=== PATIENT | female | born 1960 | race Two or more races ===

== ENCOUNTER → 2016-12-09 | Outpatient (CLI) | payer OTHER ==
[~2016-12-09] MED LIST: ATEN50TA2 PO; EPIP0.3I2 INJ; MEGE20TA PO; PERC5TAB6 PO; REST0.05 OU; SIMV20TA2 PO; VICO5TAB16 PO
--- NOTE | 2016-12-17 00:32 | ECWPNPC ---
PATIENT NAME: ARACELIS AMAYA : 1960 GENDER: FEMALE VISIT DATE: 12/09/2016 DISCHARGE DATE: 12/09/16 1244 VISIT LOCKED DATE TIME: PHYSICIAN: FILIBERTO LEIVA RESOURCE: FILIBERTO LEIVA REASON FOR APPOINTMENT 1. LEFT SHOULDER HISTORY OF PRESENT ILLNESS NEW PATIENT CONSULT: WHEN DID YOUR PAIN FIRST START? . BRIEFLY DESCRIBE HOW YOUR PAIN STARTED? . HOW DOES YOUR PAIN CHANGE WITH TIME? . DOES YOUR PAIN AWAKEN YOU FROM SLEEP? . HOW MANY HOURS OF SLEEP DO YOU NORMALLY GET? . ANY DIAGNOSTIC TESTING? . FACILITY WHERE TESTS WERE DONE? ____. PAIN TREATMENT TREATMENT YES CANCER HAVE YOU EVER HAD ANY TYPE OF CANCER?NO NO. 56Y/O FEMALE HERE PER REFERRAL OF [facility].FELL IN APRIL 19 DOWN STAIRS AND WAS SURGICALLY TREATED W LEFT SHOULDER REPLACEMENT ON AN URGENT BASIS.UNFORTUNATLEY FIRST SURGERY DIDNT TAKE AND PATIENT WAS REFERRED TO [facility] IN MARCH WHERE SHE HAD ANOTHER SURGERY WITH DR. ANDRADE.HAVING LESS SHOULDER AND ARM PAIN SINCE SURGERY BUT CONTINUES WITH LEFT UPPER ARM AND SHOULDER PAIN.DESCRIBES PAIN CONSTANT ACHING WITH INTERMITTENT THROBBING PAIN ECSPECIALLY AT NIGHT.RATING PAIN VAS 7/10.CURRENTLY DOING HOME PT.SLOWLY GAININGG ABILITY TO DO ADL'S IE ZIPPING PAINTS AND COMBING HAIR.DENIES RECENT FEVER OR SUDDEN WEIGHT LOSS.DENIES BOWEL OR BLADDER INCONTINENCE. PAIN SCREENING: PATIENT HAS A COMPLAINT OF ACUTE OR CHRONIC PAIN YES FALL RISK SCREENING: SCREENING :NO FALLS IN THE PAST YEAR LARSEN INVENTORY: QUESTIONNAIRE ASSESSEDTBD SCORE VALUE CALCULATED TBD CURRENT MEDICATIONS TAKING MEGESTROL ACETATE 20 MG TABLET 1 TABLET ORALLY DAILY TAKING SIMVASTATIN 20 MG TABLET 1 TABLET IN THE EVENING ORALLY ONCE A DAY TAKING ATENOLOL 50 MG TABLET 1 TABLET ORALLY ONCE A DAY TAKING IBUPROFEN 2 TABS ORAL 3 TIMES A DAY NEEDED TAKING PROZAC 40 MG CAPSULE 1 CAPSULE IN THE MORNING ORALLY ONCE A DAY TAKING LORAZEPAM 1 MG TABLET ORAL ONCE A DAY IF NEEDED MEDICATION LIST REVIEWED AND RECONCILED WITH THE PATIENT PAST MEDICAL HISTORY HYPERTENSION ELEVATED CHOLESTEROL ARTHRITIS NERVE STIMULATOR IMPLANT FOR BOWEL CONTROL ALLERGIES BEE STINGS: SWELLING: ALLERGY SULFA (FOR ALLERGY USE ONLY): DON'T FEEL RIGHT: ALLERGY AUGMENTIN: BLACK STOOL: ALLERGY PLAQUENIL: DIARRHEA: ALLERGY SURGICAL HISTORY LEFT BROKEN SHOULDER WITH REPAIR 04/21/2016 REVERSE TOTAL LEFT SHOULDER REPLACEMENT 05/19/2016 SACIAL NERVE STIMULATOR IMPLANT FOR BOWEL CONTROL 01/30/2012 FAMILY HISTORY FATHER: ALIVE MOTHER: , DIAGNOSED WITH CANCER 2 SON(S) . 1 SON WITH 2 HEART OPERATIONS. SOCIAL HISTORY GENERAL: PAIN CLINIC PFS, CLERGY, PUBLIC HEALTH REFERRALS PFS REFERRAL NEEDED?NO CLERGY REFERRAL NEEDED?NO PUBLIC HEALTH REFERRAL NEEDED?NO WAS THE PROVIDER NOTIFIED OF ANY PERTINENT INFO?NO PSYCHOLOGICAL HX TREATMENTNO ALCOHOL OR DRUG TREATMENTNO PATIENT: DENIES ABUSE OR MISUSE OF ANY MEDICATION, DENIES RECREATIONAL DRUG USE, DENIES USE OF ANY ILLEGAL SUBSTANCE INCLUDING MARIJUANA OR COCAINE. ADVANCED DIRECTIVES HEALTH CARE PROXY?NO POWER OF COLOR TESTER?NO SCREENING/ASSESSMENT TOOL NUTRITION ASSESSEDYES ARE YOU ON ANY SPECIAL DIET?NO ANY SIGNIFICANT CHANGES RELATED TO EATING, WEIGHT GAIN/LOSS, OR BOWEL HABITS?NO IF YES, IS YOUR PRIMARY CARE PROVIDER AWARE OF THIS?NO SPECIAL NEEDS GLASSES: NO , WALKER: NO , REFERRALS NEEDED: NO , LEVEL OF CARE? SELF , DENTURES: NO , WHEELCHAIR: NO , HEARING AIDS: NO , CANE: NO , CONTACTS: NO . TOBACCO USE ARE YOU A:NONSMOKER CAFFEINE CAFFEINE USE?YES HOW OFTEN AND HOW MUCH? 1 CUP COFFEE/DAY SOMETIMES RECREATIONAL DRUG USE DRUG USE?NO PATIENT DENIES ABUSE OR MISSUSED OF ANY MEDICATION. PATIENT DENIES USE OF ANY ILLEGAL SUBSTANCE INCLUDING MARIJUANA OR COCAINE. REVIEW OF SYSTEMS CONSTITUTIONAL: ANY CHANGE IN YOUR MEDICAL CONDITION? NO . RECENT ILLNESS DENIES . CHILLS NO . FEVER NO . WEIGHT LOSS DENIES . INFECTION: DO YOU HAVE NEW INFECTIONS? NO . DO YOU HAVE HISTORY OF MRSA? NO . MUSCULOSKELETAL: ANY NEW PATTERNS OF PAIN OR NUMBNESS? NO . SYTEMIC LUPUS NO . GASTROENTEROLOGY: ANY NEW CHANGE IN BOWEL CONTROL? NO . BARRETTS ESOPHAGUS NO . CIRRHOSIS NO . HEPATITIS NO . LIVER FAILURE NO . ACID REFLUX NO . UNEXPLAINED WEIGHT LOSS NO . GENITOURINARY: ANY NEW CHANGE IN BLADDER CONTROL? NO . IS THERE A CHANCE YOU COULD BE ? NO . HEMATOLOGY/LYMPH: DO YOU TAKE ANY BLOOD THINNERS? (FOR EXAMPLE- COUMADIN, PLAVIX, AGGRENOX, PLATEL, PRADAXA, OR XARELTO) NO . WHEN WAS YOUR LAST DOSE? DATE: TIME: . LOW PLATELET COUNT NO . SICKLE CELL DISEASE NO . VON WILLIEBRANDS NO . FACTOR V LEIDEN NO . THALLASEMIA NO . ANEMIA NO . EASY BRUISING NO . NEUROLOGY: HAVE YOU FALLEN IN THE PAST 6 MONTHS? YES, FELL OVER PET . ANY NEW EXTREMITY NUMBNESS OR WEAKNESS? NO . HEAD INJURY NO . DEMENTIA NO . CEREBRAL PALSY NO . MULTIPLE SCLEROSIS NO . DIZZINESS NO . HEADACHE NO . STROKES NO . VERTIGO NO . CARDIOLOGY: DO YOU HAVE A PACEMAKER OR DEFIBRILLATOR? NO . ANGINA NO . HEART ATTACK NO . HEART SURGERY NO . CONGESTIVE HEART FAILURE/FLUID OVERLOAD NO . CHEST PAIN NO, DENIES . HIGH BLOOD PRESSURE ON MEDICATION(S) . IRREGULAR HEART BEAT NO . SHORTNESS OF BREATH DENIES . RESPIRATORY: HAVE YOU BEEN SICK IN THE PAST WEEK? NO . FEVER NO . FLU LIKE SYMPTOMS? NO . CPAP NO . BYPAP NO . ASTHMA NO . EMPHYSEMA NO . CHRONIC LUNG DISEASES NO . SHORTNESS OF BREATH ON EXERTION NO . DO YOU USE ANY TYPE OF TOBACCO (SMOKE, SMOKELESS, CHEW)? NO . COUGH NO, DENIES . SHORTNESS OF BREATH DENIES . SNORING NO . INTEGUMENTARY: DO YOU HAVE ANY RASHES OR OPEN SORES? NO . ALLERGIC/IMMUNO: ARE YOU ALLERGIC TO SHELLFISH OR IV DYE? NO . ANY NEW ALLERGIES? NO . PSYCHIATRIC: DO YOU HAVE THOUGHTS OF HURTING YOURSELF OR SOMEONE ELSE? NO . ARE YOU ABUSED, NEGLECTED, OR IN AN UNSAFE ENVIRONMENT? NO . ENDOCRINOLOGY: ARE YOU DIABETIC? NO . THYROID DISORDER NO . OTHER: DO YOU NEED ANY PRESCRIPTIONS? NO . IF YES, PLEASE LIST: ____ . ANY NEW PROBLEMS WITH YOUR MEDICATIONS? NO . WHEN DID YOU LAST EAT? ____ . WHEN DID YOU LAST DRINK? ____ . WHAT DID YOU LAST DRINK? ____ . NAME OF PERSON DRIVING YOU HOME? ____ . DO YOU HAVE ANY OTHER QUESTIONS OR CONCERNS NO . REVIEWED BY: PROVIDER: FILIBERTO GRUBBS . VITAL SIGNS WT 194.2 LBS, HT 69 IN, BMI 28.68 INDEX, BP 194.2 MM HG, HR 73 /MIN, RR 18 /MIN, TEMP 98.0 F, OXYGEN SAT % 98%, NA INITIALS SC 11:30, REVIEWED BY: CS. EXAMINATION SHOULDER / UPPER ARM: INSPECTION:LEFT SHOULDER WELL HEALED SURGICAL SCAR NOTED. TENDERNESS WITH PALPATION OVER LEFT SHOULDER.. RANGE OF MOTION:FROM-MILD DISCOMFORT. STRENGTH:2/4 BILAT.. GENERAL EXAMINATION: LUNGS:LUNG SOUNDS ARE CLEAR. HEART:HEART RATE REGULAR. ASSESSMENTS PAIN IN LEFT SHOULDER - M25.512 (PRIMARY) CHRONIC POST-OPERATIVE PAIN - G89.28 CHRONIC PRESCRIPTION OPIATE USE - Z79.891 TREATMENT PAIN IN LEFT SHOULDER START AMITRIPTYLINE HCL TABLET, 25 MG, 1 TABLET, ORALLY, ONCE A DAY AT BEDTIME, 30 DAY(S), 30, REFILLS 2 START PERCOCET TABLET, 5-325 MG, 1 TABLET NEEDED, ORALLY, EVERY 6 HRS PRN PAIN MDD3, 30 DAY(S), 30, REFILLS 0 NOTES: ISTOP REGISTRY REVIEWED . RISKS AND BENEFITS OF NARCOTIC/OPIOD MEDICATIONS WERE REVIEWED WITH PATIENT - THIS INCLUDES BUT IS NOT LIMITED TO RISK OF DEPENDANCE/DEVELOPMENT OF ADDICTION, MOOD DISTURBANCE AND DEPRESSION, OSTEOPOROSIS, HORMONAL AND LABIDAL CHANGES, RESPIRATORY DEPRESSION AND . PATIENT IS ADVISED NOT TO DRIVE WHILE ON THESE MEDICATIONSINFORMATION GIVEN ABOUT AMITRIPTYLINE AND PERCOCET.. NARCOTIC AGREEMENT SIGNED PER ORDER. PROCEDURE CODES FA211 ESTABILISHED PATIENT [facility] CHARGE DISPOSITION & COMMUNICATION FOLLOW UP 4 WEEKS ELECTRONICALLY SIGNED BY HUMERA JAIMES ON 12/16/2016 AT 02:14 PM EDT DISCLAIMER : THIS IS A VISIT SUMMARY EXTRACTED FROM THE [employer] CHART. IT IS NOT A COPY OF THE [employer] PROGRESS NOTE. ERICK
== END ==
LOC: M PAIN 11:20
PROVIDERS: ATTEND Nurse Practitioner Family
DX: G89.29 Other chronic pain (principal); M25.512 Pain in left shoulder; G89.28 Other chronic postprocedural pain; I10 Essential (primary) hypertension; E78.00 Pure hypercholesterolemia, unspecified; M19.90 Unspecified osteoarthritis, unspecified site; Z91.030 Bee allergy status; Z88.2 Allergy status to sulfonamides; Z88.5 Allergy status to narcotic agent; Z88.8 Allergy status to other drugs, medicaments and biological substances; Z79.1 Long term (current) use of non-steroidal anti-inflammatories (NSAID); Z79.899 Other long term (current) drug therapy; Z97.8 Presence of other specified devices

== ENCOUNTER → 2017-01-06 | Outpatient (CLI) | payer OTHER ==
--- NOTE | 2017-01-07 01:50 | ECWPNPC ---
PATIENT NAME: ARACELIS AMAYA : 1960 GENDER: FEMALE VISIT DATE: 01/06/2017 DISCHARGE DATE: 01/06/17 1011 VISIT LOCKED DATE TIME: PHYSICIAN: FILIBERTO LEIVA RESOURCE: FILIBERTO LEIVA REASON FOR APPOINTMENT 1. LEFT SHOULDER HISTORY OF PRESENT ILLNESS HISTORY OF PRESENT ILLNESS: HERE FOR F/UAND MANAGEMENT OF PERSISTENT LEFT SHOULDER PAIN POST MULTIPLE SURGERIES .STARTED ON PEROCET 5/325 Q6H PRN AND AMITRIPTYLINE 25MG AT HS AT INITIAL VISIT LAST MONTH.REPORTS IMPROVEMENT IN SLEEP WITH AMITRIPTYLINE 25MG AT HS.RAN OUT OF PERCOCET 5/325 LAST WEEK AND STATES SHE STARTED A JOB AND IS HAVING INCREASE IN PAIN .HAS BEEN TAKING ONE PERCOCET IN AM PRIOR TO WORK.DISCUSSED COCNCERNS OF TAKING HYDROCODONE 5/325 DAILY.INFORMED HER THAT WE DONT WANT HER TO TAKE NARCOTICS FOR LONG PERIODS OF TIME MAYBE 3-4 MORE MONTHS AND NOT TO TAKE IN ANTICIPATION OF PAIN.SHE ALSO HAS TO CONSIDER DOING LESS STRENUOUS JOB.CONTINUES WITH DAILY STRENTHENING EXCERSISE.RATING PAIN VAS 4/10. FALL RISK SCREENING: SCREENING :NO FALLS IN THE PAST YEAR CURRENT MEDICATIONS TAKING AMITRIPTYLINE HCL 25 MG TABLET 1 TABLET ORALLY ONCE A DAY AT BEDTIME TAKING PERCOCET 5-325 MG TABLET 1 TABLET NEEDED ORALLY EVERY 6 HRS PRN PAIN MDD3 TAKING MEGESTROL ACETATE 20 MG TABLET 1 TABLET ORALLY DAILY TAKING SIMVASTATIN 20 MG TABLET 1 TABLET IN THE EVENING ORALLY ONCE A DAY TAKING ATENOLOL 50 MG TABLET 1 TABLET ORALLY ONCE A DAY TAKING IBUPROFEN 2 TABS ORAL 3 TIMES A DAY NEEDED TAKING PROZAC 40 MG CAPSULE 1 CAPSULE IN THE MORNING ORALLY ONCE A DAY TAKING LORAZEPAM 1 MG TABLET ORAL ONCE A DAY IF NEEDED MEDICATION LIST REVIEWED AND RECONCILED WITH THE PATIENT PAST MEDICAL HISTORY HYPERTENSION ELEVATED CHOLESTEROL ARTHRITIS NERVE STIMULATOR IMPLANT FOR BOWEL CONTROL ALLERGIES BEE STINGS: SWELLING: ALLERGY SULFA (FOR ALLERGY USE ONLY): DON'T FEEL RIGHT: ALLERGY AUGMENTIN: BLACK STOOL: ALLERGY PLAQUENIL: DIARRHEA: ALLERGY SOCIAL HISTORY GENERAL: PAIN CLINIC PFS, CLERGY, PUBLIC HEALTH REFERRALS CLERGY REFERRAL NEEDED?NO WAS THE PROVIDER NOTIFIED OF ANY PERTINENT INFO?NO PFS REFERRAL NEEDED?NO PUBLIC HEALTH REFERRAL NEEDED?NO CLERGY REFERRAL NEEDED?NO WAS THE PROVIDER NOTIFIED OF ANY PERTINENT INFO?NO PFS REFERRAL NEEDED?NO PUBLIC HEALTH REFERRAL NEEDED?NO PATIENT: ____, ____. REVIEW OF SYSTEMS CONSTITUTIONAL: ANY CHANGE IN YOUR MEDICAL CONDITION? NO . CHILLS NO . FEVER NO . INFECTION: DO YOU HAVE NEW INFECTIONS? NO . DO YOU HAVE HISTORY OF MRSA? NO . MUSCULOSKELETAL: ANY NEW PATTERNS OF PAIN OR NUMBNESS? NO . GASTROENTEROLOGY: ANY NEW CHANGE IN BOWEL CONTROL? NO . GENITOURINARY: ANY NEW CHANGE IN BLADDER CONTROL? NO . IS THERE A CHANCE YOU COULD BE ? NO . HEMATOLOGY/LYMPH: DO YOU TAKE ANY BLOOD THINNERS? (FOR EXAMPLE- COUMADIN, PLAVIX, AGGRENOX, PLATEL, PRADAXA, OR XARELTO) NO . WHEN WAS YOUR LAST DOSE? DATE: TIME: . NEUROLOGY: HAVE YOU FALLEN IN THE PAST 6 MONTHS? NO . ANY NEW EXTREMITY NUMBNESS OR WEAKNESS? NO . CARDIOLOGY: DO YOU HAVE A PACEMAKER OR DEFIBRILLATOR? NO . RESPIRATORY: HAVE YOU BEEN SICK IN THE PAST WEEK? NO . FEVER NO . FLU LIKE SYMPTOMS? NO . COUGH NO . INTEGUMENTARY: DO YOU HAVE ANY RASHES OR OPEN SORES? NO . ALLERGIC/IMMUNO: ARE YOU ALLERGIC TO SHELLFISH OR IV DYE? NO . ANY NEW ALLERGIES? NO . PSYCHIATRIC: DO YOU HAVE THOUGHTS OF HURTING YOURSELF OR SOMEONE ELSE? NO . ARE YOU ABUSED, NEGLECTED, OR IN AN UNSAFE ENVIRONMENT? NO . ENDOCRINOLOGY: ARE YOU DIABETIC? NO . OTHER: DO YOU NEED ANY PRESCRIPTIONS? YES PAIN MEDICAITON . IF YES, PLEASE LIST: ____ . ANY NEW PROBLEMS WITH YOUR MEDICATIONS? NO . WHEN DID YOU LAST EAT? ____ . WHEN DID YOU LAST DRINK? ____ . WHAT DID YOU LAST DRINK? ____ . NAME OF PERSON DRIVING YOU HOME? ____ . DO YOU HAVE ANY OTHER QUESTIONS OR CONCERNS NO . REVIEWED BY: PROVIDER: FILIBERTO GRUBBS . VITAL SIGNS WT 197.8 LBS, HT 69 IN, BMI 29.21 INDEX, BP 152/88 MM HG, HR 114 /MIN, RR 18 /MIN, TEMP 97.6 F, OXYGEN SAT % 96, NA INITIALS AW 0941. EXAMINATION SHOULDER / UPPER ARM: INSPECTION:LEFT SHOULDER WELL HEALED SURGICAL SCAR NOTED. TENDERNESS WITH PALPATION OVER LEFT SHOULDER.. RANGE OF MOTION:FROM-MILD DISCOMFORT. STRENGTH:2/4 BILAT.. GENERAL EXAMINATION: LUNGS:LUNG SOUNDS ARE CLEAR. HEART:HEART RATE REGULAR. ASSESSMENTS PAIN IN LEFT SHOULDER - M25.512 (PRIMARY) CHRONIC POST-OPERATIVE PAIN - G89.28 CHRONIC PRESCRIPTION OPIATE USE - Z79.891 TREATMENT PAIN IN LEFT SHOULDER REFILL AMITRIPTYLINE HCL TABLET, 25 MG, 1 TABLET, ORALLY, ONCE A DAY AT BEDTIME, 30 DAY(S), 30, REFILLS 2 INCREASE PERCOCET TABLET, 5-325 MG, 1 TABLET NEEDED, ORALLY, EVERY 6 HRS PRN PAIN MDD3, 30 DAY(S), 30, REFILLS 0 START PERCOCET TABLET, 5-325 MG, 1 TABLET NEEDED, ORALLY, EVERY 6 HRS MDD3, 30 DAY(S), 45, REFILLS 0 PROCEDURE CODES FA211 ESTABILISHED PATIENT [facility] CHARGE DISPOSITION & COMMUNICATION FOLLOW UP 2 MONTHS ELECTRONICALLY SIGNED BY HUMERA JAIMES ON 01/06/2017 AT 10:39 AM EDT DISCLAIMER : THIS IS A VISIT SUMMARY EXTRACTED FROM THE [employer] CHART. IT IS NOT A COPY OF THE [employer] PROGRESS NOTE. ERICK
== END ==
LOC: M PAIN 09:20
PROVIDERS: ATTEND Nurse Practitioner Family
DX: Z09 Encounter for follow-up examination after completed treatment for conditions other than malignant neoplasm (principal); G89.28 Other chronic postprocedural pain; M25.512 Pain in left shoulder; I10 Essential (primary) hypertension; E78.00 Pure hypercholesterolemia, unspecified; M19.90 Unspecified osteoarthritis, unspecified site; Z91.030 Bee allergy status; Z88.2 Allergy status to sulfonamides; Z88.1 Allergy status to other antibiotic agents; Z88.8 Allergy status to other drugs, medicaments and biological substances; Z79.1 Long term (current) use of non-steroidal anti-inflammatories (NSAID); Z79.899 Other long term (current) drug therapy

== ENCOUNTER → 2017-01-06 | Outpatient (CLI) | payer OTHER ==
[2017-01-06 11:01] LABS: BASO % 0.9 % (0.0-1.0); EOS # 0.2 K/mm3 (0.0-0.50); EOS % 4.2 % (0.0-3.0); LARGE UNSTAINED CELL # 0.1 K/mm3 (0.0-0.4); LARGE UNSTAINED CELL % 2.9 % (0.0-4.0); LYMPH % 45.6 % (24.0-44.0); MEAN CORPUSCULAR HEMOGLOBIN 32.4 pg (27.0-33.0); MEAN CORPUSCULAR HGB CONC 32.9 g/dl (32.0-36.5); MEAN CORPUSCULAR VOLUME 98.6 fl (80.0-96.0); MONO # 0.3 K/mm3 (0.0-0.8); MONO % 8.3 % (0.0-5.0); NEUTROPHILS # 1.6 K/mm3 (1.8-7.7); NEUTROPHILS % 38.1 % (36.0-66.0); PLATELET COUNT, AUTOMATED 245 k/mm3 (150-450); RED CELL DISTRIBUTION WIDTH 12.1 % (11.5-14.5); WHITE BLOOD COUNT 4.1 K/mm3 (4.0-10.0)
[2017-01-06 11:21] LABS: ALBUMIN 3.9 GM/DL (3.2-5.2); ALBUMIN/GLOBULIN RATIO 1.03 (1.00-1.93); ALKALINE PHOSPHATASE 89 U/L (45-117); ALT/SGPT 19 U/L (12-78); ANION GAP 7 MEQ/L (8-16); AST/SGOT 19 U/L (15-37); BILIRUBIN,TOTAL 0.3 MG/DL (0.2-1.0); BLOOD UREA NITROGEN 14 MG/DL (7-18); CALCIUM LEVEL 8.4 MG/DL (8.5-10.1); CARBON DIOXIDE LEVEL 28 MEQ/L (21-32); CHLORIDE LEVEL 110 MEQ/L (98-107); CHOLESTEROL LEVEL 177 MG/DL (<200); CREATININE FOR GFR 0.76 MG/DL (0.55-1.02); GLOMERULAR FILTRATION RATE > 60.0 (>51); GLUCOSE, FASTING 99 MG/DL (70-105); POTASSIUM SERUM 3.9 MEQ/L (3.5-5.1); SODIUM LEVEL 145 MEQ/L (136-145); TOTAL PROTEIN 7.7 GM/DL (6.4-8.2); TRIGLYCERIDES LEVEL 180 MG/DL (<150)
== END ==
LOC: M LAB 10:27
PROVIDERS: ATTEND Family Medicine
DX: Z00.00 Encounter for general adult medical examination without abnormal findings (principal)

== ENCOUNTER → 2017-03-09 | Outpatient (CLI) | payer OTHER ==
--- NOTE | 2017-03-11 01:11 | ECWPNPC ---
PATIENT NAME: ARACELIS AMAYA : 1960 GENDER: FEMALE VISIT DATE: 03/09/2017 DISCHARGE DATE: 03/09/17 1014 VISIT LOCKED DATE TIME: PHYSICIAN: FILIBERTO LEIVA RESOURCE: FILIBERTO LEIVA REASON FOR APPOINTMENT 1. LEFT SHOULDER HISTORY OF PRESENT ILLNESS HISTORY OF PRESENT ILLNESS: HERE FOR F/U OF PERSISTENT LEFT SHOULDER PAIN STATUS POST TWO SHOULDER SURGERIES IN MARCH AND APRIL 2016.INCREASE IN LEFT SHOULDER PAIN AFTER FALLING OFF BED 2 DAYS AGO.HAS BRUISING OVER LEFT ARM.RATING PAIN VAS 8/10.DESCRIBES PAIN ACHING AND THROBBING.PAIN IS AGGREVATED BY USE OF LEFT ARM.RELIEVED SOMEWHAT WITH HEAT OR ICE AND PERCOCET 5/325.USING 1 TAB IN AM AND ONE LATE AFTERNOON. PAIN THE PATIENT DESCRIBES THE PAIN... FALL RISK SCREENING: SCREENING :NO FALLS IN THE PAST YEAR CURRENT MEDICATIONS TAKING MEGESTROL ACETATE 20 MG TABLET 1 TABLET ORALLY DAILY TAKING SIMVASTATIN 20 MG TABLET 1 TABLET IN THE EVENING ORALLY ONCE A DAY TAKING ATENOLOL 50 MG TABLET 1 TABLET ORALLY ONCE A DAY TAKING IBUPROFEN 200 MGS 2 TABS ORAL 3 TIMES A DAY NEEDED TAKING LORAZEPAM 1 MG TABLET ORAL ONCE A DAY IF NEEDED TAKING PERCOCET 5-325 MG TABLET 1 TABLET NEEDED ORALLY Q6-8H PRN MDD3-THIS MUST LAST PATIENT 30 DAYS TAKING AMITRIPTYLINE HCL 25 MG TABLET 1 TABLET ORALLY ONCE A DAY AT BEDTIME NOT-TAKING PROZAC 40 MG CAPSULE 1 CAPSULE IN THE MORNING ORALLY ONCE A DAY DISCONTINUED PERCOCET 5-325 MG TABLET 1 TABLET NEEDED ORALLY EVERY 6 HRS PRN PAIN MDD3 MEDICATION LIST REVIEWED AND RECONCILED WITH THE PATIENT PAST MEDICAL HISTORY HYPERTENSION ELEVATED CHOLESTEROL ARTHRITIS NERVE STIMULATOR IMPLANT FOR BOWEL CONTROL ALLERGIES BEE STINGS: SWELLING: ALLERGY SULFA (FOR ALLERGY USE ONLY): DON'T FEEL RIGHT: ALLERGY AUGMENTIN: BLACK STOOL: ALLERGY PLAQUENIL: DIARRHEA: ALLERGY REVIEW OF SYSTEMS CONSTITUTIONAL: ANY CHANGE IN YOUR MEDICAL CONDITION? NO . CHILLS NO . FEVER NO . INFECTION: DO YOU HAVE NEW INFECTIONS? NO . DO YOU HAVE HISTORY OF MRSA? NO . MUSCULOSKELETAL: ANY NEW PATTERNS OF PAIN OR NUMBNESS? YES, PAIN TOP OF LEFT SHOULDER AND LEFT ELBOW SINCE FALLING OUT OF BED ON SAT. . GASTROENTEROLOGY: ANY NEW CHANGE IN BOWEL CONTROL? NO . GENITOURINARY: ANY NEW CHANGE IN BLADDER CONTROL? NO . IS THERE A CHANCE YOU COULD BE ? NO . HEMATOLOGY/LYMPH: DO YOU TAKE ANY BLOOD THINNERS? (FOR EXAMPLE- COUMADIN, PLAVIX, AGGRENOX, PLATEL, PRADAXA, OR XARELTO) NO . WHEN WAS YOUR LAST DOSE? DATE: TIME: . NEUROLOGY: HAVE YOU FALLEN IN THE PAST 6 MONTHS? YES,SAT. FELL OUT OF BED. LEFT SHOULDER AND ELBOW NOW PAINFUL. MULTIPLE BRUISES ON ARM. SHE DID NOT GET SEEN FOR IT. STATED IT JUST STARTED HURTING YEST. . ANY NEW EXTREMITY NUMBNESS OR WEAKNESS? NO . CARDIOLOGY: DO YOU HAVE A PACEMAKER OR DEFIBRILLATOR? NO . RESPIRATORY: HAVE YOU BEEN SICK IN THE PAST WEEK? NO . FEVER NO . FLU LIKE SYMPTOMS? NO . COUGH NO . INTEGUMENTARY: DO YOU HAVE ANY RASHES OR OPEN SORES? NO . ALLERGIC/IMMUNO: ARE YOU ALLERGIC TO SHELLFISH OR IV DYE? NO . ANY NEW ALLERGIES? NO . PSYCHIATRIC: DO YOU HAVE THOUGHTS OF HURTING YOURSELF OR SOMEONE ELSE? NO . ARE YOU ABUSED, NEGLECTED, OR IN AN UNSAFE ENVIRONMENT? NO . ENDOCRINOLOGY: ARE YOU DIABETIC? NO . OTHER: DO YOU NEED ANY PRESCRIPTIONS? YES . IF YES, PLEASE LIST: PERCOCET . ANY NEW PROBLEMS WITH YOUR MEDICATIONS? NO . WHEN DID YOU LAST EAT? ____ . WHEN DID YOU LAST DRINK? ____ . WHAT DID YOU LAST DRINK? ____ . NAME OF PERSON DRIVING YOU HOME? ____ . DO YOU HAVE ANY OTHER QUESTIONS OR CONCERNS NO . REVIEWED BY: PROVIDER: FILIBERTO RGUBBS . VITAL SIGNS WT 197.2 LBS, HT 69 IN, BMI 29.12 INDEX, BP 129/85 MM HG, HR 89 /MIN, RR 16 /MIN, TEMP 96.9 F, OXYGEN SAT % 98%, NA INITIALS TL 0947, REVIEWED BY: AD. EXAMINATION SHOULDER / UPPER ARM: INSPECTION:LEFT SHOULDER WELL HEALED SURGICAL SCAR NOTED. TENDERNESS WITH PALPATION OVER LEFT SHOULDER.. RANGE OF MOTION:FROM-MILD DISCOMFORT. STRENGTH:2/4 BILAT.. GENERAL EXAMINATION: LUNGS:LUNG SOUNDS ARE CLEAR. HEART:HEART RATE REGULAR. ASSESSMENTS PAIN IN LEFT SHOULDER - M25.512 (PRIMARY) CHRONIC PRESCRIPTION OPIATE USE - Z79.891 TREATMENT PAIN IN LEFT SHOULDER INCREASE PERCOCET TABLET, 5-325 MG, 1 TABLET NEEDED, ORALLY, 1-2 TAB QD MDD2, 30 DAY(S), 60, REFILLS 0 CONTINUE AMITRIPTYLINE HCL TABLET, 25 MG, 1 TABLET, ORALLY, ONCE A DAY AT BEDTIME, 90 DAY(S), 90, REFILLS 2 [facility] WAS NOTIFIED AT 1116 TO CANCEL PERCOCET PRESCRIPTION. PROCEDURE CODES FA211 ESTABILISHED PATIENT [facility] CHARGE DISPOSITION & COMMUNICATION FOLLOW UP 4 WEEKS ELECTRONICALLY SIGNED BY HUMERA JAIMES ON 03/09/2017 AT 01:17 PM EDT DISCLAIMER : THIS IS A VISIT SUMMARY EXTRACTED FROM THE [facility] CHART. IT IS NOT A COPY OF THE [facility] PROGRESS NOTE. ERICK
== END ==
LOC: M PAIN 09:00
PROVIDERS: ATTEND Nurse Practitioner Family
DX: M25.512 Pain in left shoulder (principal); Z79.891 Long term (current) use of opiate analgesic; Z91.030 Bee allergy status; Z88.2 Allergy status to sulfonamides; Z88.1 Allergy status to other antibiotic agents; Z88.8 Allergy status to other drugs, medicaments and biological substances

== ENCOUNTER → 2017-04-21 | Outpatient (REF) | payer OTHER ==
[~2017-04-21] MED LIST changes: +ALPR1TAB6 PO; +FLUO20CA8 PO; -MEGE20TA PO; +MEGE20TA3 PO; +PERC5TAB12 PO; -PERC5TAB6 PO
== END ==
LOC: M LAB REF 16:36
PROVIDERS: ATTEND Nurse Practitioner Women's Health
DX: N39.0 Urinary tract infection, site not specified (principal)

== ENCOUNTER → 2017-05-12 | Outpatient (CLI) | payer OTHER ==
--- NOTE | 2017-05-12 23:16 | ECWPNPC ---
PATIENT NAME: ARACELIS AMAYA : 1960 GENDER: FEMALE VISIT DATE: 05/12/2017 DISCHARGE DATE: 05/12/17 1342 VISIT LOCKED DATE TIME: PHYSICIAN: FILIBERTO LEIVA RESOURCE: FILIBERTO LEIVA REASON FOR APPOINTMENT 1. INCREASING SHOULDER PAIN HISTORY OF PRESENT ILLNESS HISTORY OF PRESENT ILLNESS: HERE FOR F/U OF PERSISTENT LEFT SHOULDER PAIN STATUS POST TWO SHOULDER SURGERIES IN MARCH AND APRIL 2016.INCREASE IN LEFT SHOULDER PAIN OVER THE PAST TWO WEEKS.DENIES PRECIPITATING EVENT.FINDING IT DIFFICULT TO DO HER WORK.RATING PAIN VAS 8/10.DESCRIBES PAIN ACHING AND THROBBING.PAIN IS AGGREVATED BY USE OF LEFT ARM.RELIEVED SOMEWHAT WITH HEAT OR ICE AND PERCOCET 5/325 PRN FOR SEVERE PAIN WHICH IS HELPFUL. PAIN THE PATIENT DESCRIBES THE PAIN... THE PATIENT DESCRIBES THE PAIN... FALL RISK SCREENING: SCREENING :NO FALLS IN THE PAST YEAR CURRENT MEDICATIONS TAKING MEGESTROL ACETATE 20 MG TABLET 1 TABLET ORALLY DAILY TAKING SIMVASTATIN 20 MG TABLET 1 TABLET IN THE EVENING ORALLY ONCE A DAY TAKING ATENOLOL 50 MG TABLET 1 TABLET ORALLY ONCE A DAY TAKING IBUPROFEN 200 MGS 2 TABS ORAL 3 TIMES A DAY NEEDED TAKING LORAZEPAM 1 MG TABLET ORAL ONCE A DAY IF NEEDED TAKING AMITRIPTYLINE HCL 25 MG TABLET 1 TABLET ORALLY ONCE A DAY AT BEDTIME TAKING PERCOCET 5-325 MG TABLET 1 TABLET NEEDED ORALLY 1-2 TAB DAILY MDD2 NOT-TAKING PROZAC 40 MG CAPSULE 1 CAPSULE IN THE MORNING ORALLY ONCE A DAY MEDICATION LIST REVIEWED AND RECONCILED WITH THE PATIENT PAST MEDICAL HISTORY HYPERTENSION ELEVATED CHOLESTEROL ARTHRITIS NERVE STIMULATOR IMPLANT FOR BOWEL CONTROL ALLERGIES BEE STINGS: SWELLING: ALLERGY SULFA (FOR ALLERGY USE ONLY): DON'T FEEL RIGHT: ALLERGY AUGMENTIN: BLACK STOOL: ALLERGY PLAQUENIL: DIARRHEA: ALLERGY SURGICAL HISTORY LEFT BROKEN SHOULDER WITH REPAIR 04/21/2016 REVERSE TOTAL LEFT SHOULDER REPLACEMENT 05/19/2016 SACIAL NERVE STIMULATOR IMPLANT FOR BOWEL CONTROL 01/30/2012 SOCIAL HISTORY GENERAL: PAIN CLINIC PFS, CLERGY, PUBLIC HEALTH REFERRALS PFS REFERRAL NEEDED?NO CLERGY REFERRAL NEEDED?NO PUBLIC HEALTH REFERRAL NEEDED?NO WAS THE PROVIDER NOTIFIED OF ANY PERTINENT INFO?NO HAS THE PATIENT BEEN EDUCATED REGARDING HIS/HER PLAN OF CARE?YES HAS THE PATIENT BEEN EDUCATED REGARDING PAIN, THE RISK FOR PAIN, THE IMPORTANCE OF EFFECTIVE PAIN MANAGEMENT, AND THE PAIN ASSESSMENT PROCESS?YES PATIENT: ____, ____. REVIEW OF SYSTEMS REVIEWED BY: PROVIDER: FILIBERTO GRUBBS . CONSTITUTIONAL: ANY CHANGE IN YOUR MEDICAL CONDITION? NO . CHILLS NO . FEVER NO . INFECTION: DO YOU HAVE NEW INFECTIONS? NO . DO YOU HAVE HISTORY OF MRSA? NO . MUSCULOSKELETAL: ANY NEW PATTERNS OF PAIN OR NUMBNESS? NO . GASTROENTEROLOGY: ANY NEW CHANGE IN BOWEL CONTROL? NO . GENITOURINARY: ANY NEW CHANGE IN BLADDER CONTROL? NO . IS THERE A CHANCE YOU COULD BE ? NO . HEMATOLOGY/LYMPH: DO YOU TAKE ANY BLOOD THINNERS? (FOR EXAMPLE- COUMADIN, PLAVIX, AGGRENOX, PLATEL, PRADAXA, OR XARELTO) NO . WHEN WAS YOUR LAST DOSE? DATE: TIME: . NEUROLOGY: HAVE YOU FALLEN IN THE PAST 6 MONTHS? NO . ANY NEW EXTREMITY NUMBNESS OR WEAKNESS? NO . CARDIOLOGY: DO YOU HAVE A PACEMAKER OR DEFIBRILLATOR? NO.DENIES CHEST PAIN ,PALPITATIONS OR SOB. . RESPIRATORY: HAVE YOU BEEN SICK IN THE PAST WEEK? NO . FEVER NO . FLU LIKE SYMPTOMS? NO . COUGH NO . INTEGUMENTARY: DO YOU HAVE ANY RASHES OR OPEN SORES? NO . ALLERGIC/IMMUNO: ARE YOU ALLERGIC TO SHELLFISH OR IV DYE? NO . ANY NEW ALLERGIES? NO . PSYCHIATRIC: DO YOU HAVE THOUGHTS OF HURTING YOURSELF OR SOMEONE ELSE? NO . ARE YOU ABUSED, NEGLECTED, OR IN AN UNSAFE ENVIRONMENT? NO . ENDOCRINOLOGY: ARE YOU DIABETIC? NO . OTHER: DO YOU NEED ANY PRESCRIPTIONS? YES . IF YES, PLEASE LIST: OXYCODONE . ANY NEW PROBLEMS WITH YOUR MEDICATIONS? NO . WHEN DID YOU LAST EAT? ____ . WHEN DID YOU LAST DRINK? ____ . WHAT DID YOU LAST DRINK? ____ . NAME OF PERSON DRIVING YOU HOME? ____ . DO YOU HAVE ANY OTHER QUESTIONS OR CONCERNS NO . VITAL SIGNS WT 199 LBS, HT 69 IN, BMI 29.38 INDEX, BP 139/97 MM HG, REPEAT BP 154/106 MM HG, HR 130 /MIN, RR 16 /MIN, TEMP 97.0 F, OXYGEN SAT % 96%, NA INITIALS 44705/15/17 1250 HR 126. CM SINUS TACHYCARDIA. DENIES PALPITATIONS, CHEST PAIN, OR SOB. STATES DID NOT TAKE ATENOLOL THIS AM. Aure CHOWDHURY RN. EXAMINATION SHOULDER / UPPER ARM: INSPECTION:LEFT SHOULDER WELL HEALED SURGICAL SCAR NOTED. TENDERNESS WITH PALPATION OVER LEFT SHOULDER.. RANGE OF MOTION:FROM-MILD DISCOMFORT. STRENGTH:2/4 BILAT.. GENERAL EXAMINATION: LUNGS:LUNG SOUNDS ARE CLEAR. HEART:HEART RATE REGULAR. ASSESSMENTS PAIN IN LEFT SHOULDER - M25.512 (PRIMARY) CHRONIC PRESCRIPTION OPIATE USE - Z79.891 TREATMENT PAIN IN LEFT SHOULDER CONTINUE AMITRIPTYLINE HCL TABLET, 25 MG, 1 TABLET, ORALLY, ONCE A DAY AT BEDTIME REFILL PERCOCET TABLET, 5-325 MG, 1 TABLET NEEDED, ORALLY, 1-2 TAB DAILY MDD2, 30 DAY(S), 45, REFILLS 0 NOTES: ISTOP REGISTRY REVIEWED AND DEMNOSTRATES COMPLLIANCE. BRINGS IN MEDICATIONS WHICH IS APPROPRIATE FOR WHAT WAS DISPENSED. RECENT URINE TOXICOLOGY REVIEWED. NO UNAUTHORIZED MEDICATIONS. NO ILLICIT SUBSTANCES AND PRESCRIBED MEDICATIONS WERE PRESENT. , RISKS AND BENEFITS OF NARCOTIC/OPIOD MEDICATIONS WERE REVIEWED WITH PATIENT - THIS INCLUDES BUT IS NOT LIMITED TO RISK OF DEPENDANCE/DEVELOPMENT OF ADDICTION, MOOD DISTURBANCE AND DEPRESSION, OSTEOPOROSIS, HORMONAL AND LABIDAL CHANGES, RESPIRATORY DEPRESSION AND . PATIENT IS ADVISED NOT TO DRIVE WHILE ON THESE MEDICATIONS.URINE TOX TODAY. PROCEDURE CODES FA211 ESTABILISHED PATIENT [facility] CHARGE DISPOSITION & COMMUNICATION FOLLOW UP 6 WEEKS ELECTRONICALLY SIGNED BY HUMERA JAIMES ON 05/12/2017 AT 04:11 PM EDT DISCLAIMER : THIS IS A VISIT SUMMARY EXTRACTED FROM THE Travel Notes CHART. IT IS NOT A COPY OF THE Travel Notes PROGRESS NOTE. MTDD
== END ==
LOC: M PAIN 12:45
PROVIDERS: ATTEND Nurse Practitioner Family
DX: M25.512 Pain in left shoulder (principal); Z79.891 Long term (current) use of opiate analgesic; Z79.899 Other long term (current) drug therapy; Z91.030 Bee allergy status; Z88.2 Allergy status to sulfonamides; Z88.1 Allergy status to other antibiotic agents; Z88.8 Allergy status to other drugs, medicaments and biological substances

== ENCOUNTER 2017-06-25 21:09 | Emergency (ER) | payer OTHER ==
[~2017-06-25] VITALS: Ht 175.3 cm; Wt 86.4 kg
[~2017-06-25 21:09] MED LIST changes: -ALPR1TAB6 PO; -FLUO20CA8 PO
[2017-06-25] MEDS ORDERED: ALPR1TAB6 PO (21:18)
[2017-06-25] MEDS ORDERED: FLUO20CA8 PO (21:18)
--- NOTE | 2017-06-25 23:50 | REPUSA ---
CT of the cervical spine Clinical history: Pain. Trauma. Technique: Multiple axial CT images were obtained through the cervical spine without administration o f contrast. Coronal and sagittal 3-D reconstructed images were also obtained. Comparison: None. Findings: The cervical vertebral bodies are in satisfactory positioning and alignment. No fractures or dislocat ions are demonstrated. The odontoid process is intact. Intervertebral disc spaces are well-maintained . There is moderate facet arthropathy bilaterally with sclerosis and osteophytes. There is no evidenc e of facet subluxation. The neural foramen appear grossly patent. The cervical cranial junction is in tact. The cervical spinal canal demonstrates normal caliber and contour without evidence of spinal st enosis. The surrounding soft tissues are within normal limits. Impression: No acute fractures or traumatic injuries. Mild facet degenerative changes.
--- NOTE | 2017-06-25 23:50 | REPUSA ---
CT of the facial bones without contrast Clinical history: Pain, trauma. Technique: Multiple axial CT images were obtained through the facial bones and paranasal sinuses util izing 3 mm axial slices without administration of contrast. Coronal and sagittal reconstructions were also obtained. Findings: The visualized paranasal sinuses are clear. The osteomeatal complexes are patent bilaterall y. The nasal septum is midline. The visualized mastoid air cells are clear. The osseous structures do not demonstrate any acute abnormalities. The superficial soft tissues are within normal limits. Impression: Unremarkable CT examination of the facial bones and paranasal sinuses.
--- NOTE | 2017-06-25 23:50 | REPUSA ---
CT of the head Clinical history: Trauma. Technique: Multiple axial CT images were obtained through the head without administration of contrast . Comparison: None. Findings: The ventricles and sulci are symmetric bilaterally. There is no evidence of acute hemorrhag e or infarct. There is no midline shift, mass effect, or extra-axial fluid collection. The osseous st ructures are unremarkable. The visualized paranasal sinuses and mastoid air cells are clear. Impression: Negative study.
[2017-06-26 00:28] VITALS: BP 122/80
== END 2017-06-26 00:30 | disposition home or self-care (01) ==
LOC: M ED 21:09
DX: F10.129 Alcohol abuse with intoxication, unspecified (principal); W01.198A Fall on same level from slipping, tripping and stumbling with subsequent striking against other object, initial encounter; Y92.099 Unspecified place in other non-institutional residence as the place of occurrence of the external cause; Y93.01 Activity, walking, marching and hiking; Y99.9 Unspecified external cause status

== ENCOUNTER → 2017-07-06 | Outpatient (CLI) | payer OTHER ==
[~2017-07-06] MED LIST changes: +ALPR1TAB6 PO; +FLUO20CA8 PO
--- NOTE | 2017-07-22 01:13 | ECWPNPC ---
PATIENT NAME: ARACELIS AMAYA : 1960 GENDER: FEMALE VISIT DATE: 07/06/2017 DISCHARGE DATE: 07/06/17 1343 VISIT LOCKED DATE TIME: PHYSICIAN: FILIBERTO LEIVA RESOURCE: FILIBERTO LEIVA REASON FOR APPOINTMENT 1. L SHOULDER HISTORY OF PRESENT ILLNESS HISTORY OF PRESENT ILLNESS: HERE FOR F/U OF PERSISTENT LEFT SHOULDER AND ARM PAIN.RATING PAIN VAS 4/10.URINE TOXICOLOGY IS REVIEWED TODAY THAT WAS OBTAINED AT 05-12-17 VISIT.THIS IS SHOWING LARGE AMOUNT OF HYDROCODONE,CODEINE AND HYDROMORPHONE.PATIENT STATES SHE DOESNT KNOW WHAT HYDROCODONE IS.ADMITS TO TAKING TYLENOL WITH CODEINE THAT SHE PURCHASES IN [place] EXPLAINED THIS IS AGAINST NARCOTIC AGREEMENT. PAIN THE PATIENT DESCRIBES THE PAIN... FALL RISK SCREENING: SCREENING :NO FALLS IN THE PAST YEAR CURRENT MEDICATIONS TAKING MEGESTROL ACETATE 20 MG TABLET 1 TABLET ORALLY DAILY TAKING SIMVASTATIN 20 MG TABLET 1 TABLET IN THE EVENING ORALLY ONCE A DAY TAKING ATENOLOL 50 MG TABLET 1 TABLET ORALLY ONCE A DAY TAKING IBUPROFEN 200 MGS 2 TABS ORAL 3 TIMES A DAY NEEDED TAKING LORAZEPAM 1 MG TABLET ORAL ONCE A DAY IF NEEDED TAKING PERCOCET 5-325 MG TABLET 1 TABLET NEEDED ORALLY 1-2 TAB DAILY MDD2 TAKING AMITRIPTYLINE HCL 25 MG TABLET 1 TABLET ORALLY ONCE A DAY AT BEDTIME UNKNOWN PROZAC 40 MG CAPSULE 1 CAPSULE IN THE MORNING ORALLY ONCE A DAY MEDICATION LIST REVIEWED AND RECONCILED WITH THE PATIENT PAST MEDICAL HISTORY HYPERTENSION ELEVATED CHOLESTEROL ARTHRITIS NERVE STIMULATOR IMPLANT FOR BOWEL CONTROL ALLERGIES BEE STINGS: SWELLING: ALLERGY SULFA (FOR ALLERGY USE ONLY): DON'T FEEL RIGHT: ALLERGY AUGMENTIN: BLACK STOOL: ALLERGY PLAQUENIL: DIARRHEA: ALLERGY SURGICAL HISTORY LEFT BROKEN SHOULDER WITH REPAIR 04/21/2016 REVERSE TOTAL LEFT SHOULDER REPLACEMENT 05/19/2016 SACIAL NERVE STIMULATOR IMPLANT FOR BOWEL CONTROL 01/30/2012 SOCIAL HISTORY GENERAL: PAIN CLINIC PFS, CLERGY, PUBLIC HEALTH REFERRALS PFS REFERRAL NEEDED?NO CLERGY REFERRAL NEEDED?NO PUBLIC HEALTH REFERRAL NEEDED?NO WAS THE PROVIDER NOTIFIED OF ANY PERTINENT INFO?NO HAS THE PATIENT BEEN EDUCATED REGARDING HIS/HER PLAN OF CARE?YES HAS THE PATIENT BEEN EDUCATED REGARDING PAIN, THE RISK FOR PAIN, THE IMPORTANCE OF EFFECTIVE PAIN MANAGEMENT, AND THE PAIN ASSESSMENT PROCESS?YES PATIENT: ____, ____. REVIEW OF SYSTEMS REVIEWED BY: PROVIDER: FILIBERTO GRUBBS . CONSTITUTIONAL: ANY CHANGE IN YOUR MEDICAL CONDITION? NO . CHILLS NO . FEVER NO . INFECTION: DO YOU HAVE NEW INFECTIONS? NO . DO YOU HAVE HISTORY OF MRSA? NO . MUSCULOSKELETAL: ANY NEW PATTERNS OF PAIN OR NUMBNESS? NO . GASTROENTEROLOGY: ANY NEW CHANGE IN BOWEL CONTROL? NO . GENITOURINARY: ANY NEW CHANGE IN BLADDER CONTROL? NO . IS THERE A CHANCE YOU COULD BE ? NO . HEMATOLOGY/LYMPH: DO YOU TAKE ANY BLOOD THINNERS? (FOR EXAMPLE- COUMADIN, PLAVIX, AGGRENOX, PLATEL, PRADAXA, OR XARELTO) NO . WHEN WAS YOUR LAST DOSE? DATE: TIME: . NEUROLOGY: HAVE YOU FALLEN IN THE PAST 6 MONTHS? NO . ANY NEW EXTREMITY NUMBNESS OR WEAKNESS? NO . CARDIOLOGY: DO YOU HAVE A PACEMAKER OR DEFIBRILLATOR? NO, PT STATES SHE HAS SEEN HER PCP (DR. Pinky ABAD) FOR TACHYCARDIA (HR 130'S), AND PT HAS BEEN REFERED TO LUBRICATION SUPERVISOR 07/24/17 . RESPIRATORY: HAVE YOU BEEN SICK IN THE PAST WEEK? NO . FEVER NO . FLU LIKE SYMPTOMS? NO . COUGH NO . INTEGUMENTARY: DO YOU HAVE ANY RASHES OR OPEN SORES? NO . ALLERGIC/IMMUNO: ARE YOU ALLERGIC TO SHELLFISH OR IV DYE? NO . ANY NEW ALLERGIES? NO . PSYCHIATRIC: DO YOU HAVE THOUGHTS OF HURTING YOURSELF OR SOMEONE ELSE? NO . ARE YOU ABUSED, NEGLECTED, OR IN AN UNSAFE ENVIRONMENT? NO . ENDOCRINOLOGY: ARE YOU DIABETIC? NO . OTHER: DO YOU NEED ANY PRESCRIPTIONS? YES, OXYCODONE AND AMITRIPTYLINE, PT IS COMPLETELY OUT OF AMITRIPTYLINE AND IS ASKING FOR 1 MONTH SCRIPT IN ADDITION TO REFILL . IF YES, PLEASE LIST: ____ . ANY NEW PROBLEMS WITH YOUR MEDICATIONS? NO . WHEN DID YOU LAST EAT? ____ . WHEN DID YOU LAST DRINK? ____ . WHAT DID YOU LAST DRINK? ____ . NAME OF PERSON DRIVING YOU HOME? ____ . DO YOU HAVE ANY OTHER QUESTIONS OR CONCERNS NO . VITAL SIGNS WT 207 LBS, HT 69 IN, BMI 30.57 INDEX, BP 130/83 MM HG, HR 83 /MIN, RR 16 /MIN, TEMP 98.1 F, OXYGEN SAT % 96, REVIEWED BY: EM. EXAMINATION SHOULDER / UPPER ARM: INSPECTION:LEFT SHOULDER WELL HEALED SURGICAL SCAR NOTED. TENDERNESS WITH PALPATION OVER LEFT SHOULDER.. RANGE OF MOTION:FROM-MILD DISCOMFORT. STRENGTH:2/4 BILAT.. GENERAL EXAMINATION: LUNGS:LUNG SOUNDS ARE CLEAR. HEART:HEART RATE REGULAR. ASSESSMENTS PAIN IN LEFT SHOULDER - M25.512 (PRIMARY) CHRONIC PRESCRIPTION OPIATE USE - Z79.891 TREATMENT PAIN IN LEFT SHOULDER STOP PERCOCET TABLET, 5-325 MG, 1 TABLET NEEDED, ORALLY, 1-2 TAB DAILY MDD2 NOTES: ISTOP REGISTRY REVIEWED [id number] . RECENT URINE TOXICOLOGY REVIEWED. SHOWING LARGE AMOUNTS OF NARCOTIC MEDICATIONS THAT WE DONT PRESCRIBE AND NOT ON ISTOP .. NO ILLICIT SUBSTANCES AND PRESCRIBED MEDICATIONS WERE PRESENT. URINE TOX TODAY. PROCEDURE CODES FA211 ESTABILISHED PATIENT [facility] FACILITY CHARGE DISPOSITION & COMMUNICATION FOLLOW UP 2 WEEKS ELECTRONICALLY SIGNED BY HUMERA JAIMES ON 07/21/2017 AT 08:24 AM EDT DISCLAIMER : THIS IS A VISIT SUMMARY EXTRACTED FROM THE [employer] CHART. IT IS NOT A COPY OF THE [employer] PROGRESS NOTE. MTDD
== END ==
LOC: M PAIN 13:00
PROVIDERS: ATTEND Nurse Practitioner Family
DX: M25.512 Pain in left shoulder (principal); Z79.891 Long term (current) use of opiate analgesic; Z79.899 Other long term (current) drug therapy; I10 Essential (primary) hypertension; Z91.030 Bee allergy status; Z88.3 Allergy status to other anti-infective agents; Z88.1 Allergy status to other antibiotic agents; Z88.8 Allergy status to other drugs, medicaments and biological substances

== ENCOUNTER → 2017-11-02 | Outpatient (REF) | payer OTHER ==
[2017-11-02 13:42] LABS: APPEARANCE, URINE HAZY (CLEAR); BACTERIA, URINE AUTO 1+ (NEGATIVE); BILIRUBIN, URINE AUTO NEGATIVE (NEGATIVE); BLOOD, URINE BLOOD NEGATIVE (NEGATIVE); COLOR, URINE YELLOW (YELLOW); GLUCOSE, URINE (UA) AUTO NEGATIVE (NEGATIVE); KETONE, URINE AUTO NEGATIVE (NEGATIVE); LEUKOCYTE ESTERASE, URINE AUTO TRACE (NEGATIVE); MUCUS, URINE SMALL (NEGATIVE); NITRITE, URINE AUTO POSITIVE (NEGATIVE); PROTEIN, URINE AUTO NEGATIVE (NEGATIVE); RBC, URINE AUTO 3 /HPF (0-3); SPECIFIC GRAVITY URINE AUTO 1.013 (1.002-1.035); SQUAMOUS EPITHELIAL CELL UR AU 0 /HPF (0-6); UROBILINOGEN, URINE AUTO 0.2 mg/dL (0.0-2.0); WBC, URINE AUTO 4 /HPF (0-3)
== END ==
LOC: M LAB REF 13:08
DX: N39.0 Urinary tract infection, site not specified (principal)

== ENCOUNTER → 2018-01-25 | Outpatient (CLI) | payer OTHER ==
[2018-01-25 18:17] LABS: BASO % 0.7 % (0.0-1.0); EOS # 0.2 10^3/uL (0.0-0.50); EOS % 2.6 % (0.0-3.0); IMMATURE GRANULOCYTE % 0.3 % (0-3.0); LYMPH # 1.9 10^3/uL (1.5-4.5); LYMPH % 31.3 % (24.0-44.0); MEAN CORPUSCULAR HEMOGLOBIN 33.3 pg (27.0-33.0); MEAN CORPUSCULAR HGB CONC 33.3 g/dl (32.0-36.5); MONO # 0.6 10^3/uL (0.0-0.8); MONO % 10.4 % (0.0-5.0); NEUTROPHILS # 3.4 10^3/uL (1.8-7.7); NEUTROPHILS % 54.7 % (36.0-66.0); PLATELET COUNT, AUTOMATED 256 10^3/uL (150-450); RED CELL DISTRIBUTION WIDTH 12.6 % (11.5-14.5); WHITE BLOOD COUNT 6.1 10^3/uL (4.0-10.0)
[2018-01-25 19:15] LABS: ALBUMIN 4.3 GM/DL (3.2-5.2); ALBUMIN/GLOBULIN RATIO 1.08 (1.00-1.93); ALKALINE PHOSPHATASE 78 U/L (45-117); ALT/SGPT 20 U/L (12-78); ANION GAP 9 MEQ/L (8-16); AST/SGOT 21 U/L (7-37); BILIRUBIN,TOTAL 0.8 MG/DL (0.2-1.0); BLOOD UREA NITROGEN 11 MG/DL (7-18); CARBON DIOXIDE LEVEL 27 MEQ/L (21-32); CHLORIDE LEVEL 106 MEQ/L (98-107); CHOLESTEROL LEVEL 197 MG/DL (<200); CHOLESTEROL RISK RATIO 3.177 (<5); GLOMERULAR FILTRATION RATE > 60.0 (>51); GLUCOSE, FASTING 92 MG/DL (70-100); HDL CHOLESTEROL 62 MG/DL (>40); LDL CHOLESTEROL 105.6 MG/DL (<100); NON-HDL-C 135 MG/DL; SODIUM LEVEL 142 MEQ/L (136-145); TOTAL PROTEIN 8.3 GM/DL (6.4-8.2); TRIGLYCERIDES LEVEL 147 MG/DL (<150)
== END ==
LOC: M SMT 11:38
DX: I10 Essential (primary) hypertension (principal)
CPT/HCPCS: 80053

== ENCOUNTER → 2019-01-10 | Outpatient (CLI) | payer OTHER ==
[~2019-01-10] MED LIST changes: -VICO5TAB16 PO; +VICO5TAB17 PO
--- NOTE | 2019-01-10 15:12 | REP ---
LUMBAR SPINE, FIVE VIEWS: HISTORY: Back pain. There is no acute fracture. There is an old compression fracture of the L4 vertebral body with minimal height loss. The L3-4 through L5-S1 intervertebral discs are decreased in height, consistent with disc degeneration. Osteophytes are present on L3 through L5. There is narrowing of the L4-5 and L5-S1 facet joints. There is minimal scoliosis convex to the right. A stimulator is present in the left sacrum. IMPRESSION: Degenerative change, as described above. Electronically Signed by Jigar Montoya MD 01/10/2019 03:51 P
--- NOTE | 2019-01-10 15:23 | REP ---
Pelvis: Single view. History: Pain. Findings: AP view of the pelvis demonstrates diffuse osteopenia. There are old healed superior and inferior pubic ramus fractures on the right. A transsacral nerve stimulator device is visible on the left. The visualized bowel gas pattern is normal. Femoral heads are smooth and rounded. SI joints and symphysis pubis are intact. Impression: No acute bony abnormality. Old healed pubic ramus fractures on the right. Transsacral neurostimulator. Electronically Signed by Supa Do MD 01/10/2019 04:51 P
== END ==
LOC: M WUC 13:33
PROVIDERS: ATTEND Physician Assistant
DX: M54.5 Low back pain (principal)

== ENCOUNTER → 2019-07-29 | Outpatient (CLI) | payer OTHER ==
--- NOTE | 2019-08-11 01:21 | ECWPNPC ---
PATIENT NAME: ARACELIS AMAYA : 1960 GENDER: FEMALE VISIT DATE: 07/29/2019 DISCHARGE DATE: 07/29/19 1107 VISIT LOCKED DATE TIME: PHYSICIAN: FILIBERTO LEIVA RESOURCE: FILIBERTO LEIVA REASON FOR APPOINTMENT 1. BACK PAIN HISTORY OF PRESENT ILLNESS PAIN SCREENIN59 Y/O FEMALE REFERRED BY JHONNY GURROLA FOR EVALUATION OF CHRONIC LBP AFTER FALL INJURY 2017.PAIN IS LOCATED ACROSS LOW BACK.RATING PAIN VAS 7/10.PAIN IS AGGREVATED BY BENDING AND RELIEVED SOMEWHAT WITH HEAT AND ICY HOT TOPICAL.TAKING TRAMADOL 50MG TID AND MUSCLE RELAXANT PRESCRIBED BY JHONNY WITH MINIMAL IMPROVEMENT.SHE HAS A LUMBAR XRAY WHICH IS REVIEWED.UNABLE TO HAVE MRI DUE TO DCS PLACEMENT FOR BOWEL REGULATION. PATIENT HAS A COMPLAINT OF ACUTE OR CHRONIC PAIN :YES FALL RISK SCREENING: SCREENING :NO FALLS REPORTED IN THE LAST YEAR CURRENT MEDICATIONS TAKING MEGESTROL ACETATE 20 MG TABLET 1 TABLET ORALLY DAILY TAKING SIMVASTATIN 20 MG TABLET 1 TABLET IN THE EVENING ORALLY ONCE A DAY TAKING ATENOLOL 50 MG TABLET 1 TABLET ORALLY ONCE A DAY TAKING IBUPROFEN 200 MGS 2 TABS ORAL 3 TIMES A DAY NEEDED TAKING LORAZEPAM 1 MG TABLET ORAL ONCE A DAY IF NEEDED TAKING AMITRIPTYLINE HCL 25 MG TABLET 1 TABLET ORALLY ONCE A DAY AT BEDTIME TAKING BUTALBITAL-ACETAMINOPHEN 25-325 MG TABLET 1 TABLET NEEDED ORALLY EVERY 4 HRS, NOTES: NOT SURE OF DOSE TAKING METOPROLOL SUCCINATE 50 MG CAPSULE ER 24 HOUR SPRINKLE 1 CAPSULE ORALLY ONCE A DAY, NOTES: NOT SURE OF DOSE TAKING FLUOXETINE HCL 40 MG CAPSULE 1 CAPSULE ORALLY ONCE A DAY TAKING VITAMIN D (CHOLECALCIFEROL) 25 MCG (1000 UT) CAPSULE 1 CAPSULE ORALLY ONCE A DAY TAKING TRAMADOL HCL 50 MG TABLET 1 TABLET NEEDED ORALLY QID TAKING METHOCARBAMOL 750 MG TABLET 1 TABLET ORALLY EVERY 8 HRSPRN NOT-TAKING PROZAC 40 MG CAPSULE 1 CAPSULE IN THE MORNING ORALLY ONCE A DAY MEDICATION LIST REVIEWED AND RECONCILED WITH THE PATIENT PAST MEDICAL HISTORY HYPERTENSION ELEVATED CHOLESTEROL ARTHRITIS NERVE STIMULATOR IMPLANT FOR BOWEL CONTROL RIGHT FRACTURED PELVIS AND RIGHT HIP FX 05/2018 ALLERGIES BEE STINGS: SWELLING - ALLERGY SULFA (FOR ALLERGY USE ONLY): DON'T FEEL RIGHT - ALLERGY AUGMENTIN: BLACK STOOL - ALLERGY PLAQUENIL: DIARRHEA - ALLERGY SURGICAL HISTORY LEFT BROKEN SHOULDER WITH REPAIR 04/21/2016 REVERSE TOTAL LEFT SHOULDER REPLACEMENT 05/19/2016 SACIAL NERVE STIMULATOR IMPLANT FOR BOWEL CONTROL 01/30/2012 FAMILY HISTORY FATHER: MOTHER: , DIAGNOSED WITH OTHER MALIGNANT NEOPLASM OF UNSPECIFIED SITE 1 BROTHER(S) . 2 SON(S) - HEALTHY. 1 SON WITH 2 HEART OPERATIONS. SOCIAL HISTORY GENERAL: TOBACCO USE ARE YOU A:NONSMOKER PAIN CLINIC PFS, CLERGY, PUBLIC HEALTH REFERRALS PFS REFERRAL NEEDED?NO CLERGY REFERRAL NEEDED?NO PUBLIC HEALTH REFERRAL NEEDED?NO WAS THE PROVIDER NOTIFIED OF ANY PERTINENT INFO?NO HAS THE PATIENT BEEN EDUCATED REGARDING HIS/HER PLAN OF CARE?YES HAS THE PATIENT BEEN EDUCATED REGARDING PAIN, THE RISK FOR PAIN, THE IMPORTANCE OF EFFECTIVE PAIN MANAGEMENT, AND THE PAIN ASSESSMENT PROCESS?YES ADVANCE DIRECTIVE ADVANCE DIRECTIVE DISCUSSED WITH PATIENT:YES DECLINED BUDDHIST [id number] OTHER LANGUAGE LANGUAGES SPOKEN:INDONESIAN LEARNING BARRIERS / SPECIAL NEEDS BARRIERS TO LEARNING?NO HEARING IMPAIRED?YES :HEARING AIDES VISION IMPAIRED?YES :CORRECTIVE LENSES COGNITIVELY IMPAIRED?NO READINESS TO LEARN?YES LEARNING PREFERENCES?NO LEARNING CAPABILITIES PRESENT?YES EMOTIONAL BARRIERS?NO SPECIAL DEVICES?NO HOSPITALIZATION/MAJOR DIAGNOSTIC PROCEDURE SURGERIES REVIEW OF SYSTEMS REVIEWED BY: PROVIDER: FILIBERTO GRUBBS . CONSTITUTIONAL: ANY CHANGE IN YOUR MEDICAL CONDITION? NO . CHILLS NO . FEVER NO . INFECTION: DO YOU HAVE NEW INFECTIONS? NO . DO YOU HAVE HISTORY OF MRSA? NO . MUSCULOSKELETAL: ANY NEW PATTERNS OF PAIN OR NUMBNESS? NO . SYTEMIC LUPUS NO . GASTROENTEROLOGY: ANY NEW CHANGE IN BOWEL CONTROL? NO . BARRETTS ESOPHAGUS NO . CIRRHOSIS NO . HEPATITIS NO . LIVER FAILURE NO . ACID REFLUX NO . UNEXPLAINED WEIGHT LOSS NO . GENITOURINARY: ANY NEW CHANGE IN BLADDER CONTROL? NO . IS THERE A CHANCE YOU COULD BE ? NO . HEMATOLOGY/LYMPH: DO YOU TAKE ANY BLOOD THINNERS? (FOR EXAMPLE- COUMADIN, PLAVIX, AGGRENOX, PLATEL, PRADAXA, OR XARELTO) NO . WHEN WAS YOUR LAST DOSE? DATE: TIME: . LOW PLATELET COUNT NO . SICKLE CELL DISEASE NO . VON WILLIEBRANDS NO . FACTOR V LEIDEN NO . THALLASEMIA NO . ANEMIA NO . EASY BRUISING NO . NEUROLOGY: HAVE YOU FALLEN IN THE PAST 12 MONTHS? NO . ANY NEW EXTREMITY NUMBNESS OR WEAKNESS? NO . HEAD INJURY NO . DEMENTIA NO . CEREBRAL PALSY NO . MULTIPLE SCLEROSIS NO . DIZZINESS NO . HEADACHE NO . STROKES NO . VERTIGO NO . CARDIOLOGY: DO YOU HAVE A PACEMAKER OR DEFIBRILLATOR? NERVE STIMULATOR FOR BOWEL CONTROL . ANGINA NO . HEART ATTACK NO . HEART SURGERY NO . CONGESTIVE HEART FAILURE/FLUID OVERLOAD NO . CHEST PAIN NO . HIGH BLOOD PRESSURE NO . IRREGULAR HEART BEAT NO . RESPIRATORY: HAVE YOU BEEN SICK IN THE PAST WEEK? NO . FEVER NO . FLU LIKE SYMPTOMS? NO . CPAP NO . BYPAP NO . ASTHMA NO . EMPHYSEMA NO . CHRONIC LUNG DISEASES NO . SHORTNESS OF BREATH ON EXERTION NO . COUGH NO . SNORING NO . INTEGUMENTARY: DO YOU HAVE ANY RASHES OR OPEN SORES? NO . ALLERGIC/IMMUNO: ARE YOU ALLERGIC TO IV DYE? NO . ANY NEW ALLERGIES? NO . PSYCHIATRIC: DO YOU HAVE THOUGHTS OF HURTING YOURSELF OR SOMEONE ELSE? NO . ARE YOU ABUSED, NEGLECTED, OR IN AN UNSAFE ENVIRONMENT? NO . ENDOCRINOLOGY: ARE YOU DIABETIC? NO . THYROID DISORDER NO . OTHER: DO YOU NEED ANY PRESCRIPTIONS? YES, TRAMADOL, METHOCARBAMOL . IF YES, PLEASE LIST: ____ . ANY NEW PROBLEMS WITH YOUR MEDICATIONS? NO . WHEN DID YOU LAST EAT? ____ . WHEN DID YOU LAST DRINK? ____ . WHAT DID YOU LAST DRINK? ____ . NAME OF PERSON DRIVING YOU HOME? ____ . DO YOU HAVE ANY OTHER QUESTIONS OR CONCERNS NO . VITAL SIGNS WT 223.0 LBS, HT 69 IN, BMI 32.93 INDEX, BP 131/82 MM HG, HR 96 /MIN, RR 16 /MIN, TEMP 96.8 F, OXYGEN SAT % 95%, NA INITIALS AW 1004, REVIEWED BY: EM. EXAMINATION GENERAL EXAMINATION: GENERAL AWAKE,ALERT ,PLEASANT . PSYCH AFFECT NORMAL . LUNGS: LUNG RIED ARE CLEAR TO AUSCULTATION BILATERALLY. GOOD MOVEMENT OF AIR . HEART: S1, S2 IN A REGULAR RATE AND RHYTHM. NO SIGNIFICANT MURMURS, RUBS OR GALLOPS NOTED . MUSCULOSKELETAL: MUSCLE STRENGTH TESTING 5/5 BILATERAL LOWER EXTREMITIES. LUMBAR SACRAL SPINE PALPATION: + FOR PAIN OVER L/S SPINE. + FOR PAIN OVER L/S PARASPINALS. NEUROLOGIC EXAM: NORMAL SENSATION LIGHT TOUCH BILAT. LOWER EXTREMITIES. ASSESSMENTS LOW BACK PAIN AT MULTIPLE SITES - M54.5 (PRIMARY) TREATMENT LOW BACK PAIN AT MULTIPLE SITES CT SCAN : LUMBAR [id number],ASHLEY 08/03/2019 11:24:10 AM > NO AUTH REQUIRED. REF #[id number] PROCEDURE CODES FA211 ESTABILISHED PATIENT [facility] FACILITY CHARGE DISPOSITION & COMMUNICATION FOLLOW UP 4 WEEKS (REASON: CT LUMBAR SPINE REVIEW) ELECTRONICALLY SIGNED BY HUMERA CAPELLAN ON 08/10/2019 AT 04:02 PM EST DISCLAIMER : THIS IS A VISIT SUMMARY EXTRACTED FROM THE [employer] CHART. IT IS NOT A COPY OF THE [employer] PROGRESS NOTE. ERICK
== END ==
LOC: M PAIN 10:00
PROVIDERS: ATTEND Nurse Practitioner Family
DX: M54.5 Low back pain (principal); G89.29 Other chronic pain; I10 Essential (primary) hypertension; M19.90 Unspecified osteoarthritis, unspecified site; Z88.1 Allergy status to other antibiotic agents; Z88.2 Allergy status to sulfonamides; Z88.8 Allergy status to other drugs, medicaments and biological substances; Z91.030 Bee allergy status; Z79.899 Other long term (current) drug therapy

== ENCOUNTER → 2019-08-08 | Outpatient (CLI) | payer OTHER ==
--- NOTE | 2019-08-08 11:24 | REP ---
CT lumbar spine: 08/08/2019. Indication: Low back pain. Comparison: None. Technique: Unenhanced axial images of the lumbar spine were obtained with sagittal and coronal reconstructions provided. Findings: There is no acute fracture. Chronic compression deformities are noted at T12 anteriorly with approximately 50% loss of craniocaudal height as well as mild chronic central compression deformities of L3, L4 and L5 most pronounced at L4 with approximately 20% loss centrally at this level. There is minimal anterolisthesis of L4 on L5. Dextroscoliosis of the lumbar spine is present centered at L3. Rudimentary S1/S2 disc is present. No significant paraspinal soft tissue abnormalities are present. No focal disc herniations are detected by this technique. The neural foramen appear patent. Impression: No acute osseous injury of the lumbar spine. Multilevel chronic compression deformities. Scoliosis and minimal L4 on L5 anterolisthesis secondary to facet arthropathy. Electronically Signed by Mathew Bustamante DO 08/08/2019 11:16 A
== END ==
LOC: M RAD 08:38
PROVIDERS: ATTEND Nurse Practitioner Family
DX: M54.5 Low back pain (principal); M41.86 Other forms of scoliosis, lumbar region; M47.816 Spondylosis without myelopathy or radiculopathy, lumbar region

== ENCOUNTER → 2019-09-02 | Outpatient (CLI) | payer OTHER ==
[~2019-09-02] MED LIST changes: +FLUO20CA20 PO; -FLUO20CA8 PO; -SIMV20TA2 PO; +SIMV20TA22 PO
--- NOTE | 2019-09-16 02:16 | ECWPNPC ---
PATIENT NAME: ARACELIS AMAYA : 1960 GENDER: FEMALE VISIT DATE: 09/02/2019 DISCHARGE DATE: 09/02/19 1016 VISIT LOCKED DATE TIME: PHYSICIAN: FILIBERTO LEIVA RESOURCE: FILIBERTO LEIVA REASON FOR APPOINTMENT 1. 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 PAIN THE PATIENT DESCRIBES THE PAIN... FALL RISK SCREENING: SCREENING :NO FALLS REPORTED IN THE LAST YEAR CURRENT MEDICATIONS TAKING MEGESTROL ACETATE 20 MG TABLET 1 TABLET ORALLY DAILY TAKING SIMVASTATIN 20 MG TABLET 1 TABLET IN THE EVENING ORALLY ONCE A DAY TAKING ATENOLOL 50 MG TABLET 1 TABLET ORALLY ONCE A DAY TAKING IBUPROFEN 200 MGS 2 TABS ORAL 3 TIMES A DAY NEEDED TAKING LORAZEPAM 1 MG TABLET ORAL MDD3 ONCE A DAY IF NEEDED TAKING AMITRIPTYLINE HCL 25 MG TABLET 1 TABLET ORALLY ONCE A DAY AT BEDTIME TAKING BUTALBITAL-ACETAMINOPHEN 25-325 MG TABLET 1 TABLET NEEDED ORALLY EVERY 4 HRS, NOTES: NOT SURE OF DOSE TAKING METOPROLOL SUCCINATE 50 MG CAPSULE ER 24 HOUR SPRINKLE 1 CAPSULE ORALLY ONCE A DAY, NOTES: NOT SURE OF DOSE TAKING FLUOXETINE HCL 40 MG CAPSULE 1 CAPSULE ORALLY ONCE A DAY TAKING VITAMIN D (CHOLECALCIFEROL) 25 MCG (1000 UT) CAPSULE 1 CAPSULE ORALLY ONCE A DAY TAKING TRAMADOL HCL 50 MG TABLET 1 TABLET NEEDED ORALLY QID TAKING METHOCARBAMOL 750 MG TABLET 1 TABLET ORALLY EVERY 8 HRSPRN UNKNOWN PROZAC 40 MG CAPSULE 1 CAPSULE IN THE MORNING ORALLY ONCE A DAY MEDICATION LIST REVIEWED AND RECONCILED WITH THE PATIENT PAST MEDICAL HISTORY HYPERTENSION ELEVATED CHOLESTEROL ARTHRITIS NERVE STIMULATOR IMPLANT FOR BOWEL CONTROL RIGHT FRACTURED PELVIS AND RIGHT HIP FX 05/2018 ALLERGIES BEE STINGS: SWELLING - ALLERGY SULFA (FOR ALLERGY USE ONLY): DON'T FEEL RIGHT - ALLERGY AUGMENTIN: BLACK STOOL - ALLERGY PLAQUENIL: DIARRHEA - ALLERGY SURGICAL HISTORY LEFT BROKEN SHOULDER WITH REPAIR 04/21/2016 REVERSE TOTAL LEFT SHOULDER REPLACEMENT 05/19/2016 SACIAL NERVE STIMULATOR IMPLANT FOR BOWEL CONTROL 01/30/2012 FAMILY HISTORY FATHER: MOTHER: , DIAGNOSED WITH OTHER MALIGNANT NEOPLASM OF UNSPECIFIED SITE 1 BROTHER(S) . 2 SON(S) - HEALTHY. 1 SON WITH 2 HEART OPERATIONS. SOCIAL HISTORY GENERAL: TOBACCO USE ARE YOU A:NONSMOKER PAIN CLINIC PFS, CLERGY, PUBLIC HEALTH REFERRALS PFS REFERRAL NEEDED?NO CLERGY REFERRAL NEEDED?NO PUBLIC HEALTH REFERRAL NEEDED?NO WAS THE PROVIDER NOTIFIED OF ANY PERTINENT INFO?NO HAS THE PATIENT BEEN EDUCATED REGARDING HIS/HER PLAN OF CARE?YES HAS THE PATIENT BEEN EDUCATED REGARDING PAIN, THE RISK FOR PAIN, THE IMPORTANCE OF EFFECTIVE PAIN MANAGEMENT, AND THE PAIN ASSESSMENT PROCESS?YES ADVANCE DIRECTIVE ADVANCE DIRECTIVE DISCUSSED WITH PATIENT:YES DECLINED PENTECOSTAL [id number] OTHER LANGUAGE LANGUAGES SPOKEN:SPANISH LEARNING BARRIERS / SPECIAL NEEDS BARRIERS TO LEARNING?NO HEARING IMPAIRED?YES VISION IMPAIRED?YES COGNITIVELY IMPAIRED?NO :HEARING AIDES :CORRECTIVE LENSES READINESS TO LEARN?YES LEARNING PREFERENCES?NO LEARNING CAPABILITIES PRESENT?YES EMOTIONAL BARRIERS?NO SPECIAL DEVICES?NO HOSPITALIZATION/MAJOR DIAGNOSTIC PROCEDURE SURGERIES REVIEW OF SYSTEMS REVIEWED BY: PROVIDER: FILIBERTO GRUBBS . CONSTITUTIONAL: ANY CHANGE IN YOUR MEDICAL CONDITION? NO . CHILLS NO . FEVER NO . INFECTION: DO YOU HAVE NEW INFECTIONS? NO . DO YOU HAVE HISTORY OF MRSA? NO . MUSCULOSKELETAL: ANY NEW PATTERNS OF PAIN OR NUMBNESS? NO . GASTROENTEROLOGY: ANY NEW CHANGE IN BOWEL CONTROL? NO . GENITOURINARY: ANY NEW CHANGE IN BLADDER CONTROL? NO . IS THERE A CHANCE YOU COULD BE ? NO . HEMATOLOGY/LYMPH: DO YOU TAKE ANY BLOOD THINNERS? (FOR EXAMPLE- COUMADIN, PLAVIX, AGGRENOX, PLATEL, PRADAXA, OR XARELTO) NO . WHEN WAS YOUR LAST DOSE? DATE: TIME: . NEUROLOGY: HAVE YOU FALLEN IN THE PAST 12 MONTHS? NO . ANY NEW EXTREMITY NUMBNESS OR WEAKNESS? NO . CARDIOLOGY: DO YOU HAVE A PACEMAKER OR DEFIBRILLATOR? NO . RESPIRATORY: HAVE YOU BEEN SICK IN THE PAST WEEK? NO . FEVER NO . FLU LIKE SYMPTOMS? NO . COUGH NO . INTEGUMENTARY: DO YOU HAVE ANY RASHES OR OPEN SORES? NO . ALLERGIC/IMMUNO: ARE YOU ALLERGIC TO IV DYE? NO . ANY NEW ALLERGIES? NO . PSYCHIATRIC: DO YOU HAVE THOUGHTS OF HURTING YOURSELF OR SOMEONE ELSE? NO . ARE YOU ABUSED, NEGLECTED, OR IN AN UNSAFE ENVIRONMENT? NO . ENDOCRINOLOGY: ARE YOU DIABETIC? NO . OTHER: DO YOU NEED ANY PRESCRIPTIONS? NO . IF YES, PLEASE LIST: ____ . ANY NEW PROBLEMS WITH YOUR MEDICATIONS? NO . WHEN DID YOU LAST EAT? ____ . WHEN DID YOU LAST DRINK? ____ . WHAT DID YOU LAST DRINK? ____ . NAME OF PERSON DRIVING YOU HOME? ____ . DO YOU HAVE ANY OTHER QUESTIONS OR CONCERNS NO . VITAL SIGNS WT 219.6 LBS, HT 69 IN, BMI 32.43 INDEX, BP 140/86 MM HG, HR 105 /MIN, RR 16 /MIN, TEMP 96.0 F, OXYGEN SAT % 96%, NA INITIALS AW 0932, REVIEWED BY: KG. EXAMINATION GENERAL EXAMINATION: GENERAL ALERT,NO DISTRESS . PSYCH AFFECT NORMAL . LUNGS: LUNG SOUNDS ARE CLEAR . HEART: HEART RATE REGULAR . MUSCULOSKELETAL: MST 5/5 BILAT. LOWER EXTREMITIES . FOR BILAT. SIJ TENDERNESS BILAT. SIJ . DIAGNOSTIC TESTS REVIEWED CT L/S SPINE-08/08/19. ASSESSMENTS SACROILIITIS - M46.1 (PRIMARY) TREATMENT SACROILIITIS INCREASE TRAMADOL HCL TABLET, 50 MG, 2 TAB, ORALLY, BID MDD4, 30 DAYS, 120, REFILLS 1 INCREASE METHOCARBAMOL TABLET, 750 MG, 1 TABLET, ORALLY, EVERY 8 HRSPRN, 30 DAYS, 90, REFILLS 1 NOTES: BILAT. SIJ, ISTOP REGISTRY REVIEWED AND DEMONSTRATES COMPLLIANCE. , [facility] NARCOTIC AGREEMENT WAS REVIEWED AND SIGNED TODAY BY THE PATIENT. SEE ATTACHED DOCUMENT FOR FULL DETAILS; SPECIFIC ISSUES WERE REVIEWED: 1) KEEP PAIN MEDS IN THEIR ORIGINAL BOTTLES AND ANY WEEKLY PLANNERS ARE TO BE BROUGHT TO THE PAIN CENTER AT EVERY VISIT. 2) THE PATIENT IS NOT TO INCREASE DOSING OR TIMING OF THEIR PAIN MEDICATION WITHOUT SPECIFIC DIRECTION OF THEIR PAIN CENTERPROVIDER (NOT ER OR OTHER PROVIDERS). 3) ALL PAIN MEDS ARE TO BE KEPT SECURED, IN A LOCKED BOX. 4) NO PAIN MEDS ARE TO BE SHARED WITH ANY OTHER PERSON FOR ANY REASON. 5) NO PAIN MEDS MAY BE TAKEN FROM ANY FRIENDS OR RELATIVES FOR ANY REASON 6) NO MEDS OR SUBSTANCES WHICH ARE NOT LEGAL ARE TO BE USED- NO MARIJUANA, NO COCAINE, AMPHETAMINES, HEROIN, OR OTHERS ARE EVER TO BE USED. 7)URINE TESTING IS DONE TO ACCOUNT FOR MEDS AND SUBSTANCES BEING TAKEN AND WILL BE DONE RANDOMLY., RISKS OF NARCOTIC/OPIOD MEDICATIONS INCLUDES BUT IS NOT LIMITED TO RISK OF DEPENDANCE/DEVELOPMENT OF ADDICTION, MOOD DISTURBANCE AND DEPRESSION, OSTEOPOROSIS, HORMONAL AND LABIDAL CHANGES, RESPIRATORY DEPRESSION AND . PATIENT IS ADVISED NOT TO DRIVE OR DRINK ALCOHOL WHILE ON THESE MEDICATIONS. PROCEDURE CODES FA211 ESTABILISHED PATIENT [facility] CHARGE DISPOSITION & COMMUNICATION FOLLOW UP POST (REASON: BILAT. SIJ) ELECTRONICALLY SIGNED BY HUMERA CAPELLAN ON 09/15/2019 AT 03:53 PM EST DISCLAIMER : THIS IS A VISIT SUMMARY EXTRACTED FROM THE [employer] CHART. IT IS NOT A COPY OF THE [employer] PROGRESS NOTE. ERICK
== END ==
LOC: M PAIN 09:30
PROVIDERS: ATTEND Nurse Practitioner Family
DX: M46.1 Sacroiliitis, not elsewhere classified (principal); I10 Essential (primary) hypertension; Z88.1 Allergy status to other antibiotic agents; Z88.2 Allergy status to sulfonamides; Z88.8 Allergy status to other drugs, medicaments and biological substances; Z91.030 Bee allergy status; Z79.899 Other long term (current) drug therapy

== ENCOUNTER → 2019-10-18 | Outpatient (CLI) | payer OTHER ==
[~2019-10-18] MED LIST changes: +BUPIVACAINE HCL 0.25% 30 ML VIAL As Ordered ONE; +ISOVUE-M 300 61% 15ML VIAL (Q9967) As Ordered ONE; +LIDOCAINE 1% SDV INJ 30 ML VIAL As Ordered ONE; +NORCO, ANEXSIA 5/325MG TABLET (HYDROcodone/ACETAMINOPHEN) As Ordered ONE; +TRIAMCINOLONE ACETONIDE SUSP 40 MG/ML VIAL (J3301) As Ordered ONE; +diazePAM 5 MG TAB As Ordered ONE
--- NOTE | 2019-10-18 14:09 | REP ---
SI joint series: Two views. History: Bilateral SI joint injection for pain. 25 seconds of fluoroscopy time is reported. Findings: A sequence of two last image hold fluoroscopically obtained spot radiographs of the SI joints document needle position and contrast injection associated with SI joint injection procedure. Electronically Signed by Supa Do MD 10/18/2019 02:00 P
--- NOTE | 2019-10-29 06:02 | ECWPNPC ---
PATIENT NAME: ARACELIS AMAYA : 1960 GENDER: FEMALE VISIT DATE: 10/18/2019 DISCHARGE DATE: 10/18/19 1428 VISIT LOCKED DATE TIME: PHYSICIAN: AMRIK RUEDA MD RESOURCE: AMRIK RUEDA MD REASON FOR APPOINTMENT 1. BILAT. SIJ HISTORY OF PRESENT ILLNESS HISTORY OF PRESENT ILLNESS: PAIN THE PATIENT DESCRIBES THE PAIN... FALL RISK SCREENING: SCREENING :NO FALLS REPORTED IN THE LAST YEAR CURRENT MEDICATIONS TAKING MEGESTROL ACETATE 20 MG TABLET 1 TABLET ORALLY DAILY, NOTES: 10/17/20191899 TAKING SIMVASTATIN 20 MG TABLET 1 TABLET IN THE EVENING ORALLY ONCE A DAY, NOTES: 10/17/20191899 TAKING ATENOLOL 50 MG TABLET 1 TABLET ORALLY ONCE A DAY, NOTES: 10/17/20191899 TAKING IBUPROFEN 200 MGS 2 TABS ORAL 3 TIMES A DAY NEEDED, NOTES: NONE RECENT TAKING LORAZEPAM 1 MG TABLET ORAL MDD3 ONCE A DAY IF NEEDED, NOTES: 10/17/20191899 TAKING AMITRIPTYLINE HCL 25 MG TABLET 1 TABLET ORALLY ONCE A DAY AT BEDTIME, NOTES: 10/17/20191899 TAKING BUTALBITAL-ACETAMINOPHEN 25-325 MG TABLET 1 TABLET NEEDED ORALLY EVERY 4 HRS, NOTES: > 1 WEEK TAKING METOPROLOL SUCCINATE 50 MG CAPSULE ER 24 HOUR SPRINKLE 1 CAPSULE ORALLY ONCE A DAY, NOTES: 10/17/20191899 TAKING FLUOXETINE HCL 40 MG CAPSULE 1 CAPSULE ORALLY ONCE A DAY, NOTES: 10/17/2019 190 TAKING VITAMIN D (CHOLECALCIFEROL) 25 MCG (1000 UT) CAPSULE 1 CAPSULE ORALLY ONCE A DAY, NOTES: 10/17/2019 0800 TAKING TRAMADOL HCL 50 MG TABLET 2 TAB ORALLY BID MDD4, NOTES: 10/18/2019 0800 TAKING METHOCARBAMOL 750 MG TABLET 1 TABLET ORALLY EVERY 8 HRSPRN, NOTES: 10/18/2019 0800 NOT-TAKING PROZAC 40 MG CAPSULE 1 CAPSULE IN THE MORNING ORALLY ONCE A DAY MEDICATION LIST REVIEWED AND RECONCILED WITH THE PATIENT PAST MEDICAL HISTORY HYPERTENSION ELEVATED CHOLESTEROL ARTHRITIS NERVE STIMULATOR IMPLANT FOR BOWEL CONTROL RIGHT FRACTURED PELVIS AND RIGHT HIP FX 05/2018 ALLERGIES BEE STINGS: SWELLING - ALLERGY SULFA (FOR ALLERGY USE ONLY): DON'T FEEL RIGHT - ALLERGY AUGMENTIN: BLACK STOOL - ALLERGY PLAQUENIL: DIARRHEA - ALLERGY SURGICAL HISTORY LEFT BROKEN SHOULDER WITH REPAIR 04/21/2016 REVERSE TOTAL LEFT SHOULDER REPLACEMENT 05/19/2016 SACIAL NERVE STIMULATOR IMPLANT FOR BOWEL CONTROL 01/30/2012 FAMILY HISTORY FATHER: MOTHER: , DIAGNOSED WITH OTHER MALIGNANT NEOPLASM OF UNSPECIFIED SITE 1 BROTHER(S) . 2 SON(S) - HEALTHY. 1 SON WITH 2 HEART OPERATIONS. SOCIAL HISTORY GENERAL: TOBACCO USE ARE YOU A:NONSMOKER PAIN CLINIC PFS, CLERGY, PUBLIC HEALTH REFERRALS PFS REFERRAL NEEDED?NO CLERGY REFERRAL NEEDED?NO PUBLIC HEALTH REFERRAL NEEDED?NO WAS THE PROVIDER NOTIFIED OF ANY PERTINENT INFO?NO HAS THE PATIENT BEEN EDUCATED REGARDING HIS/HER PLAN OF CARE?YES HAS THE PATIENT BEEN EDUCATED REGARDING PAIN, THE RISK FOR PAIN, THE IMPORTANCE OF EFFECTIVE PAIN MANAGEMENT, AND THE PAIN ASSESSMENT PROCESS?YES LATEX QUESTIONNAIRE LATEX ALLERGY : HAVE YOU EVER DEVELOPED ANY TYPE OF REACTION AFTER HANDLING LATEX PRODUCTS SUCH RUBBER GLOVES, CONDOMS, DIAPHRAGMS, BALLOONS, SOCKS, OR UNDERWEAR?NO LATEX ALLERGY : HAVE YOU EVER DEVELOPED ANY TYPE OF REACTION DURING OR AFTER DENTAL APPOINTMENT, VAGINAL/RECTAL EXAMINATION, SURGICAL PROCEDURE, OR ANY OTHER EXPOSURE?NO LATEX RISK : HAVE YOU EVER HAD ANY DIFFICULTY BREATHING OR HIVES AFTER EATING OR HANDLING ANY FRUITS, OR VEGETABLES; SUCH KIWI, BANANAS, STONE FRUITS, OR CHESTNUTSNO LATEX RISK : DO YOU HAVE A PREVIOUS PERSONAL HISTORY OF MORE THAN NINE SURGERIES, SPINA BIFIDA, OR REPEATED CATHERIZATIONS? NO LATEX RISK : ARE YOU FREQUENTLY EXPOSED TO LATEX PRODUCTS IN YOUR OCCUPATION?NO DATE ASKED : 10/18/2019 ADVANCE DIRECTIVE ADVANCE DIRECTIVE DISCUSSED WITH PATIENT:YES PT HAS NO ADVANCED DIRECTIVES, STATES SHE HAS THE INFORMATION, DECLINES ASSISTANCE AT THIS TIME. [facility] [id number] OTHER LANGUAGE LANGUAGES SPOKEN:OCCITAN LEARNING BARRIERS / SPECIAL NEEDS BARRIERS TO LEARNING?NO HEARING IMPAIRED?YES :HEARING AIDES VISION IMPAIRED?YES :CORRECTIVE LENSES COGNITIVELY IMPAIRED?NO READINESS TO LEARN?YES LEARNING PREFERENCES?NO LEARNING CAPABILITIES PRESENT?YES EMOTIONAL BARRIERS?NO SPECIAL DEVICES?NO MEDICAL DELIVERY TECHNICIAN NEEDED?NO REVIEWED WITH PATIENT 10/18/2019 [facility]. HOSPITALIZATION/MAJOR DIAGNOSTIC PROCEDURE SURGERIES REVIEW OF SYSTEMS REVIEWED BY: PROVIDER: . CONSTITUTIONAL: ANY CHANGE IN YOUR MEDICAL CONDITION? NO . CHILLS NO . FEVER NO . INFECTION: DO YOU HAVE NEW INFECTIONS? NO . DO YOU HAVE HISTORY OF MRSA? NO . MUSCULOSKELETAL: ANY NEW PATTERNS OF PAIN OR NUMBNESS? NO . GASTROENTEROLOGY: ANY NEW CHANGE IN BOWEL CONTROL? NO . GENITOURINARY: ANY NEW CHANGE IN BLADDER CONTROL? NO . IS THERE A CHANCE YOU COULD BE ? NO . HEMATOLOGY/LYMPH: DO YOU TAKE ANY BLOOD THINNERS? (FOR EXAMPLE- COUMADIN, PLAVIX, AGGRENOX, PLATEL, PRADAXA, OR XARELTO) NO . WHEN WAS YOUR LAST DOSE? DATE: TIME: . NEUROLOGY: HAVE YOU FALLEN IN THE PAST 12 MONTHS? YES PT REPORTS SHE FELL IN DECEMBER, ALREADY REPORTED . ANY NEW EXTREMITY NUMBNESS OR WEAKNESS? NO . CARDIOLOGY: DO YOU HAVE A PACEMAKER OR DEFIBRILLATOR? NO . RESPIRATORY: HAVE YOU BEEN SICK IN THE PAST WEEK? NO . FEVER NO . FLU LIKE SYMPTOMS? NO . COUGH NO . INTEGUMENTARY: DO YOU HAVE ANY RASHES OR OPEN SORES? NO . ALLERGIC/IMMUNO: ARE YOU ALLERGIC TO IV DYE? NO . ANY NEW ALLERGIES? NO . PSYCHIATRIC: DO YOU HAVE THOUGHTS OF HURTING YOURSELF OR SOMEONE ELSE? NO . ARE YOU ABUSED, NEGLECTED, OR IN AN UNSAFE ENVIRONMENT? NO . ENDOCRINOLOGY: ARE YOU DIABETIC? NO . OTHER: DO YOU NEED ANY PRESCRIPTIONS? NO . IF YES, PLEASE LIST: ____ . ANY NEW PROBLEMS WITH YOUR MEDICATIONS? NO . WHEN DID YOU LAST EAT? ____10/17/2019 1600 . WHEN DID YOU LAST DRINK? ____10/18/2019 0800 . WHAT DID YOU LAST DRINK? ____WATER . NAME OF PERSON DRIVING YOU HOME? ____HUSBAND KASHMIR . DO YOU HAVE ANY OTHER QUESTIONS OR CONCERNS NO . VITAL SIGNS WT 223.0 LBS, HT 69 IN, BMI 32.93 INDEX, BP 156/93 MM HG, HR 102 /MIN, RR 16 /MIN, TEMP 97.7 F, OXYGEN SAT % 97%, SAFE IN ENV? (Y/N) YES, NA INITIALS AW 1143, REVIEWED BY: LAS. [place] SACROILIITIS - M46.1 (PRIMARY) TREATMENT SACROILIITIS [facility] FLUORO GUIDANCE (PAIN)[id number] PROCEDURES PN SI PRE PROCEDURE DIAGNOSIS SACROILIITIS, SACROILIAC JOINT DYSFUNCTION POST PROCEDURE DIAGNOSIS SACROILIITIS, SACROILIAC JOINT DYSFUNCTION PROCEDURE BILATERAL SACROILIAC JOINT BLOCK SURGEON DR. AMRIK RUEDA TANNING WHEEL FILLER NONE ANESTHESIA LOCAL PRE PROCEDURE NOTE PATIENT WITH HISTORY OF CHRONIC LOW BACK PAIN. I EVALUATED THE PATIENT AND REVIEWED THE CHART. I WENT OVER THE RISKS, ALTERNATIVES, AND BENEFITS ASSOCIATED WITH THIS PROCEDURE. THE PATIENT WOULD LIKE TO PROCEED AND GAVE CONSENT TO PERFORM THE PROCEDURE. THE PATIENT DENIES UNEXPLAINABLE WEIGHT LOSS, FEVER, CHILLS, OR NEW CHANGES IN URINARY OR BOWEL CONTROL DESCRIPTION OF PROCEDURE THE PATIENT WAS BROUGHT TO THE PROCEDURE ROOM AND PLACED IN THE PRONE POSITION. THE LUMBOSACRAL AREA WAS CLEANED WITH CHLORAPREP SOLUTION AND DRAPED ASEPTICALLY. THE PROCEDURE WAS DONE UNDER STERILE CONDITIONS. I CHECKED LATERALITY AND THE LEVEL WHERE THE PROCEDURE WAS GOING TO BE PERFORMED WITH THE PATIENT AND THE SUPPORTING STAFF AT THE MOMENT OF THE TIME OUT IN THE PROCEDURE ROOM. UNDER FLUOROSCOPIC GUIDANCE, TARGET POINT WAS SELECTED AT THE LOWER BORDER OF THE RIGHT AND LEFT SACROILIAC JOINT. TARGET POINT WAS SELECTED AFTER MEDIAL ROTATION AND TILT OF THE MAGNIFIER OF THE C-ARM. LIDOCAINE WAS USED TO NUMB THE SKIN AND SUBCUTANEOUS TISSUE BELOW IT. A SPINAL NEEDLE, 22-GAUGE, WAS ADVANCED UNDER FLUOROSCOPIC GUIDANCE AND FOLLOWING PATIENT FEEDBACK UNTIL THE TARGET AREA WAS TOUCHED. THE POSITION OF THE NEEDLE WAS VERIFIED WITH AP AND LATERAL VIEWS. AFTER PROPER POSITION OF THE NEEDLE WAS ACHIEVED, ISOVUE M DYE 30%, 0.25 ML, WAS INJECTED SHOWING SPREAD OF THE DYE. THEN, A SOLUTION OF 30 MG OF KENALOG WAS INJECTED IN RIGHT AND LEFT JOINT WITH 3 ML OF BUPIVACAINE 0.125%. THERE WAS NO EVIDENCE OF BLOOD, PARESTHESIA OR CEREBROSPINAL FLUID DURING THE PROCEDURE. THE PATIENT WAS SENT TO THE RECOVERY ROOM. THE PATIENT WAS MOVING THE EXTREMITIES AND DOING WELL. THERE WAS NO COMPLICATION DURING THE PROCEDURE. FLUOROSCOPY TIME WAS 25 SECONDS POST PROCEDURE NOTE THE PATIENT WILL BE SEEN IN A FOLLOW UP IN THE NEXT FEW WEEKS. I AM LOOKING FOR LONG LASTING PAIN RELIEF WITH THIS INJECTION. INSTRUCTIONS WERE GIVEN, QUESTIONS WERE ANSWERED, AND THE PATIENT EXPRESSED UNDERSTANDING AND AGREED WITH THE PLAN. I, CALEB MAX, DOCUMENTED THE ABOVE INFORMATION ACTING A SCRIBE FOR DR. RUEDA. I HAVE REVIEWED THE ABOVE DOCUMENT, WRITTEN BY CALEB MAX SCRMARSHALL AND I VERIFY THAT IT IS ACCURATE. PROCEDURE CODES 79501 INJECT SACROILIAC JOINT, MODIFIERS: 50 [id number] RADXPS IN END [id number] PXD DISPOSITION & COMMUNICATION FOLLOW UP 3 WEEKS ELECTRONICALLY SIGNED BY AMRIK RUEDA MD, MD ON 10/28/2019 AT 05:35 PM EST DISCLAIMER : THIS IS A VISIT SUMMARY EXTRACTED FROM THE [employer] CHART. IT IS NOT A COPY OF THE [employer] PROGRESS NOTE. ERICK
== END ==
LOC: M PAIN 11:15
PROVIDERS: ATTEND Anesthesiology
DX: M46.1 Sacroiliitis, not elsewhere classified (principal); I10 Essential (primary) hypertension; Z88.1 Allergy status to other antibiotic agents; Z88.2 Allergy status to sulfonamides; Z88.8 Allergy status to other drugs, medicaments and biological substances; Z91.030 Bee allergy status; Z79.891 Long term (current) use of opiate analgesic; Z79.899 Other long term (current) drug therapy
CPT/HCPCS: G0260; J3301; Q9967

== ENCOUNTER → 2019-11-03 | Outpatient (CLI) | payer OTHER ==
[~2019-11-03] MED LIST changes: -BUPIVACAINE HCL 0.25% 30 ML VIAL As Ordered ONE; -ISOVUE-M 300 61% 15ML VIAL (Q9967) As Ordered ONE; -LIDOCAINE 1% SDV INJ 30 ML VIAL As Ordered ONE; -NORCO, ANEXSIA 5/325MG TABLET (HYDROcodone/ACETAMINOPHEN) As Ordered ONE; -TRIAMCINOLONE ACETONIDE SUSP 40 MG/ML VIAL (J3301) As Ordered ONE; -diazePAM 5 MG TAB As Ordered ONE
--- NOTE | 2019-11-04 03:57 | ECWPNPC ---
PATIENT NAME: ARACELIS AMAYA : 1960 GENDER: FEMALE VISIT DATE: 11/03/2019 DISCHARGE DATE: 11/03/19 1113 VISIT LOCKED DATE TIME: PHYSICIAN: FILIBERTO LEIVA RESOURCE: FILIBERTO LEIVA REASON FOR APPOINTMENT 1. POST SIJ HISTORY OF PRESENT ILLNESS HISTORY OF PRESENT ILLNESS: HERE FOR POST PROCEDURE FOLLOW-UP. HAD BILATERAL SIJ 10/18/2019. REPORTING MARKED REDUCTION IN PAIN SYMPTOMS POST PROCEDURE THAT CONTINUES TODAY. CURRENTLY USING TRAMADOL 50 MG 2 TABLETS IN THE MORNING AND 2 AT NIGHT AND USING ROBAXIN 750 MG 1 TABLET TWICE DAILY. RATING PAIN LEVEL A 0-1/10 VAS. PAIN THE PATIENT DESCRIBES THE PAIN... FALL RISK SCREENING: SCREENING :NO FALLS REPORTED IN THE LAST YEAR CURRENT MEDICATIONS TAKING MEGESTROL ACETATE 20 MG TABLET 1 TABLET ORALLY DAILY TAKING SIMVASTATIN 20 MG TABLET 1 TABLET IN THE EVENING ORALLY ONCE A DAY TAKING ATENOLOL 50 MG TABLET 1 TABLET ORALLY ONCE A DAY TAKING IBUPROFEN 200 MGS 2 TABS ORAL 3 TIMES A DAY NEEDED TAKING LORAZEPAM 1 MG TABLET ORAL MDD3 ONCE A DAY IF NEEDED TAKING AMITRIPTYLINE HCL 25 MG TABLET 1 TABLET ORALLY ONCE A DAY AT BEDTIME TAKING BUTALBITAL-ACETAMINOPHEN 25-325 MG TABLET 1 TABLET NEEDED ORALLY EVERY 4 HRS TAKING METOPROLOL SUCCINATE 50 MG CAPSULE ER 24 HOUR SPRINKLE 1 CAPSULE ORALLY ONCE A DAY TAKING FLUOXETINE HCL 40 MG CAPSULE 1 CAPSULE ORALLY ONCE A DAY TAKING VITAMIN D (CHOLECALCIFEROL) 25 MCG (1000 UT) CAPSULE 1 CAPSULE ORALLY ONCE A DAY TAKING METHOCARBAMOL 750 MG TABLET 1 TABLET ORALLY EVERY 8 HRSPRN TAKING TRAMADOL HCL 50 MG TABLET 2 TAB ORALLY BID MDD4 NOT-TAKING PROZAC 40 MG CAPSULE 1 CAPSULE IN THE MORNING ORALLY ONCE A DAY MEDICATION LIST REVIEWED AND RECONCILED WITH THE PATIENT PAST MEDICAL HISTORY HYPERTENSION ELEVATED CHOLESTEROL ARTHRITIS NERVE STIMULATOR IMPLANT FOR BOWEL CONTROL RIGHT FRACTURED PELVIS AND RIGHT HIP FX 05/2018 ALLERGIES BEE STINGS: SWELLING - ALLERGY SULFA (FOR ALLERGY USE ONLY): DON'T FEEL RIGHT - ALLERGY AUGMENTIN: BLACK STOOL - ALLERGY PLAQUENIL: DIARRHEA - ALLERGY SURGICAL HISTORY LEFT BROKEN SHOULDER WITH REPAIR 04/21/2016 REVERSE TOTAL LEFT SHOULDER REPLACEMENT 05/19/2016 SACIAL NERVE STIMULATOR IMPLANT FOR BOWEL CONTROL 01/30/2012 FAMILY HISTORY FATHER: MOTHER: , DIAGNOSED WITH OTHER MALIGNANT NEOPLASM OF UNSPECIFIED SITE 1 BROTHER(S) . 2 SON(S) - HEALTHY. 1 SON WITH 2 HEART OPERATIONS. SOCIAL HISTORY GENERAL: TOBACCO USE ARE YOU A:NONSMOKER PAIN CLINIC PFS, CLERGY, PUBLIC HEALTH REFERRALS PFS REFERRAL NEEDED?NO CLERGY REFERRAL NEEDED?NO PUBLIC HEALTH REFERRAL NEEDED?NO WAS THE PROVIDER NOTIFIED OF ANY PERTINENT INFO?NO HAS THE PATIENT BEEN EDUCATED REGARDING HIS/HER PLAN OF CARE?YES HAS THE PATIENT BEEN EDUCATED REGARDING PAIN, THE RISK FOR PAIN, THE IMPORTANCE OF EFFECTIVE PAIN MANAGEMENT, AND THE PAIN ASSESSMENT PROCESS?YES LATEX QUESTIONNAIRE LATEX ALLERGY : HAVE YOU EVER DEVELOPED ANY TYPE OF REACTION AFTER HANDLING LATEX PRODUCTS SUCH RUBBER GLOVES, CONDOMS, DIAPHRAGMS, BALLOONS, SOCKS, OR UNDERWEAR?NO LATEX ALLERGY : HAVE YOU EVER DEVELOPED ANY TYPE OF REACTION DURING OR AFTER DENTAL APPOINTMENT, VAGINAL/RECTAL EXAMINATION, SURGICAL PROCEDURE, OR ANY OTHER EXPOSURE?NO LATEX RISK : HAVE YOU EVER HAD ANY DIFFICULTY BREATHING OR HIVES AFTER EATING OR HANDLING ANY FRUITS, OR VEGETABLES; SUCH KIWI, BANANAS, STONE FRUITS, OR CHESTNUTSNO LATEX RISK : DO YOU HAVE A PREVIOUS PERSONAL HISTORY OF MORE THAN NINE SURGERIES, SPINA BIFIDA, OR REPEATED CATHERIZATIONS? NO LATEX RISK : ARE YOU FREQUENTLY EXPOSED TO LATEX PRODUCTS IN YOUR OCCUPATION?NO DATE ASKED : 10/18/2019 ADVANCE DIRECTIVE ADVANCE DIRECTIVE DISCUSSED WITH PATIENT:YES 11/03/2019 PT HAS NO ADVANCED DIRECTIVES, STATES SHE HAS THE INFORMATION, DECLINES ASSISTANCE AT THIS TIME. JS MU-ISM [id number] OTHER LANGUAGE LANGUAGES SPOKEN:SOMALI ALCOHOL SCREENING DID YOU HAVE A DRINK CONTAINING ALCOHOL IN THE PAST YEAR?YES HOW OFTEN DID YOU HAVE A DRINK CONTAINING ALCOHOL IN THE PAST YEAR?TWO TO THREE TIMES PER WEEK (3 POINTS) HOW MANY DRINKS DID YOU HAVE ON A TYPICAL DAY WHEN YOU WERE DRINKING IN THE PAST YEAR?1 OR 2 (0 POINTS) HOW OFTEN DID YOU HAVE SIX OR MORE DRINKS ON ONE OCCASION IN THE PAST YEAR?NEVER (0 POINTS) POINTS3 INTERPRETATIONPOSITIVE RECREATIONAL DRUG USE DRUG USE?NO LEARNING BARRIERS / SPECIAL NEEDS BARRIERS TO LEARNING?NO HEARING IMPAIRED?YES VISION IMPAIRED?YES COGNITIVELY IMPAIRED?NO :HEARING AIDES :CORRECTIVE LENSES READINESS TO LEARN?YES LEARNING PREFERENCES?NO LEARNING CAPABILITIES PRESENT?YES EMOTIONAL BARRIERS?NO SPECIAL DEVICES?NO LINEN CLERK NEEDED?NO REVIEWED WITH PATIENT 10/18/2019 LASREVIEWED WITH PATIENT 11/03/2019 1040 JS. HOSPITALIZATION/MAJOR DIAGNOSTIC PROCEDURE SURGERIES REVIEW OF SYSTEMS REVIEWED BY: PROVIDER: FILIBERTO GRUBBS . CONSTITUTIONAL: ANY CHANGE IN YOUR MEDICAL CONDITION? NO . CHILLS NO . FEVER NO . INFECTION: DO YOU HAVE NEW INFECTIONS? NO . DO YOU HAVE HISTORY OF MRSA? NO . MUSCULOSKELETAL: ANY NEW PATTERNS OF PAIN OR NUMBNESS? YES, STATES WHEN SHE WAKES UP WITH NO PAIN RECENTLY BUT IS IN PAIN BY THE END OF THE DAY . GASTROENTEROLOGY: ANY NEW CHANGE IN BOWEL CONTROL? NO . GENITOURINARY: ANY NEW CHANGE IN BLADDER CONTROL? NO . IS THERE A CHANCE YOU COULD BE ? NO . HEMATOLOGY/LYMPH: DO YOU TAKE ANY BLOOD THINNERS? (FOR EXAMPLE- COUMADIN, PLAVIX, AGGRENOX, PLATEL, PRADAXA, OR XARELTO) NO . WHEN WAS YOUR LAST DOSE? DATE: TIME: . NEUROLOGY: HAVE YOU FALLEN IN THE PAST 12 MONTHS? YES, FALL LAST DECEMBER, DISCUSSED AT PREVIOUS VISIT . ANY NEW EXTREMITY NUMBNESS OR WEAKNESS? NO . CARDIOLOGY: DO YOU HAVE A PACEMAKER OR DEFIBRILLATOR? NO . RESPIRATORY: HAVE YOU BEEN SICK IN THE PAST WEEK? NO . FEVER NO . FLU LIKE SYMPTOMS? NO . COUGH NO . INTEGUMENTARY: DO YOU HAVE ANY RASHES OR OPEN SORES? NO . ALLERGIC/IMMUNO: ARE YOU ALLERGIC TO IV DYE? NO . ANY NEW ALLERGIES? NO . PSYCHIATRIC: DO YOU HAVE THOUGHTS OF HURTING YOURSELF OR SOMEONE ELSE? NO . ARE YOU ABUSED, NEGLECTED, OR IN AN UNSAFE ENVIRONMENT? NO . ENDOCRINOLOGY: ARE YOU DIABETIC? NO . OTHER: DO YOU NEED ANY PRESCRIPTIONS? NO . IF YES, PLEASE LIST: ____ . ANY NEW PROBLEMS WITH YOUR MEDICATIONS? NO . WHEN DID YOU LAST EAT? ____ . WHEN DID YOU LAST DRINK? ____ . WHAT DID YOU LAST DRINK? ____ . NAME OF PERSON DRIVING YOU HOME? ____ . DO YOU HAVE ANY OTHER QUESTIONS OR CONCERNS NO . VITAL SIGNS WT 219.2 LBS, HT 69 IN, BMI 32.37 INDEX, BP 168/96 MM HG, HR 95 /MIN, RR 18 /MIN, TEMP 98.0 F, OXYGEN SAT % 99%, SAFE IN ENV? (Y/N) YES, REVIEWED BY: ILYA. EXAMINATION GENERAL EXAMINATION: GENERALAWAKE,ALERT ,PLEASANT . PSYCHAFFECT NORMAL . LUNGS:LUNG REID ARE CLEAR TO AUSCULTATION BILATERALLY. GOOD MOVEMENT OF AIR . HEART:S1, S2 IN A REGULAR RATE AND RHYTHM. NO SIGNIFICANT MURMURS, RUBS OR GALLOPS NOTED . ASSESSMENTS SACROILIITIS - M46.1 (PRIMARY) TREATMENT SACROILIITIS CONTINUE METHOCARBAMOL TABLET, 750 MG, 1 TABLET, ORALLY, EVERY 8 HRSPRN CONTINUE TRAMADOL HCL TABLET, 50 MG, 2 TAB, ORALLY, BID MDD4 NOTES: ISTOP REGISTRY REVIEWED AND DEMONSTRATES COMPLLIANCE. BRINGS IN MEDICATIONS WHICH IS APPROPRIATE FOR WHAT WAS DISPENSED. , RISKS OF NARCOTIC/OPIOD MEDICATIONS INCLUDES BUT IS NOT LIMITED TO RISK OF DEPENDANCE/DEVELOPMENT OF ADDICTION, MOOD DISTURBANCE AND DEPRESSION, OSTEOPOROSIS, HORMONAL AND LABIDAL CHANGES, RESPIRATORY DEPRESSION AND . PATIENT IS ADVISED NOT TO DRIVE OR DRINK ALCOHOL WHILE ON THESE MEDICATIONS. PROCEDURE CODES FA211 ESTABILISHED PATIENT [facility] CHARGE DISPOSITION & COMMUNICATION FOLLOW UP 2 MONTHS ELECTRONICALLY SIGNED BY HUMERA CAPELLAN ON 11/03/2019 AT 02:24 PM EST DISCLAIMER : THIS IS A VISIT SUMMARY EXTRACTED FROM THE [employer] CHART. IT IS NOT A COPY OF THE [employer] PROGRESS NOTE. AGUILAD
== END ==
LOC: M PAIN 10:15
PROVIDERS: ATTEND Nurse Practitioner Family
DX: M46.1 Sacroiliitis, not elsewhere classified (principal); I10 Essential (primary) hypertension; Z88.1 Allergy status to other antibiotic agents; Z88.2 Allergy status to sulfonamides; Z88.8 Allergy status to other drugs, medicaments and biological substances; Z91.030 Bee allergy status; Z79.891 Long term (current) use of opiate analgesic; Z79.899 Other long term (current) drug therapy

== ENCOUNTER → 2020-01-02 | Outpatient (CLI) | payer OTHER ==
--- NOTE | 2020-01-09 10:23 | ECWPNPC ---
PATIENT NAME: ARACELIS AMAYA : 1960 GENDER: FEMALE VISIT DATE: 01/02/2020 DISCHARGE DATE: 01/02/20 1139 VISIT LOCKED DATE TIME: PHYSICIAN: FILIBERTO LEIVA RESOURCE: FILIBERTO LEIVA REASON FOR APPOINTMENT 1. 2 MONTH HISTORY OF PRESENT ILLNESS HISTORY OF PRESENT ILLNESS: PHONE CALL TO PATIENT WHO GIVES PERMISSION FOR TELEMED VISIT TODAY. REPORTING INCREASE IN HER LOW BACK PAIN. RATING PAIN LEVEL A 10/10 VAS. HAS RESPONDED WELL TO SACROILIAC JOINT BLOCKS IN THE PAST. FINDING TRAMADOL MINIMALLY EFFECTIVE AT THIS POINT. HAD SYNCOPAL EPISODE 1 WEEK AGO AND DIFFICULTIES WITH SPEECH. STATES THAT SHE THINKS SHE HAD A MINI STROKE. SHE HAS NOT SPOKEN TO HER PRIMARY CARE PROVIDER REGARDING THESE SYMPTOMS. INFORMED HER TODAY THAT SHE WOULD NEED TO BE SEEN BY PRIMARY CARE AND THEY WOULD HAVE TO GIVE MEDICAL CLEARANCE FOR US TO PROCEED WITH ANY INJECTIONS OR MEDICATION CHANGES HERE. SHE AGREES TO COMPLY. PAIN THE PATIENT DESCRIBES THE PAIN... FALL RISK SCREENING: SCREENING :NO FALLS REPORTED IN THE LAST YEAR CURRENT MEDICATIONS TAKING MEGESTROL ACETATE 20 MG TABLET 1 TABLET ORALLY DAILY TAKING SIMVASTATIN 20 MG TABLET 1 TABLET IN THE EVENING ORALLY ONCE A DAY TAKING ATENOLOL 50 MG TABLET 1 TABLET ORALLY ONCE A DAY TAKING IBUPROFEN 200 MGS 2 TABS ORAL 3 TIMES A DAY NEEDED TAKING LORAZEPAM 1 MG TABLET ORAL MDD3 ONCE A DAY IF NEEDED TAKING AMITRIPTYLINE HCL 25 MG TABLET 1 TABLET ORALLY ONCE A DAY AT BEDTIME TAKING BUTALBITAL-ACETAMINOPHEN 25-325 MG TABLET 1 TABLET NEEDED ORALLY EVERY 4 HRS TAKING METOPROLOL SUCCINATE 50 MG CAPSULE ER 24 HOUR SPRINKLE 1 CAPSULE ORALLY ONCE A DAY TAKING FLUOXETINE HCL 40 MG CAPSULE 1 CAPSULE ORALLY ONCE A DAY TAKING VITAMIN D (CHOLECALCIFEROL) 25 MCG (1000 UT) CAPSULE 1 CAPSULE ORALLY ONCE A DAY TAKING METHOCARBAMOL 750 MG TABLET 1 TABLET ORALLY EVERY 8 HRSPRN TAKING TRAMADOL HCL 50 MG TABLET 2 TAB ORALLY BID MDD4 NOT-TAKING PROZAC 40 MG CAPSULE 1 CAPSULE IN THE MORNING ORALLY ONCE A DAY MEDICATION LIST REVIEWED AND RECONCILED WITH THE PATIENT PAST MEDICAL HISTORY HYPERTENSION ELEVATED CHOLESTEROL ARTHRITIS NERVE STIMULATOR IMPLANT FOR BOWEL CONTROL RIGHT FRACTURED PELVIS AND RIGHT HIP FX 05/2018 ALLERGIES BEE STINGS: SWELLING - ALLERGY SULFA (FOR ALLERGY USE ONLY): DON'T FEEL RIGHT - ALLERGY AUGMENTIN: BLACK STOOL - ALLERGY PLAQUENIL: DIARRHEA - ALLERGY SURGICAL HISTORY LEFT BROKEN SHOULDER WITH REPAIR 04/21/2016 REVERSE TOTAL LEFT SHOULDER REPLACEMENT 05/19/2016 SACIAL NERVE STIMULATOR IMPLANT FOR BOWEL CONTROL 01/30/2012 FAMILY HISTORY FATHER: MOTHER: , DIAGNOSED WITH OTHER MALIGNANT NEOPLASM OF UNSPECIFIED SITE 1 BROTHER(S) . 2 SON(S) - HEALTHY. 1 SON WITH 2 HEART OPERATIONS. SOCIAL HISTORY GENERAL: TOBACCO USE ARE YOU A:NONSMOKER PAIN CLINIC PFS, CLERGY, PUBLIC HEALTH REFERRALS PFS REFERRAL NEEDED?NO CLERGY REFERRAL NEEDED?NO PUBLIC HEALTH REFERRAL NEEDED?NO WAS THE PROVIDER NOTIFIED OF ANY PERTINENT INFO?NO HAS THE PATIENT BEEN EDUCATED REGARDING HIS/HER PLAN OF CARE?YES HAS THE PATIENT BEEN EDUCATED REGARDING PAIN, THE RISK FOR PAIN, THE IMPORTANCE OF EFFECTIVE PAIN MANAGEMENT, AND THE PAIN ASSESSMENT PROCESS?YES LATEX QUESTIONNAIRE LATEX ALLERGY : HAVE YOU EVER DEVELOPED ANY TYPE OF REACTION AFTER HANDLING LATEX PRODUCTS SUCH RUBBER GLOVES, CONDOMS, DIAPHRAGMS, BALLOONS, SOCKS, OR UNDERWEAR?NO LATEX ALLERGY : HAVE YOU EVER DEVELOPED ANY TYPE OF REACTION DURING OR AFTER DENTAL APPOINTMENT, VAGINAL/RECTAL EXAMINATION, SURGICAL PROCEDURE, OR ANY OTHER EXPOSURE?NO LATEX RISK : HAVE YOU EVER HAD ANY DIFFICULTY BREATHING OR HIVES AFTER EATING OR HANDLING ANY FRUITS, OR VEGETABLES; SUCH KIWI, BANANAS, STONE FRUITS, OR CHESTNUTSNO LATEX RISK : DO YOU HAVE A PREVIOUS PERSONAL HISTORY OF MORE THAN NINE SURGERIES, SPINA BIFIDA, OR REPEATED CATHERIZATIONS? NO LATEX RISK : ARE YOU FREQUENTLY EXPOSED TO LATEX PRODUCTS IN YOUR OCCUPATION?NO DATE ASKED : 10/18/2019 ADVANCE DIRECTIVE ADVANCE DIRECTIVE DISCUSSED WITH PATIENT:YES 01/02/2020 PT HAS NO ADVANCED DIRECTIVES, STATES SHE HAS THE INFORMATION, DECLINES ASSISTANCE AT THIS TIME. JS DRUZE [id number] OTHER LANGUAGE LANGUAGES SPOKEN:ANDORRAN NEW PATIENT PAIN DIARY TODAY'S VISITNOTES 01/02/2020 PATIENT DESCRIBES PAIN :HAVE IT ALL THE TIME, THROBBING FROM 0-10, WHAT LEVEL IS YOUR PAIN TODAY?10 0 WITHOUT ACTIVITY, 10 WITH ACTIVITY ALCOHOL SCREENING DID YOU HAVE A DRINK CONTAINING ALCOHOL IN THE PAST YEAR?YES HOW OFTEN DID YOU HAVE SIX OR MORE DRINKS ON ONE OCCASION IN THE PAST YEAR?NEVER (0 POINTS) HOW MANY DRINKS DID YOU HAVE ON A TYPICAL DAY WHEN YOU WERE DRINKING IN THE PAST YEAR?1 OR 2 (0 POINTS) HOW OFTEN DID YOU HAVE A DRINK CONTAINING ALCOHOL IN THE PAST YEAR?TWO TO THREE TIMES PER WEEK (3 POINTS) POINTS3 INTERPRETATIONPOSITIVE RECREATIONAL DRUG USE DRUG USE?NO LEARNING BARRIERS / SPECIAL NEEDS BARRIERS TO LEARNING?NO HEARING IMPAIRED?YES VISION IMPAIRED?YES COGNITIVELY IMPAIRED?NO :HEARING AIDES :CORRECTIVE LENSES READINESS TO LEARN?YES LEARNING PREFERENCES?NO LEARNING CAPABILITIES PRESENT?YES EMOTIONAL BARRIERS?NO SPECIAL DEVICES?NO FRONT SERVICES AGENT NEEDED?NO HOSPITALIZATION/MAJOR DIAGNOSTIC PROCEDURE SURGERIES REVIEW OF SYSTEMS REVIEWED BY: PROVIDER: FILIBERTO GRUBBS . CONSTITUTIONAL: ANY CHANGE IN YOUR MEDICAL CONDITION? NO . CHILLS NO . FEVER NO . INFECTION: DO YOU HAVE NEW INFECTIONS? NO . DO YOU HAVE HISTORY OF MRSA? NO . MUSCULOSKELETAL: ANY NEW PATTERNS OF PAIN OR NUMBNESS? YES, NEW PAIN TO BILATERAL KNEES, HARD TO GET UP FROM A SEATED POSITION . GASTROENTEROLOGY: ANY NEW CHANGE IN BOWEL CONTROL? NO . GENITOURINARY: ANY NEW CHANGE IN BLADDER CONTROL? NO . IS THERE A CHANCE YOU COULD BE ? NO . HEMATOLOGY/LYMPH: DO YOU TAKE ANY BLOOD THINNERS? (FOR EXAMPLE- COUMADIN, PLAVIX, AGGRENOX, PLATEL, PRADAXA, OR XARELTO) NO . WHEN WAS YOUR LAST DOSE? DATE: TIME: . NEUROLOGY: HAVE YOU FALLEN IN THE PAST 12 MONTHS? NO . ANY NEW EXTREMITY NUMBNESS OR WEAKNESS? NO . CARDIOLOGY: DO YOU HAVE A PACEMAKER OR DEFIBRILLATOR? NO . RESPIRATORY: HAVE YOU BEEN SICK IN THE PAST WEEK? NO . FEVER NO . FLU LIKE SYMPTOMS? NO . COUGH NO . INTEGUMENTARY: DO YOU HAVE ANY RASHES OR OPEN SORES? NO . ALLERGIC/IMMUNO: ARE YOU ALLERGIC TO IV DYE? NO . ANY NEW ALLERGIES? NO . PSYCHIATRIC: DO YOU HAVE THOUGHTS OF HURTING YOURSELF OR SOMEONE ELSE? NO . ARE YOU ABUSED, NEGLECTED, OR IN AN UNSAFE ENVIRONMENT? NO . ENDOCRINOLOGY: ARE YOU DIABETIC? NO . OTHER: DO YOU NEED ANY PRESCRIPTIONS? NO . IF YES, PLEASE LIST: ____ . ANY NEW PROBLEMS WITH YOUR MEDICATIONS? YES, STATES THAT THE TRAMADOL DOES NOT ALWAYS HELP WITH THE PAIN - WORKS SOMETIMES BUT DOES NOTHING OTHER TIMES . WHEN DID YOU LAST EAT? ____ . WHEN DID YOU LAST DRINK? ____ . WHAT DID YOU LAST DRINK? ____ . NAME OF PERSON DRIVING YOU HOME? ____ . DO YOU HAVE ANY OTHER QUESTIONS OR CONCERNS YES, STATES SHE HAD A SPELL ON THURSDAY WHERE SHE FELT DIZZY, WAS HAVING TROUBLE SEEING, AND HAD A CHANGE IN HER SPEECH. STATES SHE DID NOT FALL AT ALL BUT THAT SHE THINKS MAYBE SHE HAD A MINI-STROKE. STATES SHE HAS NOT CALLED HER PCP REGARDING THIS YET. ADVISED PATIENT TO CONTACT PCP TO DISCUSS AND FILIBERTO LEIVA NOTIFIED . ASSESSMENTS SACROILIITIS - M46.1 (PRIMARY) TREATMENT SACROILIITIS NOTES: PATIENT WILL BE EVALUATED BY PRIMARY CARE. WE'LL HAVE TO PROVIDE MEDICAL CLEARANCE FOR US TO CONSIDER INJECTION THERAPY. TOTAL TIME SPENT DURING TELEMED VISIT WAS APPROXIMATELY 11 MINUTES. OTHERS NOTES: VITALS NOT OBTAINED THIS WAS A TELEPHONE VISIT. JS. DISPOSITION & COMMUNICATION FOLLOW UP 6 WEEKS (REASON: REVIEW MED CLEARANCE) ELECTRONICALLY SIGNED BY HUMERA CAPELLAN ON 01/02/2020 AT 11:19 AM EDT DISCLAIMER : THIS IS A VISIT SUMMARY EXTRACTED FROM THE [employer] CHART. IT IS NOT A COPY OF THE [employer] PROGRESS NOTE. ERICK
== END ==
LOC: M PAIN 10:45
PROVIDERS: ATTEND Nurse Practitioner Family
DX: M46.1 Sacroiliitis, not elsewhere classified (principal); Z79.891 Long term (current) use of opiate analgesic; Z79.899 Other long term (current) drug therapy; Z91.030 Bee allergy status; Z88.2 Allergy status to sulfonamides; Z88.1 Allergy status to other antibiotic agents; Z88.8 Allergy status to other drugs, medicaments and biological substances

== ENCOUNTER → 2020-01-23 | Outpatient (CLI) | payer OTHER ==
[~2020-01-23] MED LIST changes: +ISOVUE-370 76% 100ML VIAL As Ordered ONE
--- NOTE | 2020-01-23 12:16 | REP ---
CT BRAIN WITHOUT CONTRAST: HISTORY: TIA, slurred speech. COMPARISON: Head CT study, June 25, 2017. CT FINDINGS: Digital preliminary manager life sciences radiographs are unremarkable. Bone window settings demonstrate an intact bony calvarium. Visualized paranasal sinuses are clear. No intraorbital abnormality is seen. On soft tissue window settings, there is mild generalized volume loss. There is some periventricular low density in the right frontal lobe suggesting small vessel changes. There is no evidence of acute infarct. No intracranial hemorrhage is seen. No extra-axial fluid collection, mass, or midline shift is observed. IMPRESSION: Mild diffuse atrophy and minimal small vessel changes. No acute intracranial abnormality. Electronically Signed by Supa Do MD 01/23/2020 01:37 P
--- NOTE | 2020-01-23 12:24 | REP ---
CT ANGIOGRAPHY OF THE BRAIN WITH IV CONTRAST: HISTORY: TIA, slurred speech. Comparison head CT study is from today and June 25, 2017. CT CONTRAST DOSE: 100 mL of intravenous Isovue-[address] ANGIOGRAPHIC FINDINGS: The distal vertebral arteries are patent. Basilar, superior cerebellar, and posterior cerebral arteries appear intact bilaterally. The distal internal carotid arteries are unremarkable. Anterior and middle cerebral arteries appear intact bilaterally. No vessel cutoff is seen. No evidence of arteriovenous malformation or gomez aneurysm. Sagittal, straight, and sigmoid sinuses are unremarkable and patent. IMPRESSION: Unremarkable CT angiography of the brain with IV contrast. Electronically Signed by Supa Do MD 01/23/2020 01:38 P
--- NOTE | 2020-01-23 12:45 | REP ---
CT ANGIOGRAPHY OF THE NECK AND CAROTIDS WITH IV CONTRAST: HISTORY: TIA, slurred speech. Comparison is made with carotid sonography, January 06, 2020. CT CONTRAST DOSE: 100 mL of intravenous Isovue-370. CT TECHNIQUE: Helical scanning is acquired, and 2 mm axial images are reformatted. Coronal and sagittal MIP and MPR images are generated. 3D surface rendered volumetric imaging is generated as well. CT FINDINGS: Arch and great vessel origins are unremarkable. Vertebral arteries are patent bilaterally, left smaller than right. There is no evidence of subclavian stenosis. The common carotid arteries are unremarkable bilaterally. The carotid bifurcations are essentially clear bilaterally with no evidence of internal carotid artery stenosis on either side. The internal carotid arteries are mildly tortuous. IMPRESSION: No significant abnormality noted. Electronically Signed by Supa Do MD 01/23/2020 01:38 P
== END ==
LOC: M RAD 09:51
PROVIDERS: ATTEND Psychiatry & Neurology Neurology
DX: G45.9 Transient cerebral ischemic attack, unspecified (principal); R47.81 Slurred speech
CPT/HCPCS: 70450; 70496; 70498; Q9967

== ENCOUNTER → 2020-02-13 | Outpatient (CLI) | payer OTHER ==
[~2020-02-13] MED LIST changes: -ISOVUE-370 76% 100ML VIAL As Ordered ONE
--- NOTE | 2020-02-15 04:21 | ECWPNPC ---
PATIENT NAME: ARACELIS AMAYA : 1960 GENDER: FEMALE VISIT DATE: 02/13/2020 DISCHARGE DATE: 02/13/20 1106 VISIT LOCKED DATE TIME: PHYSICIAN: FILIBERTO LEIVA RESOURCE: FILIBERTO LEIVA REASON FOR APPOINTMENT 1. REVIEW MED CLEARANCE, 6 WEEKS, PAT COMPLETED HISTORY OF PRESENT ILLNESS GENERAL: PATIENT IS AGREEABLE TO TELEMED VISIT VIA ZOOM. CONTINUES WITH LOW BACK PAIN. RATING LOW BACK PAIN A 2 TO A 10 OVER 10 VAS, DEPENDING ON ACTIVITY. PAIN IS WORSE WITH WALKING OR PROLONGED STANDING. PAIN IS RELIEVED SOMEWHAT WITH TRAMADOL AND ICE. HAS RESPONDED WELL TO BILATERAL SACROILIAC JOINT INJECTIONS DONE IN OUR CLINIC LAST ONE BEING DONE 10/18/2019. HAD A RECENT SYNCOPAL EPISODE AND TENTATIVE DIAGNOSIS OF TIA BY THE EMERGENCY ROOM APPROXIMATELY 6 WEEKS AGO. STATES SHE SAW NEUROLOGY, BUT DOES NOT HAVE A FOLLOW-UP WITH THEM. WE HAVE CT OF THE BRAIN AND ANGIOGRAM RESULTS THAT ARE NEGATIVE, BUT SHE STILL WILL REQUIRE A MEDICAL CLEARANCE FROM DR. PHYLLIS ABAD.PRIMARY CARE BEFORE WE CAN DO INJECTIONS. SHE HAS AN APPOINTMENT WITH PHYLLIS ABAD 03/12/2020. SHE WILL REQUEST MEDICAL CLEARANCE AT THAT VISIT. CURRENT MEDICATIONS TAKING MEGESTROL ACETATE 20 MG TABLET 1 TABLET ORALLY DAILY TAKING SIMVASTATIN 20 MG TABLET 1 TABLET IN THE EVENING ORALLY ONCE A DAY TAKING ATENOLOL 50 MG TABLET 1 TABLET ORALLY ONCE A DAY TAKING IBUPROFEN 200 MGS 2 TABS ORAL 3 TIMES A DAY NEEDED TAKING LORAZEPAM 1 MG TABLET ORAL MDD3 ONCE A DAY IF NEEDED TAKING AMITRIPTYLINE HCL 25 MG TABLET 1 TABLET ORALLY ONCE A DAY AT BEDTIME TAKING BUTALBITAL-ACETAMINOPHEN 25-325 MG TABLET 1 TABLET NEEDED ORALLY EVERY 4 HRS TAKING METOPROLOL SUCCINATE 50 MG CAPSULE ER 24 HOUR SPRINKLE 1 CAPSULE ORALLY ONCE A DAY TAKING FLUOXETINE HCL 40 MG CAPSULE 1 CAPSULE ORALLY ONCE A DAY TAKING VITAMIN D (CHOLECALCIFEROL) 25 MCG (1000 UT) CAPSULE 1 CAPSULE ORALLY ONCE A DAY TAKING TRAMADOL HCL 50 MG TABLET 2 TAB ORALLY BID MDD4 TAKING METHOCARBAMOL 750 MG TABLET 1 TABLET ORALLY EVERY 8 HRSPRN TAKING ASPIRIN 81 81 MG TABLET DELAYED RELEASE 1 TABLET ORALLY ONCE A DAY NOT-TAKING PROZAC 40 MG CAPSULE 1 CAPSULE IN THE MORNING ORALLY ONCE A DAY MEDICATION LIST REVIEWED AND RECONCILED WITH THE PATIENT PAST MEDICAL HISTORY HYPERTENSION ELEVATED CHOLESTEROL ARTHRITIS NERVE STIMULATOR IMPLANT FOR BOWEL CONTROL RIGHT FRACTURED PELVIS AND RIGHT HIP FX 05/2018 TIA (PER PT) ALLERGIES BEE STINGS: SWELLING - ALLERGY SULFA (FOR ALLERGY USE ONLY): DON'T FEEL RIGHT - ALLERGY AUGMENTIN: BLACK STOOL - ALLERGY PLAQUENIL: DIARRHEA - ALLERGY SURGICAL HISTORY LEFT BROKEN SHOULDER WITH REPAIR 04/21/2016 REVERSE TOTAL LEFT SHOULDER REPLACEMENT 05/19/2016 SACIAL NERVE STIMULATOR IMPLANT FOR BOWEL CONTROL 01/30/2012 FAMILY HISTORY FATHER: MOTHER: , DIAGNOSED WITH OTHER MALIGNANT NEOPLASM OF UNSPECIFIED SITE 1 BROTHER(S) . 2 SON(S) - HEALTHY. 1 SON WITH 2 HEART OPERATIONS. SOCIAL HISTORY GENERAL: TOBACCO USE ARE YOU A:NONSMOKER LATEX QUESTIONNAIRE LATEX ALLERGY : HAVE YOU EVER DEVELOPED ANY TYPE OF REACTION AFTER HANDLING LATEX PRODUCTS SUCH RUBBER GLOVES, CONDOMS, DIAPHRAGMS, BALLOONS, SOCKS, OR UNDERWEAR?NO LATEX ALLERGY : HAVE YOU EVER DEVELOPED ANY TYPE OF REACTION DURING OR AFTER DENTAL APPOINTMENT, VAGINAL/RECTAL EXAMINATION, SURGICAL PROCEDURE, OR ANY OTHER EXPOSURE?NO DATE ASKED : 10/18/2019 LATEX RISK : HAVE YOU EVER HAD ANY DIFFICULTY BREATHING OR HIVES AFTER EATING OR HANDLING ANY FRUITS, OR VEGETABLES; SUCH KIWI, BANANAS, STONE FRUITS, OR CHESTNUTSNO LATEX RISK : DO YOU HAVE A PREVIOUS PERSONAL HISTORY OF MORE THAN NINE SURGERIES, SPINA BIFIDA, OR REPEATED CATHERIZATIONS? NO LATEX RISK : ARE YOU FREQUENTLY EXPOSED TO LATEX PRODUCTS IN YOUR OCCUPATION?NO ALCOHOL SCREENING DID YOU HAVE A DRINK CONTAINING ALCOHOL IN THE PAST YEAR?YES HOW OFTEN DID YOU HAVE SIX OR MORE DRINKS ON ONE OCCASION IN THE PAST YEAR?NEVER (0 POINTS) HOW MANY DRINKS DID YOU HAVE ON A TYPICAL DAY WHEN YOU WERE DRINKING IN THE PAST YEAR?1 OR 2 (0 POINTS) HOW OFTEN DID YOU HAVE A DRINK CONTAINING ALCOHOL IN THE PAST YEAR?TWO TO THREE TIMES PER WEEK (3 POINTS) POINTS3 INTERPRETATIONPOSITIVE RECREATIONAL DRUG USE DRUG USE?NO DENIES 02/13/20 QUAKER [id number] OTHER LANGUAGE LANGUAGES SPOKEN:[place] LEARNING BARRIERS / SPECIAL NEEDS BARRIERS TO LEARNING?NO HEARING IMPAIRED?YES VISION IMPAIRED?YES COGNITIVELY IMPAIRED?NO :HEARING AIDES :CORRECTIVE LENSES READINESS TO LEARN?YES LEARNING PREFERENCES?NO LEARNING CAPABILITIES PRESENT?YES EMOTIONAL BARRIERS?NO SPECIAL DEVICES?NO THIMBLE PRESS OPERATOR NEEDED?NO NEW PATIENT PAIN DIARY TODAY'S VISITNOTES 02/13/2020 PATIENT DESCRIBES PAIN :HAVE IT ALL THE TIME, THROBBING FROM 0-10, WHAT LEVEL IS YOUR PAIN TODAY?2 02 WITHOUT ACTIVITY, 10 WITH ACTIVITY PRECIPITATING FACTORS STANDING, LAUNDRY, HOUSEWORK ALLEVIATING FACTORS ICE, MEDICATION PAIN CLINIC PFS, CLERGY, PUBLIC HEALTH REFERRALS PFS REFERRAL NEEDED?NO CLERGY REFERRAL NEEDED?NO PUBLIC HEALTH REFERRAL NEEDED?NO WAS THE PROVIDER NOTIFIED OF ANY PERTINENT INFO?NO HAS THE PATIENT BEEN EDUCATED REGARDING HIS/HER PLAN OF CARE?YES HAS THE PATIENT BEEN EDUCATED REGARDING PAIN, THE RISK FOR PAIN, THE IMPORTANCE OF EFFECTIVE PAIN MANAGEMENT, AND THE PAIN ASSESSMENT PROCESS?YES ADVANCE DIRECTIVE ADVANCE DIRECTIVE DISCUSSED WITH PATIENT:YES 01/02/2020 PT HAS NO ADVANCED DIRECTIVES, STATES SHE HAS THE INFORMATION, DECLINES ASSISTANCE AT THIS TIME. JS HOSPITALIZATION/MAJOR DIAGNOSTIC PROCEDURE SURGERIES REVIEW OF SYSTEMS FOLLOW-UP ROS: CARDIOLOGY: NO CHEST PAIN, PALPITATIONS, ORTHOPNEA/PND . NO GENERAL:, NO FEVERS, CHILLS, NIGHT SWEATS, CHANGES IN WEIGHT OR GENERALIZED FATIGUE. . DENIES WEAKNESS OF THE EXTREMITIES, SLURRED SPEECH OR CHANGES IN SENSORIUM. EXAMINATION GENERAL EXAMINATION: GENERALNO ACUTE DISTRESS, WELL NOURISHED AND HYDRATED. PSYCHAPPROPRIATE MOOD AND AFFECT . FACE:UNREMARKABLE. ASSESSMENTS SACROILIITIS - M46.1 (PRIMARY) CHRONIC PRESCRIPTION OPIATE USE - Z79.891 TREATMENT SACROILIITIS NOTES: PLAN IS TO SCHEDULE BILATERAL SACROILIAC JOINT INJECTIONS AT FOLLOW-UP IN 6 WEEKS. AT THAT POINT, WE WILL REVIEW MEDICAL CLEARANCE NOTE FROM PRIMARY CARE. TOTAL TIME SPENT DURING TELEMED VISIT WAS APPROXIMATELY 12 MINUTES. DISPOSITION & COMMUNICATION FOLLOW UP 6 WEEKS (REASON: LOW BACK PAIN, REVIEW MEDICAL CLEARANCE FROM PRIMARY CARE) ELECTRONICALLY SIGNED BY HUMERA CAPELLAN ON 02/14/2020 AT 01:58 PM EDT DISCLAIMER : THIS IS A VISIT SUMMARY EXTRACTED FROM THE [employer] CHART. IT IS NOT A COPY OF THE [employer] PROGRESS NOTE. ERICK
== END ==
LOC: M PAIN 09:45 → M TMPAIN 09:45
PROVIDERS: ATTEND Nurse Practitioner Family
DX: M46.1 Sacroiliitis, not elsewhere classified (principal); Z79.891 Long term (current) use of opiate analgesic; Z79.82 Long term (current) use of aspirin; Z79.899 Other long term (current) drug therapy; Z88.2 Allergy status to sulfonamides; Z88.1 Allergy status to other antibiotic agents; Z88.8 Allergy status to other drugs, medicaments and biological substances; Z91.030 Bee allergy status

== ENCOUNTER → 2020-02-28 | Outpatient (CLI) | payer OTHER ==
[2020-02-28 12:49] LABS: BASO % 0.6 % (0.0-1.0); EOS # 0.2 10^3/uL (0.0-0.5); EOS % 3.2 % (0.0-3.0); HEMOGLOBIN 13.6 g/dl (12.0-15.5); LYMPH # 1.2 10^3/uL (1.5-5.0); LYMPH % 24.4 % (24.0-44.0); MEAN CORPUSCULAR HEMOGLOBIN 34.2 pg (27.0-33.0); MEAN CORPUSCULAR HGB CONC 33.2 g/dl (32.0-36.5); MONO # 0.5 10^3/uL (0.0-0.8); MONO % 10.1 % (0.0-5.0); NEUTROPHILS % 61.5 % (36.0-66.0); PLATELET COUNT, AUTOMATED 249 10^3/uL (150-450); RED BLOOD COUNT 3.98 10^6/uL (4.00-5.40)
[2020-02-28 13:24] LABS: ALBUMIN 3.7 GM/DL (3.2-5.2); ALT/SGPT 27 U/L (12-78); BILIRUBIN,TOTAL 0.7 MG/DL (0.2-1.0); BLOOD UREA NITROGEN 6 MG/DL (7-18); CALCIUM LEVEL 8.9 MG/DL (8.8-10.2); CARBON DIOXIDE LEVEL 28 MEQ/L (21-32); CHLORIDE LEVEL 105 MEQ/L (98-107); CHOLESTEROL LEVEL 175 MG/DL (<200); CHOLESTEROL RISK RATIO 3.571 (<5); CREATININE FOR GFR 0.74 MG/DL (0.55-1.30); GLOMERULAR FILTRATION RATE > 60.0 (>45); GLUCOSE, FASTING 107 MG/DL (70-100); HDL CHOLESTEROL 49 MG/DL (>40); LDL CHOLESTEROL 102 MG/DL (<100); NON-HDL-C 126 MG/DL; POTASSIUM SERUM 3.7 MEQ/L (3.5-5.1); SODIUM LEVEL 139 MEQ/L (136-145); THYROID STIMULATING HORMONE 0.873 uIU/ML (0.358-3.740); TOTAL PROTEIN 7.8 GM/DL (6.4-8.2); TRIGLYCERIDES LEVEL 122 MG/DL (<150)
== END ==
LOC: M LAB 11:52
PROVIDERS: ATTEND Family Medicine
DX: I10 Essential (primary) hypertension (principal)

== ENCOUNTER → 2020-03-26 | Outpatient (CLI) | payer OTHER ==
--- NOTE | 2020-03-28 03:51 | ECWPNPC ---
PATIENT NAME: ARACELIS AMAYA : 1960 GENDER: FEMALE VISIT DATE: 03/26/2020 DISCHARGE DATE: 03/26/20 1510 VISIT LOCKED DATE TIME: PHYSICIAN: FILIBERTO LEIVA RESOURCE: FILIBERTO LEIVA REASON FOR APPOINTMENT 1. [email or web address] BACK PAIN, REVIEW MEDICAL CLEARANCE FROM PRIMARY CARE PAT DONE HISTORY OF PRESENT ILLNESS GENERAL: PATIENT IS AGREEABLE TO TELEMED VISIT VIA ZOOM. REPORTING AN INCREASE IN HER LOW BACK PAIN OVER THE PAST FEW MONTHS. PAIN IS AGGRAVATED BY STANDING AND WALKING. PAIN IS RELIEVED SOMEWHAT WITH HER MEDICATION AND REST. HAS RESPONDED WELL TO BILATERAL SACROILIAC JOINT INJECTIONS IN THE PAST. REVIEWED MRI OF THE LS-SPINE AND DISCUSS TREATMENT PLAN.-. FALL RISK SCREENING: SCREENING :NO FALLS REPORTED IN THE LAST YEAR PAIN SCREENING: PATIENT HAS A COMPLAINT OF ACUTE OR CHRONIC PAIN :YES LOCATION OF PAIN:LOW BACK INTENSITY OF PAIN (SCALE OF 1 TO 10):3 WHAT DOES YOUR PAIN FEEL LIKE:ACHING, CONTINOUS, SHARP, STABBING, TENDER, THROBBING NURSING NOTE: -. PAIN CENTER INTAKE QUESTIONS: DO YOU HAVE A HISTORY OF MRSA? :NO DO YOU TAKE A BLOOD THINNERS? :YES ASA 81MG DO YOU HAVE ANY BLEEDING DISORDERS? :NO ANY NEW NUMBNESS OR WEAKNESS IN YOUR LEGS OR ARMS? :NO ANY PACEMAKER,DEFIBRILLATOR, OR DORSAL COLUMN STIMULATOR? :YES DCS LEFT LOW BACK DO YOU HAVE ANY RASHES OR OPEN SORES? :NO ARE YOU ALLERGIC TO IV DYE? :NO ARE YOU DIABETIC? :NO ANY NEW PROBLEMS WITH YOUR MEDICATIONS? :NO HAVE YOU RECEIVED A VACCINE IN THE PAST 30 DAYS? :NO DO YOU PLAN TO RECEIVE A VACCINE IN THE NEXT 21 DAYS? :NO DO YOU NEED ANY PRESCRIPTION? :NO DO YOU TAKE ANY IMMUNOSUPPRESSIVE MEDICATIONS? :NO IS THERE A CHANCE YOU COULD BE ? :NO ARE YOU BREAST FEEDING? :NO CURRENT MEDICATIONS TAKING MEGESTROL ACETATE 20 MG TABLET 1 TABLET ORALLY DAILY TAKING SIMVASTATIN 20 MG TABLET 1 TABLET IN THE EVENING ORALLY ONCE A DAY TAKING ATENOLOL 50 MG TABLET 1 TABLET ORALLY ONCE A DAY TAKING IBUPROFEN 200 MGS 2 TABS ORAL 3 TIMES A DAY NEEDED TAKING LORAZEPAM 1 MG TABLET ORAL MDD3 ONCE A DAY IF NEEDED TAKING AMITRIPTYLINE HCL 25 MG TABLET 1 TABLET ORALLY ONCE A DAY AT BEDTIME TAKING BUTALBITAL-ACETAMINOPHEN 25-325 MG TABLET 1 TABLET NEEDED ORALLY EVERY 4 HRS TAKING METOPROLOL SUCCINATE 50 MG CAPSULE ER 24 HOUR SPRINKLE 1 CAPSULE ORALLY ONCE A DAY TAKING FLUOXETINE HCL 40 MG CAPSULE 1 CAPSULE ORALLY ONCE A DAY TAKING VITAMIN D (CHOLECALCIFEROL) 25 MCG (1000 UT) CAPSULE 1 CAPSULE ORALLY ONCE A DAY TAKING METHOCARBAMOL 750 MG TABLET 1 TABLET ORALLY EVERY 8 HRSPRN TAKING ASPIRIN 81 81 MG TABLET DELAYED RELEASE 1 TABLET ORALLY ONCE A DAY TAKING TRAMADOL HCL 50 MG TABLET 2 TAB ORALLY BID MDD4 NOT-TAKING PROZAC 40 MG CAPSULE 1 CAPSULE IN THE MORNING ORALLY ONCE A DAY MEDICATION LIST REVIEWED AND RECONCILED WITH THE PATIENT PAST MEDICAL HISTORY HYPERTENSION ELEVATED CHOLESTEROL ARTHRITIS NERVE STIMULATOR IMPLANT FOR BOWEL CONTROL RIGHT FRACTURED PELVIS AND RIGHT HIP FX 05/2018 TIA (PER PT) ALLERGIES BEE STINGS: SWELLING - ALLERGY SULFA (FOR ALLERGY USE ONLY): DON'T FEEL RIGHT - ALLERGY AUGMENTIN: BLACK STOOL - ALLERGY PLAQUENIL: DIARRHEA - ALLERGY SURGICAL HISTORY LEFT BROKEN SHOULDER WITH REPAIR 04/21/2016 REVERSE TOTAL LEFT SHOULDER REPLACEMENT 05/19/2016 SACIAL NERVE STIMULATOR IMPLANT FOR BOWEL CONTROL 01/30/2012 FAMILY HISTORY FATHER: MOTHER: , DIAGNOSED WITH OTHER MALIGNANT NEOPLASM OF UNSPECIFIED SITE 1 BROTHER(S) . 2 SON(S) - HEALTHY. 1 SON WITH 2 HEART OPERATIONS. SOCIAL HISTORY GENERAL: TOBACCO USE ARE YOU A:NONSMOKER LATEX QUESTIONNAIRE LATEX ALLERGY : HAVE YOU EVER DEVELOPED ANY TYPE OF REACTION AFTER HANDLING LATEX PRODUCTS SUCH RUBBER GLOVES, CONDOMS, DIAPHRAGMS, BALLOONS, SOCKS, OR UNDERWEAR?NO LATEX ALLERGY : HAVE YOU EVER DEVELOPED ANY TYPE OF REACTION DURING OR AFTER DENTAL APPOINTMENT, VAGINAL/RECTAL EXAMINATION, SURGICAL PROCEDURE, OR ANY OTHER EXPOSURE?NO LATEX RISK : HAVE YOU EVER HAD ANY DIFFICULTY BREATHING OR HIVES AFTER EATING OR HANDLING ANY FRUITS, OR VEGETABLES; SUCH KIWI, BANANAS, STONE FRUITS, OR CHESTNUTSNO LATEX RISK : DO YOU HAVE A PREVIOUS PERSONAL HISTORY OF MORE THAN NINE SURGERIES, SPINA BIFIDA, OR REPEATED CATHERIZATIONS? NO LATEX RISK : ARE YOU FREQUENTLY EXPOSED TO LATEX PRODUCTS IN YOUR OCCUPATION?NO DATE ASKED : 03/23/2020 ALCOHOL SCREENING DID YOU HAVE A DRINK CONTAINING ALCOHOL IN THE PAST YEAR?YES HOW OFTEN DID YOU HAVE SIX OR MORE DRINKS ON ONE OCCASION IN THE PAST YEAR?NEVER (0 POINTS) HOW MANY DRINKS DID YOU HAVE ON A TYPICAL DAY WHEN YOU WERE DRINKING IN THE PAST YEAR?1 OR 2 (0 POINTS) HOW OFTEN DID YOU HAVE A DRINK CONTAINING ALCOHOL IN THE PAST YEAR?TWO TO THREE TIMES PER WEEK (3 POINTS) POINTS3 INTERPRETATIONPOSITIVE RECREATIONAL DRUG USE DRUG USE?NO DENIES 02/13/20 DENOMINATIONAL [id number] OTHER LANGUAGE LANGUAGES SPOKEN:SWEDISH LEARNING BARRIERS / SPECIAL NEEDS BARRIERS TO LEARNING?NO HEARING IMPAIRED?YES VISION IMPAIRED?YES COGNITIVELY IMPAIRED?NO :HEARING AIDES :CORRECTIVE LENSES READINESS TO LEARN?YES LEARNING PREFERENCES?NO LEARNING CAPABILITIES PRESENT?YES EMOTIONAL BARRIERS?NO SPECIAL DEVICES?NO ASSOCIATE PARTNER NEEDED?NO DOMESTIC VIOLENCE DO YOU FEEL SAFE IN YOUR ENVIRONMENT?YES PAIN CLINIC PFS, CLERGY, PUBLIC HEALTH REFERRALS PFS REFERRAL NEEDED?NO CLERGY REFERRAL NEEDED?NO PUBLIC HEALTH REFERRAL NEEDED?NO WAS THE PROVIDER NOTIFIED OF ANY PERTINENT INFO?NO HAS THE PATIENT BEEN EDUCATED REGARDING HIS/HER PLAN OF CARE?YES HAS THE PATIENT BEEN EDUCATED REGARDING PAIN, THE RISK FOR PAIN, THE IMPORTANCE OF EFFECTIVE PAIN MANAGEMENT, AND THE PAIN ASSESSMENT PROCESS?YES ADVANCE DIRECTIVE ADVANCE DIRECTIVE DISCUSSED WITH PATIENT:YES PT HAS NO ADVANCED DIRECTIVES, STATES SHE HAS THE INFORMATION, DECLINES ASSISTANCE AT THIS TIME. HOSPITALIZATION/MAJOR DIAGNOSTIC PROCEDURE SURGERIES REVIEW OF SYSTEMS CONSTITUTIONAL: ANY RECENT FEVER NO . CHILLS NO . WEIGHT CHANGE OF UNKNOWN REASONS NO . GASTROENTEROLOGY: NEW UNEXPLAINABLE CHANGES IN BOWEL CONTROL NO . CONSTIPATION NO . GENITOURINARY: ANY NEW CHANGE IN BLADDER CONTROL? NO . NEUROLOGY: NEW ONSET DIZZINESS OR NEUROLOGICAL CHANGES NOT MENTIONED NO . NEW NUMBNESS OR PAIN PATTERNS NOT MENTIONED AND PERTINENT TO TODAY'S VISIT NO . CARDIOLOGY: NEW CHEST PRESSURE NO . NEW CHEST PAIN NO . RESPIRATORY: UNEXPLAINABLE COUGH NO . NEW SHORTNESS OF BREATH NO . EXAMINATION GENERAL EXAMINATION: GENERALNO ACUTE DISTRESS, WELL NOURISHED AND HYDRATED. PSYCHAPPROPRIATE MOOD AND AFFECT . GENERAL: PATIENT DEMONSTRATES INCREASED PAIN WITH PRESSURE OVER SACROILIAC JOINTS BILATERALLY VIA VIRTUAL EXAM TODAY. ASSESSMENTS SACROILIITIS - M46.1 (PRIMARY) TREATMENT SACROILIITIS NOTES: BILATERAL SIJ. OKAY TO CONTINUE 81 MG ASPIRIN DAILY DUE TO SIGNIFICANT INCREASE RISK OF STOPPING THIS PER HER PRIMARY CARE. FOLLOW-UP POSTPROCEDURE WITH NURSE PRACTITIONER IN CLINIC. TOTAL TIME SPENT DURING TELEMED VISIT WAS APPROXIMATELY 12 MINUTES. OTHERS NOTES: UNABLE TO OBTAIN VITAL SIGNS DUE TO VIRTUAL VISIT, PT GIVES CONSENT FOR VIRTUAL VISIT. DS,SACROILIAC JOINT PAIN MATERIAL WAS PRINTED. PREVENTIVE MEDICINE PAIN CLINIC TEACHING: PROCEDURE TEACHING SACROILIAC JOINT PROCEDURE INFIRMATION REVIEWED WITH PATIENT VIA PHONE. NASIMA WATKINSIZES UNDERSTANDING OF REVIEWED INFORMATION. PRINTED MATERIAL MAILED TO PATIENT AT ADDRESS ON FILE. LEIGHANN ALSTON 03/26/2020 9:53:43 AM > . DISPOSITION & COMMUNICATION FOLLOW UP POST (REASON: BILATERAL SIJ.) ELECTRONICALLY SIGNED BY HUMERA CAPELLAN ON 03/27/2020 AT 03:58 PM EDT DISCLAIMER : THIS IS A VISIT SUMMARY EXTRACTED FROM THE [employer] CHART. IT IS NOT A COPY OF THE [employer] PROGRESS NOTE. ERICK
== END ==
LOC: M PAIN 08:45 → M TMPAIN 08:45
PROVIDERS: ATTEND Nurse Practitioner Family
DX: M46.1 Sacroiliitis, not elsewhere classified (principal)

== ENCOUNTER → 2020-04-07 | Outpatient (CLI) | payer OTHER | LOC: M LABSMTC 12:03 | PROVIDERS: ATTEND Anesthesiology | DX: Z03.818 Encounter for observation for suspected exposure to other biological agents ruled out (principal); Z11.59 Encounter for screening for other viral diseases ==

== ENCOUNTER → 2020-04-12 | Outpatient (CLI) | payer OTHER ==
[~2020-04-12] MED LIST changes: +BUPIVACAINE HCL 0.25% 30ML VIAL As Ordered ONE; +ISOVUE-M 300 61% 15ML VIAL As Ordered ONE; +LIDOCAINE 1% SDV 30ML VIAL As Ordered ONE; +NORCO, ANEXSIA 5/325MG TABLET (HYDROcodone/ACETAMINOPHEN) As Ordered ONE; +TRIAMCINOLONE ACETONIDE SUSP 40 MG/ML VIAL (J3301) As Ordered ONE; +diazePAM 5 MG TAB As Ordered ONE
--- NOTE | 2020-04-12 17:12 | REP ---
C-ARM VIEWS SACROILIAC JOINTS: CLINICAL HISTORY: Pain. Multiple C-arm views sacroiliac joints performed during bilateral sacroiliac joint injection by Dr. Weiss. Needle overlies each sacroiliac joint. 33 seconds fluoroscopy time utilized. Electronically Signed by Damien Yates MD 04/16/2020 09:08 A
--- NOTE | 2020-04-14 01:02 | ECWPNPC ---
PATIENT NAME: ARACELIS AMAYA : 1960 GENDER: FEMALE VISIT DATE: 04/12/2020 DISCHARGE DATE: 04/12/20 1455 VISIT LOCKED DATE TIME: PHYSICIAN: AMRIK RUEDA MD RESOURCE: AMRIK RUEDA MD REASON FOR APPOINTMENT 1. DARIUSZ SIJ HISTORY OF PRESENT ILLNESS GENERAL: -. FALL RISK SCREENING: SCREENING :NO FALLS REPORTED IN THE LAST YEAR PAIN SCREENING: PATIENT HAS A COMPLAINT OF ACUTE OR CHRONIC PAIN :YES LOCATION OF PAIN:LOW BACK INTENSITY OF PAIN (SCALE OF 1 TO 10): 3/10 WHAT DOES YOUR PAIN FEEL LIKE:ACHING, STABBING, THROBBING DURATION:CONTINOUS PAIN IS INCREASED BY:ACTIVITIES, PROLONGED STANDING, OTHERS PREPARING DINNER, WALKING DOG PAIN IS DECREASED BY:USE OF PAIN MEDICATIONS, OTHERS HOT BATH, THERAPEUTIC GEL THAT STARTS COLD THEN TURNS WARM NURSING NOTE: -. PAIN CENTER INTAKE QUESTIONS: DO YOU HAVE A HISTORY OF MRSA? :NO DO YOU TAKE A BLOOD THINNERS? :NO DO YOU HAVE ANY BLEEDING DISORDERS? :NO ANY NEW NUMBNESS OR WEAKNESS IN YOUR LEGS OR ARMS? :NO ANY PACEMAKER,DEFIBRILLATOR, OR DORSAL COLUMN STIMULATOR? :NO DOES HAVE A [employer] NERVE STIMULATOR IN LEFT BUTTOCK FOR BOWEL CONTROL DO YOU HAVE ANY RASHES OR OPEN SORES? :NO ARE YOU ALLERGIC TO IV DYE? :NO ARE YOU DIABETIC? :NO ANY NEW PROBLEMS WITH YOUR MEDICATIONS? :NO HAVE YOU RECEIVED A VACCINE IN THE PAST 30 DAYS? :NO DO YOU PLAN TO RECEIVE A VACCINE IN THE NEXT 21 DAYS? :NO DO YOU TAKE ANY IMMUNOSUPPRESSIVE MEDICATIONS? :NO ANY HISTORY OF SEIZURES? :NO ANY HISTORY OF CARDIAC ISSUES OR EVENTS? :NO DO YOU HAVE SLEEP APNEA? :NO ANY RECENT HEAD INJURY? :NO DO YOU HAVE ANY NEW INFECTIONS? :NO IS THERE A CHANCE YOU COULD BE ? :NO ARE YOU BREAST FEEDING? :NO WHEN DID YOU LAST EAT? : -04/11/20 1600 WHEN DID YOU LAST DRINK? : -04/12/20 1000 WHAT DID YOU LAST DRINK? : -WATER NAME OF PERSON DRIVING YOU HOME? : -KASHMIR CARLSON () DO YOU HAVE ANY OTHER QUESTIONS OR CONCERNS? : -NO CURRENT MEDICATIONS TAKING MEGESTROL ACETATE 20 MG TABLET 1 TABLET ORALLY DAILY, NOTES: 04/11/20 1700 TAKING SIMVASTATIN 20 MG TABLET 1 TABLET IN THE EVENING ORALLY ONCE A DAY, NOTES: 04/12/20829 TAKING ATENOLOL 50 MG TABLET 1 TABLET ORALLY ONCE A DAY, NOTES: 04/11/201699 TAKING LORAZEPAM 1 MG TABLET ORAL MDD3 ONCE A DAY IF NEEDED, NOTES: 04/11/201699 TAKING AMITRIPTYLINE HCL 25 MG TABLET 1 TABLET ORALLY ONCE A DAY AT BEDTIME, NOTES: 04/11/201699 TAKING BUTALBITAL-ACETAMINOPHEN 25-325 MG TABLET 1 TABLET NEEDED ORALLY EVERY 4 HRS, NOTES: NONE RECENTLY TAKING METOPROLOL SUCCINATE 50 MG CAPSULE ER 24 HOUR SPRINKLE 1 CAPSULE ORALLY ONCE A DAY, NOTES: 04/12/20829 TAKING FLUOXETINE HCL 40 MG CAPSULE 1 CAPSULE ORALLY ONCE A DAY, NOTES: 04/11/201699 TAKING VITAMIN D (CHOLECALCIFEROL) 25 MCG (1000 UT) CAPSULE 1 CAPSULE ORALLY ONCE A DAY, NOTES: 04/12/20829 TAKING METHOCARBAMOL 750 MG TABLET 1 TABLET ORALLY EVERY 8 HRSPRN, NOTES: 04/11/201699 TAKING ASPIRIN 81 81 MG TABLET DELAYED RELEASE 1 TABLET ORALLY ONCE A DAY, NOTES: 04/12/20829 TAKING TRAMADOL HCL 50 MG TABLET 2 TAB ORALLY BID MDD4, NOTES: 04/11/20829 NOT-TAKING IBUPROFEN 200 MGS 2 TABS ORAL 3 TIMES A DAY NEEDED NOT-TAKING PROZAC 40 MG CAPSULE 1 CAPSULE IN THE MORNING ORALLY ONCE A DAY MEDICATION LIST REVIEWED AND RECONCILED WITH THE PATIENT PAST MEDICAL HISTORY HYPERTENSION ELEVATED CHOLESTEROL ARTHRITIS SACRAL NERVE STIMULATOR IMPLANT FOR BOWEL CONTROL RIGHT FRACTURED PELVIS AND RIGHT HIP FX 05/2018 TIA 11/2019 (PER PT) ALLERGIES BEE STINGS: SWELLING - ALLERGY SULFA (FOR ALLERGY USE ONLY): DON'T FEEL RIGHT - ALLERGY AUGMENTIN: BLACK STOOL - ALLERGY PLAQUENIL: DIARRHEA - ALLERGY SURGICAL HISTORY LEFT BROKEN SHOULDER WITH REPAIR 04/21/2016 REVERSE TOTAL LEFT SHOULDER REPLACEMENT 05/19/2016 SACIAL NERVE STIMULATOR IMPLANT FOR BOWEL CONTROL 01/30/2012 FAMILY HISTORY FATHER: MOTHER: , DIAGNOSED WITH OTHER MALIGNANT NEOPLASM OF UNSPECIFIED SITE 1 BROTHER(S) . 2 SON(S) - HEALTHY. 1 SON WITH 2 HEART OPERATIONS. SOCIAL HISTORY GENERAL: TOBACCO USE ARE YOU A:NONSMOKER LATEX QUESTIONNAIRE LATEX ALLERGY : HAVE YOU EVER DEVELOPED ANY TYPE OF REACTION AFTER HANDLING LATEX PRODUCTS SUCH RUBBER GLOVES, CONDOMS, DIAPHRAGMS, BALLOONS, SOCKS, OR UNDERWEAR?NO LATEX ALLERGY : HAVE YOU EVER DEVELOPED ANY TYPE OF REACTION DURING OR AFTER DENTAL APPOINTMENT, VAGINAL/RECTAL EXAMINATION, SURGICAL PROCEDURE, OR ANY OTHER EXPOSURE?NO DATE ASKED : 03/23/2020 LATEX RISK : HAVE YOU EVER HAD ANY DIFFICULTY BREATHING OR HIVES AFTER EATING OR HANDLING ANY FRUITS, OR VEGETABLES; SUCH KIWI, BANANAS, STONE FRUITS, OR CHESTNUTSNO LATEX RISK : DO YOU HAVE A PREVIOUS PERSONAL HISTORY OF MORE THAN NINE SURGERIES, SPINA BIFIDA, OR REPEATED CATHERIZATIONS? NO LATEX RISK : ARE YOU FREQUENTLY EXPOSED TO LATEX PRODUCTS IN YOUR OCCUPATION?NO ALCOHOL SCREENING DID YOU HAVE A DRINK CONTAINING ALCOHOL IN THE PAST YEAR?YES HOW OFTEN DID YOU HAVE SIX OR MORE DRINKS ON ONE OCCASION IN THE PAST YEAR?NEVER (0 POINTS) HOW MANY DRINKS DID YOU HAVE ON A TYPICAL DAY WHEN YOU WERE DRINKING IN THE PAST YEAR?1 OR 2 (0 POINTS) HOW OFTEN DID YOU HAVE A DRINK CONTAINING ALCOHOL IN THE PAST YEAR?TWO TO THREE TIMES PER WEEK (3 POINTS) POINTS3 INTERPRETATIONPOSITIVE RECREATIONAL DRUG USE DRUG USE?NO DENIES 02/13/20 TAOISM [id number] OTHER LANGUAGE LANGUAGES SPOKEN:CAMBODIAN LEARNING BARRIERS / SPECIAL NEEDS BARRIERS TO LEARNING?NO HEARING IMPAIRED?YES VISION IMPAIRED?YES COGNITIVELY IMPAIRED?NO :HEARING AIDES :CORRECTIVE LENSES READINESS TO LEARN?YES LEARNING PREFERENCES?NO LEARNING CAPABILITIES PRESENT?YES EMOTIONAL BARRIERS?NO SPECIAL DEVICES?NO BUSINESS LIBRARIAN NEEDED?NO DOMESTIC VIOLENCE DO YOU FEEL SAFE IN YOUR ENVIRONMENT?YES PAIN CLINIC PFS, CLERGY, PUBLIC HEALTH REFERRALS PFS REFERRAL NEEDED?NO CLERGY REFERRAL NEEDED?NO PUBLIC HEALTH REFERRAL NEEDED?NO WAS THE PROVIDER NOTIFIED OF ANY PERTINENT INFO?NO HAS THE PATIENT BEEN EDUCATED REGARDING HIS/HER PLAN OF CARE?YES HAS THE PATIENT BEEN EDUCATED REGARDING PAIN, THE RISK FOR PAIN, THE IMPORTANCE OF EFFECTIVE PAIN MANAGEMENT, AND THE PAIN ASSESSMENT PROCESS?YES ADVANCE DIRECTIVE ADVANCE DIRECTIVE DISCUSSED WITH PATIENT:YES PT HAS NO ADVANCED DIRECTIVES, STATES SHE HAS THE INFORMATION, DECLINES ASSISTANCE AT THIS TIME. HOSPITALIZATION/MAJOR DIAGNOSTIC PROCEDURE SURGERIES VITAL SIGNS WT 222.2 LBS, HT 69 IN, BMI 32.81 INDEX, BP 129/89 MM HG, HR 90 /MIN, RR 18 /MIN, TEMP 97.0 F, OXYGEN SAT % 99%, SAFE IN ENV? (Y/N) YES, NA INITIALS SC 12:40, REVIEWED BY: ASHUTOSH. EXAMINATION GENERAL EXAMINATION: THE PATIENT IS ALERT, ORIENTED TIMES THREE AND COOPERATIVE. HEART SHOWS REGULAR RHYTHM, NO MURMURS AND NO GALLOPS. LUNGS ARE CLEAR TO AUSCULTATION. 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 EXP 06/2021. ALBERTO CHODWHURY RN 04/12/2020 1:25:43 PM > GIVEN AT 1323. MEDICATION: VALIUM TAB 5MG ORALLY (DIAZEPAM)ONEIL JENNINGS RN 04/12/2020 1:19:04 PM > VERIFIED ALBERTO CHOWDHURY RN 04/12/2020 1:22:01 PM > LOT [id number]. EXPIRES 09/16. ALBERTO CHOWDHURY RN 04/12/2020 1:26:02 PM > GIVEN AT 1323. PROCEDURES PAIN NURSING RECORD PRE-PROCEDURE IV SITE N/A, PRE-PROCEDURE ORAL MEDICATIONS INSTRUCTED REGARDING POSSIBLE DIZZINESS AND DROWSINESS AFTER SEDATION MEDICATIONS. PROCEDURE IN ROOM 1405, PHYSICIAN IN ROOM 1415, START 1420, FINISH 1428, PHYSICIAN OUT OF ROOM 1429, OUT OF ROOM 1438, STEROID KENALOG, O2 RA, ECG NORMAL SINUS, PATIENT SHIELDED YES, SAFETY STRAP YES, PREP CHLOROPREP Aure CHOWDHURY RN, IV INFUSED N/A, DRESSING TEGADERM DR. RUEDA LOC: 1330 1. ALERT, ORIENTED 1345, 1. ALERT, ORIENTED 1400, 1. ALERT, ORIENTED 1415, 1. ALERT, ORIENTED 1425 , 1. ALERT, ORIENTED 1432, 1. ALERT, ORIENTED 1447, 1. ALERT, ORIENTED RESP: 1330, 1. REGULAR, NO DYSPNEA 1345 1. REGULAR, NO DYSPNEA, 1400 1. REGULAR, NO DYSPNEA, 1415 1. REGULAR, NO DYSPNEA, 1425, 1. REGULAR, NO DYSPNEA 1432, 1. REGULAR, NO DYSPNEA 1447, 1. REGULAR, NO DYSPNEA COLOR: 1330, 1. PINK 1345 1. PINK, 1400 1. PINK, 1410 1. PINK, 1425 1. PINK, 1432, 1. PINK 1447, 1. PINK SKIN: 1330, 1. WARM, DRY 1345 1. WARM, DRY, 1400 1. WARM, DRY, 1415 1. WARM, DRY, 1425 1. WARM, DRY, 1432 1. WARM, DRY, 1447, 1. WARM, DRY POSITION: 1330, 2. SUPINE 1345 2. SUPINE, 1400 2. SUPINE, 1415 1. PRONE, 1425, 1. PRONE 1432, 1. PRONE 1447, 1. PRONE VITALS: 1330 133/92 79-16 97% 1345 130/88 96% 1400 134/83 86% 1410 148/69 84-16 98% 1425 152/66 81-14 95% 1432 166/104 86-16 95% 1447 132/82 87-16 98% DISCHARGE: POST PAIN 0/10, DRESSING SITE DRY AND INTACT, IV N/A, GAIT STEADY, TEACHING COMPLETED, PATIENT ACKNOWLEDGES UNDERSTANDING YES, PATIENT DISCHARGED AT 1455 PN SI PRE PROCEDURE DIAGNOSIS SACROILIITIS, SACROILIAC JOINT DYSFUNCTION POST PROCEDURE DIAGNOSIS SACROILIITIS, SACROILIAC JOINT DYSFUNCTION PROCEDURE BILATERAL SACROILIAC JOINT BLOCK SURGEON DR. AMRIK RUEDA TONAL REGULATOR NONE ANESTHESIA LOCAL PRE PROCEDURE NOTE THE PATIENT WITH HISTORY OF CHRONIC LOW BACK PAIN. I EVALUATED THE PATIENT AND REVIEWED THE CHART. I WENT OVER THE RISKS, ALTERNATIVES, AND BENEFITS ASSOCIATED WITH THIS PROCEDURE. I DISCUSSED THAT THE USE OF STEROIDS MAY CONTRIBUTE TO IMMUNOSUPPRESSION OF THE PATIENT'S BODY AGAINST INFECTIONS SUCH COVID-19. THE PATIENT IS AWARE OF THE POTENTIAL COMPLICATIONS ASSOCIATED WITH THIS VIRUS, INCLUDING, BUT NOT LIMITED TO, . I DISCUSSED THE USE OF DEXAMETHASONE INSTEAD OF KENALOG; HOWEVER, THE PATIENT WOULD LIKE TO MOVE FORWARD WITH KENALOG. THE PATIENT WOULD LIKE TO PROCEED AND GAVE CONSENT TO PERFORM THE PROCEDURE. THE PATIENT DENIES UNEXPLAINABLE WEIGHT LOSS, FEVER, CHILLS, OR NEW CHANGES IN URINARY OR BOWEL CONTROL. THE PATIENT IS COVID-19 NEGATIVE DESCRIPTION OF PROCEDURE THE PATIENT WAS BROUGHT TO THE PROCEDURE ROOM AND PLACED IN THE PRONE POSITION. THE LUMBOSACRAL AREA WAS CLEANED WITH CHLORAPREP SOLUTION AND DRAPED ASEPTICALLY. THE PROCEDURE WAS DONE UNDER STERILE CONDITIONS. A TIMEOUT WAS PERFORMED WHERE LATERALITY AND THE SITE OF THE PROCEDURE WERE CHECKED AND CONFIRMED WITH EVERYONE IN THE ROOM. UNDER FLUOROSCOPIC GUIDANCE, TARGET POINT WAS SELECTED AT THE LOWER BORDER OF THE RIGHT AND LEFT SACROILIAC JOINT. TARGET POINT WAS SELECTED AFTER MEDIAL ROTATION AND TILT OF THE MAGNIFIER OF THE C-ARM. LIDOCAINE WAS USED TO NUMB THE SKIN AND SUBCUTANEOUS TISSUE BELOW IT. A SPINAL NEEDLE, 22-GAUGE, WAS ADVANCED UNDER FLUOROSCOPIC GUIDANCE AND FOLLOWING PATIENT FEEDBACK UNTIL THE TARGET AREA WAS REACHED. THE POSITION OF THE NEEDLE WAS VERIFIED WITH AP AND LATERAL VIEWS. AFTER PROPER POSITION OF THE NEEDLE WAS ACHIEVED, ISOVUE-M DYE 30%, 0.25 ML, WAS INJECTED SHOWING ADEQUATE SPREAD OF THE DYE. KENALOG 40 MG WAS THEN INJECTED IN EACH JOINT. THEN, A SOLUTION OF 3 ML OF BUPIVACAINE 0.125% WAS USED TO FLUSH THE SITE. THE MEDICATIONS WERE VERIFIED WITH THE NURSE. THERE WAS NO EVIDENCE OF BLOOD, PARESTHESIA OR CEREBROSPINAL FLUID DURING THE PROCEDURE. THE PATIENT WAS SENT TO THE RECOVERY ROOM. THE PATIENT WAS MOVING THE EXTREMITIES AND DOING WELL. THERE WERE NO COMPLICATIONS DURING THE PROCEDURE. ESTIMATED BLOOD LOSS WAS LESS THAN 5 ML. FLUOROSCOPY TIME WAS 33 SECONDS POST PROCEDURE NOTE THE PROCEDURE DONE WAS DISCUSSED WITH THE PATIENT. THE PATIENT WILL BE SEEN IN A FOLLOW UP IN THE NEXT FEW WEEKS. I AM LOOKING FOR LONG LASTING PAIN RELIEF FOR THE PATIENT WITH THIS INTERVENTION. INSTRUCTIONS WERE GIVEN, QUESTIONS WERE ANSWERED, AND THE PATIENT EXPRESSED UNDERSTANDING AND AGREES WITH THE PLAN. THE PATIENT IS AWARE TO STAY HOME FOR THE NEXT WEEK, IF POSSIBLE, DUE TO COVID-19. I, VASQUEZ PAUL, DOCUMENTED THE ABOVE INFORMATION ACTING A SCRIBE FOR DR. RUEDA. I HAVE REVIEWED THE ABOVE DOCUMENT, WRITTEN BY VASQUEZ PAUL, CHIEF RELAY TESTER, AND I VERIFY THAT IT IS ACCURATE PROCEDURE CODES 59703 INJECT SACROILIAC JOINT, MODIFIERS: 50 DISPOSITION & COMMUNICATION FOLLOW UP F/UP WITH ACCESSORIES REPAIRER (REASON: POST DARIUSZ SIJ ) ELECTRONICALLY SIGNED BY AMRIK RUEDA MD, MD ON 04/13/2020 AT 06:36 PM EDT DISCLAIMER : THIS IS A VISIT SUMMARY EXTRACTED FROM THE [employer] CHART. IT IS NOT A COPY OF THE [employer] PROGRESS NOTE. ERICK
== END ==
LOC: M PAIN 12:45
PROVIDERS: ATTEND Anesthesiology
DX: M46.1 Sacroiliitis, not elsewhere classified (principal); M53.3 Sacrococcygeal disorders, not elsewhere classified
CPT/HCPCS: G0260; J3301; Q9967

== ENCOUNTER → 2020-04-26 | Outpatient (POV) | payer OTHER ==
[~2020-04-26] MED LIST changes: -BUPIVACAINE HCL 0.25% 30ML VIAL As Ordered ONE; -ISOVUE-M 300 61% 15ML VIAL As Ordered ONE; -LIDOCAINE 1% SDV 30ML VIAL As Ordered ONE; -NORCO, ANEXSIA 5/325MG TABLET (HYDROcodone/ACETAMINOPHEN) As Ordered ONE; -TRIAMCINOLONE ACETONIDE SUSP 40 MG/ML VIAL (J3301) As Ordered ONE; -diazePAM 5 MG TAB As Ordered ONE
== END ==
LOC: M PAIN 09:00
PROVIDERS: ATTEND Nurse Practitioner Family
DX: M46.1 Sacroiliitis, not elsewhere classified (principal)

== ENCOUNTER → 2020-07-17 | Outpatient (CLI) | payer OTHER ==
--- NOTE | 2020-07-18 10:48 | ECWPNPC ---
PATIENT NAME: ARACELIS AMAYA : 1960 GENDER: FEMALE VISIT DATE: 07/17/2020 DISCHARGE DATE: 07/17/20 1013 VISIT LOCKED DATE TIME: PHYSICIAN: FILIBERTO LEIVA RESOURCE: FILIBERTO LEIVA REASON FOR APPOINTMENT 1. BACK PAIN HISTORY OF PRESENT ILLNESS GENERAL: HERE FOR FOLLOW-UP OF CHRONIC LOW BACK PAIN. SHE IS ON CHRONIC PAIN MEDICATIONS WHICH SHE FINDS HER HELPFUL. DENIES ADVERSE SIDE EFFECTS. CONTINUES TO BENEFIT FROM BILATERAL SACROILIAC JOINT BLOCK DONE IN MARCH.-. FALL RISK SCREENING: SCREENING :NO FALLS REPORTED IN THE LAST YEAR PAIN SCREENING: PATIENT HAS A COMPLAINT OF ACUTE OR CHRONIC PAIN :YES LOCATION OF PAIN:LOW BACK INTENSITY OF PAIN (SCALE OF 1 TO 10):0 WHAT DOES YOUR PAIN FEEL LIKE:ACHING, STABBING DURATION:INTERMITTENT PAIN IS INCREASED BY:ACTIVITIES PAIN IS DECREASED BY:USE OF PAIN MEDICATIONS, OTHERS HEATING PAD TREATMENT/MEDICATIONS USED TO MANAGE PAIN:OPIOIDS LEVEL OF RELIEF FROM PAIN TREATMENTS IN THE PAST:75% PAIN HAS INTERFERED WITH THE FOLLOWING:WALKING ABILITY, HOUSEWORK NURSING NOTE: -. PAIN CENTER INTAKE QUESTIONS: DO YOU HAVE A HISTORY OF MRSA? :NO DO YOU TAKE A BLOOD THINNERS? :NO DO YOU HAVE ANY BLEEDING DISORDERS? :NO ANY NEW NUMBNESS OR WEAKNESS IN YOUR LEGS OR ARMS? :NO ANY PACEMAKER,DEFIBRILLATOR, OR DORSAL COLUMN STIMULATOR? :YES LEFT BUTTOCK BOWEL STIMULATOR DO YOU HAVE ANY RASHES OR OPEN SORES? :YES BOILS TO FACE ARE YOU ALLERGIC TO IV DYE? :NO ARE YOU DIABETIC? :NO ANY NEW PROBLEMS WITH YOUR MEDICATIONS? :NO HAVE YOU RECEIVED A VACCINE IN THE PAST 30 DAYS? :YES IF SO WHAT VACCINE AND WHEN? FLU VACCINE 05/2020 DO YOU PLAN TO RECEIVE A VACCINE IN THE NEXT 21 DAYS? :NO DO YOU NEED ANY PRESCRIPTION? :NO DO YOU TAKE ANY IMMUNOSUPPRESSIVE MEDICATIONS? :NO IS THERE A CHANCE YOU COULD BE ? :NO ARE YOU BREAST FEEDING? :NO CURRENT MEDICATIONS TAKING MEGESTROL ACETATE 20 MG TABLET 1 TABLET ORALLY DAILY TAKING SIMVASTATIN 20 MG TABLET 1 TABLET IN THE EVENING ORALLY ONCE A DAY TAKING ATENOLOL 50 MG TABLET 1 TABLET ORALLY ONCE A DAY TAKING LORAZEPAM 1 MG TABLET ORAL MDD3 ONCE A DAY IF NEEDED TAKING BUTALBITAL-ACETAMINOPHEN 25-325 MG TABLET 1 TABLET NEEDED ORALLY EVERY 4 HRS TAKING METOPROLOL SUCCINATE 50 MG CAPSULE ER 24 HOUR SPRINKLE 1 CAPSULE ORALLY ONCE A DAY TAKING FLUOXETINE HCL 40 MG CAPSULE 1 CAPSULE ORALLY ONCE A DAY TAKING VITAMIN D (CHOLECALCIFEROL) 25 MCG (1000 UT) CAPSULE 1 CAPSULE ORALLY ONCE A DAY TAKING METHOCARBAMOL 750 MG TABLET 1 TABLET ORALLY EVERY 8 HRSPRN TAKING ASPIRIN 81 81 MG TABLET DELAYED RELEASE 1 TABLET ORALLY ONCE A DAY TAKING TRAMADOL HCL 50 MG TABLET 2 TAB ORALLY BID MDD4, NOTES: 04/11/20 0830 NOT-TAKING AMITRIPTYLINE HCL 25 MG TABLET 1 TABLET ORALLY ONCE A DAY AT BEDTIME NOT-TAKING IBUPROFEN 200 MGS 2 TABS ORAL 3 TIMES A DAY NEEDED NOT-TAKING PROZAC 40 MG CAPSULE 1 CAPSULE IN THE MORNING ORALLY ONCE A DAY MEDICATION LIST REVIEWED AND RECONCILED WITH THE PATIENT PAST MEDICAL HISTORY HYPERTENSION ELEVATED CHOLESTEROL ARTHRITIS SACRAL NERVE STIMULATOR IMPLANT FOR BOWEL CONTROL RIGHT FRACTURED PELVIS AND RIGHT HIP FX 05/2018 TIA 11/2019 (PER PT) ALLERGIES BEE STINGS: SWELLING - ALLERGY SULFA (FOR ALLERGY USE ONLY): DON'T FEEL RIGHT - ALLERGY AUGMENTIN: BLACK STOOL - ALLERGY PLAQUENIL: DIARRHEA - ALLERGY SURGICAL HISTORY LEFT BROKEN SHOULDER WITH REPAIR 04/21/2016 REVERSE TOTAL LEFT SHOULDER REPLACEMENT 05/19/2016 SACIAL NERVE STIMULATOR IMPLANT FOR BOWEL CONTROL 01/30/2012 FAMILY HISTORY FATHER: MOTHER: , DIAGNOSED WITH OTHER MALIGNANT NEOPLASM OF UNSPECIFIED SITE 1 BROTHER(S) . 2 SON(S) - HEALTHY. 1 SON WITH 2 HEART OPERATIONS. SOCIAL HISTORY GENERAL: TOBACCO USE ARE YOU A:NONSMOKER LATEX QUESTIONNAIRE LATEX ALLERGY : HAVE YOU EVER DEVELOPED ANY TYPE OF REACTION AFTER HANDLING LATEX PRODUCTS SUCH RUBBER GLOVES, CONDOMS, DIAPHRAGMS, BALLOONS, SOCKS, OR UNDERWEAR?NO LATEX ALLERGY : HAVE YOU EVER DEVELOPED ANY TYPE OF REACTION DURING OR AFTER DENTAL APPOINTMENT, VAGINAL/RECTAL EXAMINATION, SURGICAL PROCEDURE, OR ANY OTHER EXPOSURE?NO LATEX RISK : HAVE YOU EVER HAD ANY DIFFICULTY BREATHING OR HIVES AFTER EATING OR HANDLING ANY FRUITS, OR VEGETABLES; SUCH KIWI, BANANAS, STONE FRUITS, OR CHESTNUTSNO LATEX RISK : DO YOU HAVE A PREVIOUS PERSONAL HISTORY OF MORE THAN NINE SURGERIES, SPINA BIFIDA, OR REPEATED CATHERIZATIONS? NO LATEX RISK : ARE YOU FREQUENTLY EXPOSED TO LATEX PRODUCTS IN YOUR OCCUPATION?NO DATE ASKED : 03/23/2020 ALCOHOL SCREENING DID YOU HAVE A DRINK CONTAINING ALCOHOL IN THE PAST YEAR?YES HOW OFTEN DID YOU HAVE A DRINK CONTAINING ALCOHOL IN THE PAST YEAR?TWO TO THREE TIMES PER WEEK (3 POINTS) HOW MANY DRINKS DID YOU HAVE ON A TYPICAL DAY WHEN YOU WERE DRINKING IN THE PAST YEAR?1 OR 2 (0 POINTS) HOW OFTEN DID YOU HAVE SIX OR MORE DRINKS ON ONE OCCASION IN THE PAST YEAR?NEVER (0 POINTS) POINTS3 INTERPRETATIONPOSITIVE RECREATIONAL DRUG USE DRUG USE?NO DENIES 02/13/20 SABIANISM [id number] OTHER LANGUAGE LANGUAGES SPOKEN:UKRAINIAN LEARNING BARRIERS / SPECIAL NEEDS BARRIERS TO LEARNING?NO HEARING IMPAIRED?YES VISION IMPAIRED?YES COGNITIVELY IMPAIRED?NO :HEARING AIDES :CORRECTIVE LENSES READINESS TO LEARN?YES LEARNING PREFERENCES?NO LEARNING CAPABILITIES PRESENT?YES EMOTIONAL BARRIERS?NO SPECIAL DEVICES?NO TIRE BUSTER NEEDED?NO DOMESTIC VIOLENCE DO YOU FEEL SAFE IN YOUR ENVIRONMENT?YES PAIN CLINIC PFS, CLERGY, PUBLIC HEALTH REFERRALS PFS REFERRAL NEEDED?NO CLERGY REFERRAL NEEDED?NO PUBLIC HEALTH REFERRAL NEEDED?NO WAS THE PROVIDER NOTIFIED OF ANY PERTINENT INFO?NO HAS THE PATIENT BEEN EDUCATED REGARDING HIS/HER PLAN OF CARE?YES HAS THE PATIENT BEEN EDUCATED REGARDING PAIN, THE RISK FOR PAIN, THE IMPORTANCE OF EFFECTIVE PAIN MANAGEMENT, AND THE PAIN ASSESSMENT PROCESS?YES ADVANCE DIRECTIVE ADVANCE DIRECTIVE DISCUSSED WITH PATIENT:YES PT HAS NO ADVANCED DIRECTIVES, STATES SHE HAS THE INFORMATION, DECLINES ASSISTANCE AT THIS TIME. HOSPITALIZATION/MAJOR DIAGNOSTIC PROCEDURE SURGERIES REVIEW OF SYSTEMS CONSTITUTIONAL: ANY RECENT FEVER NO, NO . CHILLS NO, NO . WEIGHT CHANGE OF UNKNOWN REASONS NO, NO . GASTROENTEROLOGY: NEW UNEXPLAINABLE CHANGES IN BOWEL CONTROL NO, NO . CONSTIPATION NO, NO . GENITOURINARY: ANY NEW CHANGE IN BLADDER CONTROL? NO, NO . NEUROLOGY: NEW ONSET DIZZINESS OR NEUROLOGICAL CHANGES NOT MENTIONED NO, NO . NEW NUMBNESS OR PAIN PATTERNS NOT MENTIONED AND PERTINENT TO TODAY'S VISIT NO, NO . CARDIOLOGY: NEW CHEST PRESSURE NO, NO . NEW CHEST PAIN NO, NO . RESPIRATORY: UNEXPLAINABLE COUGH NO, NO . NEW SHORTNESS OF BREATH NO, NO . VITAL SIGNS WT 222.8 LBS, HT 69 IN, BMI 32.90 INDEX, BP 136/82 MM HG, HR 105 /MIN, RR 18 /MIN, TEMP 96.3 F, OXYGEN SAT % 98%, SAFE IN ENV? (Y/N) Y, NA INITIALS AW 0937, REVIEWED BY: EM. EXAMINATION GENERAL EXAMINATION: GENERALAWAKE,ALERT ,PLEASANT . PSYCHAFFECT NORMAL . LUNGS:LUNG REID ARE CLEAR TO AUSCULTATION BILATERALLY. GOOD MOVEMENT OF AIR . HEART:S1, S2 IN A REGULAR RATE AND RHYTHM. NO SIGNIFICANT MURMURS, RUBS OR GALLOPS NOTED . ASSESSMENTS OTHER CHRONIC PAIN - G89.29 (PRIMARY) SACROILIITIS - M46.1 TREATMENT OTHER CHRONIC PAIN CONTINUE TRAMADOL HCL TABLET, 50 MG, 2 TAB, ORALLY, BID MDD4, NOTES: 04/11/20 0830 CONTINUE METHOCARBAMOL TABLET, 750 MG, 1 TABLET, ORALLY, EVERY 8 HRSPRN PAIN PROCEDURE LOGMARKED REDUCTION IN PAIN CONTINUES TODAY 07/17/2020DATE OF [id number]/16/20PROCEDURE:BILATERAL SACROILIAC JOINT INJECTION NOTES: ISTOP REGISTRY REVIEWED AND DEMONSTRATES COMPLLIANCE. URINE TOX TODAY , RISKS OF NARCOTIC/OPIOD MEDICATIONS INCLUDES BUT IS NOT LIMITED TO RISK OF DEPENDANCE/DEVELOPMENT OF ADDICTION, MOOD DISTURBANCE AND DEPRESSION, OSTEOPOROSIS, HORMONAL AND LABIDAL CHANGES, RESPIRATORY DEPRESSION AND . PATIENT IS ADVISED NOT TO DRIVE OR DRINK ALCOHOL WHILE ON THESE MEDICATIONS , [facility] NARCOTIC AGREEMENT WAS REVIEWED AND SIGNED TODAY BY THE PATIENT. SEE ATTACHED DOCUMENT FOR FULL DETAILS; SPECIFIC ISSUES WERE REVIEWED: 1) KEEP PAIN MEDS IN THEIR ORIGINAL BOTTLES AND ANY WEEKLY PLANNERS ARE TO BE BROUGHT TO THE PAIN CENTER AT EVERY VISIT. 2) THE PATIENT IS NOT TO INCREASE DOSING OR TIMING OF THEIR PAIN MEDICATION WITHOUT SPECIFIC DIRECTION OF THEIR PAIN CENTERPROVIDER (NOT ER OR OTHER PROVIDERS). 3) ALL PAIN MEDS ARE TO BE KEPT SECURED, IN A LOCKED BOX. 4) NO PAIN MEDS ARE TO BE SHARED WITH ANY OTHER PERSON FOR ANY REASON. 5) NO PAIN MEDS MAY BE TAKEN FROM ANY FRIENDS OR RELATIVES FOR ANY REASON 6) NO MEDS OR SUBSTANCES WHICH ARE NOT LEGAL ARE TO BE USED- NO MARIJUANA, NO COCAINE, AMPHETAMINES, HEROIN, OR OTHERS ARE EVER TO BE USED. 7)URINE TESTING IS DONE TO ACCOUNT FOR MEDS AND SUBSTANCES BEING TAKEN AND WILL BE DONE RANDOMLY. PROCEDURE CODES FA211 ESTABILISHED PATIENT [facility] FACILITY CHARGE DISPOSITION & COMMUNICATION FOLLOW UP 3 MONTHS (REASON: MED MGMNT/LBP) ELECTRONICALLY SIGNED BY HUMERA CAPELLAN ON 07/18/2020 AT 09:08 AM EDT DISCLAIMER : THIS IS A VISIT SUMMARY EXTRACTED FROM THE [facility] CHART. IT IS NOT A COPY OF THE [facility] PROGRESS NOTE. MTDD
== END ==
LOC: M PAIN 09:30
PROVIDERS: ATTEND Nurse Practitioner Family
DX: M46.1 Sacroiliitis, not elsewhere classified (principal); G89.29 Other chronic pain; I10 Essential (primary) hypertension; Z96.612 Presence of left artificial shoulder joint; Z88.1 Allergy status to other antibiotic agents; Z88.2 Allergy status to sulfonamides; Z88.8 Allergy status to other drugs, medicaments and biological substances; Z91.030 Bee allergy status; Z79.82 Long term (current) use of aspirin; Z79.891 Long term (current) use of opiate analgesic; Z79.899 Other long term (current) drug therapy

== ENCOUNTER → 2020-09-04 | Outpatient (CLI) | payer OTHER ==
--- NOTE | 2020-09-04 14:50 | REP ---
INDICATION: LOCALIZED SWELLING MASS ON NECK. COMPARISON: None. TECHNIQUE: Real-time sonographic evaluation of right neck soft tissues performed at the site of a palpable abnormality present for approximately 2 months. FINDINGS: Hypoechoic area is seen in the skin, 1.3 by 0.2 x 1.3 cm. This probably represents a complex cyst, possibly a sebaceous cyst. With Doppler evaluation there is not significant internal blood flow. IMPRESSION: Oval complex cystic structure appears to be associated with the skin and most likely represents a complex sebaceous cyst measuring 13 x 2 x 13 mm. <Electronically signed by Damien Yates > 09/04/20 [id number]
== END ==
LOC: M RAD 13:39
PROVIDERS: ATTEND Surgery
DX: R22.1 Localized swelling, mass and lump, neck (principal)

== ENCOUNTER → 2020-09-13 | Outpatient (REF) | payer OTHER | LOC: M LAB REF 17:17 | PROVIDERS: ATTEND Surgery | DX: L72.3 Sebaceous cyst (principal) ==

== ENCOUNTER → 2020-10-17 | Outpatient (CLI) | payer OTHER ==
--- NOTE | 2020-10-19 03:35 | ECWPNPC ---
PATIENT NAME: ARACELIS AMAYA : 1960 GENDER: FEMALE VISIT DATE: 10/17/2020 DISCHARGE DATE: 10/17/20 1200 VISIT LOCKED DATE TIME: PHYSICIAN: FILIBERTO LEIVA RESOURCE: FILIBERTO LEIVA REASON FOR APPOINTMENT 1. MED MANAGEMENT/ LBP HISTORY OF PRESENT ILLNESS DEPRESSION SCREENING: PHQ-9 LITTLE INTEREST OR PLEASURE IN DOING THINGSNOT AT ALL FEELING DOWN, DEPRESSED, OR HOPELESSMORE THAN HALF THE DAYS TROUBLE FALLING OR STAYING ASLEEP, OR SLEEPING TOO MUCHNOT AT ALL FEELING TIRED OR HAVING LITTLE ENERGYSEVERAL DAYS POOR APPETITE OR OVEREATING NOT AT ALL FEELING BAD ABOUT YOURSELF-OR THAT YOU ARE A FAILURE OR HAVE LET YOURSELF OR YOUR FAMILY DOWN NOT AT ALL TROUBLE CONCENTRATING ON THINGS, SUCH READING THE NEWSPAPER OR WATCHING TELEVISION NOT AT ALL MOVING OR SPEAKING SO SLOWLY THAT OTHER PEOPLE COULD HAVE NOTICED. OR THE OPPOSITE- BEING SO FIDGETY OR RESTLESS THAT YOU HAVE BEEN MOVING AROUND A LOT MORE THAN USUALNOT AT ALL THOUGHTS THAT YOU WOULD BE BETTER OFF , OR OF HURTING YOURSELF IN SOME WAY?NOT AT ALL TOTAL SCORE:3 INTERPRETATIONMINIMAL DEPRESSION PHQ-2 (2015 EDITION) LITTLE INTEREST OR PLEASURE IN DOING THINGS?NOT AT ALL FEELING DOWN, DEPRESSED, OR HOPELESS?MORE THAN HALF THE DAYS TOTAL SCORE2 GENERAL: HERE FOR ROUTINE FOLLOW-UP AND MANAGEMENT OF PERSISTENT LOW BACK PAIN. OVERALL DOING WELL. CURRENTLY USING TRAMADOL 50 MG EVERY 6 HOURS NEEDED FOR SEVERE PAIN EPISODES. DENIES ADVERSE SIDE EFFECTS WITH HER MEDICATION. RECENT URINE TOXICOLOGY IS WITHIN NORMAL LIMITS. PATIENT IS REMINDED TODAY TO BRING HER MEDICATION INTO ALL FUTURE APPOINTMENTS PER CLINIC POLICY. -. FALL RISK SCREENING: SCREENING :NO FALLS REPORTED IN THE LAST YEAR PAIN SCREENING: PATIENT HAS A COMPLAINT OF ACUTE OR CHRONIC PAIN :NO PATIENT STATES NO PAIN CURRENTLY NURSING NOTE: -. PAIN CENTER INTAKE QUESTIONS: DO YOU HAVE A HISTORY OF MRSA? :NO DO YOU TAKE A BLOOD THINNERS? :NO DO YOU HAVE ANY BLEEDING DISORDERS? :NO ANY NEW NUMBNESS OR WEAKNESS IN YOUR LEGS OR ARMS? :NO ANY PACEMAKER,DEFIBRILLATOR, OR DORSAL COLUMN STIMULATOR? :YES LEFT BUTTOCK BOWEL STIMULATOR DO YOU HAVE ANY RASHES OR OPEN SORES? :NO ARE YOU ALLERGIC TO IV DYE? :NO ARE YOU DIABETIC? :NO ANY NEW PROBLEMS WITH YOUR MEDICATIONS? :NO HAVE YOU RECEIVED A VACCINE IN THE PAST 30 DAYS? :NO DO YOU PLAN TO RECEIVE A VACCINE IN THE NEXT 21 DAYS? :YES IF SO WHAT VACCINE AND WHEN? IF OFFERED COVID VACCINE DO YOU NEED ANY PRESCRIPTION? :NO DO YOU TAKE ANY IMMUNOSUPPRESSIVE MEDICATIONS? :NO IS THERE A CHANCE YOU COULD BE ? :NO ARE YOU BREAST FEEDING? :NO CURRENT MEDICATIONS TAKING MEGESTROL ACETATE 20 MG TABLET 1 TABLET ORALLY DAILY TAKING SIMVASTATIN 20 MG TABLET 1 TABLET IN THE EVENING ORALLY ONCE A DAY TAKING BUTALBITAL-ACETAMINOPHEN 50-300 MG CAPSULE 1 TABLET NEEDED ORALLY EVERY 4 HRS TAKING METOPROLOL SUCCINATE 50 MG CAPSULE ER 24 HOUR SPRINKLE 1 CAPSULE ORALLY ONCE A DAY TAKING FLUOXETINE HCL 40 MG CAPSULE 1 CAPSULE ORALLY ONCE A DAY TAKING VITAMIN D (CHOLECALCIFEROL) 25 MCG (1000 UT) CAPSULE 1 CAPSULE ORALLY ONCE A DAY TAKING ASPIRIN 81 81 MG TABLET DELAYED RELEASE 1 TABLET ORALLY ONCE A DAY TAKING TRAMADOL HCL 50 MG TABLET 2 TAB ORALLY BID MDD4 TAKING METHOCARBAMOL 750 MG TABLET 1 TABLET ORALLY EVERY 8 HRSPRN TAKING ALPRAZOLAM 1 MG TABLET 1 TABLET ORALLY THREE TIMES DAILY NEEDED TAKING TYLENOL 325 MG TABLET 1-2 TABLET NEEDED ORALLY EVERY 4 HRS NOT-TAKING ATENOLOL 50 MG TABLET 1 TABLET ORALLY ONCE A DAY NOT-TAKING LORAZEPAM 1 MG TABLET ORAL MDD3 ONCE A DAY IF NEEDED NOT-TAKING AMITRIPTYLINE HCL 25 MG TABLET 1 TABLET ORALLY ONCE A DAY AT BEDTIME NOT-TAKING IBUPROFEN 200 MGS 2 TABS ORAL 3 TIMES A DAY NEEDED NOT-TAKING PROZAC 40 MG CAPSULE 1 CAPSULE IN THE MORNING ORALLY ONCE A DAY MEDICATION LIST REVIEWED AND RECONCILED WITH THE PATIENT PAST MEDICAL HISTORY HYPERTENSION ELEVATED CHOLESTEROL ARTHRITIS SACRAL NERVE STIMULATOR IMPLANT FOR BOWEL CONTROL RIGHT FRACTURED PELVIS AND RIGHT HIP FX 05/2018 TIA 11/2019 (PER PT) ALLERGIES BEE STINGS: SWELLING - ALLERGY SULFA (FOR ALLERGY USE ONLY): DON'T FEEL RIGHT - ALLERGY AUGMENTIN: BLACK STOOL - ALLERGY PLAQUENIL: DIARRHEA - ALLERGY SURGICAL HISTORY LEFT BROKEN SHOULDER WITH REPAIR 04/21/2016 REVERSE TOTAL LEFT SHOULDER REPLACEMENT 05/19/2016 SACIAL NERVE STIMULATOR IMPLANT FOR BOWEL CONTROL 01/30/2012 CYST REMOVED TO RIGHT NECK SOCIAL HISTORY GENERAL: TOBACCO USE ARE YOU A:NONSMOKER LATEX QUESTIONNAIRE LATEX ALLERGY : HAVE YOU EVER DEVELOPED ANY TYPE OF REACTION AFTER HANDLING LATEX PRODUCTS SUCH RUBBER GLOVES, CONDOMS, DIAPHRAGMS, BALLOONS, SOCKS, OR UNDERWEAR?NO LATEX ALLERGY : HAVE YOU EVER DEVELOPED ANY TYPE OF REACTION DURING OR AFTER DENTAL APPOINTMENT, VAGINAL/RECTAL EXAMINATION, SURGICAL PROCEDURE, OR ANY OTHER EXPOSURE?NO LATEX RISK : HAVE YOU EVER HAD ANY DIFFICULTY BREATHING OR HIVES AFTER EATING OR HANDLING ANY FRUITS, OR VEGETABLES; SUCH KIWI, BANANAS, STONE FRUITS, OR CHESTNUTSNO LATEX RISK : DO YOU HAVE A PREVIOUS PERSONAL HISTORY OF MORE THAN NINE SURGERIES, SPINA BIFIDA, OR REPEATED CATHERIZATIONS? NO LATEX RISK : ARE YOU FREQUENTLY EXPOSED TO LATEX PRODUCTS IN YOUR OCCUPATION?NO DATE ASKED : 10/17/2020 ALCOHOL SCREENING DID YOU HAVE A DRINK CONTAINING ALCOHOL IN THE PAST YEAR?YES HOW OFTEN DID YOU HAVE SIX OR MORE DRINKS ON ONE OCCASION IN THE PAST YEAR?NEVER (0 POINTS) HOW MANY DRINKS DID YOU HAVE ON A TYPICAL DAY WHEN YOU WERE DRINKING IN THE PAST YEAR?1 OR 2 (0 POINTS) HOW OFTEN DID YOU HAVE A DRINK CONTAINING ALCOHOL IN THE PAST YEAR?TWO TO THREE TIMES PER WEEK (3 POINTS) POINTS3 INTERPRETATIONPOSITIVE RECREATIONAL DRUG USE DRUG USE?NO DENIES 02/13/20 ORTHODOXY [id number] OTHER LANGUAGE LANGUAGES SPOKEN:SPANISH LEARNING BARRIERS / SPECIAL NEEDS CHANGE FROM LAST VISIT?NO BARRIERS TO LEARNING?NO HEARING IMPAIRED?YES :HEARING AIDES VISION IMPAIRED?YES :CORRECTIVE LENSES COGNITIVELY IMPAIRED?NO READINESS TO LEARN?YES LEARNING PREFERENCES?NO LEARNING CAPABILITIES PRESENT?YES EMOTIONAL BARRIERS?NO SPECIAL DEVICES?NO FILTER CHANGING TECHNICIAN NEEDED?NO HOSPITALIZATION/MAJOR DIAGNOSTIC PROCEDURE SURGERIES REVIEW OF SYSTEMS CONSTITUTIONAL: ANY RECENT FEVER NO . CHILLS NO . WEIGHT CHANGE OF UNKNOWN REASONS NO . GASTROENTEROLOGY: NEW UNEXPLAINABLE CHANGES IN BOWEL CONTROL NO . CONSTIPATION NO . GENITOURINARY: ANY NEW CHANGE IN BLADDER CONTROL? NO . NEUROLOGY: NEW ONSET DIZZINESS OR NEUROLOGICAL CHANGES NOT MENTIONED NO . NEW NUMBNESS OR PAIN PATTERNS NOT MENTIONED AND PERTINENT TO TODAY'S VISIT NO . CARDIOLOGY: NEW CHEST PRESSURE NO . NEW CHEST PAIN NO . RESPIRATORY: UNEXPLAINABLE COUGH NO . NEW SHORTNESS OF BREATH NO . VITAL SIGNS WT 223.6 LBS, HT 69 IN, BMI 33.02 INDEX, BP 143/91 MM HG, HR 100 /MIN, RR 18 /MIN, TEMP 97.6 F, OXYGEN SAT % 96, SAFE IN ENV? (Y/N) YES, REVIEWED BY: WALESKA LOPEZ. EXAMINATION GENERAL EXAMINATION: GENERALAWAKE,ALERT ,PLEASANT . PSYCHAFFECT NORMAL . LUNGS:LUNG REID ARE CLEAR TO AUSCULTATION BILATERALLY. GOOD MOVEMENT OF AIR . HEART:S1, S2 IN A REGULAR RATE AND RHYTHM. NO SIGNIFICANT MURMURS, RUBS OR GALLOPS NOTED . ASSESSMENTS OTHER CHRONIC PAIN - G89.29 (PRIMARY) SACROILIITIS - M46.1 TREATMENT OTHER CHRONIC PAIN CONTINUE TRAMADOL HCL TABLET, 50 MG, 2 TAB, ORALLY, BID MDD4 CONTINUE METHOCARBAMOL TABLET, 750 MG, 1 TABLET, ORALLY, EVERY 8 HRSPRN NOTES: ISTOP REGISTRY REVIEWED AND DEMONSTRATES COMPLLIANCE. RECENT URINE TOXICOLOGY REVIEWED. NO UNAUTHORIZED MEDICATIONS. NO ILLICIT SUBSTANCES AND PRESCRIBED MEDICATIONS WERE PRESENT. , RISKS OF NARCOTIC/OPIOD MEDICATIONS INCLUDES BUT IS NOT LIMITED TO RISK OF DEPENDANCE/DEVELOPMENT OF ADDICTION, MOOD DISTURBANCE AND DEPRESSION, OSTEOPOROSIS, HORMONAL AND LABIDAL CHANGES, RESPIRATORY DEPRESSION AND . PATIENT IS ADVISED NOT TO DRIVE OR DRINK ALCOHOL WHILE ON THESE MEDICATIONS. PROCEDURE CODES FA211 ESTABILISHED PATIENT [facility] CHARGE DISPOSITION & COMMUNICATION FOLLOW UP 3 MONTHS (REASON: MED MGMNT/UTOX/MUST BRING MEDS IN) ELECTRONICALLY SIGNED BY HUMERA CAPELLAN ON 10/18/2020 AT 01:53 PM EST DISCLAIMER : THIS IS A VISIT SUMMARY EXTRACTED FROM THE [employer] CHART. IT IS NOT A COPY OF THE [employer] PROGRESS NOTE. ERICK
== END ==
LOC: M PAIN 10:30
PROVIDERS: ATTEND Nurse Practitioner Family
DX: M46.1 Sacroiliitis, not elsewhere classified (principal); G89.29 Other chronic pain; Z86.73 Personal history of transient ischemic attack (TIA), and cerebral infarction without residual deficits; Z88.1 Allergy status to other antibiotic agents; Z88.2 Allergy status to sulfonamides; Z88.8 Allergy status to other drugs, medicaments and biological substances; Z91.030 Bee allergy status; Z79.82 Long term (current) use of aspirin; Z79.891 Long term (current) use of opiate analgesic; Z79.899 Other long term (current) drug therapy

== ENCOUNTER → 2021-01-03 | Outpatient (CLI) | payer OTHER, MEDICARE ==
--- NOTE | 2021-01-06 23:04 | ECWPNPC ---
PATIENT NAME: ARACELIS AMAYA : 1960 GENDER: FEMALE VISIT DATE: 01/03/2021 DISCHARGE DATE: 01/03/21 1045 VISIT LOCKED DATE TIME: PHYSICIAN: FILIBERTO LEIVA RESOURCE: FILIBERTO LEIVA REASON FOR APPOINTMENT 1. MED MGMNT/UTOX/MUST BRING MEDS IN HISTORY OF PRESENT ILLNESS GENERAL: HERE FOR FOLLOW-UP AND MEDICATION MANAGEMENT OF CHRONIC LOW BACK PAIN. PATIENT HAS HAD AN INCREASE IN LOW BACK PAIN OVER THE PAST FEW WEEKS. PAIN IS LOCATED ACROSS THE LOWER BACK AREA. THIS TYPE OF PAIN RESPONDS WELL TO SACROILIAC JOINT BLOCK IN THE PAST. PATIENT HAS A BOWEL STIMULATOR IN PLACE IN THE LEFT BUTTOCK AREA. THIS WAS PLACED SEVERAL YEARS AGO FOR BOWEL CONTROL. FINDS CURRENT CHRONIC PAIN MEDICATION HELPFUL AT REDUCING PAIN AND KEEPING HER FUNCTIONAL. DENIES ADVERSE SIDE EFFECTS. DOES REPORT FALLING A FEW MONTHS AGO AND HAD SIGNIFICANT INCREASE IN PAIN FOR 2 WEEKS AND NOW PAIN HAS RETURNED TO ITS USUAL STATUS. -. FALL RISK SCREENING: SCREENING 2 MONTH AGO SHE FALL AND SLIP ON SOME ICE AND HURT HER BACK. PAIN SCREENING: PATIENT HAS A COMPLAINT OF ACUTE OR CHRONIC PAIN :YES LOCATION OF PAIN:LOW BACK INTENSITY OF PAIN (SCALE OF 1 TO 10):2 WHAT DOES YOUR PAIN FEEL LIKE:THROBBING, SHOOTING DURATION:INTERMITTENT PAIN IS INCREASED BY:ACTIVITIES PAIN IS DECREASED BY:SITTING NURSING NOTE: -. PAIN CENTER INTAKE QUESTIONS: DO YOU HAVE A HISTORY OF MRSA? :NO DO YOU TAKE A BLOOD THINNERS? :NO DO YOU HAVE ANY BLEEDING DISORDERS? :NO ANY NEW NUMBNESS OR WEAKNESS IN YOUR LEGS OR ARMS? :NO ANY PACEMAKER,DEFIBRILLATOR, OR DORSAL COLUMN STIMULATOR? :YES LEFT BUTTOCK BOWEL STIMULATOR DO YOU HAVE ANY RASHES OR OPEN SORES? :NO ARE YOU ALLERGIC TO IV DYE? :NO ARE YOU DIABETIC? :NO ANY NEW PROBLEMS WITH YOUR MEDICATIONS? :NO HAVE YOU RECEIVED A VACCINE IN THE PAST 30 DAYS? :YES IF SO WHAT VACCINE AND WHEN? 2ND COVID 12/26/2020 DO YOU PLAN TO RECEIVE A VACCINE IN THE NEXT 21 DAYS? :NO DO YOU NEED ANY PRESCRIPTION? :NO DO YOU TAKE ANY IMMUNOSUPPRESSIVE MEDICATIONS? :NO IS THERE A CHANCE YOU COULD BE ? :NO ARE YOU BREAST FEEDING? :NO CURRENT MEDICATIONS TAKING MEGESTROL ACETATE 20 MG TABLET 1 TABLET ORALLY DAILY TAKING SIMVASTATIN 20 MG TABLET 1 TABLET IN THE EVENING ORALLY ONCE A DAY TAKING BUTALBITAL-ACETAMINOPHEN 50-300 MG CAPSULE 1 TABLET NEEDED ORALLY EVERY 4 HRS TAKING METOPROLOL SUCCINATE 50 MG CAPSULE ER 24 HOUR SPRINKLE 1 CAPSULE ORALLY ONCE A DAY TAKING FLUOXETINE HCL 40 MG CAPSULE 1 CAPSULE ORALLY ONCE A DAY TAKING VITAMIN D (CHOLECALCIFEROL) 25 MCG (1000 UT) CAPSULE 1 CAPSULE ORALLY ONCE A DAY TAKING ASPIRIN 81 81 MG TABLET DELAYED RELEASE 1 TABLET ORALLY ONCE A DAY TAKING ALPRAZOLAM 1 MG TABLET 1 TABLET ORALLY THREE TIMES DAILY NEEDED TAKING TYLENOL 325 MG TABLET 1-2 TABLET NEEDED ORALLY EVERY 4 HRS TAKING TRAMADOL HCL 50 MG TABLET 2 TAB ORALLY BID MDD4 TAKING METHOCARBAMOL 750 MG TABLET 1 TABLET ORALLY EVERY 8 HRSPRN NOT-TAKING ATENOLOL 50 MG TABLET 1 TABLET ORALLY ONCE A DAY NOT-TAKING LORAZEPAM 1 MG TABLET ORAL MDD3 ONCE A DAY IF NEEDED NOT-TAKING AMITRIPTYLINE HCL 25 MG TABLET 1 TABLET ORALLY ONCE A DAY AT BEDTIME NOT-TAKING IBUPROFEN 200 MGS 2 TABS ORAL 3 TIMES A DAY NEEDED NOT-TAKING PROZAC 40 MG CAPSULE 1 CAPSULE IN THE MORNING ORALLY ONCE A DAY MEDICATION LIST REVIEWED AND RECONCILED WITH THE PATIENT PAST MEDICAL HISTORY HYPERTENSION ELEVATED CHOLESTEROL ARTHRITIS SACRAL NERVE STIMULATOR IMPLANT FOR BOWEL CONTROL RIGHT FRACTURED PELVIS AND RIGHT HIP FX 05/2018 TIA 11/2019 (PER PT) ALLERGIES BEE STINGS: SWELLING - ALLERGY SULFA (FOR ALLERGY USE ONLY): DON'T FEEL RIGHT - ALLERGY AUGMENTIN: BLACK STOOL - ALLERGY PLAQUENIL: DIARRHEA - ALLERGY SOCIAL HISTORY GENERAL: TOBACCO USE ARE YOU A:NONSMOKER LATEX QUESTIONNAIRE LATEX ALLERGY : HAVE YOU EVER DEVELOPED ANY TYPE OF REACTION AFTER HANDLING LATEX PRODUCTS SUCH RUBBER GLOVES, CONDOMS, DIAPHRAGMS, BALLOONS, SOCKS, OR UNDERWEAR?NO LATEX ALLERGY : HAVE YOU EVER DEVELOPED ANY TYPE OF REACTION DURING OR AFTER DENTAL APPOINTMENT, VAGINAL/RECTAL EXAMINATION, SURGICAL PROCEDURE, OR ANY OTHER EXPOSURE?NO LATEX RISK : HAVE YOU EVER HAD ANY DIFFICULTY BREATHING OR HIVES AFTER EATING OR HANDLING ANY FRUITS, OR VEGETABLES; SUCH KIWI, BANANAS, STONE FRUITS, OR CHESTNUTSNO LATEX RISK : DO YOU HAVE A PREVIOUS PERSONAL HISTORY OF MORE THAN NINE SURGERIES, SPINA BIFIDA, OR REPEATED CATHERIZATIONS? NO LATEX RISK : ARE YOU FREQUENTLY EXPOSED TO LATEX PRODUCTS IN YOUR OCCUPATION?NO DATE ASKED : 01/03/2021 ALCOHOL USE: YES. ALCOHOL SCREENING DID YOU HAVE A DRINK CONTAINING ALCOHOL IN THE PAST YEAR?YES HOW OFTEN DID YOU HAVE SIX OR MORE DRINKS ON ONE OCCASION IN THE PAST YEAR?NEVER (0 POINTS) HOW MANY DRINKS DID YOU HAVE ON A TYPICAL DAY WHEN YOU WERE DRINKING IN THE PAST YEAR?1 OR 2 (0 POINTS) HOW OFTEN DID YOU HAVE A DRINK CONTAINING ALCOHOL IN THE PAST YEAR?TWO TO THREE TIMES PER WEEK (3 POINTS) POINTS3 INTERPRETATIONPOSITIVE RECREATIONAL DRUG USE DRUG USE?NO DENIES 02/13/20 SCIENTOLOGIST [id number] OTHER LANGUAGE LANGUAGES SPOKEN:ESTONIAN LEARNING BARRIERS / SPECIAL NEEDS CHANGE FROM LAST VISIT?NO BARRIERS TO LEARNING?NO HEARING IMPAIRED?YES :HEARING AIDES VISION IMPAIRED?YES :CORRECTIVE LENSES COGNITIVELY IMPAIRED?NO READINESS TO LEARN?YES LEARNING PREFERENCES?NO LEARNING CAPABILITIES PRESENT?YES EMOTIONAL BARRIERS?NO SPECIAL DEVICES?NO FRONT END MECHANIC NEEDED?NO REVIEW OF SYSTEMS CONSTITUTIONAL: ANY RECENT FEVER NO . CHILLS NO . WEIGHT CHANGE OF UNKNOWN REASONS NO . GASTROENTEROLOGY: NEW UNEXPLAINABLE CHANGES IN BOWEL CONTROL NO . CONSTIPATION NO . GENITOURINARY: ANY NEW CHANGE IN BLADDER CONTROL? NO . NEUROLOGY: NEW ONSET DIZZINESS OR NEUROLOGICAL CHANGES NOT MENTIONED NO . NEW NUMBNESS OR PAIN PATTERNS NOT MENTIONED AND PERTINENT TO TODAY'S VISIT NO . CARDIOLOGY: NEW CHEST PRESSURE NO . PATIENT DENIES NO . RESPIRATORY: UNEXPLAINABLE COUGH NO . NEW SHORTNESS OF BREATH NO . VITAL SIGNS WT 220.2 LBS, HT 69 IN, BMI 32.51 INDEX, BP 115/82 MM HG, HR 96 /MIN, RR 18 /MIN, TEMP 96.6 F, OXYGEN SAT % 95%, NA INITIALS SC 09:34. EXAMINATION GENERAL EXAMINATION: GENERAL ALERT,NO DISTRESS . PSYCH AFFECT NORMAL . LUNGS: LUNG SOUNDS ARE CLEAR . HEART: HEART RATE REGULAR . MUSCULOSKELETAL: MST 5/5 BILAT. LOWER EXTREMITIES . LUMBAR: TENDERNESS BILAT. SIJ . 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 PROCEDURE CODES FA211 ESTABILISHED PATIENT [facility] CHARGE DISPOSITION & COMMUNICATION FOLLOW UP POST PROCEDURE (REASON: BILATERAL SACROILIAC JOINT BLOCK ) ELECTRONICALLY SIGNED BY HUMERA CAPELLAN ON 01/06/2021 AT 03:12 PM EDT DISCLAIMER : THIS IS A VISIT SUMMARY EXTRACTED FROM THE [employer] CHART. IT IS NOT A COPY OF THE [employer] PROGRESS NOTE. ERICK
== END ==
LOC: M PAIN 09:30
PROVIDERS: ATTEND Nurse Practitioner Family
DX: M46.1 Sacroiliitis, not elsewhere classified (principal); G89.29 Other chronic pain; Z88.1 Allergy status to other antibiotic agents; Z88.2 Allergy status to sulfonamides; Z88.8 Allergy status to other drugs, medicaments and biological substances; Z91.030 Bee allergy status; Z79.82 Long term (current) use of aspirin; Z79.891 Long term (current) use of opiate analgesic; Z79.899 Other long term (current) drug therapy

== ENCOUNTER → 2021-01-11 | Outpatient (CLI) | payer OTHER, MEDICARE | LOC: M LABSMTC 10:14 | PROVIDERS: ATTEND Anesthesiology | DX: Z20.822 Contact with and (suspected) exposure to COVID-19 (principal) ==

== ENCOUNTER → 2021-01-16 | Outpatient (CLI) | payer OTHER, MEDICARE ==
[~2021-01-16] MED LIST changes: +BUPIVACAINE HCL 0.25% 30ML VIAL As Ordered ONE; +ISOVUE-M 300 61% 15ML VIAL As Ordered ONE; +LIDOCAINE 1% SDV 30ML VIAL As Ordered ONE; +NORCO, ANEXSIA 5/325MG TABLET (HYDROcodone/ACETAMINOPHEN) As Ordered ONE; +TRIAMCINOLONE ACETONIDE SUSP 40 MG/ML VIAL (J3301) As Ordered ONE; +diazePAM 5MG TABLET As Ordered ONE
--- NOTE | 2021-01-16 11:28 | REP ---
INDICATION: PAIN. COMPARISON: None. TECHNIQUE: Five views. 27.6 seconds of fluoroscopy time is reported. FINDINGS: A sequence of 5 last image hold fluoroscopically obtained spot radiographs of the SI joints bilaterally document needle position and contrast injection associated with injection procedure. IMPRESSION: Procedural imaging. <Electronically signed by Geoffrey Do > 01/16/21 1121
--- NOTE | 2021-01-22 01:39 | ECWPNPC ---
PATIENT NAME: ARACELIS AMAYA : 1960 GENDER: FEMALE VISIT DATE: 01/16/2021 DISCHARGE DATE: 01/16/21 1116 VISIT LOCKED DATE TIME: PHYSICIAN: AMRIK RUEDA MD RESOURCE: AMRIK RUEDA MD REASON FOR APPOINTMENT 1. BILATERAL SACROILIAC JOINT BLOCK HISTORY OF PRESENT ILLNESS GENERAL: -. FALL RISK SCREENING: SCREENING :STATED SHE FELL APPROX. 2 MONTHS AGO WHEN SHE SLIP ON ICE. SHE HAD INCREASE IN BACK PAIN AFTER. WAS NOT EVALUATED AFTER.. PAIN SCREENING: PATIENT HAS A COMPLAINT OF ACUTE OR CHRONIC PAIN :YES LOCATION OF PAIN:LOW BACK INTENSITY OF PAIN (SCALE OF 1 TO 10):5 2/10 ON RIGHT SIDE AND 5/10 ON LEFT WHAT DOES YOUR PAIN FEEL LIKE:ACHING, INTERMITTENT, SHARP, SORE, SHOOTING DURATION:MAINLY DURING THE DAY PAIN IS INCREASED BY:ACTIVITIES, PROLONGED STANDING PAIN IS DECREASED BY:USE OF PAIN MEDICATIONS, OTHERS REST, ICE, A CREAM SHE APPLIES WHICH IS CALLED "ICE" PAIN HAS INTERFERED WITH THE FOLLOWING: EVERYTHING NURSING NOTE: -. PAIN CENTER INTAKE QUESTIONS: DO YOU HAVE A HISTORY OF MRSA? :NO DO YOU TAKE A BLOOD THINNERS? :NO DO YOU HAVE ANY BLEEDING DISORDERS? :NO ANY NEW NUMBNESS OR WEAKNESS IN YOUR LEGS OR ARMS? :NO ANY PACEMAKER,DEFIBRILLATOR, OR DORSAL COLUMN STIMULATOR? :NO HAS SACRAL NERVE STIMULATOR FOR BOWEL CONTROL DO YOU HAVE ANY RASHES OR OPEN SORES? :NO ARE YOU ALLERGIC TO IV DYE? :NO ARE YOU DIABETIC? :NO ANY NEW PROBLEMS WITH YOUR MEDICATIONS? :NO HAVE YOU RECEIVED A VACCINE IN THE PAST 30 DAYS? :YES IF SO WHAT VACCINE AND WHEN? 2ND COVID 12/26/20 DO YOU PLAN TO RECEIVE A VACCINE IN THE NEXT 21 DAYS? :NO DO YOU TAKE ANY IMMUNOSUPPRESSIVE MEDICATIONS? :NO ANY HISTORY OF SEIZURES? :NO ANY HISTORY OF CARDIAC ISSUES OR EVENTS? :NO DO YOU HAVE ANY KIDNEY OR LIVER DISEASE? :NO DO YOU HAVE SLEEP APNEA? :NO ANY RECENT HEAD INJURY? :NO DO YOU HAVE ANY NEW INFECTIONS? :NO IS THERE A CHANCE YOU COULD BE ? :NO ARE YOU BREAST FEEDING? :NO WHEN DID YOU LAST EAT? : -01/15 1530 WHEN DID YOU LAST DRINK? : -01/16 0700 SIP WITH MEDS- WHAT DID YOU LAST DRINK? : -WATER NAME OF PERSON DRIVING YOU HOME? : KASHMIR- DO YOU HAVE ANY OTHER QUESTIONS OR CONCERNS? : WANTED TO KNOW WHAT TO WEAR. EXPLAINED TO WEAR SOMETHING COMFORTABLE WITH GOOD SUPPORTIVE SHOES. CURRENT MEDICATIONS TAKING MEGESTROL ACETATE 20 MG TABLET 1 TABLET ORALLY DAILY TAKING SIMVASTATIN 20 MG TABLET 1 TABLET IN THE EVENING ORALLY ONCE A DAY TAKING BUTALBITAL-ACETAMINOPHEN 50-300 MG CAPSULE 1 TABLET NEEDED ORALLY EVERY 4 HRS TAKING METOPROLOL SUCCINATE 50 MG CAPSULE ER 24 HOUR SPRINKLE 1 CAPSULE ORALLY ONCE A DAY, NOTES: 3 DAYS TAKING FLUOXETINE HCL 40 MG CAPSULE 1 CAPSULE ORALLY ONCE A DAY TAKING VITAMIN D (CHOLECALCIFEROL) 25 MCG (1000 UT) CAPSULE 1 CAPSULE ORALLY ONCE A DAY TAKING ASPIRIN 81 81 MG TABLET DELAYED RELEASE 1 TABLET ORALLY ONCE A DAY TAKING ALPRAZOLAM 1 MG TABLET 1 TABLET ORALLY THREE TIMES DAILY NEEDED, NOTES: 01/15 TAKING TYLENOL 325 MG TABLET 1-2 TABLET NEEDED ORALLY EVERY 4 HRS TAKING METHOCARBAMOL 750 MG TABLET 1 TABLET ORALLY EVERY 8 HRSPRN, NOTES: 01/15 TAKING TRAMADOL HCL 50 MG TABLET 2 TAB ORALLY BID MDD4, NOTES: 01/15 NOT-TAKING ATENOLOL 50 MG TABLET 1 TABLET ORALLY ONCE A DAY NOT-TAKING LORAZEPAM 1 MG TABLET ORAL MDD3 ONCE A DAY IF NEEDED NOT-TAKING AMITRIPTYLINE HCL 25 MG TABLET 1 TABLET ORALLY ONCE A DAY AT BEDTIME NOT-TAKING IBUPROFEN 200 MGS 2 TABS ORAL 3 TIMES A DAY NEEDED NOT-TAKING PROZAC 40 MG CAPSULE 1 CAPSULE IN THE MORNING ORALLY ONCE A DAY MEDICATION LIST REVIEWED AND RECONCILED WITH THE PATIENT PAST MEDICAL HISTORY HYPERTENSION ELEVATED CHOLESTEROL ARTHRITIS SACRAL NERVE STIMULATOR IMPLANT FOR BOWEL CONTROL RIGHT FRACTURED PELVIS AND RIGHT HIP FX 05/2018 TIA 11/2019 (PER PT) ALLERGIES BEE STINGS: SWELLING - ALLERGY SULFA (FOR ALLERGY USE ONLY): DON'T FEEL RIGHT - ALLERGY AUGMENTIN: BLACK STOOL - ALLERGY PLAQUENIL: DIARRHEA - ALLERGY SURGICAL HISTORY LEFT BROKEN SHOULDER WITH REPAIR 04/21/2016 REVERSE TOTAL LEFT SHOULDER REPLACEMENT 05/19/2016 SACIAL NERVE STIMULATOR IMPLANT FOR BOWEL CONTROL- BATTERY [id number]/2018 01/30/2012 CYST REMOVED TO RIGHT NECK 09/13/2020 FAMILY HISTORY FATHER: MOTHER: , DIAGNOSED WITH OTHER MALIGNANT NEOPLASM OF UNSPECIFIED SITE 1 BROTHER(S) . 2 SON(S) - HEALTHY. 1 SON WITH 2 HEART OPERATIONS. SOCIAL HISTORY GENERAL: TOBACCO USE ARE YOU A:NONSMOKER LATEX QUESTIONNAIRE LATEX ALLERGY : HAVE YOU EVER DEVELOPED ANY TYPE OF REACTION AFTER HANDLING LATEX PRODUCTS SUCH RUBBER GLOVES, CONDOMS, DIAPHRAGMS, BALLOONS, SOCKS, OR UNDERWEAR?NO LATEX ALLERGY : HAVE YOU EVER DEVELOPED ANY TYPE OF REACTION DURING OR AFTER DENTAL APPOINTMENT, VAGINAL/RECTAL EXAMINATION, SURGICAL PROCEDURE, OR ANY OTHER EXPOSURE?NO LATEX RISK : HAVE YOU EVER HAD ANY DIFFICULTY BREATHING OR HIVES AFTER EATING OR HANDLING ANY FRUITS, OR VEGETABLES; SUCH KIWI, BANANAS, STONE FRUITS, OR CHESTNUTSNO LATEX RISK : DO YOU HAVE A PREVIOUS PERSONAL HISTORY OF MORE THAN NINE SURGERIES, SPINA BIFIDA, OR REPEATED CATHERIZATIONS? NO LATEX RISK : ARE YOU FREQUENTLY EXPOSED TO LATEX PRODUCTS IN YOUR OCCUPATION?NO DATE ASKED : 01/14/2021 ALCOHOL USE: YES. ALCOHOL SCREENING DID YOU HAVE A DRINK CONTAINING ALCOHOL IN THE PAST YEAR?YES HOW OFTEN DID YOU HAVE SIX OR MORE DRINKS ON ONE OCCASION IN THE PAST YEAR?NEVER (0 POINTS) HOW MANY DRINKS DID YOU HAVE ON A TYPICAL DAY WHEN YOU WERE DRINKING IN THE PAST YEAR?1 OR 2 (0 POINTS) HOW OFTEN DID YOU HAVE A DRINK CONTAINING ALCOHOL IN THE PAST YEAR?TWO TO THREE TIMES PER WEEK (3 POINTS) POINTS3 INTERPRETATIONPOSITIVE RECREATIONAL DRUG USE DRUG USE?NO DENIES 02/13/20 HOLINESS [id number] OTHER LANGUAGE LANGUAGES SPOKEN:MOZAMBICAN LEARNING BARRIERS / SPECIAL NEEDS CHANGE FROM LAST VISIT?NO BARRIERS TO LEARNING?NO HEARING IMPAIRED?YES :HEARING AIDES VISION IMPAIRED?YES :CORRECTIVE LENSES COGNITIVELY IMPAIRED?NO READINESS TO LEARN?YES LEARNING PREFERENCES?NO LEARNING CAPABILITIES PRESENT?YES EMOTIONAL BARRIERS?NO SPECIAL DEVICES?NO INTERNAL GRINDER NEEDED?NO DOMESTIC VIOLENCE DO YOU FEEL SAFE IN YOUR ENVIRONMENT?YES ADVANCE DIRECTIVE ADVANCE DIRECTIVE DISCUSSED WITH PATIENT:YES PATIENT DOES NOT HAVE ANY ADVANCED DIRECTIVES AND SHE WOULD LIKE A COPY OF A HCP FORM. HELP OFFERED IN COMPLETING FORM IF NEEDED HOSPITALIZATION/MAJOR DIAGNOSTIC PROCEDURE SURGERIES VITAL SIGNS WT 220.0 LBS, HT 69 IN, BMI 32.48 INDEX, BP 126/79 MM HG, HR 92 /MIN, RR 18 /MIN, TEMP 98.4 F, OXYGEN SAT % 98%, SAFE IN ENV? (Y/N) YES, NA INITIALS AW 0905, REVIEWED BY: KATHLEEN LOPEZ. EXAMINATION GENERAL: A HISTORY AND PHYSICAL EXAM ON THE PATIENT WAS DONE ON 01/03/2021(DATE OF ORIGINAL ASSESSMENT) IN PREPARATION OF SURGERY/PROCEDURE. I HAVE NOW REASSESSED THIS PATIENT'S HEALTH STATUS AND PERFORMED AN UPDATED EXAM TODAY. ALL CHANGES IN THE PATIENT'S HISTORY, PHYSICAL EXAM, PRE-EXISTING CONDITONS, AND INDICATIONS/CONTRAINDICATIONS TO THE PLANNED PROCEDURE AND ANESTHESIA ARE DOCUMENTED AND EVALUATED BELOW. I ATTEST TO THE ADEQUACY AND APPROPRIATENESS OF MY ASSESSMENT, AND CONFIRM THE NECESSITY FOR THE PLANNED PROCEDURE. THE PATIENT IS ALERT, ORIENTED TIMES THREE AND COOPERATIVE. LUNGS ARE CLEAR TO AUSCULTATION. HEART SHOWS REGULAR RHYTHM, NO MURMURS AND NO GALLOPS. ASSESSMENTS SACROILIITIS, NOT ELSEWHERE CLASSIFIED - M46.1 (PRIMARY) TREATMENT SACROILIITIS, NOT ELSEWHERE CLASSIFIED [facility] FLUORO GUIDANCE (PAIN)[id number] COMPLETION OF PROCEDURAL VISIT WHEN MEETS CRITERIA MEDICATION: VALIUM TAB 5MG ORALLY (DIAZEPAM)FENGANGELICA WongTH 01/16/2021 9:37:55 AM > VERIFIED JENNIFER ZAMBRANO 01/16/2021 9:39:22 AM > ADMINISTERED MED: PAIN NORCO TABLET 5MG/325MG ORALLY HYDROCODONE/ACETAMINOPHENARIANAJudithMATT 01/16/2021 9:38:12 AM > VERIFIED JENNIFER ZAMBRANO 01/16/2021 9:39:43 AM > ADMINISTERED OTHERS NOTES: 01/14/21 PRE-PROCEDURE CALL COMPLETED. Helder MARCOS RN. PROCEDURES PAIN NURSING RECORD PROCEDURE IN ROOM 1000, PHYSICIAN IN ROOM 1035, START 1041, FINISH 1046, PHYSICIAN OUT OF ROOM 1048, OUT OF ROOM 1055, ECG NORMAL SINUS, PATIENT SHIELDED YES, SAFETY STRAP YES, PREP CHLOROPREP Paulo ZAMBRANO RN/, DR. RUEDA, DRESSING TEGADERM DR. RUEDA LOC: 1. ALERT, ORIENTED RESP: 1. REGULAR, NO DYSPNEA COLOR: 1. PINK SKIN: 1. WARM, DRY POSITION: 1. PRONE VITALS: JENNIFER ZAMBRANO 01/16/2021 10:10:33 AM > 143/98 HR 79 16 97% R/A , JENNIFER ZAMBRANO 01/16/2021 10:25:49 AM > 159/98 HR 83 16 98% R/A , JENNIFER ZAMBRANO 01/16/2021 11:00:47 AM > 133/78 HR 94 16 95% R/A D/C V/S COMPLETION OF PROCEDURE APPOINTMENT: POST PAIN 0, DRESSING SITE DRY AND INTACT, IV N/A, GAIT WHEELCHAIR RETURNED FROM PROCEDURE ROOM TO POST CARE VIA STRETCHER. PATIENT TO DOOR/SPOUSE VIA WHEELCHAIR., TEACHING COMPLETED, PATIENT ACKNOWLEDGES UNDERSTANDING YES, PROCEDURE APPOINTMENT COMPLETED AT 1112 PN SI PRE PROCEDURE DIAGNOSIS SACROILIITIS, SACROILIAC JOINT DYSFUNCTION POST PROCEDURE DIAGNOSIS SACROILIITIS, SACROILIAC JOINT DYSFUNCTION PROCEDURE BILATERAL SACROILIAC JOINT BLOCK SURGEON DR. AMRIK RUEDA DATA SUPPORT SPECIALIST NONE ANESTHESIA LOCAL PRE PROCEDURE NOTE THE PATIENT WITH HISTORY OF CHRONIC LOW BACK PAIN. I EVALUATED THE PATIENT AND REVIEWED THE CHART. I WENT OVER THE RISKS, ALTERNATIVES, AND BENEFITS ASSOCIATED WITH THIS PROCEDURE. THE PATIENT WOULD LIKE TO PROCEED AND GAVE CONSENT TO PERFORM THE PROCEDURE. THE PATIENT DENIES UNEXPLAINABLE WEIGHT LOSS, FEVER, CHILLS, OR NEW CHANGES IN URINARY OR BOWEL CONTROL. THE PATIENT IS COVID-19 NEGATIVE DESCRIPTION OF PROCEDURE THE PATIENT WAS BROUGHT TO THE PROCEDURE ROOM AND PLACED IN THE PRONE POSITION. THE LUMBOSACRAL AREA WAS CLEANED WITH CHLORAPREP SOLUTION AND DRAPED ASEPTICALLY. THE PROCEDURE WAS DONE UNDER STERILE CONDITIONS. A TIMEOUT WAS PERFORMED WHERE THE CONSENTED SITE WAS VERIFIED WITH EVERYONE IN THE ROOM. UNDER FLUOROSCOPIC GUIDANCE, THE TARGET POINT WAS SELECTED AT THE LOWER BORDER OF THE RIGHT AND LEFT SACROILIAC JOINT. TARGET POINT WAS SELECTED AFTER MEDIAL ROTATION AND TILT OF THE MAGNIFIER OR THE C-ARM. I CONFIRMED AGAIN THE SITE OF TARGET. LIDOCAINE 0.5% WAS USED TO NUMB THE SKIN AND THE SUBCUTANEOUS TISSUE BELOW IT. SPINAL NEEDLES, 22-GAUGE, WERE ADVANCED UNDER FLUOROSCOPIC GUIDANCE AND FOLLOWING PATIENT FEEDBACK UNTIL THE TARGETS WERE TOUCHED. THE POSITION OF THE NEEDLES WAS VERIFIED WITH AP AND OBLIQUE VIEWS. AFTER PROPER POSITION OF THE NEEDLES WAS ACHIEVED, ISOVUE-M DYE 30%, 0.1 ML, WAS INJECTED SHOWING ADEQUATE SPREAD OF THE DYE. KENALOG 40 MG WAS INJECTED AT EACH SITE. THEN, A SOLUTION OF 3.0 ML OF BUPIVACAINE 0.125% WAS USED TO FLUSH EACH NEEDLE. THE MEDICATIONS WERE VERIFIED WITH THE NURSE. THERE WAS NO EVIDENCE OF BLOOD, PARESTHESIA OR CEREBROSPINAL FLUID DURING THE PROCEDURE. THE PATIENT WAS SENT TO THE RECOVERY ROOM. THE PATIENT WAS MOVING THE EXTREMITIES AND DOING WELL. THERE WERE NO COMPLICATIONS DURING THE PROCEDURE. ESTIMATED BLOOD LOSS WAS LESS THAN 5 ML. FLUOROSCOPIC TIME WAS 27 SECONDS. POST PROCEDURE NOTE THE PROCEDURE DONE WAS DISCUSSED WITH THE PATIENT. THE PATIENT WILL BE SEEN IN A FOLLOW UP IN THE NEXT FEW WEEKS. I AM LOOKING FOR LONG LASTING PAIN RELIEF FOR THE PATIENT WITH THIS INTERVENTION. INSTRUCTIONS WERE GIVEN, QUESTIONS WERE ANSWERED, AND THE PATIENT EXPRESSED UNDERSTANDING AND AGREES WITH THE PLAN. I, VASQUEZ PAUL, DOCUMENTED THE ABOVE INFORMATION ACTING A SCRIBE FOR DR. RUEDA. I HAVE REVIEWED THE ABOVE DOCUMENT, WRITTEN BY VASQUEZ PAUL, RN ANTE PARTUM, AND I VERIFY THAT IT IS ACCURATE PROCEDURE CODES 60823 INJECT SACROILIAC JOINT, MODIFIERS: 50 DISPOSITION & COMMUNICATION FOLLOW UP FOLLOW UP WITH VETERINARY PARASITOLOGIST (REASON: POST BILATERAL SACROILIAC JOINT BLOCK) ELECTRONICALLY SIGNED BY AMRIK RUEDA MD, MD ON 01/21/2021 AT 07:28 PM EDT DISCLAIMER : THIS IS A VISIT SUMMARY EXTRACTED FROM THE [employer] CHART. IT IS NOT A COPY OF THE [employer] PROGRESS NOTE. MTDJatin
== END ==
LOC: M PAIN 09:00
PROVIDERS: ATTEND Anesthesiology
DX: M46.1 Sacroiliitis, not elsewhere classified (principal); Z86.73 Personal history of transient ischemic attack (TIA), and cerebral infarction without residual deficits; Z88.1 Allergy status to other antibiotic agents; Z88.2 Allergy status to sulfonamides; Z88.8 Allergy status to other drugs, medicaments and biological substances; Z91.030 Bee allergy status; Z79.82 Long term (current) use of aspirin; Z79.891 Long term (current) use of opiate analgesic; Z79.899 Other long term (current) drug therapy
CPT/HCPCS: G0260; J3301; Q9967

== ENCOUNTER → 2021-01-30 | Outpatient (CLI) | payer OTHER, MEDICARE ==
[~2021-01-30] MED LIST changes: -BUPIVACAINE HCL 0.25% 30ML VIAL As Ordered ONE; -ISOVUE-M 300 61% 15ML VIAL As Ordered ONE; -LIDOCAINE 1% SDV 30ML VIAL As Ordered ONE; -NORCO, ANEXSIA 5/325MG TABLET (HYDROcodone/ACETAMINOPHEN) As Ordered ONE; -TRIAMCINOLONE ACETONIDE SUSP 40 MG/ML VIAL (J3301) As Ordered ONE; -diazePAM 5MG TABLET As Ordered ONE
--- NOTE | 2021-02-01 03:15 | ECWPNPC ---
PATIENT NAME: ARACELIS AMAYA : 1960 GENDER: FEMALE VISIT DATE: 01/30/2021 DISCHARGE DATE: 01/30/21 1034 VISIT LOCKED DATE TIME: PHYSICIAN: FILIBERTO LEIVA RESOURCE: FILIBERTO LEIVA REASON FOR APPOINTMENT 1. POST BILATERAL SACROILIAC JOINT BLOCK HISTORY OF PRESENT ILLNESS GENERAL: HERE FOR POST PROCEDURE FOLLOW-UP. HAD BILATERAL SACROILIAC JOINT BLOCK ON 01/16/2021. REPORTING GREATER THAN 80% REDUCTION IN PAIN THAT CONTINUES TODAY. REPORTING IMPROVED SLEEP DUE TO BETTER PAIN CONTROL SINCE PROCEDURE. REPORTING IMPROVED ACTIVITY TOLERANCE SINCE PROCEDURE. -. FALL RISK SCREENING: SCREENING : NO FALLS REPORTED IN THE LAST YEAR, 09/2020 SLIP ON ICE HURT HER LOW BACK. PAIN SCREENING: PATIENT HAS A COMPLAINT OF ACUTE OR CHRONIC PAIN :YES LOCATION OF PAIN:LOW BACK INTENSITY OF PAIN (SCALE OF 1 TO 10):0 WHAT DOES YOUR PAIN FEEL LIKE:STABBING, THROBBING ONLY WHEN SHE HAS TO DO THINGS DURATION:ONLY WITH SPECIFIC ACTIVITIES PAIN IS INCREASED BY:ACTIVITIES PAIN IS DECREASED BY:USE OF PAIN MEDICATIONS NURSING NOTE: -. PAIN CENTER INTAKE QUESTIONS: DO YOU HAVE A HISTORY OF MRSA? :NO DO YOU TAKE A BLOOD THINNERS? :NO DO YOU HAVE ANY BLEEDING DISORDERS? :NO ANY NEW NUMBNESS OR WEAKNESS IN YOUR LEGS OR ARMS? :NO ANY PACEMAKER,DEFIBRILLATOR, OR DORSAL COLUMN STIMULATOR? :YES LEFT BUTTOCK BOWEL STIMULATOR DO YOU HAVE ANY RASHES OR OPEN SORES? :NO ARE YOU ALLERGIC TO IV DYE? :NO ARE YOU DIABETIC? :NO ANY NEW PROBLEMS WITH YOUR MEDICATIONS? :NO HAVE YOU RECEIVED A VACCINE IN THE PAST 30 DAYS? :YES IF SO WHAT VACCINE AND WHEN? 2ND COVID 12/26/2020 DO YOU PLAN TO RECEIVE A VACCINE IN THE NEXT 21 DAYS? :NO DO YOU NEED ANY PRESCRIPTION? :NO DO YOU TAKE ANY IMMUNOSUPPRESSIVE MEDICATIONS? :NO IS THERE A CHANCE YOU COULD BE ? :NO ARE YOU BREAST FEEDING? :NO CURRENT MEDICATIONS TAKING MEGESTROL ACETATE 20 MG TABLET 1 TABLET ORALLY DAILY TAKING SIMVASTATIN 20 MG TABLET 1 TABLET IN THE EVENING ORALLY ONCE A DAY TAKING BUTALBITAL-ACETAMINOPHEN 50-300 MG CAPSULE 1 TABLET NEEDED ORALLY EVERY 4 HRS TAKING METOPROLOL SUCCINATE 50 MG CAPSULE ER 24 HOUR SPRINKLE 1 CAPSULE ORALLY ONCE A DAY TAKING FLUOXETINE HCL 40 MG CAPSULE 1 CAPSULE ORALLY ONCE A DAY TAKING VITAMIN D (CHOLECALCIFEROL) 25 MCG (1000 UT) CAPSULE 1 CAPSULE ORALLY ONCE A DAY TAKING ASPIRIN 81 81 MG TABLET DELAYED RELEASE 1 TABLET ORALLY ONCE A DAY TAKING ALPRAZOLAM 1 MG TABLET 1 TABLET ORALLY THREE TIMES DAILY NEEDED TAKING TYLENOL 325 MG TABLET 1-2 TABLET NEEDED ORALLY EVERY 4 HRS TAKING METHOCARBAMOL 750 MG TABLET 1 TABLET ORALLY EVERY 8 HRSPRN TAKING TRAMADOL HCL 50 MG TABLET 2 TAB ORALLY BID MDD4 NOT-TAKING ATENOLOL 50 MG TABLET 1 TABLET ORALLY ONCE A DAY NOT-TAKING LORAZEPAM 1 MG TABLET ORAL MDD3 ONCE A DAY IF NEEDED NOT-TAKING AMITRIPTYLINE HCL 25 MG TABLET 1 TABLET ORALLY ONCE A DAY AT BEDTIME NOT-TAKING IBUPROFEN 200 MGS 2 TABS ORAL 3 TIMES A DAY NEEDED NOT-TAKING PROZAC 40 MG CAPSULE 1 CAPSULE IN THE MORNING ORALLY ONCE A DAY MEDICATION LIST REVIEWED AND RECONCILED WITH THE PATIENT PAST MEDICAL HISTORY HYPERTENSION ELEVATED CHOLESTEROL ARTHRITIS SACRAL NERVE STIMULATOR IMPLANT FOR BOWEL CONTROL RIGHT FRACTURED PELVIS AND RIGHT HIP FX 05/2018 TIA 11/2019 (PER PT) ALLERGIES BEE STINGS: SWELLING - ALLERGY SULFA (FOR ALLERGY USE ONLY): DON'T FEEL RIGHT - ALLERGY AUGMENTIN: BLACK STOOL - ALLERGY PLAQUENIL: DIARRHEA - ALLERGY SOCIAL HISTORY GENERAL: TOBACCO USE ARE YOU A:NONSMOKER LATEX QUESTIONNAIRE LATEX ALLERGY : HAVE YOU EVER DEVELOPED ANY TYPE OF REACTION AFTER HANDLING LATEX PRODUCTS SUCH RUBBER GLOVES, CONDOMS, DIAPHRAGMS, BALLOONS, SOCKS, OR UNDERWEAR?NO LATEX ALLERGY : HAVE YOU EVER DEVELOPED ANY TYPE OF REACTION DURING OR AFTER DENTAL APPOINTMENT, VAGINAL/RECTAL EXAMINATION, SURGICAL PROCEDURE, OR ANY OTHER EXPOSURE?NO LATEX RISK : HAVE YOU EVER HAD ANY DIFFICULTY BREATHING OR HIVES AFTER EATING OR HANDLING ANY FRUITS, OR VEGETABLES; SUCH KIWI, BANANAS, STONE FRUITS, OR CHESTNUTSNO LATEX RISK : DO YOU HAVE A PREVIOUS PERSONAL HISTORY OF MORE THAN NINE SURGERIES, SPINA BIFIDA, OR REPEATED CATHERIZATIONS? NO LATEX RISK : ARE YOU FREQUENTLY EXPOSED TO LATEX PRODUCTS IN YOUR OCCUPATION?NO DATE ASKED : 01/30/2021 ALCOHOL USE: YES. ALCOHOL SCREENING DID YOU HAVE A DRINK CONTAINING ALCOHOL IN THE PAST YEAR?YES HOW OFTEN DID YOU HAVE SIX OR MORE DRINKS ON ONE OCCASION IN THE PAST YEAR?NEVER (0 POINTS) HOW MANY DRINKS DID YOU HAVE ON A TYPICAL DAY WHEN YOU WERE DRINKING IN THE PAST YEAR?1 OR 2 (0 POINTS) HOW OFTEN DID YOU HAVE A DRINK CONTAINING ALCOHOL IN THE PAST YEAR?TWO TO THREE TIMES PER WEEK (3 POINTS) POINTS3 INTERPRETATIONPOSITIVE RECREATIONAL DRUG USE DRUG USE?NO DENIES 02/13/20 SABIANISM [id number] OTHER LANGUAGE LANGUAGES SPOKEN:SAUDI ARABIAN LEARNING BARRIERS / SPECIAL NEEDS CHANGE FROM LAST VISIT?NO BARRIERS TO LEARNING?NO HEARING IMPAIRED?YES :HEARING AIDES VISION IMPAIRED?YES :CORRECTIVE LENSES COGNITIVELY IMPAIRED?NO READINESS TO LEARN?YES LEARNING PREFERENCES?NO LEARNING CAPABILITIES PRESENT?YES EMOTIONAL BARRIERS?NO SPECIAL DEVICES?NO PRINTING SALES REPRESENTATIVE NEEDED?NO DOMESTIC VIOLENCE DO YOU FEEL SAFE IN YOUR ENVIRONMENT?YES ADVANCE DIRECTIVE ADVANCE DIRECTIVE DISCUSSED WITH PATIENT:YES PATIENT DOES NOT HAVE ANY ADVANCED DIRECTIVES AND SHE WOULD LIKE A COPY OF A HCP FORM. HELP OFFERED IN COMPLETING FORM IF NEEDED REVIEW OF SYSTEMS CONSTITUTIONAL: ANY RECENT FEVER NO . CHILLS NO . WEIGHT CHANGE OF UNKNOWN REASONS NO . GASTROENTEROLOGY: NEW UNEXPLAINABLE CHANGES IN BOWEL CONTROL NO . CONSTIPATION NO . GENITOURINARY: ANY NEW CHANGE IN BLADDER CONTROL? NO . NEUROLOGY: NEW ONSET DIZZINESS OR NEUROLOGICAL CHANGES NOT MENTIONED NO . NEW NUMBNESS OR PAIN PATTERNS NOT MENTIONED AND PERTINENT TO TODAY'S VISIT NO . CARDIOLOGY: NEW CHEST PRESSURE NO . PATIENT DENIES NO . RESPIRATORY: UNEXPLAINABLE COUGH NO . NEW SHORTNESS OF BREATH NO . VITAL SIGNS WT 217.8 LBS, HT 69 IN, BMI 32.16 INDEX, BP 119/77 MM HG, HR 88 /MIN, RR 18 /MIN, TEMP 97.3 F, OXYGEN SAT % 92%, SAFE IN ENV? (Y/N) YES, NA INITIALS HI 10:12T.MADELEINE STERN. EXAMINATION GENERAL EXAMINATION: GENERAL ALERT,NO DISTRESS . PSYCH AFFECT NORMAL . LUNGS: LUNG SOUNDS ARE CLEAR . HEART: HEART RATE REGULAR . MUSCULOSKELETAL: MST 5/5 BILAT. LOWER EXTREMITIES . ASSESSMENTS SACROILIITIS, NOT ELSEWHERE CLASSIFIED - M46.1 (PRIMARY) OTHER CHRONIC PAIN - G89.29 TREATMENT SACROILIITIS, NOT ELSEWHERE CLASSIFIED NOTES: HOME EXERCISE AND STRETCHING. OTHER CHRONIC PAIN PAIN PROCEDURE LOGDATE OF PROCEDURE1PROCEDURE:BILATERAL SACROILIAC JOINT BLOCKAMOUNT OF PRE SEDATEVALIUM 5MG, NORCO 5/325MGRESULT:GREATER THAN 80% REDUCTION IN PAIN CONTINUES TODAY. PROCEDURE CODES FA211 ESTABILISHED PATIENT [facility] CHARGE DISPOSITION & COMMUNICATION FOLLOW UP 3 MONTHS (REASON: MED MGNT) ELECTRONICALLY SIGNED BY HUMERA CAPELLAN ON 01/31/2021 AT 04:29 PM EDT DISCLAIMER : THIS IS A VISIT SUMMARY EXTRACTED FROM THE [employer] CHART. IT IS NOT A COPY OF THE [employer] PROGRESS NOTE. AGUILAD
== END ==
LOC: M PAIN 09:45
PROVIDERS: ATTEND Nurse Practitioner Family
DX: M46.1 Sacroiliitis, not elsewhere classified (principal); G89.29 Other chronic pain; Z86.73 Personal history of transient ischemic attack (TIA), and cerebral infarction without residual deficits; Z88.1 Allergy status to other antibiotic agents; Z88.2 Allergy status to sulfonamides; Z88.8 Allergy status to other drugs, medicaments and biological substances; Z91.030 Bee allergy status; Z79.82 Long term (current) use of aspirin; Z79.891 Long term (current) use of opiate analgesic; Z79.899 Other long term (current) drug therapy

== ENCOUNTER → 2021-02-01 | Outpatient (CLI) | payer OTHER, MEDICARE ==
--- NOTE | 2021-02-01 12:09 | REP ---
INDICATION: PAIN. COMPARISON: None TECHNIQUE: Six views with tunnel view FINDINGS: There is tricompartmental marginal osteophytosis with patellofemoral joint space narrowing and medial compartmental narrowing. There is no acute fracture, dislocation, or subluxation. IMPRESSION: Chronic changes as described above. <Electronically signed by Sage Logan > 02/01/21 1602
== END ==
LOC: M SOG 10:59
PROVIDERS: ATTEND Orthopaedic Surgery Sports Medicine
DX: M25.561 Pain in right knee (principal); M25.761 Osteophyte, right knee

== ENCOUNTER → 2021-05-02 | Outpatient (CLI) | payer MEDICARE, OTHER ==
--- NOTE | 2021-05-03 04:21 | ECWPNPC ---
PATIENT NAME: ARACELIS AMAYA : 1960 GENDER: FEMALE VISIT DATE: 05/02/2021 DISCHARGE DATE: 05/02/21 1015 VISIT LOCKED DATE TIME: PHYSICIAN: FILIBERTO LEIVA RESOURCE: FILIBERTO LEIVA REASON FOR APPOINTMENT 1. MED MGNT HISTORY OF PRESENT ILLNESS DEPRESSION SCREENING: PHQ-2 (2015 EDITION) LITTLE INTEREST OR PLEASURE IN DOING THINGS?NOT AT ALL FEELING DOWN, DEPRESSED, OR HOPELESS?NOT AT ALL TOTAL SCORE0 GENERAL: HERE FOR FOLLOW-UP AND MEDICATION MANAGEMENT OF CHRONIC LOW BACK PAIN. CONTINUES TO DO WELL AFTER BILATERAL SACROILIAC JOINT BLOCK DONE IN DECEMBER. REPORTS MEDICATION IS EFFECTIVE AT REDUCING PAIN AND KEEPING HER FUNCTIONAL. DENIES ADVERSE SIDE EFFECTS WITH HER MEDICATION. -. FALL RISK SCREENING: SCREENING : NO FALLS REPORTED IN THE LAST YEAR. PAIN SCREENING: PATIENT HAS A COMPLAINT OF ACUTE OR CHRONIC PAIN :YES LOCATION OF PAIN:LOW BACK INTENSITY OF PAIN (SCALE OF 1 TO 10):0 WHAT DOES YOUR PAIN FEEL LIKE:OTHER NOT IN ANY PAIN TODAY DURATION:ONLY WITH SPECIFIC ACTIVITIES PAIN IS INCREASED BY:ACTIVITIES PAIN IS DECREASED BY:USE OF PAIN MEDICATIONS, SITTING NURSING NOTE: -. PAIN CENTER INTAKE QUESTIONS: DO YOU HAVE A HISTORY OF MRSA? :NO DO YOU TAKE A BLOOD THINNERS? :NO DO YOU HAVE ANY BLEEDING DISORDERS? :NO ANY NEW NUMBNESS OR WEAKNESS IN YOUR LEGS OR ARMS? :NO ANY PACEMAKER,DEFIBRILLATOR, OR DORSAL COLUMN STIMULATOR? :YES LEFT BUTTOCK BOWEL STIMULATOR DO YOU HAVE ANY RASHES OR OPEN SORES? :NO ARE YOU ALLERGIC TO IV DYE? :NO ARE YOU DIABETIC? :NO ANY NEW PROBLEMS WITH YOUR MEDICATIONS? :NO HAVE YOU RECEIVED A VACCINE IN THE PAST 30 DAYS? :YES IF SO WHAT VACCINE AND WHEN? 2ND COVID 12/26/2020 DO YOU PLAN TO RECEIVE A VACCINE IN THE NEXT 21 DAYS? :NO DO YOU NEED ANY PRESCRIPTION? :YES METHOCARBAMOL 750 MG ,TRAMADOL HCL 50 MG DO YOU TAKE ANY IMMUNOSUPPRESSIVE MEDICATIONS? :NO IS THERE A CHANCE YOU COULD BE ? :NO ARE YOU BREAST FEEDING? :NO CURRENT MEDICATIONS TAKING MEGESTROL ACETATE 20 MG TABLET 1 TABLET ORALLY DAILY TAKING SIMVASTATIN 20 MG TABLET 1 TABLET IN THE EVENING ORALLY ONCE A DAY TAKING BUTALBITAL-ACETAMINOPHEN 50-300 MG CAPSULE 1 TABLET NEEDED ORALLY EVERY 4 HRS TAKING METOPROLOL SUCCINATE 50 MG CAPSULE ER 24 HOUR SPRINKLE 1 CAPSULE ORALLY ONCE A DAY TAKING FLUOXETINE HCL 40 MG CAPSULE 1 CAPSULE ORALLY ONCE A DAY TAKING VITAMIN D (CHOLECALCIFEROL) 25 MCG (1000 UT) CAPSULE 1 CAPSULE ORALLY ONCE A DAY TAKING ASPIRIN 81 81 MG TABLET DELAYED RELEASE 1 TABLET ORALLY ONCE A DAY TAKING ALPRAZOLAM 1 MG TABLET 1 TABLET ORALLY THREE TIMES DAILY NEEDED TAKING TYLENOL 325 MG TABLET 1-2 TABLET NEEDED ORALLY EVERY 4 HRS TAKING METHOCARBAMOL 750 MG TABLET 1 TABLET ORALLY EVERY 8 HRSPRN TAKING TRAMADOL HCL 50 MG TABLET 2 TAB ORALLY BID MDD4 NOT-TAKING ATENOLOL 50 MG TABLET 1 TABLET ORALLY ONCE A DAY NOT-TAKING LORAZEPAM 1 MG TABLET ORAL MDD3 ONCE A DAY IF NEEDED NOT-TAKING AMITRIPTYLINE HCL 25 MG TABLET 1 TABLET ORALLY ONCE A DAY AT BEDTIME NOT-TAKING IBUPROFEN 200 MGS 2 TABS ORAL 3 TIMES A DAY NEEDED NOT-TAKING PROZAC 40 MG CAPSULE 1 CAPSULE IN THE MORNING ORALLY ONCE A DAY MEDICATION LIST REVIEWED AND RECONCILED WITH THE PATIENT PAST MEDICAL HISTORY HYPERTENSION ELEVATED CHOLESTEROL ARTHRITIS SACRAL NERVE STIMULATOR IMPLANT FOR BOWEL CONTROL RIGHT FRACTURED PELVIS AND RIGHT HIP FX 05/2018 TIA 11/2019 (PER PT) 2ND COVID 12/26/2020 ALLERGIES BEE STINGS: SWELLING - ALLERGY SULFA (FOR ALLERGY USE ONLY): DON'T FEEL RIGHT - ALLERGY AUGMENTIN: BLACK STOOL - ALLERGY PLAQUENIL: DIARRHEA - ALLERGY SOCIAL HISTORY GENERAL: TOBACCO USE ARE YOU A:NONSMOKER LATEX QUESTIONNAIRE LATEX ALLERGY : HAVE YOU EVER DEVELOPED ANY TYPE OF REACTION AFTER HANDLING LATEX PRODUCTS SUCH RUBBER GLOVES, CONDOMS, DIAPHRAGMS, BALLOONS, SOCKS, OR UNDERWEAR?NO LATEX ALLERGY : HAVE YOU EVER DEVELOPED ANY TYPE OF REACTION DURING OR AFTER DENTAL APPOINTMENT, VAGINAL/RECTAL EXAMINATION, SURGICAL PROCEDURE, OR ANY OTHER EXPOSURE?NO LATEX RISK : HAVE YOU EVER HAD ANY DIFFICULTY BREATHING OR HIVES AFTER EATING OR HANDLING ANY FRUITS, OR VEGETABLES; SUCH KIWI, BANANAS, STONE FRUITS, OR CHESTNUTSNO LATEX RISK : DO YOU HAVE A PREVIOUS PERSONAL HISTORY OF MORE THAN NINE SURGERIES, SPINA BIFIDA, OR REPEATED CATHERIZATIONS? NO LATEX RISK : ARE YOU FREQUENTLY EXPOSED TO LATEX PRODUCTS IN YOUR OCCUPATION?NO DATE ASKED : 05/02/2021 ALCOHOL USE: YES. ALCOHOL SCREENING DID YOU HAVE A DRINK CONTAINING ALCOHOL IN THE PAST YEAR?YES HOW OFTEN DID YOU HAVE A DRINK CONTAINING ALCOHOL IN THE PAST YEAR?TWO TO THREE TIMES PER WEEK (3 POINTS) HOW MANY DRINKS DID YOU HAVE ON A TYPICAL DAY WHEN YOU WERE DRINKING IN THE PAST YEAR?1 OR 2 (0 POINTS) HOW OFTEN DID YOU HAVE SIX OR MORE DRINKS ON ONE OCCASION IN THE PAST YEAR?NEVER (0 POINTS) POINTS3 INTERPRETATIONPOSITIVE RECREATIONAL DRUG USE DRUG USE?NO DENIES 02/13/20 MANDAEN [id number] OTHER LANGUAGE LANGUAGES SPOKEN:AFGHAN LEARNING BARRIERS / SPECIAL NEEDS CHANGE FROM LAST VISIT?NO BARRIERS TO LEARNING?NO HEARING IMPAIRED?YES :HEARING AIDES VISION IMPAIRED?YES :CORRECTIVE LENSES COGNITIVELY IMPAIRED?NO READINESS TO LEARN?YES LEARNING PREFERENCES?NO LEARNING CAPABILITIES PRESENT?YES EMOTIONAL BARRIERS?NO SPECIAL DEVICES?NO GRADUATE FELLOW NEEDED?NO DOMESTIC VIOLENCE DO YOU FEEL SAFE IN YOUR ENVIRONMENT?YES ADVANCE DIRECTIVE ADVANCE DIRECTIVE DISCUSSED WITH PATIENT:YES PATIENT DOES NOT HAVE ANY ADVANCED DIRECTIVES AND SHE WOULD LIKE A COPY OF A HCP FORM. HELP OFFERED IN COMPLETING FORM IF NEEDED REVIEW OF SYSTEMS CONSTITUTIONAL: ANY RECENT FEVER NO . CHILLS NO . WEIGHT CHANGE OF UNKNOWN REASONS NO . GASTROENTEROLOGY: NEW UNEXPLAINABLE CHANGES IN BOWEL CONTROL NO . CONSTIPATION NO . GENITOURINARY: ANY NEW CHANGE IN BLADDER CONTROL? NO . NEUROLOGY: NEW ONSET DIZZINESS OR NEUROLOGICAL CHANGES NOT MENTIONED NO . NEW NUMBNESS OR PAIN PATTERNS NOT MENTIONED AND PERTINENT TO TODAY'S VISIT NO . CARDIOLOGY: NEW CHEST PRESSURE NO . PATIENT DENIES NO . RESPIRATORY: UNEXPLAINABLE COUGH NO . NEW SHORTNESS OF BREATH NO . VITAL SIGNS WT 220.0 LBS, WT-KG 99.79 KG, HT 69 IN, BMI 32.48 INDEX, BP 126/79 MM HG, HR 106 /MIN, RR 18 /MIN, TEMP 96.9 F, OXYGEN SAT % 97%, SAFE IN ENV? (Y/N) YES, NA INITIALS AW 0934T.MADELEINE STERN. EXAMINATION GENERAL EXAMINATION: GENERAL ALERT,NO DISTRESS . PSYCH AFFECT NORMAL . LUNGS: LUNG SOUNDS ARE CLEAR . HEART: HEART RATE REGULAR . MUSCULOSKELETAL: MST 5/5 BILAT. LOWER EXTREMITIES . ASSESSMENTS SACROILIITIS, NOT ELSEWHERE CLASSIFIED - M46.1 (PRIMARY) TREATMENT SACROILIITIS, NOT ELSEWHERE CLASSIFIED REFILL METHOCARBAMOL TABLET, 750 MG, 1 TABLET, ORALLY, EVERY 8 HRSPRN, 90 DAY(S), 270, REFILLS 0 REFILL TRAMADOL HCL TABLET, 50 MG, 2 TAB, ORALLY, BID MDD4 3M SUPPLY CATD CHRONIC PAIN, 90 DAY(S), 360, REFILLS 0 NOTES: ISTOP REGISTRY REVIEWED AND DEMONSTRATES COMPLLIANCE. BRINGS IN MEDICATIONS WHICH IS APPROPRIATE FOR WHAT WAS DISPENSED. RECENT URINE TOXICOLOGY REVIEWED. NO UNAUTHORIZED MEDICATIONS. NO ILLICIT SUBSTANCES AND PRESCRIBED MEDICATIONS WERE PRESENT. , RISKS OF NARCOTIC/OPIOD MEDICATIONS INCLUDES BUT IS NOT LIMITED TO RISK OF DEPENDANCE/DEVELOPMENT OF ADDICTION, MOOD DISTURBANCE AND DEPRESSION, OSTEOPOROSIS, HORMONAL AND LABIDAL CHANGES, RESPIRATORY DEPRESSION AND . PATIENT IS ADVISED NOT TO DRIVE OR DRINK ALCOHOL WHILE ON THESE MEDICATIONS. PROCEDURE CODES FA211 ESTABILISHED PATIENT [facility] CHARGE DISPOSITION & COMMUNICATION FOLLOW UP 3 MONTHS (REASON: LBP/MED MGMNT) ELECTRONICALLY SIGNED BY HUMERA CAPELLAN ON 05/02/2021 AT 11:00 AM EDT DISCLAIMER : THIS IS A VISIT SUMMARY EXTRACTED FROM THE [employer] CHART. IT IS NOT A COPY OF THE [employer] PROGRESS NOTE. ERICK
== END ==
LOC: M PAIN 09:45
PROVIDERS: ATTEND Nurse Practitioner Family
DX: M46.1 Sacroiliitis, not elsewhere classified (principal); G89.29 Other chronic pain; Z86.73 Personal history of transient ischemic attack (TIA), and cerebral infarction without residual deficits; Z88.1 Allergy status to other antibiotic agents; Z88.2 Allergy status to sulfonamides; Z88.8 Allergy status to other drugs, medicaments and biological substances; Z91.030 Bee allergy status; Z79.82 Long term (current) use of aspirin; Z79.891 Long term (current) use of opiate analgesic; Z79.899 Other long term (current) drug therapy

== ENCOUNTER → 2021-05-08 | Outpatient (REF) | payer MEDICARE, OTHER | LOC: M LAB REF 16:47 | PROVIDERS: ATTEND Family Medicine | DX: N39.0 Urinary tract infection, site not specified (principal) ==

== ENCOUNTER → 2021-07-12 | Outpatient (CLI) | payer MEDICARE, OTHER ==
[~2021-07-12] MED LIST changes: +ISOVUE-300 61% 50ML VIAL As Ordered ONE
--- NOTE | 2021-07-12 08:54 | REP ---
INDICATION: OA RT KNEE. COMPARISON: None. TECHNIQUE: Helical scanning using 2 x 2 mm increments and reconstructed in both sagittal and coronal planes after the intra-articular injection of contrast FINDINGS: There is an accumulation of contrast in the cartilaginous surface of the trochlear groove of the femur laterally. This measures approximately 9 mm. In the cartilaginous surface of the lateral tibial plateau there is an accumulation of contrast which measures approximately 8 mm. No abnormal contrast accumulation is seen in the menisci. The anterior and posterior cruciate ligaments appear to be intact. There is tricompartmental marginal osteophytosis. There is a 4.4 x 1.2 by 2.2 cm sized Cooney's cyst. IMPRESSION: 1. Abnormal accumulation of contrast within femoral and tibial chondral surfaces as described above and consistent with chondromalacia and chondral defects. 2. No evidence of a meniscal tear. 3. Degenerative changes as described above. 4. Cooney's cyst as described above. 5. Other findings as described above. <Electronically signed by Sage Logan > 07/12/21 2006
--- NOTE | 2021-07-12 15:56 | REP ---
INDICATION: OA RT KNEE. COMPARISON: None TECHNIQUE: The procedure was performed by LUIS CARLOS George, under the direct supervision of Dr. Yates. The benefits and risks of the procedure were explained to the patient, and an informed consent was obtained. Directly prior to the start of the procedure, a formal time-out was completed in the procedure room. The right knee joint space was localized using fluoroscopic guidance. The skin was prepped and draped in a sterile fashion. Approximately 5 mL of 1% Lidocaine 10 mg/ml was used as a local anesthetic. Using fluoroscopic guidance, a #25 gauge 1-1/2 inch needle was inserted and advanced into the right knee joint space. Approximately 10 mL of Isovue 300 was injected to verify placement. The needle was removed and hemostasis was achieved. FINDINGS: The patient tolerated the procedure well and there were no immediate complications. IMPRESSION: 1. Technically successful right knee arthrogram. CT imaging to follow. 0.1 minutes of fluoroscopy time was utilized for this procedure. Some fluoroscopic images are performed with last image hold technology. These images require no additional radiation. <Electronically signed by Liliam Duvall > 07/12/21 [id number] <Electronically signed by Damien Yates > 07/12/21 2058
== END ==
LOC: M RADPRO 07:27
PROVIDERS: ATTEND Orthopaedic Surgery Sports Medicine
DX: R93.7 Abnormal findings on diagnostic imaging of other parts of musculoskeletal system (principal); M17.11 Unilateral primary osteoarthritis, right knee
CPT/HCPCS: 27369; 73701; 77002; Q9967

== ENCOUNTER → 2021-09-11 | Outpatient (CLI) | payer MEDICARE, OTHER ==
[~2021-09-11] MED LIST changes: -ISOVUE-300 61% 50ML VIAL As Ordered ONE
== END ==
LOC: M PAIN 10:15
PROVIDERS: ATTEND Anesthesiology
DX: M53.3 Sacrococcygeal disorders, not elsewhere classified (principal); I10 Essential (primary) hypertension; E78.00 Pure hypercholesterolemia, unspecified; Z79.891 Long term (current) use of opiate analgesic; Z79.899 Other long term (current) drug therapy; Z88.2 Allergy status to sulfonamides; Z88.0 Allergy status to penicillin; Z88.8 Allergy status to other drugs, medicaments and biological substances; Z91.030 Bee allergy status
CPT/HCPCS: 76000; G0463

== ENCOUNTER → 2021-09-24 | Outpatient (CLI) | payer MEDICARE, OTHER ==
[~2021-09-24] MED LIST changes: +ALPR1TAB3 PO; +AMIT25TA17 PO; +ASPI81CH33 PO; +BUTA1CAP PO; +FLUO-96 PO; -FLUO20CA20 PO; +FLUO40CA PO; +METO1TAB7 PO; +TRAM50TA2 PO
== END ==
LOC: M RAD 09:42
PROVIDERS: ATTEND Anesthesiology
DX: M53.3 Sacrococcygeal disorders, not elsewhere classified (principal)

== ENCOUNTER → 2021-10-18 | Outpatient (CLI) | payer MEDICARE, OTHER ==
[~2021-10-18] MED LIST changes: -ALPR1TAB3 PO; -AMIT25TA17 PO; -ASPI81CH33 PO; -BUTA1CAP PO; -FLUO40CA PO; -METO1TAB7 PO; -TRAM50TA2 PO
== END ==
LOC: M SOG 09:03
PROVIDERS: ATTEND Orthopaedic Surgery Sports Medicine
DX: M17.12 Unilateral primary osteoarthritis, left knee (principal)

== ENCOUNTER 2021-10-26 12:53 | Inpatient (IN) | payer MEDICARE, OTHER ==
[~2021-10-26] VITALS: Ht 175.3 cm; Wt 100.9 kg
[2021-10-26] MEDS ORDERED: TRAM50TA2 PO (13:04)
[2021-10-26] MEDS ORDERED: METO1TAB7 PO (13:04)
[2021-10-26] MEDS ORDERED: ASPI81CH33 PO (13:04)
[2021-10-26] MEDS ORDERED: BUTA1CAP PO (13:04)
[2021-10-26 13:44] LABS: BASO # 0.1 10^3/uL (0.0-0.2); BASO % 0.5 % (0.0-1.0); EOS # 0.2 10^3/uL (0.0-0.5); HEMATOCRIT 39.2 % (36.0-47.0); HEMOGLOBIN 12.9 g/dl (12.0-15.5); LYMPH # 1.6 10^3/uL (1.5-5.0); LYMPH % 14.1 % (24.0-44.0); MEAN CORPUSCULAR HEMOGLOBIN 32.7 pg (27.0-33.0); MEAN CORPUSCULAR HGB CONC 32.9 g/dl (32.0-36.5); MEAN CORPUSCULAR VOLUME 99.2 fl (80.0-96.0); MONO # 0.9 10^3/uL (0.0-0.8); MONO % 8.2 % (2.0-8.0); NEUTROPHILS # 8.3 10^3/uL (1.5-8.5); NEUTROPHILS % 74.8 % (36.0-66.0); PLATELET COUNT, AUTOMATED 260 10^3/uL (150-450); RED BLOOD COUNT 3.95 10^6/uL (4.00-5.40); WHITE BLOOD COUNT 11.1 10^3/uL (4.0-10.0)
[2021-10-26 14:09] LABS: C REACTIVE PROTEIN QUANTITATIV 3.99 MG/DL (0.00-0.30); URIC ACID 2.4 MG/DL (2.6-6.0)
[2021-10-26 14:37] LABS: ERYTHROCYTE SEDIMENTATION RATE 24 mm/hr (0-30)
[2021-10-26] MEDS ORDERED: PERCOCET 5MG/325MG TAB PO ONE (14:45)
[2021-10-26 16:58] LABS: SOURCE, BODY FLUID RT KNEE; SYNOVIAL FLUID COLOR YELLOW (COLORLESS)
[2021-10-26 17:13] LABS: CRYSTALS, BODY FLUID NONE SEEN (NONE SEEN); SOURCE, BODY FLUID CRYSTALS RT KNEE
[2021-10-26 17:25] LABS: SOURCE, BODY FLUID GLUCOSE RT KNEE
[2021-10-26 17:29] LABS: SOURCE, BODY FLUID URIC ACID RT KNEE; URIC ACID, BODY FLUID 2.8 MG/DL (NOT ESTABLISHED)
[2021-10-26] MEDS ORDERED: ACETAMINOPHEN TAB 650MG DOSE (2X325MG) PO PRN (18:15)
[2021-10-26] MEDS ORDERED: FLUO40CA PO (18:30)
[2021-10-26] MEDS ORDERED: AMIT25TA17 PO (18:30)
[2021-10-26] MEDS ORDERED: ALPR1TAB3 PO (18:30)
[2021-10-26] MEDS ORDERED: HOME MED LIST COMPLETE! XX SCH (18:35)
[2021-10-26 19:22] LABS: RSV AMPLIFICATION NEGATIVE (NEGATIVE)
[2021-10-26] MEDS: ALPRAZolam 0.5 MG TAB PO PRN (19:55)
[2021-10-26 20:18] LABS: BLOOD UREA NITROGEN 10 MG/DL (7-18); CALCIUM LEVEL 8.7 MG/DL (8.8-10.2); CARBON DIOXIDE LEVEL 26 MEQ/L (21-32); CHLORIDE LEVEL 106 MEQ/L (98-107); CREATININE FOR GFR 0.76 MG/DL (0.55-1.30); GLOMERULAR FILTRATION RATE > 60.0 (>45); GLUCOSE, FASTING 95 MG/DL (70-100); POTASSIUM SERUM 4.1 MEQ/L (3.5-5.1); SODIUM LEVEL 140 MEQ/L (136-145)
[2021-10-26] MEDS ORDERED: PERCOCET 5MG/325MG TAB PO PRN (21:00)
[2021-10-26] MEDS ORDERED: KETOROLAC 30 MG/ML 1ML VIAL IV ONE (21:00)
[2021-10-26] MEDS: SIMVASTATIN 20 MG TAB PO SCH (21:11)
[2021-10-26] MEDS: FLUoxetine 20 MG CAP PO SCH (21:11)
[2021-10-26] MEDS: HEPARIN SOD (PORCINE) 5000UNITS/ML 1ML VIAL/SYRINGE SC SCH (21:11)
[2021-10-26] MEDS: METOPROLOL SUCC (TopROL XL) 50MG **XL** TAB PO SCH (21:11)
[2021-10-26] MEDS: AMITRIPTYLINE 25MG TABLET PO SCH (21:19)
[2021-10-26 23:35] VITALS: BP 131/83
[2021-10-26] MEDS: NS 1,000 ML IV SCH (23:56)
[2021-10-26] MEDS: traMADol 50 MG TAB PO PRN (23:58)
[2021-10-27] MEDS ORDERED: KETOROLAC 30 MG/ML 1ML VIAL IV PRN (04:35)
[2021-10-27 06:00] VITALS: BP 119/76
[2021-10-27 06:19] LABS: BASO # 0.1 10^3/uL (0.0-0.2); BASO % 0.8 % (0.0-1.0); EOS # 0.5 10^3/uL (0.0-0.5); EOS % 7.1 % (0.0-3.0); HEMATOCRIT 35.6 % (36.0-47.0); HEMOGLOBIN 11.7 g/dl (12.0-15.5); LYMPH # 1.8 10^3/uL (1.5-5.0); LYMPH % 27.9 % (24.0-44.0); MEAN CORPUSCULAR HEMOGLOBIN 33.2 pg (27.0-33.0); MEAN CORPUSCULAR HGB CONC 32.9 g/dl (32.0-36.5); MEAN CORPUSCULAR VOLUME 101.1 fl (80.0-96.0); MONO # 0.7 10^3/uL (0.0-0.8); MONO % 10.7 % (2.0-8.0); NEUTROPHILS # 3.4 10^3/uL (1.5-8.5); PLATELET COUNT, AUTOMATED 199 10^3/uL (150-450); RED BLOOD COUNT 3.52 10^6/uL (4.00-5.40); WHITE BLOOD COUNT 6.4 10^3/uL (4.0-10.0)
[2021-10-27 06:27] LABS: BLOOD UREA NITROGEN 12 MG/DL (7-18); C REACTIVE PROTEIN QUANTITATIV 7.46 MG/DL (0.00-0.30); CARBON DIOXIDE LEVEL 23 MEQ/L (21-32); CHLORIDE LEVEL 108 MEQ/L (98-107); CREATININE FOR GFR 0.75 MG/DL (0.55-1.30); GLOMERULAR FILTRATION RATE > 60.0 (>45); GLUCOSE, FASTING 110 MG/DL (70-100); POTASSIUM SERUM 3.7 MEQ/L (3.5-5.1); SODIUM LEVEL 139 MEQ/L (136-145)
[2021-10-27 06:34] LABS: INR 1.09; PARTIAL THROMBOPLASTIN TIME 33.2 SECONDS (25.9-37.0); PROTHROMBIN TIME 14.5 SECONDS (12.7-14.5)
[2021-10-27 06:48] LABS: ERYTHROCYTE SEDIMENTATION RATE 34 mm/hr (0-30)
[2021-10-27 07:21] LABS: BODY FLUID RHEUMATOID SCREEN NEGATIVE (NEGATIVE)
[2021-10-27 07:22] LABS: MUCIN CLOT TEST 4+ (4+)
[2021-10-27] MEDS: ASPIRIN 81 MG CHEW TABLET PO SCH (07:36)
[2021-10-27] MEDS: HEPARIN SOD (PORCINE) 5000UNITS/ML 1ML VIAL/SYRINGE SC SCH ×2 (07:37→20:44)
[2021-10-27] MEDS: METOPROLOL SUCC (TopROL XL) 50MG **XL** TAB PO SCH ×2 (08:48→20:45)
[2021-10-27] MEDS: ALPRAZolam 0.5 MG TAB PO PRN ×2 (10:01→20:45)
[2021-10-27] MEDS: NS 1,000 ML IV SCH (13:18)
[2021-10-27 14:00] VITALS: BP 120/75
[2021-10-27] MEDS: AMITRIPTYLINE 25MG TABLET PO SCH (20:45)
[2021-10-27] MEDS: SIMVASTATIN 20 MG TAB PO SCH (20:45)
[2021-10-27] MEDS: FLUoxetine 20 MG CAP PO SCH (20:45)
[2021-10-27 21:50] VITALS: BP 133/81
[2021-10-28] MEDS: NS 1,000 ML IV SCH ×2 (01:25→14:59)
[2021-10-28 06:00] VITALS: BP 132/85
[2021-10-28] MEDS: HEPARIN SOD (PORCINE) 5000UNITS/ML 1ML VIAL/SYRINGE SC SCH ×2 (08:28→20:49)
[2021-10-28] MEDS: ASPIRIN 81 MG CHEW TABLET PO SCH (09:33)
[2021-10-28] MEDS: METOPROLOL SUCC (TopROL XL) 50MG **XL** TAB PO SCH ×2 (09:35→20:50)
[2021-10-28] MEDS ORDERED: ALPRAZolam 0.25 MG TAB PO PRN (09:35)
[2021-10-28 09:38] LABS: BASO # 0.1 10^3/uL (0.0-0.2); BASO % 0.8 % (0.0-1.0); EOS # 0.5 10^3/uL (0.0-0.5); EOS % 6.4 % (0.0-3.0); HEMATOCRIT 39.6 % (36.0-47.0); LYMPH # 1.6 10^3/uL (1.5-5.0); LYMPH % 21.8 % (24.0-44.0); MEAN CORPUSCULAR HEMOGLOBIN 33.1 pg (27.0-33.0); MEAN CORPUSCULAR HGB CONC 32.8 g/dl (32.0-36.5); MEAN CORPUSCULAR VOLUME 100.8 fl (80.0-96.0); MONO # 0.5 10^3/uL (0.0-0.8); NEUTROPHILS # 4.7 10^3/uL (1.5-8.5); NEUTROPHILS % 63.7 % (36.0-66.0); PLATELET COUNT, AUTOMATED 202 10^3/uL (150-450); RED BLOOD COUNT 3.93 10^6/uL (4.00-5.40); WHITE BLOOD COUNT 7.3 10^3/uL (4.0-10.0)
[2021-10-28 09:58] LABS: BLOOD UREA NITROGEN 7 MG/DL (7-18); CALCIUM LEVEL 9.1 MG/DL (8.8-10.2); CARBON DIOXIDE LEVEL 22 MEQ/L (21-32); CHLORIDE LEVEL 110 MEQ/L (98-107); CREATININE FOR GFR 0.65 MG/DL (0.55-1.30); GLOMERULAR FILTRATION RATE > 60.0 (>45); GLUCOSE, FASTING 125 MG/DL (70-100); POTASSIUM SERUM 4.2 MEQ/L (3.5-5.1); SODIUM LEVEL 139 MEQ/L (136-145)
[2021-10-28] MEDS ORDERED: ALPRAZolam 0.5 MG TAB PO ONE (15:00)
[2021-10-28 20:33] VITALS: BP 181/101
[2021-10-28 20:42] VITALS: BP 158/88
[2021-10-28] MEDS: SIMVASTATIN 20 MG TAB PO SCH (20:49)
[2021-10-28] MEDS: FLUoxetine 20 MG CAP PO SCH (20:49)
[2021-10-28] MEDS: AMITRIPTYLINE 25MG TABLET PO SCH (20:50)
[2021-10-28] MEDS: ALPRAZolam 0.5 MG TAB PO PRN (20:52)
[2021-10-28] MEDS: traMADol 50 MG TAB PO PRN (20:53)
[2021-10-29] MEDS: NS 1,000 ML IV SCH (05:04)
[2021-10-29 05:57] VITALS: BP 152/80
[2021-10-29 09:00] VITALS: BP 148/83
[2021-10-29] MEDS: HEPARIN SOD (PORCINE) 5000UNITS/ML 1ML VIAL/SYRINGE SC SCH ×2 (09:00→21:05)
[2021-10-29] MEDS: ASPIRIN 81 MG CHEW TABLET PO SCH (09:04)
[2021-10-29] MEDS: METOPROLOL SUCC (TopROL XL) 50MG **XL** TAB PO SCH ×2 (09:05→21:05)
[2021-10-29] MEDS: ALPRAZolam 0.5 MG TAB PO PRN ×2 (09:06→16:57)
[2021-10-29] MEDS: traMADol 50 MG TAB PO PRN ×2 (09:10→16:58)
[2021-10-29 14:00] VITALS: BP 133/78
[2021-10-29 16:08] LABS: Lyme Disease IgG/IgM Antibodie <0.91 ISR (0.00-0.90); Lyme Disease IgM Ab Quantitati <0.80 index (0.00-0.79)
[2021-10-29 20:00] VITALS: BP 115/65
[2021-10-29] MEDS: FLUoxetine 20 MG CAP PO SCH (21:04)
[2021-10-29] MEDS: SIMVASTATIN 20 MG TAB PO SCH (21:05)
[2021-10-29] MEDS: AMITRIPTYLINE 25MG TABLET PO SCH (21:05)
[2021-10-30 06:00] VITALS: BP 129/85
[2021-10-30] MEDS: HEPARIN SOD (PORCINE) 5000UNITS/ML 1ML VIAL/SYRINGE SC SCH (08:03)
[2021-10-30 08:07] VITALS: BP 129/85
[2021-10-30] MEDS: METOPROLOL SUCC (TopROL XL) 50MG **XL** TAB PO SCH (08:07)
[2021-10-30] MEDS: ASPIRIN 81 MG CHEW TABLET PO SCH (08:07)
[2021-10-30] MEDS: ALPRAZolam 0.5 MG TAB PO PRN (08:07)
[2021-10-30] MEDS: traMADol 50 MG TAB PO PRN (08:08)
[2021-11-01 12:12] LABS: LYME PCR FOR BODY FLUID Negative (Negative)
== END 2021-10-30 08:30 | disposition home or self-care (01) | DRG 561 ==
LOC: M ED 12:53 → M ED INP 18:12 → ENRESERV 22:39 → M MS5PR 23:35
PROVIDERS: ADMIT Internal Medicine; ATTEND General Practice
DX: M96.0 Pseudarthrosis after fusion or arthrodesis (principal); I10 Essential (primary) hypertension; E78.5 Hyperlipidemia, unspecified; F41.9 Anxiety disorder, unspecified; F32.A Depression, unspecified; M25.461 Effusion, right knee; Z88.2 Allergy status to sulfonamides; Z88.1 Allergy status to other antibiotic agents; Z88.8 Allergy status to other drugs, medicaments and biological substances; Z91.030 Bee allergy status; M17.11 Unilateral primary osteoarthritis, right knee

== ENCOUNTER → 2021-12-04 | Outpatient (CLI) | payer MEDICARE, OTHER ==
[~2021-12-04] MED LIST changes: +ALPR1TAB3 PO; +AMIT25TA17 PO; +ASPI81CH33 PO; +BUTA1CAP PO; +FLUO40CA PO; +METO1TAB7 PO; +TRAM50TA2 PO
== END ==
LOC: M WHC 11:59
PROVIDERS: ATTEND Obstetrics & Gynecology
DX: Z91.89 Other specified personal risk factors, not elsewhere classified (principal); R10.2 Pelvic and perineal pain

== ENCOUNTER → 2021-12-24 | Outpatient (CLI) | payer MEDICARE, OTHER | LOC: M SOG 08:54 | PROVIDERS: ATTEND Orthopaedic Surgery Adult Reconstructive Orthopaedic Surgery | DX: M17.11 Unilateral primary osteoarthritis, right knee (principal); S82.841D Displaced bimalleolar fracture of right lower leg, subsequent encounter for closed fracture with routine healing; X58.XXXD Exposure to other specified factors, subsequent encounter; Y92.9 Unspecified place or not applicable; Y93.9 Activity, unspecified; Y99.9 Unspecified external cause status; M25.561 Pain in right knee ==

== ENCOUNTER → 2022-01-10 | Outpatient (CLI) | payer MEDICARE, OTHER | LOC: M PAIN 09:30 | PROVIDERS: ATTEND Anesthesiology | DX: M79.18 Myalgia, other site (principal); Z86.73 Personal history of transient ischemic attack (TIA), and cerebral infarction without residual deficits; Z88.1 Allergy status to other antibiotic agents; Z88.2 Allergy status to sulfonamides; Z88.8 Allergy status to other drugs, medicaments and biological substances; Z91.030 Bee allergy status; Z79.82 Long term (current) use of aspirin; Z79.899 Other long term (current) drug therapy ==

== ENCOUNTER → 2022-01-13 | Outpatient (CLI) | payer MEDICARE, OTHER | LOC: M WHC 13:45 | PROVIDERS: ATTEND Obstetrics & Gynecology | DX: Z12.31 Encounter for screening mammogram for malignant neoplasm of breast (principal); Z78.0 Asymptomatic menopausal state ==

== ENCOUNTER → 2022-01-16 | Outpatient (REF) | payer MEDICARE, OTHER | LOC: M LAB REF 17:20 | PROVIDERS: ATTEND Surgery | DX: L72.3 Sebaceous cyst (principal) ==

== ENCOUNTER → 2022-01-31 | Outpatient (CLI) | payer MEDICARE, OTHER ==
[~2022-01-31] MED LIST changes: +D-101000 PO; +METH-1165 PO
== END ==
LOC: M LABSMTC 09:56
PROVIDERS: ATTEND Anesthesiology
DX: Z01.812 Encounter for preprocedural laboratory examination (principal); Z20.822 Contact with and (suspected) exposure to COVID-19

== ENCOUNTER 2022-02-05 07:26 | Day surgery (SDC) | payer MEDICARE, OTHER ==
[~2022-02-05] VITALS: Ht 175.3 cm; Wt 97.5 kg
[~2022-02-05 07:26] MED LIST changes: +NS 1,000 ML IV ONE
[2022-02-05] MEDS ORDERED: propofoL 200 MG/20 ML VIAL As Ordered ONE ×2 (08:45→08:52)
[2022-02-05 09:20] VITALS: BP 141/82
== END 2022-02-05 09:32 | disposition home or self-care (01) ==
LOC: M OPP 07:26
PROVIDERS: ATTEND Surgery
DX: Z12.11 Encounter for screening for malignant neoplasm of colon (principal); K57.30 Diverticulosis of large intestine without perforation or abscess without bleeding; K64.1 Second degree hemorrhoids; Z79.02 Long term (current) use of antithrombotics/antiplatelets; Z79.82 Long term (current) use of aspirin; Z79.891 Long term (current) use of opiate analgesic; Z79.899 Other long term (current) drug therapy; Z88.1 Allergy status to other antibiotic agents; Z88.2 Allergy status to sulfonamides; Z88.8 Allergy status to other drugs, medicaments and biological substances; Z91.030 Bee allergy status; Z86.73 Personal history of transient ischemic attack (TIA), and cerebral infarction without residual deficits; Z96.82 Presence of neurostimulator

== ENCOUNTER 2022-03-09 20:07 | Observation (INO) | payer MEDICARE, OTHER ==
[~2022-03-09] VITALS: Ht 175.3 cm; Wt 103.0 kg
[~2022-03-09 20:07] MED LIST changes: -NS 1,000 ML IV ONE
[2022-03-09 21:05] LABS: BASO # 0.1 10^3/uL (0.0-0.2); BASO % 0.8 % (0.0-1.0); EOS # 0.4 10^3/uL (0.0-0.5); EOS % 6.6 % (0.0-3.0); HEMATOCRIT 40.1 % (36.0-47.0); HEMOGLOBIN 13.2 g/dl (12.0-15.5); LYMPH # 2.4 10^3/uL (1.5-5.0); LYMPH % 39.8 % (24.0-44.0); MEAN CORPUSCULAR HEMOGLOBIN 33.5 pg (27.0-33.0); MEAN CORPUSCULAR HGB CONC 32.9 g/dl (32.0-36.5); MEAN CORPUSCULAR VOLUME 101.8 fl (80.0-96.0); MONO # 0.6 10^3/uL (0.0-0.8); MONO % 10.3 % (2.0-8.0); NEUTROPHILS # 2.5 10^3/uL (1.5-8.5); NEUTROPHILS % 42.2 % (36.0-66.0); PLATELET COUNT, AUTOMATED 246 10^3/uL (150-450); RED BLOOD COUNT 3.94 10^6/uL (4.00-5.40)
[2022-03-09 21:20] LABS: INR 0.97; PROTHROMBIN TIME 13.3 SECONDS (12.7-14.5)
[2022-03-09 21:21] LABS: PARTIAL THROMBOPLASTIN TIME 29.9 SECONDS (25.9-37.0)
[2022-03-09] MEDS ORDERED: ISOVUE-370 76% 100ML VIAL As Ordered ONE (21:21)
[2022-03-09 21:28] LABS: ALBUMIN 3.4 GM/DL (3.2-5.2); BILIRUBIN,DIRECT 0.1 MG/DL (0.0-0.2); BILIRUBIN,TOTAL 0.2 MG/DL (0.2-1.0); THYROID STIMULATING HORMONE 1.48 uIU/ML (0.358-3.740); TOTAL PROTEIN 7.4 GM/DL (6.4-8.2)
[2022-03-09 21:29] LABS: CK-MB VALUE MASS < 1.0 NG/ML (<3.6); CPK CREATINE PHOSPHOKINASE 103 U/L (26-192); MB/CK RELATIVE INDEX 0.97 (< OR =4)
[2022-03-09] MEDS ORDERED: HOME MED LIST COMPLETE! XX SCH (23:40)
[2022-03-10] MEDS ORDERED: POTASSIUM CHLORIDE 10% LIQ 20 MEQ/15 ML UDC PO ONE (01:05)
[2022-03-10] MEDS ORDERED: traMADol 50 MG TAB PO PRN (01:05)
[2022-03-10] MEDS ORDERED: ASPIRIN 81 MG CHEW TABLET PO ONE (01:30)
[2022-03-10] MEDS: NS 1,000 ML IV SCH ×2 (02:59→16:26)
[2022-03-10 04:36] VITALS: BP 142/80
[2022-03-10] MEDS: HEPARIN SOD (PORCINE) 5000UNITS/ML 1ML VIAL/SYRINGE SC SCH ×2 (06:52→16:26)
[2022-03-10 07:16] LABS: CHOLESTEROL RISK RATIO 3.391 (<5)
[2022-03-10] MEDS ORDERED: SIMVASTATIN 20 MG TAB PO SCH (09:00)
[2022-03-10] MEDS ORDERED: ASPIRIN 81 MG CHEW TABLET PO SCH (09:00)
[2022-03-10] MEDS: METOPROLOL SUCC (TopROL XL) 50MG **XL** TAB PO SCH ×2 (11:41→20:13)
[2022-03-10] MEDS: ASPIRIN 81 MG CHEW TABLET PO SCH (11:41)
[2022-03-10 16:10] VITALS: BP 150/90
[2022-03-10 17:00] VITALS: BP 150/90
[2022-03-10] MEDS ORDERED: ALPRAZolam 0.5 MG TAB PO PRN (17:00)
[2022-03-10 21:00] VITALS: BP 157/90
[2022-03-10] MEDS ORDERED: FLUoxetine 20MG CAP PO SCH (21:00)
[2022-03-10] MEDS ORDERED: ATORVASTATIN 20 MG TAB PO SCH (21:00)
[2022-03-10 22:00] VITALS: BP 150/90
[2022-03-11 02:00] VITALS: BP_SYST 118; BP_SYST 150; BP_SYST 175; BP_DIAS 66; BP_DIAS 75; BP_DIAS 90
[2022-03-11] MEDS: HEPARIN SOD (PORCINE) 5000UNITS/ML 1ML VIAL/SYRINGE SC SCH ×2 (03:10→06:00)
[2022-03-11] MEDS: NS 1,000 ML IV SCH (03:10)
[2022-03-11 06:00] VITALS: BP 126/70
[2022-03-11 06:25] VITALS: BP 150/90
[2022-03-11 06:32] LABS: BLOOD UREA NITROGEN 5 MG/DL (7-18); CALCIUM LEVEL 8.1 MG/DL (8.8-10.2); CARBON DIOXIDE LEVEL 27 MEQ/L (21-32); CHLORIDE LEVEL 110 MEQ/L (98-107); CREATININE FOR GFR 0.75 MG/DL (0.55-1.30); GLOMERULAR FILTRATION RATE > 60.0 (>45); GLUCOSE, FASTING 102 MG/DL (70-100); SODIUM LEVEL 141 MEQ/L (136-145)
[2022-03-11 07:44] LABS: HEMATOCRIT 37.6 % (36.0-47.0); HEMOGLOBIN 12.3 g/dl (12.0-15.5); MEAN CORPUSCULAR HEMOGLOBIN 33.3 pg (27.0-33.0); MEAN CORPUSCULAR HGB CONC 32.7 g/dl (32.0-36.5); MEAN CORPUSCULAR VOLUME 101.9 fl (80.0-96.0); PLATELET COUNT, AUTOMATED 219 10^3/uL (150-450); RED BLOOD COUNT 3.69 10^6/uL (4.00-5.40)
[2022-03-11 07:47] LABS: ALBUMIN 3.2 GM/DL (3.2-5.2); ALT/SGPT 21 U/L (12-78); BILIRUBIN,TOTAL 0.6 MG/DL (0.2-1.0); MAGNESIUM LEVEL 1.8 MG/DL (1.8-2.4); TOTAL PROTEIN 6.8 GM/DL (6.4-8.2)
[2022-03-11 08:00] VITALS: BP 150/90
[2022-03-11] MEDS ORDERED: ACETAMINOPHEN TAB 650MG DOSE (2X325MG) PO ONE (08:15)
[2022-03-11] MEDS: ASPIRIN 81 MG CHEW TABLET PO SCH (08:58)
[2022-03-11 09:03] VITALS: BP 166/100
[2022-03-11] MEDS: METOPROLOL SUCC (TopROL XL) 50MG **XL** TAB PO SCH (09:03)
[2022-03-11 10:05] VITALS: BP 144/96
[2022-03-11] MEDS ORDERED: ASPI-264 PO (10:06)
[2022-03-11] MEDS ORDERED: ATOR80TA59 PO (11:20)
== END 2022-03-11 11:16 | disposition home or self-care (01) ==
LOC: M ED 20:07 → M ED INP 20:08 → ENRESERV 03-10 15:27 → M MSPAV 03-10 16:11
PROVIDERS: ADMIT Internal Medicine; ATTEND Internal Medicine
DX: R26.89 Other abnormalities of gait and mobility (principal); R42 Dizziness and giddiness; E87.6 Hypokalemia; R82.71 Bacteriuria; I10 Essential (primary) hypertension; E78.5 Hyperlipidemia, unspecified; M79.7 Fibromyalgia; F41.9 Anxiety disorder, unspecified; F32.A Depression, unspecified; Z79.82 Long term (current) use of aspirin; Z79.899 Other long term (current) drug therapy; Z91.030 Bee allergy status; Z88.2 Allergy status to sulfonamides; Z88.1 Allergy status to other antibiotic agents; Z88.8 Allergy status to other drugs, medicaments and biological substances
CPT/HCPCS: 36415; 70450; 70496; 70498; 71045; 80047; 80053; 80061; 80076; 81001; 82550; 82553; 83735; 84132; 84443; 84484; 85025; 85027; 85610; 85730; 86850; 86900; 86901; 87088; 87186; 87486; 87581; 87633; 87798; 92610; 93005; 93041; 93306; 94760; 96361; 96372; 96374; 97116; 97161; 97165; 97530; 97535; 99285; G0378; J1644; Q9967

== ENCOUNTER 2022-03-18 11:09 | Emergency (ER) | payer MEDICARE, OTHER ==
[~2022-03-18] VITALS: Ht 175.3 cm; Wt 102.7 kg
[~2022-03-18 11:09] MED LIST changes: +ASPI-264 PO; +ATOR80TA59 PO
[2022-03-18 16:25] VITALS: BP 154/83
== END 2022-03-18 16:32 | disposition home or self-care (01) ==
LOC: M ED 11:09
DX: S92.321A Displaced fracture of second metatarsal bone, right foot, initial encounter for closed fracture (principal); S92.331A Displaced fracture of third metatarsal bone, right foot, initial encounter for closed fracture; S92.341A Displaced fracture of fourth metatarsal bone, right foot, initial encounter for closed fracture; W10.8XXA Fall (on) (from) other stairs and steps, initial encounter; Y92.018 Other place in single-family (private) house as the place of occurrence of the external cause; I10 Essential (primary) hypertension; E78.00 Pure hypercholesterolemia, unspecified; F41.9 Anxiety disorder, unspecified; G43.909 Migraine, unspecified, not intractable, without status migrainosus; Z86.73 Personal history of transient ischemic attack (TIA), and cerebral infarction without residual deficits; Z79.899 Other long term (current) drug therapy; Z79.82 Long term (current) use of aspirin; Z88.0 Allergy status to penicillin; Z88.1 Allergy status to other antibiotic agents; Z88.8 Allergy status to other drugs, medicaments and biological substances; Z91.030 Bee allergy status

== ENCOUNTER → 2022-03-20 | Outpatient (CLI) | payer MEDICARE, OTHER | LOC: M PAIN 09:30 | PROVIDERS: ATTEND Nurse Practitioner Family | DX: M79.18 Myalgia, other site (principal); I10 Essential (primary) hypertension; G89.29 Other chronic pain; E78.00 Pure hypercholesterolemia, unspecified; M19.90 Unspecified osteoarthritis, unspecified site; Z87.81 Personal history of (healed) traumatic fracture; Z86.73 Personal history of transient ischemic attack (TIA), and cerebral infarction without residual deficits; Z79.82 Long term (current) use of aspirin; Z79.891 Long term (current) use of opiate analgesic; Z79.899 Other long term (current) drug therapy ==

== ENCOUNTER → 2022-05-12 | Outpatient (CLI) | payer MEDICARE, OTHER | LOC: M SOG 13:24 | PROVIDERS: ATTEND Physician Assistant | DX: S92.331D Displaced fracture of third metatarsal bone, right foot, subsequent encounter for fracture with routine healing (principal); M77.31 Calcaneal spur, right foot ==

== ENCOUNTER → 2022-05-16 | Outpatient (CLI) | payer MEDICARE, OTHER | LOC: M PAIN 15:00 → M TMPAIN 15:00 | PROVIDERS: ATTEND Nurse Practitioner Family | DX: M79.18 Myalgia, other site (principal); M54.50 Low back pain, unspecified; I10 Essential (primary) hypertension; E78.00 Pure hypercholesterolemia, unspecified; M19.90 Unspecified osteoarthritis, unspecified site; Z87.81 Personal history of (healed) traumatic fracture; Z86.73 Personal history of transient ischemic attack (TIA), and cerebral infarction without residual deficits; Z79.891 Long term (current) use of opiate analgesic; Z79.82 Long term (current) use of aspirin; Z79.899 Other long term (current) drug therapy; Z88.2 Allergy status to sulfonamides; Z88.1 Allergy status to other antibiotic agents; Z88.8 Allergy status to other drugs, medicaments and biological substances; Z91.030 Bee allergy status ==

== ENCOUNTER → 2022-06-12 | Outpatient (CLI) | payer MEDICARE, OTHER | LOC: M SOG 10:58 | PROVIDERS: ATTEND Physician Assistant | DX: S92.331D Displaced fracture of third metatarsal bone, right foot, subsequent encounter for fracture with routine healing (principal); M77.31 Calcaneal spur, right foot ==

== ENCOUNTER → 2022-06-16 | Outpatient (REF) | payer MEDICARE, OTHER | LOC: M LAB REF 16:00 | PROVIDERS: ATTEND Nurse Practitioner Family | DX: N39.41 Urge incontinence (principal) ==

== ENCOUNTER → 2022-06-26 | Outpatient (REF) | payer MEDICARE, OTHER ==
[2022-06-26 17:36] LABS: APPEARANCE, URINE MANUAL TURBID (CLEAR); COLOR, URINE MANUAL YELLOW (YELLOW)
[2022-06-26 17:37] LABS: BILIRUBIN, URINE MANUAL NEGATIVE (NEGATIVE); BLOOD URINE MANUAL POSITIVE (NEGATIVE); GLUCOSE, URINE (UA) MANUAL NEGATIVE (NEGATIVE); KETONE, URINE MANUAL NEGATIVE (NEGATIVE); LEUKOCYTE ESTERASE, URINE MAN POSITIVE (NEGATIVE); NITRITE, URINE MANUAL POSITIVE (NEGATIVE); PH,URINE MAN 5.5 UNITS (5.0 - 7.0); UROBILINOGEN, URINE MANUAL NORMAL (NORMAL)
[2022-06-26 17:38] LABS: PROTEIN, URINE MANUAL 1+ mg/dL (NEGATIVE)
[2022-06-26 18:05] LABS: SQUAMOUS EPITHELIAL CELL URINE SMALL AMOUNT /hpf (SMALL AMT); WBC, URINE 20-30 /hpf (0-3)
[2022-06-26 18:06] LABS: AMORPHOUS SEDIMENT, URINE SMALL AMOUNT (NEGATIVE); BACTERIA, URINE LARGE AMOUNT; HYALINE CAST, URINE NONE SEEN /lpf (0-1); MUCUS, URINE SMALL AMOUNT (NEGATIVE)
== END ==
LOC: M LAB REF 16:59
PROVIDERS: ATTEND Nurse Practitioner Family
DX: R30.0 Dysuria (principal)

== ENCOUNTER → 2022-08-06 | Outpatient (REF) | payer MEDICARE, OTHER | LOC: M LAB REF 15:54 | PROVIDERS: ATTEND Physician Assistant | DX: C44.1122 Basal cell carcinoma of skin of right lower eyelid, including canthus (principal) ==

== ENCOUNTER → 2022-08-08 | Outpatient (CLI) | payer MEDICARE, OTHER | LOC: M PAIN 15:30 | PROVIDERS: ATTEND Anesthesiology | DX: M54.50 Low back pain, unspecified (principal); M46.1 Sacroiliitis, not elsewhere classified; G89.29 Other chronic pain; I10 Essential (primary) hypertension; Z86.73 Personal history of transient ischemic attack (TIA), and cerebral infarction without residual deficits; Z88.1 Allergy status to other antibiotic agents; Z88.2 Allergy status to sulfonamides; Z88.8 Allergy status to other drugs, medicaments and biological substances; Z91.030 Bee allergy status; Z79.82 Long term (current) use of aspirin; Z79.899 Other long term (current) drug therapy ==

== ENCOUNTER → 2022-08-11 | Outpatient (CLI) | payer MEDICARE, OTHER | LOC: M PAIN 16:00 | PROVIDERS: ATTEND Anesthesiology | DX: M54.50 Low back pain, unspecified (principal); G89.29 Other chronic pain; M79.18 Myalgia, other site; I10 Essential (primary) hypertension; Z96.89 Presence of other specified functional implants; Z86.73 Personal history of transient ischemic attack (TIA), and cerebral infarction without residual deficits; Z88.1 Allergy status to other antibiotic agents; Z88.2 Allergy status to sulfonamides; Z88.8 Allergy status to other drugs, medicaments and biological substances; Z91.030 Bee allergy status; Z79.82 Long term (current) use of aspirin; Z79.899 Other long term (current) drug therapy ==

== ENCOUNTER → 2022-08-25 | Outpatient (CLI) | payer MEDICARE, OTHER | LOC: M LABSMTC 09:51 | PROVIDERS: ATTEND Anesthesiology | DX: Z01.812 Encounter for preprocedural laboratory examination (principal); Z11.52 Encounter for screening for COVID-19 ==

== ENCOUNTER → 2022-08-28 | Outpatient (CLI) | payer MEDICARE, OTHER ==
[~2022-08-28] MED LIST changes: +BUPIVACAINE HCL 0.25% 10ML VIAL As Ordered ONE; +BUPIVACAINE HCL 0.25% 30ML VIAL As Ordered ONE; +NORCO, ANEXSIA 5/325MG TABLET (HYDROcodone/ACETAMINOPHEN) As Ordered ONE; +TRIAMCINOLONE ACETONIDE SUSP 40MG/ML 1ML VIAL As Ordered ONE; +diazePAM 5MG TABLET As Ordered ONE
== END ==
LOC: M PAIN 16:00
PROVIDERS: ATTEND Anesthesiology
DX: M79.18 Myalgia, other site (principal); G89.29 Other chronic pain; Z96.89 Presence of other specified functional implants; I10 Essential (primary) hypertension; Z86.73 Personal history of transient ischemic attack (TIA), and cerebral infarction without residual deficits; Z88.1 Allergy status to other antibiotic agents; Z88.2 Allergy status to sulfonamides; Z88.8 Allergy status to other drugs, medicaments and biological substances; Z91.030 Bee allergy status; Z79.82 Long term (current) use of aspirin; Z79.899 Other long term (current) drug therapy
CPT/HCPCS: 20552; 77002; J3301

== ENCOUNTER → 2022-09-16 | Outpatient (REF) | payer MEDICARE, OTHER ==
[~2022-09-16] MED LIST changes: -BUPIVACAINE HCL 0.25% 10ML VIAL As Ordered ONE; -BUPIVACAINE HCL 0.25% 30ML VIAL As Ordered ONE; -NORCO, ANEXSIA 5/325MG TABLET (HYDROcodone/ACETAMINOPHEN) As Ordered ONE; -TRIAMCINOLONE ACETONIDE SUSP 40MG/ML 1ML VIAL As Ordered ONE; -diazePAM 5MG TABLET As Ordered ONE
== END ==
LOC: M LAB REF 16:54
PROVIDERS: ATTEND Nurse Practitioner Family
DX: N39.0 Urinary tract infection, site not specified (principal)

== ENCOUNTER → 2022-10-06 | Outpatient (CLI) | payer MEDICARE, OTHER ==
[~2022-10-06] MED LIST changes: +ASPI-255 PO
== END ==
LOC: M PAIN 09:15
PROVIDERS: ATTEND Nurse Practitioner Family
DX: M79.10 Myalgia, unspecified site (principal); G89.29 Other chronic pain; I10 Essential (primary) hypertension; Z96.89 Presence of other specified functional implants; Z86.73 Personal history of transient ischemic attack (TIA), and cerebral infarction without residual deficits; Z88.1 Allergy status to other antibiotic agents; Z88.2 Allergy status to sulfonamides; Z88.8 Allergy status to other drugs, medicaments and biological substances; Z91.030 Bee allergy status; Z79.82 Long term (current) use of aspirin; Z79.899 Other long term (current) drug therapy

== ENCOUNTER → 2022-10-20 | Outpatient (CLI) | payer MEDICARE, OTHER | LOC: M LABSMTC 09:19 | PROVIDERS: ATTEND Anesthesiology | DX: Z01.812 Encounter for preprocedural laboratory examination (principal); Z20.822 Contact with and (suspected) exposure to COVID-19 ==

== ENCOUNTER 2022-10-22 09:01 | Day surgery (SDC) | payer MEDICARE, OTHER ==
[~2022-10-22] VITALS: Ht 175.3 cm; Wt 99.9 kg
[~2022-10-22 09:01] MED LIST changes: +BSS IRRIG/VANCO(10MG)/TOBRA(5MG)/EPINEPH(1:1000-0.5CC)500ML BAG-ORONLY IR ONE; +CEFUROXIME 1MG/0.1ML INTRACAMERAL INJ As Ordered ONE; +CYCLOPENTOLATE 1% OPHTH SOLN 2ML BTL OD SCH; +LIDOCAINE 1% SDV 5ML VIAL As Ordered ONE; +LIDOCAINE 3.5 % 1ML OPHTH TOPICAL GEL OU ONE; +MIDAZOLAM INJ 2MG/2ML VIAL As Ordered ONE; +OFLOXACIN 0.3 % (OCUFLOX) OPTH SOL 5ML OD ONE; +PHENYLEPHRINE 10% OPHTH SOL 5ML OD PRN; +PHENYLEPHRINE 2.5% OPHTH SOL 2ML OD SCH; +TROPICAMIDE 1% OPHTH SOLN 15ML OD SCH; +fentaNYL 100 MCG/2 ML INJECTION As Ordered ONE
[2022-10-22] MEDS ORDERED: MIDAZOLAM INJ 2MG/2ML VIAL As Ordered ONE (10:37)
[2022-10-22] MEDS ORDERED: TOBRADEX OPHTH OINT 3.5 GM As Ordered ONE (10:45)
[2022-10-22] MEDS ORDERED: ONDANSETRON 4MG 2ML VIAL IV PRN (11:15)
[2022-10-22] MEDS ORDERED: ACETAMINOPHEN 325 MG TAB PO PRN (11:20)
[2022-10-22] MEDS ORDERED: ONDANSETRON 4MG TAB PO PRN (11:20)
[2022-10-22] MEDS ORDERED: acetaZOLAMIDE 500MG ER CAP PO ONE (11:20)
[2022-10-22 11:55] VITALS: BP 152/84
== END 2022-10-22 12:00 | disposition home or self-care (01) ==
LOC: M SDC 09:01
PROVIDERS: ATTEND Ophthalmology
DX: H25.11 Age-related nuclear cataract, right eye (principal); H57.03 Miosis; I10 Essential (primary) hypertension; E78.5 Hyperlipidemia, unspecified; Z86.73 Personal history of transient ischemic attack (TIA), and cerebral infarction without residual deficits; Z88.1 Allergy status to other antibiotic agents; Z88.8 Allergy status to other drugs, medicaments and biological substances; Z88.2 Allergy status to sulfonamides; Z91.030 Bee allergy status; Z79.82 Long term (current) use of aspirin; Z79.899 Other long term (current) drug therapy
CPT/HCPCS: 66982; 92015; J0697; J2250; J3010; V2632

== ENCOUNTER → 2022-11-28 | Outpatient (CLI) | payer MEDICARE, OTHER ==
[~2022-11-28] MED LIST changes: -BSS IRRIG/VANCO(10MG)/TOBRA(5MG)/EPINEPH(1:1000-0.5CC)500ML BAG-ORONLY IR ONE; -CEFUROXIME 1MG/0.1ML INTRACAMERAL INJ As Ordered ONE; -CYCLOPENTOLATE 1% OPHTH SOLN 2ML BTL OD SCH; -LIDOCAINE 1% SDV 5ML VIAL As Ordered ONE; -LIDOCAINE 3.5 % 1ML OPHTH TOPICAL GEL OU ONE; -MIDAZOLAM INJ 2MG/2ML VIAL As Ordered ONE; -OFLOXACIN 0.3 % (OCUFLOX) OPTH SOL 5ML OD ONE; -PHENYLEPHRINE 10% OPHTH SOL 5ML OD PRN; -PHENYLEPHRINE 2.5% OPHTH SOL 2ML OD SCH; -TROPICAMIDE 1% OPHTH SOLN 15ML OD SCH; -fentaNYL 100 MCG/2 ML INJECTION As Ordered ONE
== END ==
LOC: M PAIN 09:15
PROVIDERS: ATTEND Nurse Practitioner Family
DX: M79.10 Myalgia, unspecified site (principal); G89.29 Other chronic pain; I10 Essential (primary) hypertension; Z96.89 Presence of other specified functional implants; Z86.73 Personal history of transient ischemic attack (TIA), and cerebral infarction without residual deficits; Z88.1 Allergy status to other antibiotic agents; Z88.2 Allergy status to sulfonamides; Z88.8 Allergy status to other drugs, medicaments and biological substances; Z91.030 Bee allergy status; Z79.82 Long term (current) use of aspirin; Z79.899 Other long term (current) drug therapy

== ENCOUNTER → 2022-12-10 | Outpatient (CLI) | payer MEDICARE, OTHER | LOC: M SOG 08:00 | PROVIDERS: ATTEND Orthopaedic Surgery Adult Reconstructive Orthopaedic Surgery | DX: M17.0 Bilateral primary osteoarthritis of knee (principal) ==

== ENCOUNTER 2023-01-24 11:01 | Emergency (ER) | payer MEDICARE, OTHER ==
[~2023-01-24] VITALS: Ht 177.8 cm; Wt 100.0 kg
[2023-01-24] MEDS ORDERED: PERCOCET 5MG/325MG TAB PO ONE (12:00)
[2023-01-24 12:56] LABS: APPEARANCE, URINE HAZY (CLEAR); BACTERIA, URINE AUTO NEGATIVE (NEGATIVE); BILIRUBIN, URINE AUTO NEGATIVE (NEGATIVE); BLOOD, URINE BLOOD 1+ (NEGATIVE); COLOR, URINE YELLOW (YELLOW); GLUCOSE, URINE (UA) AUTO NEGATIVE (NEGATIVE); KETONE, URINE AUTO NEGATIVE (NEGATIVE); LEUKOCYTE ESTERASE, URINE AUTO 3+ (NEGATIVE); MUCUS, URINE SMALL (NEGATIVE); NITRITE, URINE AUTO NEGATIVE (NEGATIVE); PROTEIN, URINE AUTO NEGATIVE (NEGATIVE); RBC, URINE AUTO 15 /HPF (0-3); SPECIFIC GRAVITY URINE AUTO 1.021 (1.002-1.035); SQUAMOUS EPITHELIAL CELL UR AU 0 /HPF (0-6); UROBILINOGEN, URINE AUTO 0.2 mg/dL (0.0-2.0); WBC, URINE AUTO 20 /HPF (0-3)
[2023-01-24] MEDS ORDERED: MORPHINE 2 MG/ML 1ML VIAL IV ONE (14:00)
[2023-01-24] MEDS ORDERED: ONDANSETRON 4MG 2ML VIAL IV ONE (14:00)
[2023-01-24 15:55] LABS: BASO # 0.1 10^3/uL (0.0-0.2); BASO % 0.7 % (0.0-1.0); EOS # 0.2 10^3/uL (0.0-0.5); EOS % 3.3 % (0.0-3.0); HEMATOCRIT 38.4 % (36.0-47.0); HEMOGLOBIN 12.5 g/dl (12.0-15.5); LYMPH # 1.3 10^3/uL (1.5-5.0); LYMPH % 18.8 % (24.0-44.0); MEAN CORPUSCULAR HEMOGLOBIN 34.2 pg (27.0-33.0); MEAN CORPUSCULAR HGB CONC 32.6 g/dl (32.0-36.5); MEAN CORPUSCULAR VOLUME 105.2 fl (80.0-96.0); MONO # 0.6 10^3/uL (0.0-0.8); MONO % 8.3 % (2.0-8.0); NEUTROPHILS # 4.8 10^3/uL (1.5-8.5); NEUTROPHILS % 68.6 % (36.0-66.0); PLATELET COUNT, AUTOMATED 206 10^3/uL (150-450); RED BLOOD COUNT 3.65 10^6/uL (4.00-5.40)
[2023-01-24 16:26] LABS: BLOOD UREA NITROGEN 8 MG/DL (9-23); CALCIUM LEVEL 8.4 MG/DL (8.3-10.6); CARBON DIOXIDE LEVEL 27 MMOL/L (20-31); CHLORIDE LEVEL 108 MMOL/L (98-107); CREATININE FOR GFR 0.67 MG/DL (0.55-1.30); GLOMERULAR FILTRATION RATE > 60.0 (>45); GLUCOSE, FASTING 84 MG/DL (74-106); POTASSIUM SERUM 3.8 MMOL/L (3.5-5.1); SODIUM LEVEL 140 MMOL/L (136-145)
[2023-01-24 16:59] VITALS: BP 124/69
[2023-01-24] MEDS ORDERED: IBUP200C33 PO (17:18)
== END 2023-01-24 17:44 | disposition home or self-care (01) ==
LOC: M ED 11:01
DX: S22.080A Wedge compression fracture of T11-T12 vertebra, initial encounter for closed fracture (principal); S32.010A Wedge compression fracture of first lumbar vertebra, initial encounter for closed fracture; S32.040A Wedge compression fracture of fourth lumbar vertebra, initial encounter for closed fracture; W01.198A Fall on same level from slipping, tripping and stumbling with subsequent striking against other object, initial encounter; X58.XXXA Exposure to other specified factors, initial encounter; Y92.002 Bathroom of unspecified non-institutional (private) residence as the place of occurrence of the external cause; Y93.89 Activity, other specified; E78.5 Hyperlipidemia, unspecified; I10 Essential (primary) hypertension; Z79.899 Other long term (current) drug therapy; Z88.2 Allergy status to sulfonamides; Z88.0 Allergy status to penicillin; Z91.030 Bee allergy status; Z88.8 Allergy status to other drugs, medicaments and biological substances
CPT/HCPCS: 72128; 72131; 72192; 80048; 81001; 85025; 87635; 96374; 96375; 99284; J2405

== ENCOUNTER → 2023-01-29 | Outpatient (CLI) | payer MEDICARE, OTHER ==
[~2023-01-29] MED LIST changes: +IBUP200C33 PO
== END ==
LOC: M SOG 15:18
PROVIDERS: ATTEND Orthopaedic Surgery
DX: M54.50 Low back pain, unspecified (principal); M85.89 Other specified disorders of bone density and structure, multiple sites; M51.36 Other intervertebral disc degeneration, lumbar region; M51.34 Other intervertebral disc degeneration, thoracic region

== ENCOUNTER → 2023-02-06 | Outpatient (CLI) | payer MEDICARE, OTHER ==
[~2023-02-06] MED LIST changes: +AMLO1TAB24 PO; +CARI1TAB7 PO; +COLA100C5 PO; +MIRA1POW3 PO
== END ==
LOC: M PAIN 09:00
PROVIDERS: ATTEND Nurse Practitioner Family
DX: M54.6 Pain in thoracic spine (principal); M54.50 Low back pain, unspecified; I10 Essential (primary) hypertension; Z86.73 Personal history of transient ischemic attack (TIA), and cerebral infarction without residual deficits; Z88.1 Allergy status to other antibiotic agents; Z88.2 Allergy status to sulfonamides; Z88.8 Allergy status to other drugs, medicaments and biological substances; Z91.030 Bee allergy status; Z79.82 Long term (current) use of aspirin; Z79.899 Other long term (current) drug therapy

== ENCOUNTER 2023-02-07 20:08 | Observation (INO) | payer MEDICARE, OTHER ==
[~2023-02-07] VITALS: Ht 177.8 cm; Wt 101.8 kg
[~2023-02-07 20:08] MED LIST changes: -AMLO1TAB24 PO; -CARI1TAB7 PO; -COLA100C5 PO; -MIRA1POW3 PO
[2023-02-07] MEDS ORDERED: diazePAM 10MG/2ML SYRINGE IV ONE ×2 (21:20→23:15)
[2023-02-07 21:43] LABS: BASO # 0.1 10^3/uL (0.0-0.2); BASO % 0.8 % (0.0-1.0); EOS # 0.3 10^3/uL (0.0-0.5); EOS % 4.2 % (0.0-3.0); HEMATOCRIT 40.5 % (36.0-47.0); HEMOGLOBIN 13.4 g/dl (12.0-15.5); LYMPH # 2.2 10^3/uL (1.5-5.0); LYMPH % 31.1 % (24.0-44.0); MEAN CORPUSCULAR HEMOGLOBIN 33.6 pg (27.0-33.0); MEAN CORPUSCULAR HGB CONC 33.1 g/dl (32.0-36.5); MEAN CORPUSCULAR VOLUME 101.5 fl (80.0-96.0); MONO # 0.5 10^3/uL (0.0-0.8); MONO % 7.3 % (2.0-8.0); NEUTROPHILS % 56.3 % (36.0-66.0); PLATELET COUNT, AUTOMATED 285 10^3/uL (150-450); RED BLOOD COUNT 3.99 10^6/uL (4.00-5.40); WHITE BLOOD COUNT 7.1 10^3/uL (4.0-10.0)
[2023-02-07 22:11] LABS: C REACTIVE PROTEIN QUANTITATIV < 0.40 MG/DL (<1.0)
[2023-02-07 22:13] LABS: BLOOD UREA NITROGEN 11 MG/DL (9-23); CALCIUM LEVEL 9.3 MG/DL (8.3-10.6); CARBON DIOXIDE LEVEL 25 MMOL/L (20-31); CHLORIDE LEVEL 102 MMOL/L (98-107); CREATININE FOR GFR 0.66 MG/DL (0.55-1.30); GLOMERULAR FILTRATION RATE > 60.0 (>45); GLUCOSE, FASTING 121 MG/DL (74-106); POTASSIUM SERUM 4.1 MMOL/L (3.5-5.1); SODIUM LEVEL 138 MMOL/L (136-145)
[2023-02-07 22:21] LABS: ERYTHROCYTE SEDIMENTATION RATE 32 mm/hr (0-30)
[2023-02-07] MEDS ORDERED: fentaNYL 100 MCG/2 ML INJECTION IV ONE (23:50)
[2023-02-08] MEDS ORDERED: AMIT25TA17 PO (02:37)
[2023-02-08] MEDS ORDERED: CARI1TAB7 PO (02:37)
[2023-02-08] MEDS ORDERED: SIMV20TA22 PO (02:38)
[2023-02-08] MEDS ORDERED: HOME MED LIST COMPLETE! XX SCH (02:45)
[2023-02-08] MEDS ORDERED: ALPRAZolam 0.5 MG TAB PO PRN (03:00)
[2023-02-08] MEDS ORDERED: LIDOCAINE 5% (LIDODERM) PATCH TD PRN (03:00)
[2023-02-08] MEDS ORDERED: ACETAMINOPHEN TAB 650MG DOSE (2X325MG) PO PRN (03:00)
[2023-02-08 03:46] LABS: APPEARANCE, URINE CLOUDY (CLEAR); BACTERIA, URINE AUTO 1+ (NEGATIVE); BILIRUBIN, URINE AUTO NEGATIVE (NEGATIVE); BLOOD, URINE BLOOD 1+ (NEGATIVE); COLOR, URINE YELLOW (YELLOW); GLUCOSE, URINE (UA) AUTO NEGATIVE (NEGATIVE); KETONE, URINE AUTO TRACE mg/dL (NEGATIVE); LEUKOCYTE ESTERASE, URINE AUTO 3+ (NEGATIVE); MUCUS, URINE SMALL (NEGATIVE); NITRITE, URINE AUTO NEGATIVE (NEGATIVE); PROTEIN, URINE AUTO 1+ mg/dL (NEGATIVE); RBC, URINE AUTO 26 /HPF (0-3); SPECIFIC GRAVITY URINE AUTO 1.021 (1.002-1.035); SQUAMOUS EPITHELIAL CELL UR AU 6 /HPF (0-6); TRANSITIONAL EPITHELIAL AUTO 3 /HPF; UROBILINOGEN, URINE AUTO 0.2 mg/dL (0.0-2.0); WBC, URINE AUTO 173 /HPF (0-3)
[2023-02-08 04:00] LABS: RSV AMPLIFICATION NEGATIVE (NEGATIVE)
[2023-02-08] MEDS: MORPHINE 2 MG/ML 1ML VIAL IV PRN ×3 (05:21→18:55)
[2023-02-08] MEDS: cefTRIAXone SOD 1 GM in D5W MINI-BAG PLUS 50 ML IV SCH (05:21)
[2023-02-08 06:00] VITALS: BP 140/80; TEMP 97.9; O2SAT 88
[2023-02-08] MEDS: traMADol 50 MG TAB PO PRN ×2 (08:59→20:14)
[2023-02-08] MEDS: SIMVASTATIN 20 MG TAB PO SCH (08:59)
[2023-02-08] MEDS: ASPIRIN ENTERIC 325MG TAB PO SCH (08:59)
[2023-02-08] MEDS: ENOXAPARIN 40MG/0.4ML SYRINGE (J1650 PER 10MG) SC SCH (09:00)
[2023-02-08] MEDS: METOPROLOL SUCC (TopROL XL) 50MG **XL** TAB PO SCH ×2 (09:01→20:02)
[2023-02-08 11:31] VITALS: BP 128/85
[2023-02-08 14:00] VITALS: BP 122/84; TEMP 97.9; O2SAT 93
[2023-02-08 20:00] VITALS: BP 128/86; TEMP 95.6; O2SAT 94
[2023-02-08] MEDS: AMITRIPTYLINE 25MG TABLET PO SCH (20:01)
[2023-02-08] MEDS: carisoprodoL 350 MG TAB PO PRN (20:02)
[2023-02-08] MEDS: FLUoxetine 20MG CAP PO SCH (20:03)
[2023-02-09] MEDS: cefTRIAXone SOD 1 GM in D5W MINI-BAG PLUS 50 ML IV SCH (04:33)
[2023-02-09 06:00] VITALS: BP 143/87; TEMP 98.1; O2SAT 92
[2023-02-09 06:25] LABS: BASO % 0.8 % (0.0-1.0); EOS # 0.3 10^3/uL (0.0-0.5); EOS % 6.6 % (0.0-3.0); HEMATOCRIT 36.4 % (36.0-47.0); HEMOGLOBIN 11.8 g/dl (12.0-15.5); LYMPH # 1.7 10^3/uL (1.5-5.0); LYMPH % 34.2 % (24.0-44.0); MEAN CORPUSCULAR HEMOGLOBIN 34.2 pg (27.0-33.0); MEAN CORPUSCULAR HGB CONC 32.4 g/dl (32.0-36.5); MEAN CORPUSCULAR VOLUME 105.5 fl (80.0-96.0); MONO # 0.5 10^3/uL (0.0-0.8); MONO % 9.5 % (2.0-8.0); NEUTROPHILS # 2.4 10^3/uL (1.5-8.5); NEUTROPHILS % 48.7 % (36.0-66.0); PLATELET COUNT, AUTOMATED 251 10^3/uL (150-450); RED BLOOD COUNT 3.45 10^6/uL (4.00-5.40); WHITE BLOOD COUNT 4.9 10^3/uL (4.0-10.0)
[2023-02-09 06:46] LABS: BLOOD UREA NITROGEN 10 MG/DL (9-23); CALCIUM LEVEL 8.5 MG/DL (8.3-10.6); CARBON DIOXIDE LEVEL 24 MMOL/L (20-31); CHLORIDE LEVEL 109 MMOL/L (98-107); CREATININE FOR GFR 0.68 MG/DL (0.55-1.30); GLOMERULAR FILTRATION RATE > 60.0 (>45); GLUCOSE, FASTING 101 MG/DL (74-106); POTASSIUM SERUM 4.6 MMOL/L (3.5-5.1); SODIUM LEVEL 140 MMOL/L (136-145)
[2023-02-09] MEDS: METOPROLOL SUCC (TopROL XL) 50MG **XL** TAB PO SCH ×2 (08:48→21:19)
[2023-02-09] MEDS: ASPIRIN ENTERIC 325MG TAB PO SCH (08:48)
[2023-02-09] MEDS: SIMVASTATIN 20 MG TAB PO SCH (08:49)
[2023-02-09] MEDS: traMADol 50 MG TAB PO PRN ×2 (08:49→21:20)
[2023-02-09] MEDS: ENOXAPARIN 40MG/0.4ML SYRINGE (J1650 PER 10MG) SC SCH (08:49)
[2023-02-09] MEDS: MORPHINE 2 MG/ML 1ML VIAL IV PRN (11:37)
[2023-02-09 14:00] VITALS: BP 142/75; TEMP 98.1; O2SAT 93
[2023-02-09 20:00] VITALS: BP 146/75; TEMP 98.6; O2SAT 93
[2023-02-09] MEDS: FLUoxetine 20MG CAP PO SCH (21:19)
[2023-02-09] MEDS: AMITRIPTYLINE 25MG TABLET PO SCH (21:19)
[2023-02-09] MEDS: carisoprodoL 350 MG TAB PO PRN (22:32)
[2023-02-10 05:53] VITALS: BP 171/92
[2023-02-10 06:00] VITALS: BP 171/93; TEMP 98.2; O2SAT 91
[2023-02-10] MEDS ORDERED: amLODIPine 5 MG TAB PO ONE (06:00)
[2023-02-10 06:21] LABS: BASO % 0.7 % (0.0-1.0); EOS # 0.3 10^3/uL (0.0-0.5); EOS % 5.2 % (0.0-3.0); HEMATOCRIT 38.5 % (36.0-47.0); HEMOGLOBIN 12.6 g/dl (12.0-15.5); LYMPH # 1.8 10^3/uL (1.5-5.0); LYMPH % 33.1 % (24.0-44.0); MEAN CORPUSCULAR HEMOGLOBIN 33.6 pg (27.0-33.0); MEAN CORPUSCULAR HGB CONC 32.7 g/dl (32.0-36.5); MEAN CORPUSCULAR VOLUME 102.7 fl (80.0-96.0); MONO # 0.5 10^3/uL (0.0-0.8); MONO % 9.6 % (2.0-8.0); NEUTROPHILS # 2.7 10^3/uL (1.5-8.5); PLATELET COUNT, AUTOMATED 257 10^3/uL (150-450); RED BLOOD COUNT 3.75 10^6/uL (4.00-5.40); WHITE BLOOD COUNT 5.3 10^3/uL (4.0-10.0)
[2023-02-10 06:42] LABS: BLOOD UREA NITROGEN 7 MG/DL (9-23); CALCIUM LEVEL 8.8 MG/DL (8.3-10.6); CARBON DIOXIDE LEVEL 26 MMOL/L (20-31); CHLORIDE LEVEL 106 MMOL/L (98-107); CREATININE FOR GFR 0.63 MG/DL (0.55-1.30); GLOMERULAR FILTRATION RATE > 60.0 (>45); GLUCOSE, FASTING 103 MG/DL (74-106); POTASSIUM SERUM 3.9 MMOL/L (3.5-5.1); SODIUM LEVEL 142 MMOL/L (136-145)
[2023-02-10] MEDS ORDERED: MIRALAX *UNIT DOSE* 17GM PACKET PO PRN (08:20)
[2023-02-10] MEDS ORDERED: PERCOCET 5MG/325MG TAB PO PRN ×2 (08:20)
[2023-02-10] MEDS ORDERED: traMADol 50 MG TAB PO PRN (08:35)
[2023-02-10] MEDS ORDERED: DOCUSATE SODIUM 100MG CAPSULE PO SCH (09:00)
[2023-02-10] MEDS: SIMVASTATIN 20 MG TAB PO SCH (09:33)
[2023-02-10] MEDS: ASPIRIN ENTERIC 325MG TAB PO SCH (09:33)
[2023-02-10] MEDS: ENOXAPARIN 40MG/0.4ML SYRINGE (J1650 PER 10MG) SC SCH (09:36)
[2023-02-10] MEDS ORDERED: MIRA1POW3 PO (10:05)
[2023-02-10] MEDS ORDERED: AMLO1TAB24 PO (10:05)
[2023-02-10] MEDS ORDERED: COLA100C5 PO (10:05)
[2023-02-10] MEDS ORDERED: CARI1TAB7 PO (13:15)
[2023-02-10] MEDS ORDERED: SENNA 8.6 MG TAB (SENOKOT) PO SCH (21:00)
[2023-02-11] MEDS ORDERED: amLODIPine 5 MG TAB PO SCH (09:00)
== END 2023-02-10 11:45 | disposition home or self-care (01) ==
LOC: M ED 20:08 → M ED INP 20:09 → UNDOADMOB 02-08 03:00 → INTOOBSV 02-08 03:00 → M ED INP 02-08 03:00 → M MSPAV 02-08 05:51 → M ED INP 02-08 05:51 → M MSPAV 02-08 05:51 → UNDODISOB 02-10 11:45
PROVIDERS: ADMIT Internal Medicine; ATTEND Internal Medicine
DX: M54.6 Pain in thoracic spine (principal); M54.50 Low back pain, unspecified; R82.71 Bacteriuria; I10 Essential (primary) hypertension; Z86.73 Personal history of transient ischemic attack (TIA), and cerebral infarction without residual deficits; Z88.1 Allergy status to other antibiotic agents; Z88.2 Allergy status to sulfonamides; Z88.8 Allergy status to other drugs, medicaments and biological substances; Z91.030 Bee allergy status; Z79.82 Long term (current) use of aspirin; Z79.899 Other long term (current) drug therapy; E78.5 Hyperlipidemia, unspecified; F41.9 Anxiety disorder, unspecified; F32.A Depression, unspecified
CPT/HCPCS: 36415; 71045; 71275; 72131; 80048; 81001; 85025; 85652; 86140; 87086; 87631; 93041; 94760; 96365; 96366; 96372; 96375; 96376; 97116; 97161; 97530; 99285; G0378; J0696; J1650; J3010; J3360

== ENCOUNTER → 2023-02-17 | Outpatient (POV) | payer MEDICARE, OTHER ==
[~2023-02-17] VITALS: Ht 176.5 cm; Wt 99.5 kg
[~2023-02-17] MED LIST changes: +AMLO1TAB24 PO; +CARI1TAB7 PO; +COLA100C5 PO; +MIRA1POW3 PO
[2023-02-17 09:10] VITALS: BP 143/89
== END ==
LOC: M IRPOV 08:50
PROVIDERS: ATTEND Radiology Diagnostic Radiology
DX: S22.080A Wedge compression fracture of T11-T12 vertebra, initial encounter for closed fracture (principal); S32.010A Wedge compression fracture of first lumbar vertebra, initial encounter for closed fracture; W01.0XXA Fall on same level from slipping, tripping and stumbling without subsequent striking against object, initial encounter; Y92.019 Unspecified place in single-family (private) house as the place of occurrence of the external cause

== ENCOUNTER → 2023-02-20 | Outpatient (CLI) | payer MEDICARE, OTHER | LOC: M WHC 12:56 | PROVIDERS: ATTEND Nurse Practitioner Family | DX: M89.9 Disorder of bone, unspecified (principal) ==

== ENCOUNTER → 2023-03-27 | Outpatient (CLI) | payer MEDICARE, OTHER | LOC: M RAD 16:15 | PROVIDERS: ATTEND Radiology Vascular & Interventional Radiology | DX: S22.060A Wedge compression fracture of T7-T8 vertebra, initial encounter for closed fracture (principal); I71.21 Aneurysm of the ascending aorta, without rupture; X58.XXXA Exposure to other specified factors, initial encounter; Y92.9 Unspecified place or not applicable; Y93.9 Activity, unspecified; Y99.9 Unspecified external cause status ==

== ENCOUNTER → 2023-04-08 | Outpatient (CLI) | payer MEDICARE, OTHER ==
[2023-04-08 13:33] LABS: HEMATOCRIT 37.4 % (36.0-47.0); HEMOGLOBIN 12.1 g/dl (12.0-15.5); MEAN CORPUSCULAR HEMOGLOBIN 32.6 pg (27.0-33.0); MEAN CORPUSCULAR HGB CONC 32.4 g/dl (32.0-36.5); MEAN CORPUSCULAR VOLUME 100.8 fl (80.0-96.0); PLATELET COUNT, AUTOMATED 436 10^3/uL (150-450); RED BLOOD COUNT 3.71 10^6/uL (4.00-5.40); WHITE BLOOD COUNT 7.1 10^3/uL (4.0-10.0)
[2023-04-08 13:45] LABS: INR 0.94; PROTHROMBIN TIME 12.8 SECONDS (12.5-14.5)
[2023-04-08 13:59] LABS: ALBUMIN 3.3 G/DL (3.2-5.2); ALKALINE PHOSPHATASE 90 U/L (46-116); ALT/SGPT < 9 U/L (7.0-40); AST/SGOT 24 U/L (<34); BILIRUBIN,TOTAL 0.3 MG/DL (0.3-1.2); BLOOD UREA NITROGEN 10 MG/DL (9-23); CALCIUM LEVEL 9.1 MG/DL (8.3-10.6); CARBON DIOXIDE LEVEL 31 MMOL/L (20-31); CHLORIDE LEVEL 105 MMOL/L (98-107); CREATININE FOR GFR 0.74 MG/DL (0.55-1.30); GLOMERULAR FILTRATION RATE > 60.0 (>45); GLUCOSE, FASTING 89 MG/DL (74-106); POTASSIUM SERUM 4.2 MMOL/L (3.5-5.1); SODIUM LEVEL 141 MMOL/L (136-145); TOTAL PROTEIN 6.9 G/DL (5.7-8.2)
== END ==
LOC: M LAB 12:46
DX: Z01.812 Encounter for preprocedural laboratory examination (principal)

== ENCOUNTER → 2023-04-17 | Outpatient (CLI) | payer MEDICARE, OTHER | LOC: M PAIN 11:30 | PROVIDERS: ATTEND Nurse Practitioner Family | DX: M54.6 Pain in thoracic spine (principal); I10 Essential (primary) hypertension; E78.00 Pure hypercholesterolemia, unspecified; M19.90 Unspecified osteoarthritis, unspecified site; Z86.73 Personal history of transient ischemic attack (TIA), and cerebral infarction without residual deficits; Z79.82 Long term (current) use of aspirin; Z79.891 Long term (current) use of opiate analgesic; Z79.899 Other long term (current) drug therapy; Z88.2 Allergy status to sulfonamides; Z88.1 Allergy status to other antibiotic agents; Z88.8 Allergy status to other drugs, medicaments and biological substances; Z91.030 Bee allergy status ==

== ENCOUNTER → 2023-04-23 | Outpatient (CLI) | payer MEDICARE, OTHER ==
[~2023-04-23] MED LIST changes: -AMIT25TA17 PO; +AMIT25TA19 PO
== END ==
LOC: M PAIN 15:00
PROVIDERS: ATTEND Nurse Practitioner Family
DX: M54.6 Pain in thoracic spine (principal); G89.29 Other chronic pain; I10 Essential (primary) hypertension; Z86.73 Personal history of transient ischemic attack (TIA), and cerebral infarction without residual deficits; Z88.1 Allergy status to other antibiotic agents; Z88.2 Allergy status to sulfonamides; Z88.8 Allergy status to other drugs, medicaments and biological substances; Z91.030 Bee allergy status; Z79.82 Long term (current) use of aspirin; Z79.891 Long term (current) use of opiate analgesic; Z79.899 Other long term (current) drug therapy

== ENCOUNTER 2023-05-16 19:50 | Inpatient (IN) | payer MEDICARE, OTHER ==
[~2023-05-16] VITALS: Ht 172.7 cm; Wt 215.0 kg
[2023-05-16 20:29] LABS: BASO # 0.1 10^3/uL (0.0-0.2); BASO % 0.7 % (0.0-1.0); EOS # 0.4 10^3/uL (0.0-0.5); EOS % 3.8 % (0.0-3.0); HEMATOCRIT 39.1 % (36.0-47.0); HEMOGLOBIN 12.9 g/dl (12.0-15.5); LYMPH % 31.1 % (24.0-44.0); MONO # 0.8 10^3/uL (0.0-0.8); MONO % 8.1 % (2.0-8.0); NEUTROPHILS # 5.4 10^3/uL (1.5-8.5); NEUTROPHILS % 55.8 % (36.0-66.0); PLATELET COUNT, AUTOMATED 265 10^3/uL (150-450); RED BLOOD COUNT 3.91 10^6/uL (4.00-5.40); WHITE BLOOD COUNT 9.6 10^3/uL (4.0-10.0)
[2023-05-16] MEDS ORDERED: KETOROLAC 30 MG/ML 1ML VIAL IV ONE (20:40)
[2023-05-16] MEDS ORDERED: MORPHINE 4 MG/ML 1ML VIAL IV PRN (20:40)
[2023-05-16] MEDS ORDERED: ONDANSETRON 4MG 2ML VIAL IV ONE (20:40)
[2023-05-16] MEDS ORDERED: METHOCARBAMOL 1,000 MG/10 ML VIAL IV ONE (20:40)
[2023-05-16 20:57] LABS: CK-MB VALUE MASS 1.2 NG/ML (<3.6); LIPASE 49 U/L (12-53)
[2023-05-16 20:58] LABS: ETHYL ALCOHOL (ETHANOL) 0.114 % (0.000-0.010)
[2023-05-16 21:00] LABS: ALBUMIN 3.8 G/DL (3.2-5.2); ALKALINE PHOSPHATASE 101 U/L (46-116); ALT/SGPT 20 U/L (7.0-40); AST/SGOT 23 U/L (<34); BILIRUBIN,DIRECT 0.1 MG/DL (<0.4); BILIRUBIN,TOTAL 0.4 MG/DL (0.3-1.2); BLOOD UREA NITROGEN 8 MG/DL (9-23); CARBON DIOXIDE LEVEL 27 MMOL/L (20-31); CHLORIDE LEVEL 102 MMOL/L (98-107); CREATININE FOR GFR 0.73 MG/DL (0.55-1.30); GLOMERULAR FILTRATION RATE > 60.0 (>45); GLUCOSE, FASTING 90 MG/DL (74-106); POTASSIUM SERUM 4.2 MMOL/L (3.5-5.1); SODIUM LEVEL 139 MMOL/L (136-145); TOTAL PROTEIN 7.5 G/DL (5.7-8.2)
[2023-05-16 21:03] LABS: INR 1.05; PROTHROMBIN TIME 13.4 SECONDS (12.5-14.5)
[2023-05-16 21:06] LABS: CPK CREATINE PHOSPHOKINASE 62 U/L (34-145); MB/CK RELATIVE INDEX 1.93 (< OR =4)
[2023-05-16 22:25] LABS: CK-MB VALUE MASS < 1.0 NG/ML (<3.6)
[2023-05-16 22:27] LABS: CPK CREATINE PHOSPHOKINASE 59 U/L (34-145); MB/CK RELATIVE INDEX 1.69 (< OR =4)
[2023-05-16] MEDS ORDERED: ACETAMINOPHEN TAB 650MG DOSE (2X325MG) PO PRN (23:55)
[2023-05-17] MEDS ORDERED: MORPHINE 2 MG/ML 1ML VIAL IV PRN
[2023-05-17] MEDS ORDERED: MORPHINE 4 MG/ML 1ML VIAL IV PRN
[2023-05-17] MEDS ORDERED: MM S100C PO (00:16)
[2023-05-17] MEDS ORDERED: TRAM50TA2 PO (00:16)
[2023-05-17] MEDS ORDERED: BUTA1CAP PO (00:17)
[2023-05-17] MEDS ORDERED: HOME MED LIST COMPLETE! XX SCH (00:20)
[2023-05-17 00:22] LABS: C REACTIVE PROTEIN QUANTITATIV < 0.40 MG/DL (<1.0)
[2023-05-17 01:24] LABS: RSV AMPLIFICATION NEGATIVE (NEGATIVE)
[2023-05-17] MEDS ORDERED: ALPRAZolam 0.5 MG TAB PO PRN (01:35)
[2023-05-17 02:30] VITALS: BP 100/73; TEMP 97.5; O2SAT 97
[2023-05-17 06:00] VITALS: BP 117/71; TEMP 97.9; O2SAT 96
[2023-05-17 06:29] LABS: BASO % 0.5 % (0.0-1.0); EOS # 0.3 10^3/uL (0.0-0.5); EOS % 4.3 % (0.0-3.0); HEMATOCRIT 34.1 % (36.0-47.0); HEMOGLOBIN 11.1 g/dl (12.0-15.5); LYMPH # 2.5 10^3/uL (1.5-5.0); MEAN CORPUSCULAR HGB CONC 32.6 g/dl (32.0-36.5); MEAN CORPUSCULAR VOLUME 101.5 fl (80.0-96.0); MONO # 0.8 10^3/uL (0.0-0.8); MONO % 10.6 % (2.0-8.0); NEUTROPHILS # 4.2 10^3/uL (1.5-8.5); NEUTROPHILS % 52.3 % (36.0-66.0); PLATELET COUNT, AUTOMATED 199 10^3/uL (150-450); RED BLOOD COUNT 3.36 10^6/uL (4.00-5.40); WHITE BLOOD COUNT 7.9 10^3/uL (4.0-10.0)
[2023-05-17 06:30] VITALS: O2SAT 97
[2023-05-17 06:57] LABS: C REACTIVE PROTEIN QUANTITATIV < 0.40 MG/DL (<1.0)
[2023-05-17 06:58] LABS: BLOOD UREA NITROGEN 12 MG/DL (9-23); CALCIUM LEVEL 8.5 MG/DL (8.3-10.6); CARBON DIOXIDE LEVEL 28 MMOL/L (20-31); CHLORIDE LEVEL 103 MMOL/L (98-107); CREATININE FOR GFR 0.87 MG/DL (0.55-1.30); GLOMERULAR FILTRATION RATE > 60.0 (>45); GLUCOSE, FASTING 87 MG/DL (74-106); MAGNESIUM LEVEL 1.6 MG/DL (1.8-2.4); POTASSIUM SERUM 4.4 MMOL/L (3.5-5.1); SODIUM LEVEL 138 MMOL/L (136-145)
[2023-05-17] MEDS ORDERED: PILL CUTTER 1 EACH XX PRN (07:45)
[2023-05-17] MEDS: ACETAMINOPHEN TAB 650MG DOSE (2X325MG) PO SCH ×2 (08:24→12:47)
[2023-05-17] MEDS ORDERED: MAG SULF 1GM/100ML (MAG RUN) 1 GM in IV 1 EA IV ONE (09:00)
[2023-05-17] MEDS ORDERED: traMADol 50 MG TAB PO SCH ×2 (09:00→13:00)
[2023-05-17] MEDS ORDERED: tiZANidine 4 MG TAB PO SCH ×2 (09:00→14:25)
[2023-05-17] MEDS ORDERED: MAGNESIUM OXIDE 400MG TAB (MAG-OX) PO SCH (09:00)
[2023-05-17] MEDS ORDERED: NAPROXEN 250 MG TAB PO SCH (09:00)
[2023-05-17] MEDS ORDERED: DOCUSATE SODIUM 100MG CAPSULE PO SCH (09:00)
[2023-05-17] MEDS ORDERED: ASPIRIN ENTERIC 325MG TAB PO SCH (09:00)
[2023-05-17 14:00] VITALS: BP 101/68; TEMP 97.7; O2SAT 93
[2023-05-17] MEDS ORDERED: NAPR500T6 PO ×2 (15:14→16:49)
[2023-05-17] MEDS ORDERED: ACET-897 PO ×2 (15:14→16:49)
[2023-05-17] MEDS ORDERED: TIZA2CAP PO ×2 (15:14→16:49)
[2023-05-17] MEDS ORDERED: OXYC-517 PO ×2 (15:14→16:42)
[2023-05-17] MEDS ORDERED: AMITRIPTYLINE 25MG TABLET PO SCH (21:00)
[2023-05-17] MEDS ORDERED: SIMVASTATIN 20 MG TAB PO SCH (21:00)
== END 2023-05-17 17:24 | disposition home or self-care (01) | DRG 552 ==
LOC: M ED 19:50 → M ED INP 23:49 → M MSPAV 05-17 02:19
PROVIDERS: ADMIT Family Medicine; ATTEND Internal Medicine Nephrology
DX: M48.061 Spinal stenosis, lumbar region without neurogenic claudication (principal); S32.000A Wedge compression fracture of unspecified lumbar vertebra, initial encounter for closed fracture; S22.000A Wedge compression fracture of unspecified thoracic vertebra, initial encounter for closed fracture; M54.6 Pain in thoracic spine; G43.909 Migraine, unspecified, not intractable, without status migrainosus; F41.9 Anxiety disorder, unspecified; I10 Essential (primary) hypertension; E66.01 Morbid (severe) obesity due to excess calories; F10.10 Alcohol abuse, uncomplicated; E78.5 Hyperlipidemia, unspecified; M19.90 Unspecified osteoarthritis, unspecified site; K59.09 Other constipation; M62.838 Other muscle spasm; G89.4 Chronic pain syndrome; H91.93 Unspecified hearing loss, bilateral; Z96.612 Presence of left artificial shoulder joint; Z98.41 Cataract extraction status, right eye; Z79.82 Long term (current) use of aspirin; Z88.1 Allergy status to other antibiotic agents; Z79.899 Other long term (current) drug therapy; Z88.2 Allergy status to sulfonamides; Z88.8 Allergy status to other drugs, medicaments and biological substances; Z91.030 Bee allergy status; Z79.891 Long term (current) use of opiate analgesic; Z86.73 Personal history of transient ischemic attack (TIA), and cerebral infarction without residual deficits; Z20.822 Contact with and (suspected) exposure to COVID-19

== ENCOUNTER → 2023-05-21 | Outpatient (CLI) | payer MEDICARE, OTHER ==
[~2023-05-21] MED LIST changes: +ACET-897 PO; +MM S100C PO; +NAPR500T6 PO; +OXYC-517 PO; +TIZA2CAP PO
== END ==
LOC: M PAIN 14:00
PROVIDERS: ATTEND Nurse Practitioner Family
DX: M79.10 Myalgia, unspecified site (principal); G89.29 Other chronic pain; S22.000S Wedge compression fracture of unspecified thoracic vertebra, sequela; I10 Essential (primary) hypertension; Z86.73 Personal history of transient ischemic attack (TIA), and cerebral infarction without residual deficits; Z88.1 Allergy status to other antibiotic agents; Z88.2 Allergy status to sulfonamides; Z88.8 Allergy status to other drugs, medicaments and biological substances; Z91.030 Bee allergy status; Z79.899 Other long term (current) drug therapy

== ENCOUNTER → 2023-05-22 | Outpatient (REF) | payer MEDICARE, OTHER | LOC: M LAB REF 13:25 | PROVIDERS: ATTEND Registered Nurse | DX: R30.0 Dysuria (principal) ==

== ENCOUNTER → 2023-06-18 | Outpatient (CLI) | payer MEDICARE, OTHER | LOC: M PAIN 11:00 | PROVIDERS: ATTEND Nurse Practitioner Family | DX: M79.10 Myalgia, unspecified site (principal); G89.29 Other chronic pain; S22.000S Wedge compression fracture of unspecified thoracic vertebra, sequela; Z96.89 Presence of other specified functional implants; Z88.1 Allergy status to other antibiotic agents; Z88.2 Allergy status to sulfonamides; Z88.8 Allergy status to other drugs, medicaments and biological substances; Z91.030 Bee allergy status; Z79.82 Long term (current) use of aspirin; Z79.899 Other long term (current) drug therapy ==

== ENCOUNTER 2023-07-02 12:14 | Emergency (ER) | payer MEDICARE, OTHER ==
[~2023-07-02] VITALS: Ht 172.7 cm; Wt 96.5 kg
[2023-07-02] MEDS ORDERED: ACETAMINOPHEN 325 MG TAB PO ONE (15:30)
[2023-07-02] MEDS ORDERED: BACITRACIN OINTMENT 30GM TUBE TOP STA (16:27)
[2023-07-02 17:04] VITALS: BP 160/100; TEMP 98.6; O2SAT 99
== END 2023-07-02 17:11 | disposition home or self-care (01) ==
LOC: M ED 12:14
DX: S80.211A Abrasion, right knee, initial encounter (principal); S50.01XA Contusion of right elbow, initial encounter; S05.11XA Contusion of eyeball and orbital tissues, right eye, initial encounter; M54.50 Low back pain, unspecified; W01.0XXA Fall on same level from slipping, tripping and stumbling without subsequent striking against object, initial encounter; G43.909 Migraine, unspecified, not intractable, without status migrainosus; F41.9 Anxiety disorder, unspecified; E78.5 Hyperlipidemia, unspecified; Z86.79 Personal history of other diseases of the circulatory system; Z88.1 Allergy status to other antibiotic agents; Z88.2 Allergy status to sulfonamides; Z88.8 Allergy status to other drugs, medicaments and biological substances; Z91.030 Bee allergy status; Z79.82 Long term (current) use of aspirin; Z79.891 Long term (current) use of opiate analgesic; Z79.899 Other long term (current) drug therapy

== ENCOUNTER → 2023-07-20 | Outpatient (CLI) | payer MEDICARE, OTHER | LOC: M PAIN 17:30 | PROVIDERS: ATTEND Nurse Practitioner Family | DX: M79.18 Myalgia, other site (principal); G89.29 Other chronic pain; I10 Essential (primary) hypertension; E78.00 Pure hypercholesterolemia, unspecified; M19.90 Unspecified osteoarthritis, unspecified site; Z79.891 Long term (current) use of opiate analgesic; Z79.899 Other long term (current) drug therapy; Z88.2 Allergy status to sulfonamides; Z88.1 Allergy status to other antibiotic agents; Z88.8 Allergy status to other drugs, medicaments and biological substances; Z91.030 Bee allergy status ==

== ENCOUNTER → 2023-07-23 | Outpatient (CLI) | payer MEDICARE, OTHER | LOC: M SOG 08:15 | PROVIDERS: ATTEND Orthopaedic Surgery | DX: M79.641 Pain in right hand (principal); M17.11 Unilateral primary osteoarthritis, right knee ==

== ENCOUNTER → 2023-07-30 | Outpatient (CLI) | payer MEDICARE, OTHER ==
[~2023-07-30] MED LIST changes: +NORCO, ANEXSIA 5/325MG TABLET (HYDROcodone/ACETAMINOPHEN) As Ordered ONE; +TRIAMCINOLONE ACETONIDE SUSP 40MG/ML 1ML VIAL As Ordered ONE; +diazePAM 5MG TABLET As Ordered ONE
== END ==
LOC: M PAIN 08:30
PROVIDERS: ATTEND Anesthesiology
DX: M79.18 Myalgia, other site (principal); G89.29 Other chronic pain; Z96.89 Presence of other specified functional implants; Z86.16 Personal history of COVID-19; Z88.1 Allergy status to other antibiotic agents; Z88.2 Allergy status to sulfonamides; Z88.8 Allergy status to other drugs, medicaments and biological substances; Z91.030 Bee allergy status; Z79.82 Long term (current) use of aspirin; Z79.899 Other long term (current) drug therapy
CPT/HCPCS: 20553; J0665; J3301

== ENCOUNTER → 2023-08-13 | Outpatient (CLI) | payer MEDICARE, OTHER ==
[~2023-08-13] MED LIST changes: -NORCO, ANEXSIA 5/325MG TABLET (HYDROcodone/ACETAMINOPHEN) As Ordered ONE; -TRIAMCINOLONE ACETONIDE SUSP 40MG/ML 1ML VIAL As Ordered ONE; -diazePAM 5MG TABLET As Ordered ONE
== END ==
LOC: M PAIN 09:15
PROVIDERS: ATTEND Nurse Practitioner Family
DX: M79.10 Myalgia, unspecified site (principal); G89.29 Other chronic pain; Z88.1 Allergy status to other antibiotic agents; Z88.2 Allergy status to sulfonamides; Z88.8 Allergy status to other drugs, medicaments and biological substances; Z91.030 Bee allergy status; Z79.82 Long term (current) use of aspirin; Z79.899 Other long term (current) drug therapy

== ENCOUNTER → 2023-09-23 | Outpatient (CLI) | payer MEDICARE, OTHER ==
[2023-09-23 13:52] LABS: FREE T4 1.04 NG/DL (0.89-1.76)
[2023-09-23 13:53] LABS: THYROID STIMULATING HORMONE 1.46 uIU/ML (0.55-4.78); TOTAL T3 133.1 NG/DL (60.0-181.0)
[2023-09-24 12:07] LABS: SSA SJOGRENS A <0.2 AI (0.0-0.9); SSB SJOGRENS B <0.2 AI (0.0-0.9)
== END ==
LOC: M WUC 09:05
PROVIDERS: ATTEND Ophthalmology
DX: H16.229 Keratoconjunctivitis sicca, not specified as Sjogren's, unspecified eye (principal); H25.12 Age-related nuclear cataract, left eye; H11.421 Conjunctival edema, right eye; H11.441 Conjunctival cysts, right eye

== ENCOUNTER 2023-10-26 09:54 | Emergency (ER) | payer MEDICARE, OTHER ==
[~2023-10-26] VITALS: Ht 174 cm; Wt 93.6 kg
[2023-10-26] MEDS ORDERED: FLUO40CA PO (11:21)
[2023-10-26] MEDS ORDERED: MORPHINE 4 MG/ML 1ML VIAL IV PRN (12:20)
[2023-10-26 13:05] LABS: BASO # 0.1 10^3/uL (0.0-0.2); BASO % 0.6 % (0.0-1.0); EOS # 0.2 10^3/uL (0.0-0.5); EOS % 2.3 % (0.0-3.0); HEMATOCRIT 39.7 % (36.0-47.0); HEMOGLOBIN 13.3 g/dl (12.0-15.5); LYMPH # 1.3 10^3/uL (1.5-5.0); LYMPH % 13.8 % (24.0-44.0); MEAN CORPUSCULAR HEMOGLOBIN 34.3 pg (27.0-33.0); MEAN CORPUSCULAR HGB CONC 33.5 g/dl (32.0-36.5); MEAN CORPUSCULAR VOLUME 102.3 fl (80.0-96.0); MONO # 0.7 10^3/uL (0.0-0.8); NEUTROPHILS # 6.8 10^3/uL (1.5-8.5); NEUTROPHILS % 74.9 % (36.0-66.0); PLATELET COUNT, AUTOMATED 205 10^3/uL (150-450); RED BLOOD COUNT 3.88 10^6/uL (4.00-5.40); WHITE BLOOD COUNT 9.1 10^3/uL (4.0-10.0)
[2023-10-26 13:15] LABS: INR 1.06; PROTHROMBIN TIME 13.5 SECONDS (12.5-14.5)
[2023-10-26 13:16] LABS: PARTIAL THROMBOPLASTIN TIME 28.5 SECONDS (24.8-34.2)
[2023-10-26 13:23] LABS: ALBUMIN 3.8 G/DL (3.2-5.2); ALKALINE PHOSPHATASE 89 U/L (46-116); ALT/SGPT 24 U/L (7.0-40); AST/SGOT 29 U/L (<34); BILIRUBIN,DIRECT 0.3 MG/DL (<0.4); BILIRUBIN,TOTAL 0.9 MG/DL (0.3-1.2); BLOOD UREA NITROGEN 10 MG/DL (9-23); CALCIUM LEVEL 9.2 MG/DL (8.3-10.6); CARBON DIOXIDE LEVEL 28 MMOL/L (20-31); CHLORIDE LEVEL 103 MMOL/L (98-107); CK-MB VALUE MASS < 1.0 NG/ML (<3.6); CREATININE FOR GFR 0.57 MG/DL (0.55-1.30); GLOMERULAR FILTRATION RATE > 60.0 (>45); GLUCOSE, FASTING 92 MG/DL (74-106); POTASSIUM SERUM 3.9 MMOL/L (3.5-5.1); SODIUM LEVEL 139 MMOL/L (136-145); TOTAL PROTEIN 7.8 G/DL (5.7-8.2)
[2023-10-26] MEDS ORDERED: ISOVUE-370 76% 100ML VIAL As Ordered ONE (13:26)
[2023-10-26 13:28] LABS: CPK CREATINE PHOSPHOKINASE 45 U/L (34-145); MB/CK RELATIVE INDEX 2.22 (< OR =4)
[2023-10-26 15:46] VITALS: BP 163/93; TEMP 98.8; O2SAT 98
== END 2023-10-26 15:49 | disposition home or self-care (01) ==
LOC: EDBD 09:54 → M ED 11:04
DX: M54.50 Low back pain, unspecified (principal); I10 Essential (primary) hypertension; E78.5 Hyperlipidemia, unspecified; R94.31 Abnormal electrocardiogram [ECG] [EKG]; M19.90 Unspecified osteoarthritis, unspecified site; Z88.2 Allergy status to sulfonamides; Z88.1 Allergy status to other antibiotic agents; Z88.8 Allergy status to other drugs, medicaments and biological substances; Z91.030 Bee allergy status; Z79.899 Other long term (current) drug therapy; Z79.1 Long term (current) use of non-steroidal anti-inflammatories (NSAID)
CPT/HCPCS: 70450; 71260; 72125; 72128; 72131; 74177; 80048; 80076; 82550; 82553; 84484; 85025; 85610; 85730; 93005; 93041; 94760; 96374; 99284; Q9967

== ENCOUNTER → 2023-11-05 | Outpatient (CLI) | payer MEDICARE, OTHER ==
[~2023-11-05] MED LIST changes: -MIRA1POW3 PO; +MIRA33506 PO
== END ==
LOC: M PAIN 17:00
PROVIDERS: ATTEND Nurse Practitioner Family
DX: M79.18 Myalgia, other site (principal); I10 Essential (primary) hypertension; E78.00 Pure hypercholesterolemia, unspecified; Z79.82 Long term (current) use of aspirin; Z79.891 Long term (current) use of opiate analgesic; Z79.899 Other long term (current) drug therapy; Z88.1 Allergy status to other antibiotic agents; Z88.2 Allergy status to sulfonamides; Z88.8 Allergy status to other drugs, medicaments and biological substances; Z91.030 Bee allergy status

== ENCOUNTER → 2023-11-09 | Outpatient (REF) | payer MEDICARE, OTHER | LOC: M LAB REF 17:08 | PROVIDERS: ATTEND Registered Nurse | DX: N39.0 Urinary tract infection, site not specified (principal); B96.20 Unspecified Escherichia coli [E. coli] as the cause of diseases classified elsewhere ==

== ENCOUNTER → 2023-11-20 | Outpatient (CLI) | payer MEDICARE, OTHER | LOC: M PAIN 14:00 | PROVIDERS: ATTEND Nurse Practitioner Family | DX: M79.18 Myalgia, other site (principal); I10 Essential (primary) hypertension; E78.00 Pure hypercholesterolemia, unspecified; Z79.891 Long term (current) use of opiate analgesic; Z79.899 Other long term (current) drug therapy; G89.29 Other chronic pain; Z88.0 Allergy status to penicillin; Z88.2 Allergy status to sulfonamides; Z88.8 Allergy status to other drugs, medicaments and biological substances; Z91.030 Bee allergy status ==

== ENCOUNTER → 2023-12-17 | Outpatient (CLI) | payer MEDICARE, OTHER | LOC: M PAIN 09:30 | PROVIDERS: ATTEND Nurse Practitioner Family | DX: M79.10 Myalgia, unspecified site (principal); M54.50 Low back pain, unspecified; Z96.82 Presence of neurostimulator; Z79.02 Long term (current) use of antithrombotics/antiplatelets; Z79.1 Long term (current) use of non-steroidal anti-inflammatories (NSAID); Z79.82 Long term (current) use of aspirin; Z79.891 Long term (current) use of opiate analgesic; Z79.899 Other long term (current) drug therapy; Z88.1 Allergy status to other antibiotic agents; Z88.2 Allergy status to sulfonamides; Z88.8 Allergy status to other drugs, medicaments and biological substances; Z91.030 Bee allergy status ==

== ENCOUNTER → 2024-01-21 | Outpatient (CLI) | payer MEDICARE, OTHER | LOC: M SOG 13:16 | PROVIDERS: ATTEND Physician Assistant | DX: M17.0 Bilateral primary osteoarthritis of knee (principal) ==

== ENCOUNTER 2024-02-11 06:08 | Day surgery (SDC) | payer MEDICARE, OTHER ==
[~2024-02-11] VITALS: Ht 172.7 cm; Wt 89.8 kg
[~2024-02-11 06:08] MED LIST changes: +HYDR50TA70 PO; +LORA1TAB23 PO; +METH-1164 PO; +PHENYLEPHRINE 10% OPHTH SOL 5ML OS PRN
[2024-02-11] MEDS: LIDOCAINE 3.5 % 1ML OPHTH TOPICAL GEL OU ONE (07:21)
[2024-02-11] MEDS: PHENYLEPHRINE 2.5% OPHTH SOL 2ML OS SCH (07:21)
[2024-02-11] MEDS: ATROPINE SULFATE 1% OPHTH SOLN 2ML BTL OS SCH (07:21)
[2024-02-11] MEDS: OFLOXACIN 0.3 % (OCUFLOX) OPTH SOL 5ML OS ONE (07:21)
[2024-02-11] MEDS: TROPICAMIDE 1% OPHTH SOLN 15ML OS SCH (07:22)
[2024-02-11] MEDS ORDERED: MIDAZOLAM INJ 2MG/2ML VIAL As Ordered ONE (07:23)
[2024-02-11] MEDS ORDERED: fentaNYL 100 MCG/2 ML INJECTION As Ordered ONE (07:23)
[2024-02-11] MEDS: BSS IRRIG/VANCO(10MG)/TOBRA(5MG)/EPINEPH(1:1000-0.5CC)500ML BAG-ORONLY As Ordered ONE (08:10)
[2024-02-11] MEDS: LIDOCAINE 1% SDV 5ML VIAL As Ordered ONE (08:10)
[2024-02-11] MEDS: CEFUROXIME 1MG/0.1ML INTRACAMERAL INJ As Ordered ONE (08:10)
[2024-02-11 08:18] VITALS: BP 179/98; TEMP 96.8; O2SAT 98
== END 2024-02-11 08:30 | disposition home or self-care (01) ==
LOC: M SDC 06:08
PROVIDERS: ATTEND Ophthalmology
DX: H25.12 Age-related nuclear cataract, left eye (principal); Z88.2 Allergy status to sulfonamides; Z88.8 Allergy status to other drugs, medicaments and biological substances; Z88.0 Allergy status to penicillin
CPT/HCPCS: 66984; J0697; J2250; J3010; V2632

== ENCOUNTER → 2024-02-23 | Outpatient (CLI) | payer MEDICARE, OTHER ==
[~2024-02-23] MED LIST changes: +NORCO, ANEXSIA 5/325MG TABLET (HYDROcodone/ACETAMINOPHEN) As Ordered ONE; -PHENYLEPHRINE 10% OPHTH SOL 5ML OS PRN; +TRIAMCINOLONE ACETONIDE SUSP 40MG/ML 1ML VIAL As Ordered ONE; +diazePAM 5MG TABLET As Ordered ONE
== END ==
LOC: M PAIN 11:00
PROVIDERS: ATTEND Anesthesiology
DX: M79.18 Myalgia, other site (principal); G89.29 Other chronic pain; I10 Essential (primary) hypertension; E78.00 Pure hypercholesterolemia, unspecified; Z86.73 Personal history of transient ischemic attack (TIA), and cerebral infarction without residual deficits; Z79.82 Long term (current) use of aspirin; Z79.891 Long term (current) use of opiate analgesic; Z79.899 Other long term (current) drug therapy; Z88.2 Allergy status to sulfonamides; Z88.1 Allergy status to other antibiotic agents; Z88.8 Allergy status to other drugs, medicaments and biological substances; Z91.030 Bee allergy status
CPT/HCPCS: 20552; J0665; J3301

== ENCOUNTER → 2024-03-25 | Outpatient (CLI) | payer MEDICARE, OTHER ==
[~2024-03-25] MED LIST changes: -NORCO, ANEXSIA 5/325MG TABLET (HYDROcodone/ACETAMINOPHEN) As Ordered ONE; -TRIAMCINOLONE ACETONIDE SUSP 40MG/ML 1ML VIAL As Ordered ONE; -diazePAM 5MG TABLET As Ordered ONE
== END ==
LOC: M PAIN 10:00
PROVIDERS: ATTEND Nurse Practitioner Family
DX: M79.10 Myalgia, unspecified site (principal); Z79.02 Long term (current) use of antithrombotics/antiplatelets; Z79.52 Long term (current) use of systemic steroids; Z79.82 Long term (current) use of aspirin; Z79.891 Long term (current) use of opiate analgesic; Z88.0 Allergy status to penicillin; Z88.1 Allergy status to other antibiotic agents; Z88.2 Allergy status to sulfonamides; Z88.8 Allergy status to other drugs, medicaments and biological substances; Z91.030 Bee allergy status; Z96.82 Presence of neurostimulator

== ENCOUNTER → 2024-06-16 | Outpatient (CLI) | payer MEDICARE, OTHER ==
[~2024-06-16] MED LIST changes: +NAPR-1405 PO; -NAPR500T6 PO
== END ==
LOC: M PAIN 14:00
PROVIDERS: ATTEND Nurse Practitioner Family
DX: M79.18 Myalgia, other site (principal); Z79.891 Long term (current) use of opiate analgesic; G89.29 Other chronic pain; I10 Essential (primary) hypertension; E78.00 Pure hypercholesterolemia, unspecified; M19.90 Unspecified osteoarthritis, unspecified site; Z86.73 Personal history of transient ischemic attack (TIA), and cerebral infarction without residual deficits; Z79.82 Long term (current) use of aspirin; Z79.899 Other long term (current) drug therapy; Z88.1 Allergy status to other antibiotic agents; Z88.2 Allergy status to sulfonamides; Z88.8 Allergy status to other drugs, medicaments and biological substances; Z91.030 Bee allergy status

== ENCOUNTER → 2024-06-20 | Outpatient (CLI) | payer MEDICARE, OTHER | LOC: M PAIN 10:00 | PROVIDERS: ATTEND Nurse Practitioner Family | DX: Z79.899 Other long term (current) drug therapy (principal) ==

== ENCOUNTER → 2024-08-11 | Outpatient (CLI) | payer MEDICARE, OTHER ==
[~2024-08-11] MED LIST changes: +NORCO, ANEXSIA 5/325MG TABLET (HYDROcodone/ACETAMINOPHEN) As Ordered ONE; +TRIAMCINOLONE ACETONIDE SUSP 40MG/ML 1ML VIAL As Ordered ONE; +diazePAM 5MG TABLET As Ordered ONE
== END ==
LOC: M PAIN 12:45
PROVIDERS: ATTEND Anesthesiology
DX: M79.18 Myalgia, other site (principal); G89.29 Other chronic pain; M54.50 Low back pain, unspecified; I10 Essential (primary) hypertension; E78.00 Pure hypercholesterolemia, unspecified; Z79.82 Long term (current) use of aspirin; Z79.891 Long term (current) use of opiate analgesic; Z79.899 Other long term (current) drug therapy; Z88.1 Allergy status to other antibiotic agents; Z88.2 Allergy status to sulfonamides; Z88.8 Allergy status to other drugs, medicaments and biological substances; Z91.030 Bee allergy status
CPT/HCPCS: 20552; 77002; J0665; J3301

== ENCOUNTER → 2024-10-11 | Outpatient (CLI) | payer MEDICARE, OTHER ==
[~2024-10-11] MED LIST changes: -NORCO, ANEXSIA 5/325MG TABLET (HYDROcodone/ACETAMINOPHEN) As Ordered ONE; -TRIAMCINOLONE ACETONIDE SUSP 40MG/ML 1ML VIAL As Ordered ONE; -diazePAM 5MG TABLET As Ordered ONE
== END ==
LOC: M PAIN 09:45
PROVIDERS: ATTEND Nurse Practitioner Family
DX: M79.18 Myalgia, other site (principal); G89.29 Other chronic pain; M54.50 Low back pain, unspecified; I10 Essential (primary) hypertension; E78.00 Pure hypercholesterolemia, unspecified; M19.90 Unspecified osteoarthritis, unspecified site; Z86.73 Personal history of transient ischemic attack (TIA), and cerebral infarction without residual deficits; Z79.82 Long term (current) use of aspirin; Z79.891 Long term (current) use of opiate analgesic; Z79.899 Other long term (current) drug therapy; Z88.0 Allergy status to penicillin; Z88.2 Allergy status to sulfonamides; Z88.8 Allergy status to other drugs, medicaments and biological substances; Z91.030 Bee allergy status

== ENCOUNTER → 2025-01-03 | Outpatient (CLI) | payer MEDICARE, OTHER ==
[~2025-01-03] MED LIST changes: +CARI-555 PO; -CARI1TAB7 PO
== END ==
LOC: M WHC 08:58
PROVIDERS: ATTEND Registered Nurse
DX: Z12.31 Encounter for screening mammogram for malignant neoplasm of breast (principal)

== ENCOUNTER 2025-01-30 09:30 | Emergency (ER) | payer MEDICARE, OTHER ==
[~2025-01-30] VITALS: Ht 172.7 cm; Wt 85.5 kg
[2025-01-30] MEDS ORDERED: TIZA2TA PO (09:42)
[2025-01-30] MEDS: KETOROLAC 30 MG/ML 1ML VIAL IV ONE (11:58)
[2025-01-30] MEDS: METHOCARBAMOL 1,000 MG/10 ML VIAL IV ONE (11:58)
[2025-01-30] MEDS ORDERED: EPIP0.3I2 IM (11:59)
[2025-01-30] MEDS ORDERED: ACET-683 PO (11:59)
[2025-01-30] MEDS ORDERED: CYCL1DRO10 OU (11:59)
[2025-01-30] MEDS ORDERED: HOME MED LIST COMPLETE! XX SCH (12:00)
[2025-01-30 12:06] LABS: BASO % 0.4 % (0.0-1.0); EOS # 0.4 10^3/uL (0.0-0.5); EOS % 6.6 % (0.0-3.0); HEMATOCRIT 36.7 % (36.0-47.0); LYMPH # 1.3 10^3/uL (1.5-5.0); LYMPH % 23.6 % (24.0-44.0); MEAN CORPUSCULAR HEMOGLOBIN 33.4 pg (27.0-33.0); MEAN CORPUSCULAR HGB CONC 32.7 g/dl (32.0-36.5); MEAN CORPUSCULAR VOLUME 102.2 fl (80.0-96.0); MONO # 0.6 10^3/uL (0.0-0.8); MONO % 10.6 % (2.0-8.0); NEUTROPHILS # 3.2 10^3/uL (1.5-8.5); NEUTROPHILS % 58.6 % (36.0-66.0); PLATELET COUNT, AUTOMATED 216 10^3/uL (150-450); RED BLOOD COUNT 3.59 10^6/uL (4.00-5.40); WHITE BLOOD COUNT 5.5 10^3/uL (4.0-10.0)
[2025-01-30 12:14] LABS: KETONE, URINE AUTO RFX NEGATIVE (NEGATIVE); NITRITE, URINE AUTO RFX NEGATIVE (NEGATIVE); RBC, URINE AUTO RFX 0 /HPF (0-3); SQUAM EPITHELIAL CELL UR AURFX 1 /HPF (0-6); WBC, URINE AUTO RFX 0 /HPF (0-3)
[2025-01-30 12:18] LABS: LEUKOCYTE ESTERASE UR AUTO RFX TRACE (NEGATIVE)
[2025-01-30 12:24] LABS: LIPASE 28 U/L (12-53)
[2025-01-30 12:27] LABS: ALBUMIN 3.5 G/DL (3.2-5.2); ALKALINE PHOSPHATASE 94 U/L (35-104); ALT/SGPT 14 U/L (7.0-40); AST/SGOT 21 U/L (<34); BILIRUBIN,DIRECT 0.2 MG/DL (<0.4); BILIRUBIN,TOTAL 0.7 MG/DL (0.3-1.2); BLOOD UREA NITROGEN 8 MG/DL (9-23); CALCIUM LEVEL 9.3 MG/DL (8.3-10.6); CARBON DIOXIDE LEVEL 31 MMOL/L (20-31); CHLORIDE LEVEL 104 MMOL/L (98-107); CREATININE FOR GFR 0.61 MG/DL (0.55-1.30); GLOMERULAR FILTRATION RATE > 90.0 (>45); GLUCOSE, FASTING 93 MG/DL (74-106); POTASSIUM SERUM 4.3 MMOL/L (3.5-5.1); SODIUM LEVEL 142 MMOL/L (136-145); TOTAL PROTEIN 6.8 G/DL (5.7-8.2)
[2025-01-30] MEDS ORDERED: METH-1165 PO (15:37)
[2025-01-30] MEDS ORDERED: NAPR-837 PO (15:37)
[2025-01-30 15:40] VITALS: BP 163/83; TEMP 98.7; O2SAT 96
== END 2025-01-30 15:44 | disposition home or self-care (01) ==
LOC: M ED 09:30
DX: S29.012A Strain of muscle and tendon of back wall of thorax, initial encounter (principal); X58.XXXA Exposure to other specified factors, initial encounter; Y92.9 Unspecified place or not applicable; Y93.9 Activity, unspecified; Y99.9 Unspecified external cause status; I10 Essential (primary) hypertension; E78.5 Hyperlipidemia, unspecified; F41.9 Anxiety disorder, unspecified; F32.A Depression, unspecified; K80.20 Calculus of gallbladder without cholecystitis without obstruction; K57.30 Diverticulosis of large intestine without perforation or abscess without bleeding; K59.00 Constipation, unspecified; Z79.82 Long term (current) use of aspirin; Z79.899 Other long term (current) drug therapy; Z88.2 Allergy status to sulfonamides; Z88.0 Allergy status to penicillin; Z88.1 Allergy status to other antibiotic agents; Z88.8 Allergy status to other drugs, medicaments and biological substances; Z91.030 Bee allergy status
CPT/HCPCS: 74176; 80048; 80076; 81001; 83605; 83690; 85025; 87086; 96374; 96375; 99284; J1885; J2800

== ENCOUNTER → 2025-02-13 | Outpatient (CLI) | payer MEDICARE, OTHER ==
[~2025-02-13] MED LIST changes: +ACET-683 PO; +CYCL1DRO10 OU; +EPIP0.3I2 IM; +NAPR-837 PO; +TIZA2TA PO
== END ==
LOC: M SOG 11:00
PROVIDERS: ATTEND Neuromusculoskeletal Medicine, Sports Medicine
DX: M13.861 Other specified arthritis, right knee (principal)

== ENCOUNTER → 2025-02-16 | Outpatient (CLI) | payer MEDICARE, OTHER | LOC: M PLAIMG 10:57 | PROVIDERS: ATTEND Registered Nurse | DX: S22.060A Wedge compression fracture of T7-T8 vertebra, initial encounter for closed fracture (principal); S32.010A Wedge compression fracture of first lumbar vertebra, initial encounter for closed fracture; M47.812 Spondylosis without myelopathy or radiculopathy, cervical region; M85.88 Other specified disorders of bone density and structure, other site; M54.6 Pain in thoracic spine; Y93.9 Activity, unspecified; Y92.9 Unspecified place or not applicable ==

== ENCOUNTER → 2025-04-05 | Outpatient (REF) | payer MEDICARE, OTHER | LOC: EEVIPCON 17:04 → M LAB REF 17:04 | PROVIDERS: ATTEND Neuromusculoskeletal Medicine, Sports Medicine | DX: M17.0 Bilateral primary osteoarthritis of knee (principal) ==

== ENCOUNTER → 2025-04-24 | Outpatient (CLI) | payer MEDICARE, OTHER | LOC: M PLAIMG 12:00 | PROVIDERS: ATTEND Registered Nurse | DX: R00.2 Palpitations (principal) ==

== ENCOUNTER → 2025-05-01 | Outpatient (CLI) | payer MEDICARE, OTHER ==
[~2025-05-01] MED LIST changes: +VITA200012 PO
[2025-05-01 13:16] LABS: BASO # 0.0 10^3/uL (0.0-0.2); BASO % 0.9 % (0.0-1.0); EOS # 0.2 10^3/uL (0.0-0.5); EOS % 5.2 % (0.0-3.0); LYMPH # 1.4 10^3/uL (1.5-5.0); LYMPH % 29.7 % (24.0-44.0); MONO # 0.6 10^3/uL (0.0-0.8); MONO % 12.8 % (2.0-8.0); NEUTROPHILS # 2.4 10^3/uL (1.5-8.5); NEUTROPHILS % 51.4 % (36.0-66.0); PLATELET COUNT, AUTOMATED 283 10^3/uL (150-450)
[2025-05-01 13:44] LABS: ALT/SGPT 13.0 U/L (7.0-40); AST/SGOT 22.0 U/L (<34); CALCIUM LEVEL 9.9 MG/DL (8.3-10.6); CARBON DIOXIDE LEVEL 30.0 MMOL/L (20-31); CHLORIDE LEVEL 104.0 MMOL/L (98-107); CREATININE FOR GFR 0.74 MG/DL (0.55-1.30); GLOMERULAR FILTRATION RATE 89.2 (>45); POTASSIUM SERUM 4.3 MMOL/L (3.5-5.1); SODIUM LEVEL 142.0 MMOL/L (136-145)
== END ==
LOC: M LAB 12:32
PROVIDERS: ATTEND Neuromusculoskeletal Medicine, Sports Medicine
DX: M17.0 Bilateral primary osteoarthritis of knee (principal); Z79.899 Other long term (current) drug therapy

== ENCOUNTER → 2025-05-09 | Outpatient (CLI) | payer MEDICARE, OTHER | LOC: M RAD 12:36 | PROVIDERS: ATTEND Neuromusculoskeletal Medicine, Sports Medicine | DX: M17.0 Bilateral primary osteoarthritis of knee (principal) ==

== ENCOUNTER 2025-05-16 08:45 | Outpatient (RCR) | payer MEDICARE, OTHER | END 2025-05-28 | LOC: M PT 08:45 | PROVIDERS: ATTEND Neuromusculoskeletal Medicine, Sports Medicine | DX: M17.0 Bilateral primary osteoarthritis of knee (principal) ==

== ENCOUNTER 2025-06-01 09:41 | Observation (INO) | payer MEDICARE, OTHER ==
[~2025-06-01] VITALS: Ht 172.7 cm; Wt 85.4 kg
[~2025-06-01 09:41] MED LIST changes: +ALPR-516 PO; -ALPR1TAB6 PO
[2025-06-01] MEDS: traMADol 50 MG TAB PO ONE (11:16)
[2025-06-01] MEDS ORDERED: ACETAMINOPHEN 500 MG TAB PO PRN (14:55)
[2025-06-01] MEDS ORDERED: **NOTE PATIENT COMMENT** MISC XX SCH (14:55)
[2025-06-01] MEDS ORDERED: MORPHINE 2 MG/ML 1 ML VIAL IV PRN (14:55)
[2025-06-01] MEDS: MORPHINE 2 MG/ML 1 ML VIAL IV PRN (15:38)
[2025-06-01 16:40] LABS: PTH INTACT 37.0 PG/ML (18.5-88.0)
[2025-06-01 16:41] LABS: TOTAL 25(OH) VITAMIN D 57.2 NG/ML (20.0-100.0)
[2025-06-01 16:42] LABS: FREE T4 1.12 NG/DL (0.89-1.76)
[2025-06-01 18:00] VITALS: BP 157/94; TEMP 97.7; O2SAT 97
[2025-06-01 19:46] LABS: BASO # 0.0 10^3/uL (0.0-0.2); BASO % 0.6 % (0.0-1.0); EOS # 0.3 10^3/uL (0.0-0.5); EOS % 5.3 % (0.0-3.0); LYMPH # 1.8 10^3/uL (1.5-5.0); LYMPH % 35.0 % (24.0-44.0); MONO # 0.6 10^3/uL (0.0-0.8); MONO % 11.1 % (2.0-8.0); NEUTROPHILS # 2.4 10^3/uL (1.5-8.5); NEUTROPHILS % 47.8 % (36.0-66.0); PLATELET COUNT, AUTOMATED 221 10^3/uL (150-450)
[2025-06-01 20:00] LABS: INR 0.99
[2025-06-01 20:18] LABS: ALT/SGPT 16 U/L (7.0-40); AST/SGOT 24 U/L (<34); CALCIUM LEVEL 9.8 MG/DL (8.3-10.6); CARBON DIOXIDE LEVEL 28 MMOL/L (20-31); CHLORIDE LEVEL 104 MMOL/L (98-107); CREATININE FOR GFR 0.63 MG/DL (0.55-1.30); GLOMERULAR FILTRATION RATE > 90.0 (>45); MAGNESIUM LEVEL 1.5 MG/DL (1.8-2.4); POTASSIUM SERUM 3.6 MMOL/L (3.5-5.1); SODIUM LEVEL 143 MMOL/L (136-145)
[2025-06-01 20:46] VITALS: BP 157/96; TEMP 97.3; O2SAT 98
[2025-06-01] MEDS ORDERED: CALC600T61 PO (22:19)
[2025-06-01] MEDS ORDERED: HOME MED LIST COMPLETE! XX SCH (22:25)
[2025-06-01] MEDS: MAG SULF 1GM/100ML (MAG RUN) 1 GM in IV 1 EA IV SCH (22:30)
[2025-06-01] MEDS ORDERED: PILL CUTTER 1 EACH XX PRN (22:55)
[2025-06-01] MEDS: FLUoxetine 20 MG CAP PO SCH (23:18)
[2025-06-01] MEDS: AMITRIPTYLINE 25 MG TABLET PO SCH (23:19)
[2025-06-01] MEDS: METOPROLOL SUCC. 50 MG *XL* TAB PO SCH (23:19)
[2025-06-01] MEDS: ALPRAZolam 0.5 MG TAB PO PRN (23:19)
[2025-06-02 00:44] VITALS: BP 118/75; TEMP 96.8; O2SAT 93
[2025-06-02 06:31] VITALS: BP 118/78; TEMP 97.2; O2SAT 94
[2025-06-02] MEDS: ASPIRIN ENTERIC 325 MG TAB PO SCH (08:50)
[2025-06-02 08:51] VITALS: BP 122/79; TEMP 97.5; O2SAT 98
[2025-06-02] MEDS: CALCITONIN NASAL SPRAY 3.7 ML BTL SCH (09:00)
[2025-06-02 09:19] LABS: PLATELET COUNT, AUTOMATED 205 10^3/uL (150-450)
[2025-06-02 09:31] LABS: INR 0.93
[2025-06-02] MEDS: SIMVASTATIN 20 MG TAB PO SCH (09:31)
[2025-06-02] MEDS: traMADol 50 MG TAB PO SCH (09:32)
[2025-06-02 09:48] LABS: CALCIUM LEVEL 9.3 MG/DL (8.3-10.6); CARBON DIOXIDE LEVEL 29 MMOL/L (20-31); CHLORIDE LEVEL 104 MMOL/L (98-107); CREATININE FOR GFR 0.65 MG/DL (0.55-1.30); GLOMERULAR FILTRATION RATE > 90.0 (>45); MAGNESIUM LEVEL 1.9 MG/DL (1.8-2.4); PHOSPHORUS LEVEL 4.1 MG/DL (2.4-5.1); POTASSIUM SERUM 4.2 MMOL/L (3.5-5.1); SODIUM LEVEL 143 MMOL/L (136-145)
[2025-06-02] MEDS: PNEUMOC 21-VAL CONJ-DIP CRM/PF 0.5 ML SYRINGE IM.IMMUN ONE (14:19)
[2025-06-02 20:04] VITALS: BP 129/81; TEMP 97.3; O2SAT 93
[2025-06-03] VITALS: BP 125/81; TEMP 97.3; O2SAT 94
[2025-06-03 04:35] VITALS: BP 114/74; TEMP 96.8; O2SAT 95
[2025-06-03 07:07] LABS: PLATELET COUNT, AUTOMATED 211 10^3/uL (150-450)
[2025-06-03 07:31] LABS: CALCIUM LEVEL 9.4 MG/DL (8.3-10.6); CARBON DIOXIDE LEVEL 31.0 MMOL/L (20-31); CHLORIDE LEVEL 106.0 MMOL/L (98-107); CREATININE FOR GFR 0.74 MG/DL (0.55-1.30); GLOMERULAR FILTRATION RATE 88.6 (>45); MAGNESIUM LEVEL 1.8 MG/DL (1.8-2.4); PHOSPHORUS LEVEL 4.7 MG/DL (2.4-5.1); POTASSIUM SERUM 4.2 MMOL/L (3.5-5.1); SODIUM LEVEL 143.0 MMOL/L (136-145)
[2025-06-03 10:00] VITALS: BP 120/78; TEMP 97.7
[2025-06-03 14:00] VITALS: BP 126/79; TEMP 97.5; O2SAT 93
[2025-06-03 18:00] VITALS: BP 150/93; TEMP 97.5
[2025-06-03 20:20] VITALS: BP 132/84; TEMP 97.7; O2SAT 95
[2025-06-04 00:14] VITALS: BP 130/83; TEMP 97.7; O2SAT 94
[2025-06-04 05:12] VITALS: BP 126/82; TEMP 97.5; O2SAT 95
[2025-06-04 07:09] LABS: PLATELET COUNT, AUTOMATED 211 10^3/uL (150-450)
[2025-06-04 07:35] LABS: CALCIUM LEVEL 9.3 MG/DL (8.3-10.6); CARBON DIOXIDE LEVEL 27 MMOL/L (20-31); CHLORIDE LEVEL 107 MMOL/L (98-107); CREATININE FOR GFR 0.59 MG/DL (0.55-1.30); GLOMERULAR FILTRATION RATE > 90.0 (>45); MAGNESIUM LEVEL 1.7 MG/DL (1.8-2.4); PHOSPHORUS LEVEL 4.2 MG/DL (2.4-5.1); POTASSIUM SERUM 4.1 MMOL/L (3.5-5.1); SODIUM LEVEL 143 MMOL/L (136-145)
[2025-06-04 09:06] LABS: VITAMIN B12 LEVEL 313 PG/ML (211-911)
[2025-06-04] MEDS ORDERED: **NOTE PATIENT COMMENT** MISC XX SCH (10:30)
[2025-06-04 14:00] VITALS: BP 130/84; TEMP 97.5
[2025-06-04] MEDS: ANALGESIC BALM CRM 3 OZ TOP PRN (14:30)
[2025-06-04] MEDS ORDERED: FLEET ENEMA PR PRN (20:10)
[2025-06-04 21:09] VITALS: BP 143/99; TEMP 97.7; O2SAT 96
[2025-06-04] MEDS: MIRALAX *UNIT DOSE* 17 GM PACKET PO SCH (21:30)
[2025-06-05 05:34] VITALS: BP 122/80; TEMP 97.5; O2SAT 96
[2025-06-05 07:36] LABS: PLATELET COUNT, AUTOMATED 194 10^3/uL (150-450)
[2025-06-05 07:53] LABS: CALCIUM LEVEL 9.2 MG/DL (8.3-10.6); CARBON DIOXIDE LEVEL 28 MMOL/L (20-31); CHLORIDE LEVEL 107 MMOL/L (98-107); CREATININE FOR GFR 0.69 MG/DL (0.55-1.30); GLOMERULAR FILTRATION RATE > 90.0 (>45); MAGNESIUM LEVEL 1.7 MG/DL (1.8-2.4); PHOSPHORUS LEVEL 4.1 MG/DL (2.4-5.1); POTASSIUM SERUM 4.1 MMOL/L (3.5-5.1); SODIUM LEVEL 144 MMOL/L (136-145)
[2025-06-05 08:09] VITALS: BP 120/81
[2025-06-05] MEDS: SENNA 8.6 MG TAB PO SCH (08:11)
[2025-06-05] MEDS: MAGNESIUM OXIDE 400 MG TAB PO SCH (08:12)
[2025-06-05 14:52] LABS: FREE KAPPA LIGHT CHAINS SERUM 22.3 mg/L (3.3-19.4); FREE LAMBDA LIGHT CHAINS SERUM 22.3 mg/L (5.7-26.3); KAPPA/LAMBDA RATIO SERUM 1.00 (0.26-1.65)
[2025-06-05] MEDS: ACETAMINOPHEN 500 MG TAB PO PRN (15:19)
[2025-06-05 16:48] LABS: PROTEIN, TOTAL SO 6.8 g/dL (6.1-8.1)
[2025-06-05] MEDS: BISACODYL 10 MG SUPP PR PRN (17:03)
[2025-06-05 22:25] VITALS: TEMP 97.5; O2SAT 98
[2025-06-06 07:07] LABS: PLATELET COUNT, AUTOMATED 219 10^3/uL (150-450)
[2025-06-06 07:15] VITALS: BP 123/83; TEMP 97.2; O2SAT 98
[2025-06-06 07:36] LABS: CALCIUM LEVEL 9.3 MG/DL (8.3-10.6); CARBON DIOXIDE LEVEL 30.0 MMOL/L (20-31); CHLORIDE LEVEL 106.0 MMOL/L (98-107); CREATININE FOR GFR 0.74 MG/DL (0.55-1.30); GLOMERULAR FILTRATION RATE 88.6 (>45); MAGNESIUM LEVEL 1.8 MG/DL (1.8-2.4); PHOSPHORUS LEVEL 4.4 MG/DL (2.4-5.1); POTASSIUM SERUM 4.4 MMOL/L (3.5-5.1); SODIUM LEVEL 143.0 MMOL/L (136-145)
[2025-06-06 08:48] LABS: ALBUMIN SO 3.9 g/dL (3.8-4.8); ALPHA 1 GLOBULINS SO 0.3 g/dL (0.2-0.3); ALPHA 2 GLOBULINS SO 0.7 g/dL (0.5-0.9); BETA 2 GLOBULIN SO 0.5 g/dL (0.2-0.5); BETA GLOBULIN SO 0.4 g/dL (0.4-0.6); GAMMA GLOBULINS SO 1.0 g/dL (0.8-1.7)
[2025-06-06 10:51] LABS: FREE KAPPA LIGHT CHAINS SERUM 23.6 mg/L (3.3-19.4); FREE LAMBDA LIGHT CHAINS SERUM 22.5 mg/L (5.7-26.3); KAPPA/LAMBDA RATIO SERUM 1.05 (0.26-1.65)
[2025-06-06] MEDS ORDERED: SODIUM CHLORIDE 0.9% 500 ML XX ONE (14:00)
[2025-06-06] MEDS ORDERED: ISOVUE-300 61% 100 ML VIAL IV ONE (14:00)
[2025-06-06] MEDS ORDERED: LIDOCAINE 1% SDV 5 ML VIAL SC PRN (14:05)
[2025-06-06] MEDS: LR 1,000 ML IV SCH ×2 (14:05→17:00)
[2025-06-06] MEDS ORDERED: MIDAZOLAM INJ 2 MG/2 ML VIAL As Ordered ONE (14:23)
[2025-06-06] MEDS ORDERED: dexAMETHasone 4 MG/ML 1 ML VIAL As Ordered ONE (14:23)
[2025-06-06] MEDS ORDERED: SUGAMMADEX SODIUM 200 MG/2 ML VIAL As Ordered ONE (14:23)
[2025-06-06] MEDS ORDERED: ONDANSETRON 4MG 2ML VIAL As Ordered ONE (14:23)
[2025-06-06] MEDS ORDERED: ACETAMINOPHEN 1000MG/100ML IV BAG As Ordered ONE (14:24)
[2025-06-06] MEDS ORDERED: LIDOCAINE 2% 100 MG/5 ML SDV (FOR ANES.) As Ordered ONE (14:24)
[2025-06-06] MEDS ORDERED: ROCURONIUM BROMIDE 50MG/5ML VIAL As Ordered ONE (14:24)
[2025-06-06] MEDS ORDERED: PHENYLephrine 500MCG 5ML (100MCG/ML) SYRINGE As Ordered ONE (15:45)
[2025-06-06] MEDS: ceFAZolin SODIUM 2 GM in DEXTROSE 5% (D5W) ADV/MINI-BAG 50 ML IV ONE (15:45)
[2025-06-06] MEDS ORDERED: HYDROMORPHONE HCL 0.5 MG/0.5 ML SYRINGE IV PRN (17:00)
[2025-06-06] MEDS ORDERED: ONDANSETRON 4MG 2ML VIAL IV PRN (17:00)
[2025-06-06] MEDS: LIDOCAINE 1% MDV 20 ML VIAL SC ONE (17:35)
[2025-06-06 21:43] VITALS: BP 109/74; TEMP 96.3; O2SAT 95
[2025-06-06 22:22] VITALS: BP 98/64; TEMP 97.5; O2SAT 93
[2025-06-06 23:03] VITALS: BP 100/69; TEMP 97.7; O2SAT 94
[2025-06-07 00:34] VITALS: BP 126/73; TEMP 97.8; O2SAT 94
[2025-06-07 04:58] VITALS: BP 112/75; TEMP 97.3; O2SAT 93
[2025-06-07 07:16] LABS: PLATELET COUNT, AUTOMATED 221 10^3/uL (150-450)
[2025-06-07 07:37] LABS: CALCIUM LEVEL 9.3 MG/DL (8.3-10.6); CARBON DIOXIDE LEVEL 28 MMOL/L (20-31); CHLORIDE LEVEL 106 MMOL/L (98-107); CREATININE FOR GFR 0.66 MG/DL (0.55-1.30); GLOMERULAR FILTRATION RATE > 90.0 (>45); MAGNESIUM LEVEL 1.7 MG/DL (1.8-2.4); PHOSPHORUS LEVEL 4.1 MG/DL (2.4-5.1); POTASSIUM SERUM 4.3 MMOL/L (3.5-5.1); SODIUM LEVEL 144 MMOL/L (136-145)
[2025-06-07] MEDS: ENOXAPARIN 40 MG/0.4 ML SYRINGE (J1650 PER 10MG) SC SCH (08:59)
[2025-06-07 09:00] VITALS: BP 122/85
[2025-06-07] MEDS: guaiFENesin DM LIQ 10ML UD PO PRN (09:07)
[2025-06-07 14:00] VITALS: BP 123/83; TEMP 97.8; O2SAT 98
[2025-06-07] MEDS ORDERED: MORPHINE 4 MG/ML 1 ML VIAL IV PRN ×2 (14:40)
== END 2025-06-07 15:05 | disposition home or self-care (01) ==
LOC: EDBD 09:41 → M ED 09:41 → M ED INP 09:42 → M MS5PR 17:45
PROVIDERS: ADMIT Family Medicine; ATTEND Internal Medicine
DX: S22.050A Wedge compression fracture of T5-T6 vertebra, initial encounter for closed fracture (principal); M40.204 Unspecified kyphosis, thoracic region; M85.80 Other specified disorders of bone density and structure, unspecified site; M81.0 Age-related osteoporosis without current pathological fracture; G43.909 Migraine, unspecified, not intractable, without status migrainosus; Z86.73 Personal history of transient ischemic attack (TIA), and cerebral infarction without residual deficits; I10 Essential (primary) hypertension; E78.5 Hyperlipidemia, unspecified; M19.90 Unspecified osteoarthritis, unspecified site; K59.04 Chronic idiopathic constipation; F41.9 Anxiety disorder, unspecified; Z79.82 Long term (current) use of aspirin; Z79.899 Other long term (current) drug therapy; Z23 Encounter for immunization
CPT/HCPCS: 22513; 36415; 71250; 72070; 72080; 72128; 72131; 80053; 80069; 82306; 82607; 82746; 83521; 83735; 83970; 84155; 84165; 84439; 84443; 85025; 85027; 85610; 86231; 90684; 93306; 96361; 96372; 96374; 96376; 97161; 97530; 99285; C1889; G0009; G0378; J0131; J0690; J1100; J1650; J2250; J2371; J2405; J3010; J3475

== ENCOUNTER → 2025-06-20 | Outpatient (CLI) | payer OTHER, MEDICARE ==
[~2025-06-20] MED LIST changes: +CALC600T61 PO
== END ==
LOC: M RAD 06:31
PROVIDERS: ATTEND Radiology Diagnostic Radiology
DX: S22.050D Wedge compression fracture of T5-T6 vertebra, subsequent encounter for fracture with routine healing (principal); Z98.890 Other specified postprocedural states; S22.070D Wedge compression fracture of T9-T10 vertebra, subsequent encounter for fracture with routine healing; S22.000D Wedge compression fracture of unspecified thoracic vertebra, subsequent encounter for fracture with routine healing

== ENCOUNTER → 2025-06-20 | Outpatient (CLI) | payer OTHER, MEDICARE | LOC: M RAD 06:33 | PROVIDERS: ATTEND Registered Nurse | DX: M54.2 Cervicalgia (principal); M47.812 Spondylosis without myelopathy or radiculopathy, cervical region; M25.78 Osteophyte, vertebrae ==

== ENCOUNTER → 2025-07-12 | Outpatient (POV) | payer OTHER, MEDICARE ==
[~2025-07-12] VITALS: Ht 172.7 cm; Wt 81.4 kg
[2025-07-12 09:58] VITALS: BP 133/96; O2SAT 98
== END ==
LOC: M IRPOV 09:23
PROVIDERS: ATTEND Registered Nurse School
DX: Z47.89 Encounter for other orthopedic aftercare (principal); M54.6 Pain in thoracic spine; M54.50 Low back pain, unspecified; Z79.891 Long term (current) use of opiate analgesic; Z88.1 Allergy status to other antibiotic agents; Z88.5 Allergy status to narcotic agent; Z88.2 Allergy status to sulfonamides; Z88.8 Allergy status to other drugs, medicaments and biological substances; Z91.030 Bee allergy status

== ENCOUNTER → 2025-07-14 | Outpatient (CLI) | payer OTHER, MEDICARE | LOC: M RAD 09:48 | PROVIDERS: ATTEND Physician Assistant | DX: S22.050D Wedge compression fracture of T5-T6 vertebra, subsequent encounter for fracture with routine healing (principal); M51.369 Other intervertebral disc degeneration, lumbar region without mention of lumbar back pain or lower extremity pain ==

== ENCOUNTER → 2025-07-26 | Outpatient (CLI) | payer OTHER, MEDICARE | LOC: M RAD 14:24 | PROVIDERS: ATTEND Radiology Diagnostic Radiology | DX: S22.050D Wedge compression fracture of T5-T6 vertebra, subsequent encounter for fracture with routine healing (principal) ==

== ENCOUNTER → 2025-07-31 | Outpatient (CLI) | payer MEDICARE, OTHER | LOC: M PLALAB 12:03 | PROVIDERS: ATTEND Nurse Practitioner Family | DX: Z79.891 Long term (current) use of opiate analgesic (principal) | CPT/HCPCS: 36415; 80307; G0480 ==

== ENCOUNTER → 2025-08-09 | Outpatient (POV) | payer OTHER, MEDICARE ==
[~2025-08-09] VITALS: Ht 167.6 cm; Wt 85.4 kg
[~2025-08-09] MED LIST changes: +VITA100T59 PO
[2025-08-09 11:12] VITALS: BP 133/99; O2SAT 99
== END ==
LOC: M IRPOV 10:43
PROVIDERS: ATTEND Registered Nurse School
DX: Z47.89 Encounter for other orthopedic aftercare (principal); S22.048A Other fracture of fourth thoracic vertebra, initial encounter for closed fracture; Z79.891 Long term (current) use of opiate analgesic; Z91.030 Bee allergy status; Z88.1 Allergy status to other antibiotic agents; Z88.2 Allergy status to sulfonamides; Z88.5 Allergy status to narcotic agent; Z88.8 Allergy status to other drugs, medicaments and biological substances; X58.XXXA Exposure to other specified factors, initial encounter; Y92.9 Unspecified place or not applicable; Y93.9 Activity, unspecified; Y99.9 Unspecified external cause status

== ENCOUNTER → 2025-08-16 | Outpatient (CLI) | payer OTHER, MEDICARE | LOC: M RAD 09:31 | PROVIDERS: ATTEND Physician Assistant | DX: S22.050D Wedge compression fracture of T5-T6 vertebra, subsequent encounter for fracture with routine healing (principal); M47.814 Spondylosis without myelopathy or radiculopathy, thoracic region; M25.78 Osteophyte, vertebrae ==

== ENCOUNTER → 2025-09-13 | Outpatient (CLI) | payer OTHER, MEDICARE | LOC: M RAD 08:40 | PROVIDERS: ATTEND Neurological Surgery | DX: S22.050D Wedge compression fracture of T5-T6 vertebra, subsequent encounter for fracture with routine healing (principal) ==

== ENCOUNTER → 2025-09-25 | Outpatient (CLI) | payer MEDICARE, OTHER | LOC: M PLAIMG 10:41 | PROVIDERS: ATTEND Registered Nurse | DX: R07.89 Other chest pain (principal) ==